=== PATIENT | male | born 1950 | race Caucasian/White ===

== ENCOUNTER 2020-01-15 15:42 | Outpatient (CLI) | payer BC, SELFPAY ==
--- NOTE | 2020-01-15 16:07 | ECG_ITS ---
Measurements Intervals [place] Rate: 63 P: 56 NV: 134 QRS: 57 QRSD: 86 T: 87 QT: 428 QTc: 440 Interpretive Statements SINUS RHYTHM INCOMPLETE RIGHT BUNDLE BRANCH BLOCK VOLTAGE CRITERIA FOR LVH BORDERLINE ST-T WAVE ABNORMALITY- INF/LAT LEADS BORDERLINE ECG Electronically Signed On 01-15-2020 17:17:08 BRIDGE TOLL COLLECTOR by Virgil Santos D.O.
== END 2020-01-15 15:43 | disposition home or self-care (01) ==
PROVIDERS: PCP Internal Medicine; Visit Provider Nurse Practitioner
DX: R94.31 Abnormal electrocardiogram [ECG] [EKG] (principal)
CPT/HCPCS: 93005

== ENCOUNTER 2020-08-09 16:46 | Outpatient (CLI) | payer BC, SELFPAY ==
[2020-08-09 17:17] LABS: Basophils Absolute Auto 0.1 K/mm3 (0.0-0.1); Eosinophils Absolute Auto 0.3 K/mm3 (0-0.3); Eosinophils Percent Auto 5.2 % (0-4.4); Hematocrit 48.1 % (42.0-52.0); Hemoglobin 15.8 g/dL (14.0-18.0); Immature Granulocyte Absolute 0.05 K/mm3 (0.00-0.031); Immature Granulocyte Percent A 0.8 % (0-0.5); Lymphocytes Absolute Auto 1.17 K/mm3 (0.9-3.2); Lymphocytes Percent Auto 19.1 % (18.3-44.2); Mean Corpuscular HGB Conc 32.8 g/dl (32-36); Mean Corpuscular Hemoglobin 29.6 pg (26-34); Mean Corpuscular Volume 90.1 fl (80-100); Mean Platelet Volume 10.3 fl (7.4-10.4); Monocytes Absolute Auto 0.5 K/mm3 (0.1-0.6); Monocytes Percent Auto 7.4 % (2.6-8.5); Neutrophils Absolute Auto 4.1 K/mm3 (1.3-6.7); Neutrophils Percent Auto 66.5 % (45.5-73.1); Platelet Count Result 158 k/mm3 (150-375); Red Blood Count 5.34 M/mm3 (4.6-6.20); Red Cell Distribution Width 13.5 % (11.5-14.5); White Blood Count 6.1 K/mm3 (4.5-10.0)
[2020-08-09 17:20] LABS: Add Urine Microscopic? YES; Appearance Urine Clear (Clear); Bilirubin Urine Negative (Negative); Blood Urine Negative (Negative); Color Urine Yellow (Yellow); Glucose Urine UA Negative (Negative); Ketones Urine Negative (Negative); Leukocyte Esterase Ur Negative LEU/UL (Negative); Mucus Urine Rare /lpf; Nitrate Urine Negative (Negative); Protein Urine 1+ mg/dL (Negative); RBC Urine 0-2 /hpf (0-2); Specific Grav Ur 1.021 (1.001-1.035); Squamous Epithelial Cell Urine Rare /hpf (Few); Urobilinogen Urine Negative mg/dL (<2.0); WBC Urine 0-3 /hpf
[2020-08-09 17:32] LABS: Hemoglobin A1C 7.1 % (<5.7)
[2020-08-09 17:36] LABS: Albumin Level 4.2 g/dL (3.5-5.1); Anion Gap 5 mmol/L (8-16); Blood Urea Nitrogen 22 mg/dL (9-20); Calcium 8.9 mg/dL (8.4-10.2); Carbon Dioxide 32 mmol/L (22-30); Chloride 103 mmol/L (98-107); Estimated Glomerular Filt Rate 60; Glucose 167 mg/dL (75-110); Phosphorus 3.6 mg/dL (2.5-4.5); Potassium 4.3 mmol/L (3.4-5.0); Sodium 140 mmol/L (137-145)
[2020-08-09 17:42] LABS: Erythrocyte Sedimentation Rate 9 mm/hr (0-20)
[2020-08-09 18:02] LABS: Vitamin D 25 Hydroxy 61.6 ng/mL
[2020-08-09 18:06] LABS: Creatinine Urine 188.7 mg/dL
[2020-08-09 18:10] LABS: MALB Creatinine Ratio 85.7 mg/g (0-30); Microalbumin Urine Random 161.8 mg/L (0-16.7)
== END 2020-08-09 16:47 | disposition home or self-care (01) ==
PROVIDERS: PCP Internal Medicine
DX: E11.22 Type 2 diabetes mellitus with diabetic chronic kidney disease (principal); N18.3 Chronic kidney disease, stage 3 (moderate); I50.9 Heart failure, unspecified; E11.65 Type 2 diabetes mellitus with hyperglycemia; R60.9 Edema, unspecified; N39.0 Urinary tract infection, site not specified; Z11.4 Encounter for screening for human immunodeficiency virus [HIV]; Z12.5 Encounter for screening for malignant neoplasm of prostate
CPT/HCPCS: 36415; 80069; 81001; 82043; 82306; 83036; 84550; 85025; 85652

== ENCOUNTER 2021-01-02 16:35 | Outpatient (CLI) | payer BC, SELFPAY ==
--- NOTE | ~2021-01-02 | XR_ITS ---
XR chest 2V 01/02/2021 16:53 Indication: History of Covid Procedure: 2 view chest Comparison: Comparison to multiple prior studies sequentially, with oldest reviewed study dated 09/01. Findings: Heart size normal. No focal air space disease, pulmonary edema, pleural effusion or suspect ed pneumothorax. The lungs are hyperinflated which is consistent with, but not diagnostic of chronic obstructive pulmonary disease. Stable calcified nodule left lower lung zone. Impression: 1: No acute cardiopulmonary disease. Reviewed, dictated and finalized at location A. E TV INSTALLER Impression: 1: No acute cardiopulmonary disease.
== END 2021-01-02 16:36 ==
PROVIDERS: Visit Provider Internal Medicine Cardiovascular Disease
DX: Z20.810 Contact with and (suspected) exposure to anthrax (principal); G47.33 Obstructive sleep apnea (adult) (pediatric); Z86.16 Personal history of COVID-19
CPT/HCPCS: 71046

== ENCOUNTER 2021-06-05 16:56 | Emergency (ER) | payer MEDICARE, BC, SELFPAY ==
[2021-06-05 17:07] VITALS: BP 109/64; PULSE 89; RESP 16; TEMP 36.4; O2SAT 99
--- NOTE | 2021-06-05 18:05 | ED.EXTPRO ---
HPI - Extremity Problem General Chief complaint: Extremity Problem,Nontraumatic Stated complaint: lt big toe pain/groin pain History of Present Illness HPI Narrative: The patient, on several meds including insulin and with several allergies, presents with toe discomfort. Patient states he has 1/2-week history of left medial toe discomfort that is pink, slightly painful and and worse with activity and better with elevation. No fever, streaking, discharge; patient also advised to follow-up with PMD and wound clinic [reference provided]. Patient reports several allergies, but can actually take Tylenol Related Data Home Medications Medication Instructions Recorded Confirmed magnesium gluconate 27 mg 27 mg PO DAILY tablet 12/25/19 04/14/21 magnesium (500 mg) tablet aspirin 325 mg tablet 325 mg PO DAILY 09/19/20 04/14/21 mqqsz-v-amrjbizqyvujg 150 unit 150 unit PO DAILY tablet 10/10/20 04/14/21 tablet sennosides 8.6 mg-docusate sodium 2 tab-cap PO BID tablet 10/10/20 04/14/21 50 mg tablet clobetasol 0.05 % scalp solution ml TOPICAL 12/26/20 04/14/21 hydroxyzine HCl 25 mg tablet 25 mg PO ONCE tablet 12/26/20 04/14/21 nifedipine 30 mg tablet,extended 30 mg PO DAILY tablet 12/26/20 04/14/21 release losartan 25 mg tablet 25 mg PO DAILY 02/16/21 04/14/21 ergocalciferol (vitamin D2) 1,250 100,000 unit PO WEEKLY cap 04/14/21 04/14/21 mcg (50,000 unit) capsule insulin regular hum U-500 conc 500 40 unit SUBCUT ONCE ml 04/14/21 04/14/21 unit/mL subcutaneous soln chlorthalidone 06/05/21 ergocalciferol (vitamin D2) 06/05/21 gabapentin 06/05/21 mirabegron [Myrbetriq] mg PO 06/05/21 oxybutynin chloride mg PO 06/05/21 Allergies Allergy/AdvReac Type Severity Reaction Status Date / Time Cephalosporins Allergy Mild SHORTNESS Verified 06/05/21 17:14 OF BREATH amoxicillin Allergy Unknown Unknown Verified 06/05/21 17:14 clavulanic acid Allergy Unknown Unknown Verified 06/05/21 17:14 hydrocodone Allergy Unknown Confusion Verified 06/05/21 17:14 oxycodone [From OxyContin] Allergy Unknown Unknown Verified 06/05/21 17:14 Sulfa (Sulfonamide Allergy Unknown Other Verified 06/05/21 17:14 Antibiotics) acetaminophen [From Vicodin] Allergy Unknown Verified 06/05/21 17:14 lisinopril Allergy Unknown Verified 06/05/21 17:14 norepinephrine Allergy Unknown Verified 06/05/21 17:14 [From Levophed (bitartrate)] morphine AdvReac Severe Jittery Verified 06/05/21 17:14 nitroglycerin AdvReac Unknown HEART RATE Verified 06/05/21 17:14 GOES DOWN FAST Cont[employer] Media Allergy Mild Rash Uncoded 06/05/21 17:14 CYCLOBENZAPRINE HCL Allergy Mild Other Uncoded 06/05/21 17:14 Review of Systems Review of Systems: Narrative: Also mentions that he has chronic right-sided abdominal discomfort after hernia repair with mesh. No fever, vomiting/diarrhea, frequency/dysuria, mass-but there is mild asymmetry. He has had CT scan, and ultrasound General/Constitutional: No weight loss,fever Eyes: N0: Redness,discharge Ears/Nose/Throat: No: Epistaxis,ear discharge Respiratory: Denies: Hemoptysis Gastrointestinal: No Vomiting, Bleeding-rectal Skin: No Lumps, REPORTS eruption Neurologic: No Focal Weakness,Sz Hematologic: Denies: Petechiae/Purpura Psychiatric: No: Suicida ideationl All Other Systems: Reviewed and Negative [facility] Past Medical History Medical History (Updated 06/07/21 @ 10:35 by Foreign Ruiz MD) Adenomatous colon polyp Anxiety Arthritis Bigeminy Bone spur of other site Removed left shoulder CAD (coronary artery disease) CKD (chronic kidney disease) Coarctation of aorta 1965 Depression Diarrhea GERD (gastroesophageal reflux disease) Heart murmur Hemorrhoids Removed Hepatitis B History of intestine removal 2014 Hypercholesterolemia Hypertension Hypokalemia Hypomagnesemia Kidney stone MRSA (methicillin resistant staph aureus) culture positive 2015 Peripheral neuropathy Rectal polyp Recurr
== END 2021-06-05 18:20 | disposition home or self-care (01) ==
PROVIDERS: Emergency Provider Emergency Medicine; PCP Internal Medicine
DX: L03.032 Cellulitis of left toe (principal); L60.0 Ingrowing nail; M19.90 Unspecified osteoarthritis, unspecified site; I25.10 Atherosclerotic heart disease of native coronary artery without angina pectoris; I12.9 Hypertensive chronic kidney disease with stage 1 through stage 4 chronic kidney disease, or unspecified chronic kidney disease; N18.9 Chronic kidney disease, unspecified; K21.9 Gastro-esophageal reflux disease without esophagitis; R01.1 Cardiac murmur, unspecified; E78.00 Pure hypercholesterolemia, unspecified; Z86.14 Personal history of Methicillin resistant Staphylococcus aureus infection; G62.9 Polyneuropathy, unspecified
CPT/HCPCS: 99213; G0463

== ENCOUNTER 2021-06-22 08:33 | Outpatient (CLI) | payer MEDICARE, BC, SELFPAY ==
--- NOTE | ~2021-06-22 | US_ITS ---
EXAMINATION: US art doppler w press LE BI DATE: 06/22/2021 09:29 INDICATION: Lower limb pain TECHNIQUE: Segmental pressures and plethysmographic and Doppler waveforms of the brachial and lower e xtremity arteries were obtained. COMPARISON: None. FINDINGS: Right and left brachial artery pressures of 107 mm Hg and 111 mm Hg, respectively, are concordant (no rmal difference <= 30 mmHg). The right and left high-thigh pressure indices are 1.59 and 1.31, respec tively (normal > 1.2). The right ankle-brachial index (PATRICK) is 1.75 (normal >= 0.9-1). The right great toe-brachial index (T BI) is 0.87 (normal >= 0.6-0.8). The right lower extremity segmental pressure gradients are increased between the right dorsalis pedis artery and the more proximal right wohwl-nkc-pggi popliteal artery, the right posterior tibial artery at the same level as well as the contralateral left dorsalis pedis artery (normal gradients <= 20-30 mmHg between adjacent levels on the same leg or the same levels on the two legs). Arterial waveforms are triphasic at the right common femoral artery and biphasic at t he right superficial femoral, popliteal, posterior tibial and dorsalis pedis arteries with brisk syst olic upstrokes throughout. The left PATRICK is 1.62. The left TBI is 0.86. The left lower extremity segmental pressure gradients are normal. Arterial waveforms are triphasic at the left common femoral artery and biphasic at the left superficial femoral, popliteal, posterior tibial and dorsalis pedis arteries with brisk systolic upst rokes throughout. IMPRESSION: 1. Normal PATRICK's and TBI's bilaterally. No significant occlusive disease. Reviewed, dictated and finalized at location A.
== END 2021-06-22 08:34 | disposition home or self-care (01) ==
PROVIDERS: PCP Internal Medicine; Visit Provider Podiatrist Foot & Ankle Surgery
DX: I73.9 Peripheral vascular disease, unspecified (principal); M79.606 Pain in leg, unspecified
CPT/HCPCS: 93923

== ENCOUNTER 2021-07-04 13:40 | Outpatient (CLI) | payer MEDICARE, BC, SELFPAY ==
--- NOTE | ~2021-07-04 | CT_ITS ---
EXAMINATION: CT abdomen pelvis w con DATE: 07/04/2021 14:24 INDICATION: Right lower quadrant abdominal pain TECHNIQUE: Computed tomography (CT) of the abdomen and pelvis was performed with 100 cc Omnipaque 350 intravenous contrast. Automated exposure control and iterative reconstruction technique were employe d. Exam dose: 1497.45 mGy-cm total exam DLP. COMPARISON: 09/25/2016 CT abdomen pelvis FINDINGS: The lung bases are clear of infiltrate or consolidation. Normal heart size. No pericardial or pleural effusion. Status post cholecystectomy. No hepatic, splenic, pancreatic, and adrenal or renal space-occupying ma ss lesion is noted, the exception of probable 7 mm upper pole left renal cyst and smaller anterior mi d right renal cyst. Bilateral renal scarring and atrophy, greater on the right. Approximately 4.6 mm nonobstructing mid right renal calculus. No other urinary tract calculus or hydr oureteronephrosis. Normal caliber of the abdominal aorta. No intraperitoneal or retroperitoneal or pelvic mass lesion or adenopathy or ascites. There is prominent prostate enlargement and calcification. There is prominent diffuse thickening of t he urinary bladder wall consistent with bladder outlet obstruction secondary to prostatomegaly. The appendix is not visualized, likely resected. There is a mid small bowel anastomosis. There is mild small bowel dilatation up to approximately 3.2 cm proximal to the anastomosis, with some fluid distention and air-fluid levels. The small bowel is n ormal caliber distal to the anastomosis. There may be mild partial obstruction at the anastomotic are a. Small bowel dilatation however is diminished compared to 09/25/2016. There is a moderately prominent amount of fecal material throughout most of the colon. No intraperitoneal free air. Approximately 1 cm sclerotic lesion of left side of L2 vertebral body is likely a bone island, less l ikely prostate metastasis. Diffuse idiopathic skeletal hyperostosis of the thoracic spine. Bilateral hip osteoarthritis. IMPRESSION: Small bowel small bowel anastomosis in the mid abdomen with mild proximal small bowel di latation and air-fluid levels, likely chronic mild partial small bowel obstruction The appendix is not visualized, presumably resected Status post cholecystectomy Bilateral pyelonephritis, worse on the right Nonobstructing 4.6 mm right renal calculus Prostatomegaly and calcification, bladder outlet obstruction Reviewed, dictated and finalized at [facility]. Reviewed, dictated and finalized at [facility]. IMPRESSION: Small bowel small bowel anastomosis in the mid abdomen with mild p roximal small bowel dilatation and air-fluid levels, likely chronic mild partia l small bowel obstruction The appendix is not visualized, presumably resected Status post cholecystectomy Bilateral pyelonephritis, worse on the right Nonobstructing 4.6 mm right renal calculus Prostatomegaly and calcification, bladder outlet obstruction
[2021-07-04 14:04] LABS: Estimated Glomerular Filt Rate 46
== END 2021-07-04 13:41 | disposition home or self-care (01) ==
LOC: ANHIMG 13:43
PROVIDERS: PCP Internal Medicine; Visit Provider Nurse Practitioner Adult Health
DX: R10.31 Right lower quadrant pain (principal); N20.0 Calculus of kidney; N40.1 Benign prostatic hyperplasia with lower urinary tract symptoms; N13.8 Other obstructive and reflux uropathy
CPT/HCPCS: 74177; Q9967

== ENCOUNTER 2021-07-05 17:05 | Emergency (ER) | payer MEDICARE, BC, SELFPAY ==
[2021-07-05 17:16] VITALS: BP 110/58; PULSE 85; RESP 16; TEMP 37.1; O2SAT 98
--- NOTE | 2021-07-05 17:37 | ED.LOWEXIN ---
HPI - Extremity Injury (Lower) General Chief Complaint: Extremity Problem,Nontraumatic Stated Complaint: Left leg and foot Pain Time Seen by Provider: 07/05/21 17:19 Source: patient and RN notes reviewed Mode of arrival: ambulatory Limitations: no limitations History of Present Illness HPI Narrative: Patient presents today complaining of pain to his left anterior lower leg x4 to 5 days. He also reports that veins are popping out of it. He became concerned and called his PCPs office this evening and was told by receptionist to go to the hospital with concerns. Denies numbness or tingling in the leg or foot. Denies any known discoloration. Currently rates pain 08/11 and has tried no medication for symptoms prior to arrival. 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 MD complaint: other (Left leg pain) Related Data Home Medications Medication Instructions Recorded Confirmed magnesium gluconate 27 mg 27 mg PO DAILY tablet 12/25/19 04/14/21 magnesium (500 mg) tablet aspirin 325 mg tablet 325 mg PO DAILY 09/19/20 04/14/21 ndgjm-y-wsemaztdzoset 150 unit 150 unit PO DAILY tablet 10/10/20 04/14/21 tablet sennosides 8.6 mg-docusate sodium 2 tab-cap PO BID tablet 10/10/20 04/14/21 50 mg tablet clobetasol 0.05 % scalp solution ml TOPICAL 12/26/20 04/14/21 hydroxyzine HCl 25 mg tablet 25 mg PO ONCE tablet 12/26/20 04/14/21 nifedipine 30 mg tablet,extended 30 mg PO DAILY tablet 12/26/20 04/14/21 release losartan 25 mg tablet 25 mg PO DAILY 02/16/21 04/14/21 ergocalciferol (vitamin D2) 1,250 100,000 unit PO WEEKLY cap 04/14/21 04/14/21 mcg (50,000 unit) capsule chlorthalidone 06/05/21 gabapentin 06/05/21 oxybutynin chloride mg PO 06/05/21 insulin regular hum U-500 conc 500 40 unit SUBCUT ONCE ml 06/27/21 unit/mL subcutaneous soln Allergies Allergy/AdvReac Type Severity Reaction Status Date / Time Cephalosporins Allergy Mild SHORTNESS Verified 06/05/21 17:14 OF BREATH amoxicillin Allergy Unknown Unknown Verified 06/05/21 17:14 clavulanic acid Allergy Unknown Unknown Verified 06/05/21 17:14 hydrocodone Allergy Unknown Confusion Verified 06/05/21 17:14 oxycodone [From OxyContin] Allergy Unknown Unknown Verified 06/05/21 17:14 Sulfa (Sulfonamide Allergy Unknown Other Verified 06/05/21 17:14 Antibiotics) acetaminophen [From Vicodin] Allergy Unknown Verified 06/05/21 17:14 lisinopril Allergy Unknown Verified 06/05/21 17:14 norepinephrine Allergy Unknown Verified 06/05/21 17:14 [From Levophed (bitartrate)] morphine AdvReac Severe Jittery Verified 06/05/21 17:14 nitroglycerin AdvReac Unknown HEART RATE Verified 06/05/21 17:14 GOES DOWN FAST Contrast Media Allergy Mild Rash Uncoded 06/05/21 17:14 CYCLOBENZAPRINE HCL Allergy Mild Other Uncoded 06/05/21 17:14 Review of Systems Review of Systems: CONSTITUTIONAL: Denies body aches, fever, chills, or sweats. EYES: Denies visual changes, redness, or discharge. ENT: Denies rhinorrhea, congestion, sore throat, or otalgia. CARDIOVASCULAR: Denies chest pain, palpitations, or edema. RESPIRATORY: Denies cough or dyspnea. GASTROINTESTINAL: Denies abdominal pain, nausea, vomiting, or diarrhea. GENITOURINARY: Denies dysuria or hematuria. SKIN: Denies rash, itching, or wounds. MUSCULOSKELETAL: Denies back pain, joint pain, or myalgia. Left leg pain and veins popping out NEUROLOGIC: Denies headache, numbness, tingling, or weakness. PSYCH: Denies depression or anxiety. [facility] Past Medical History Medical History Adenomatous colon polyp Anxiety Arthritis Bigeminy Bone spur of other site Removed left shoulder CAD (coronary artery disease) CKD (chronic kidney disease) Coarctation of aorta 1965 Depression Diarrhea GERD (gastroesophageal reflux disease) Heart murmur Hemorrhoids Removed Hepatitis B History of intes
== END 2021-07-05 17:45 | disposition home or self-care (01) ==
PROVIDERS: Emergency Provider Nurse Practitioner; PCP Internal Medicine
DX: M79.662 Pain in left lower leg (principal); I25.10 Atherosclerotic heart disease of native coronary artery without angina pectoris; I12.9 Hypertensive chronic kidney disease with stage 1 through stage 4 chronic kidney disease, or unspecified chronic kidney disease; N18.9 Chronic kidney disease, unspecified; K21.9 Gastro-esophageal reflux disease without esophagitis; R01.1 Cardiac murmur, unspecified; E78.00 Pure hypercholesterolemia, unspecified; Z86.14 Personal history of Methicillin resistant Staphylococcus aureus infection; G62.9 Polyneuropathy, unspecified
CPT/HCPCS: 99212; G0463

== ENCOUNTER 2021-08-11 09:43 | Outpatient (CLI) | payer MEDICARE, BC, SELFPAY ==
--- NOTE | 2021-08-12 23:57 | WPDPFTINT ---
PFT Procedure Performed PFT Procedure Performed Plethysmography (Lung Vol) Diffusing Cap (DLCO) Flow Vol Loop Spirometry w/o Bronchodil PFT Interpretation DOS: 08/11/2021 REQUESTING: Tyler Curtis MD REASON FOR TESTING: Dyspnea PULMONARY FUNCTION TESTS Results are reliable and reproducible. Spirometry: FEV1 is 82% predicted, 3.03 L. Forced vital capacity is 84% normal. FEV1/FVC is 74% normal. No bronchodilator was given. Lung volumes: Total lung capacity normal 83% predicted. Residual volume is 92% predicted. The RV/TLC is 37%, mildly increased consistent with air trapping. Airway resistance is normal 104% of predicted. Diffusion: DLCO 76%,and this increases to 96% when corrected for alveolar volume. Flow volume loop: Normal. IMPRESSION: Normal spirometry, mild air trapping evidenced by mild increase of RV/TLC, normal diffusion. No bronchodilator was given. Vijaya Rivera MD
== END 2021-08-11 09:44 | disposition home or self-care (01) ==
LOC: ANHPFT 09:50
PROVIDERS: PCP Internal Medicine
DX: R05 Cough (principal); D89.9 Disorder involving the immune mechanism, unspecified; T78.40XA Allergy, unspecified, initial encounter
CPT/HCPCS: 94375; 94726; 94729

== ENCOUNTER 2022-03-02 18:07 | Outpatient (CLI) | payer MEDICARE, SELFPAY ==
--- NOTE | ~2022-03-02 | XR_ITS ---
EXAMINATION: XR hip RT min 2V DATE: 03/02/2022 18:35 INDICATION: Right hip pain. TECHNIQUE: 2 views of right hip were obtained. COMPARISON: None. FINDINGS: Bone alignment is normal. No fracture. There is mild right hip osteoarthritis. IMPRESSION: 1. Mild right hip osteoarthritis. Reviewed, dictated and finalized at location [facility].
== END 2022-03-02 18:08 | disposition home or self-care (01) ==
PROVIDERS: PCP Internal Medicine; Visit Provider Nurse Practitioner
DX: M25.551 Pain in right hip (principal); M16.11 Unilateral primary osteoarthritis, right hip
CPT/HCPCS: 73502

== ENCOUNTER 2022-07-16 12:39 | Outpatient (CLI) | payer MEDICARE, SELFPAY ==
[2022-07-16 21:07] LABS: Folic Acid 11.4 ng/mL (2.76->20)
[2022-07-16 21:23] LABS: Hepatitis C Virus Antibody Negative (Negative)
[2022-07-17 09:34] LABS: Rapid Plasma Reagin Non-Reactive (NonReactive)
[2022-07-19 07:49] LABS: Herpes Simplex Type 1 DNA PCR Not Detected; Herpes Simplex Type 2 DNA PCR Not Detected
== END 2022-07-16 12:40 | disposition home or self-care (01) ==
LOC: ANHGOSHLAB 12:42
PROVIDERS: PCP Internal Medicine; Visit Provider Nurse Practitioner
DX: R41.3 Other amnesia (principal); Z72.51 High risk heterosexual behavior
CPT/HCPCS: 36415; 82607; 82746; 84443; 86592; 86803; 87491; 87529; 87591

== ENCOUNTER 2022-09-05 01:19 | Day surgery (SDC) | payer MEDICARE, SELFPAY ==
[2022-08-28 10:39] VITALS: BMI 33.4
--- NOTE | 2022-09-04 14:05 | PC.NURSE ---
PT CALLED CONCERNED ABOUT HIS INSULIN DOSING DURING HIS COLON PREP. INSTRUCTED TO PATIENT TO CALL HIS DOCTOR THAT TREATS HIS DIABETES- DR. SHEA, HE AGREES TO DO THIS AND WILL CALL HER FOR INSTRUCTIONS
--- NOTE | 2022-09-04 17:43 | PM.HPGS ---
History of Present Illness History of Present Illness Consent: Risks, benefits, and alternatives have been discussed and questions answered. Patient agrees to proceed with procedure. Chief complaint: GERD; hx of colon polyps Narrative: oGrdo Hale is a 72 year old male referred for colon cancer screening. He had a tubular adenoma removed in 2013 Review of Systems Review of Systems: All systems reviewed & are unremarkable except as noted in HPI and below PMFSH Past Medical History Medical History Adenomatous colon polyp Anxiety Arthritis Bigeminy Bone spur of other site Removed left shoulder CAD (coronary artery disease) CKD (chronic kidney disease) Coarctation of aorta 1965 Depression Diarrhea GERD (gastroesophageal reflux disease) Heart murmur Hemorrhoids Removed Hepatitis B History of intestine removal 2014 History of [place] (myocardial infarction) Hypercholesterolemia Hypertension Hypokalemia Hypomagnesemia Kidney stone MRSA (methicillin resistant staph aureus) culture positive 2014 Peripheral neuropathy Rectal polyp Recurrent UTI Surgical History Surgical History H/O hernia repair H/O knee surgery History of carpal tunnel release Left 07/2019 History of cataract surgery Status post surgical removal of nail matrix of toe Family History Family History Sibling Family history of thyroid disease Hypertension Family history of diabetes mellitus in first degree relative Family history of obesity Patient's sister is in good health Diabetes mellitus Mother Hypertension Family history of diabetes mellitus in first degree relative Family history of thyroid disease Family history of osteoporosis Patient's mother is in good health Cerebrovascular accident Family history of Alzheimer's disease Family history of hearing loss Family history of transient ischemic attacks Father Asthma Patient's father is Family history of chronic obstructive pulmonary disease Acute myocardial infarction Family history of lung disease, Onset Age: 64 Social History Social History Smoking status: Never smoker Second hand tobacco smoke exposure: No Alcohol intake: never Substance use: never Substance use type: does not use Living arrangements: alone Spiritual care concerns: No Meds Home Medications and Allergies Home Medications Medication Instructions Recorded Confirmed Type pen needle, diabetic 31 gauge x #100 ea 11/18/19 07/11/22 Rx 3/16 (BD Ultra-Fine Mini Pen Needle) insulin regular hum U-500 conc 500 80 unit subcut QACBREAK 06/27/21 08/28/22 History unit/mL subcutaneous soln (Humulin R U-500 (Concentrated) Insulin) amlodipine 10 mg tablet 10 mg PO DAILY 08/01/22 08/28/22 History atorvastatin 80 mg tablet 80 mg PO QHS #90 tabs 08/01/22 08/28/22 Rx calcitriol 0.25 mcg capsule 0.25 mcg PO DAILY 08/01/22 08/28/22 History clopidogrel 75 mg tablet (Plavix) 75 mg PO DAILY #90 tabs 08/01/22 08/28/22 Rx metoprolol tartrate 50 mg tablet 50 mg PO DAILY 08/01/22 08/28/22 History potassium chloride 20 mEq 20 meq PO DAILY 08/01/22 08/28/22 History tablet,extended release tamsulosin 0.4 mg capsule 0.4 mg PO DAILY 08/01/22 08/28/22 History aspirin 81 mg chewable tablet 81 mg PO DAILY 08/28/22 08/28/22 History Allergies Allergy/AdvReac Type Severity Reaction Status Date / Time Sulfa (Sulfonamide Allergy Severe Dyspnea / Verified 09/05/22 08:07 Antibiotics) SOB amoxicillin Allergy Intermediate Dyspnea / Verified 09/05/22 08:07 SOB Cephalosporins Allergy Intermediate SHORTNESS Verified 09/05/22 08:07 OF BREATH clavulanic acid Allergy Intermediate Dyspnea / Verified 09/05/22 08:07 SOB hydrocodone Allergy Intermediate
[2022-09-05] VITALS (9 sets, daily range): BP systolic 128–157; BP diastolic 74–86; PULSE 72–89; RESP 23–27; O2SAT 97–100
[2022-09-05] MEDS: LACTATED RINGERS 1,000 ML 150 ML IV CONT ×2 (08:24→09:22)
--- NOTE | 2022-09-05 08:32 | WPDANESEPPF ---
Anes - Initial Pre Proc Eval Procedure: Operation Date: 09/05/22 09:30 Proposed Procedures p Esophagogastroduodenoscopy & Screening Colonoscopy - Gordo Trejo MD Date/Time: 09/05/22 08:32 Surgeon: Gordo Trejo MD Pre Op Diagnosis: GERD; hx of colon polyps Patient Data Age: 72 Gender: M Height: 1.88 m Weight: 114.6 kg Allergies Allergy/AdvReac Type Severity Reaction Status Date / Time Sulfa (Sulfonamide Allergy Severe Dyspnea / Verified 09/05/22 08:07 Antibiotics) SOB amoxicillin Allergy Intermediate Dyspnea / Verified 09/05/22 08:07 SOB Cephalosporins Allergy Intermediate SHORTNESS Verified 09/05/22 08:07 OF BREATH clavulanic acid Allergy Intermediate Dyspnea / Verified 09/05/22 08:07 SOB hydrocodone Allergy Intermediate Confusion Verified 09/05/22 08:07 oxycodone [From OxyContin] Allergy Intermediate Confusion Verified 09/05/22 08:07 acetaminophen [From Vicodin] Allergy Confusion Verified 09/05/22 08:07 lisinopril Allergy Unknown Verified 09/05/22 08:07 norepinephrine Allergy Unknown Verified 09/05/22 08:07 [From Levophed (bitartrate)] morphine AdvReac Severe Jittery Verified 09/05/22 08:07 nitroglycerin AdvReac Unknown HEART RATE Verified 09/05/22 08:07 GOES DOWN FAST CYCLOBENZAPRINE HCL Allergy Intermediate Stopped Uncoded 09/05/22 08:07 Breathing Home Medications Medication Instructions Recorded Confirmed Type pen needle, diabetic 31 gauge x #100 ea 11/18/19 07/11/22 Rx 3/16 (BD Ultra-Fine Mini Pen Needle) insulin regular hum U-500 conc 500 80 unit subcut QACBREAK 06/27/21 08/28/22 History unit/mL subcutaneous soln (Humulin R U-500 (Concentrated) Insulin) amlodipine 10 mg tablet 10 mg PO DAILY 08/01/22 08/28/22 History atorvastatin 80 mg tablet 80 mg PO QHS #90 tabs 08/01/22 08/28/22 Rx calcitriol 0.25 mcg capsule 0.25 mcg PO DAILY 08/01/22 08/28/22 History clopidogrel 75 mg tablet (Plavix) 75 mg PO DAILY #90 tabs 08/01/22 08/28/22 Rx metoprolol tartrate 50 mg tablet 50 mg PO DAILY 08/01/22 08/28/22 History potassium chloride 20 mEq 20 meq PO DAILY 08/01/22 08/28/22 History tablet,extended release tamsulosin 0.4 mg capsule 0.4 mg PO DAILY 08/01/22 08/28/22 History aspirin 81 mg chewable tablet 81 mg PO DAILY 08/28/22 08/28/22 History pantoprazole 40 mg tablet,delayed 40 mg PO QAM #30 tabs 09/05/22 Rx release Patient hx anesthesia problems: none Family hx anesthesia problems: none Results Review: All pre-operative results and documents have been reviewed as part of the pre-operative evaluation. [facility] Past Medical History Medical History Adenomatous colon polyp Anxiety Arthritis Bigeminy Bone spur of other site Removed left shoulder CAD (coronary artery disease) CKD (chronic kidney disease) Coarctation of aorta 1964 Depression Diarrhea GERD (gastroesophageal reflux disease) Heart murmur Hemorrhoids Removed Hepatitis B History of intestine removal 2014 History of [place] (myocardial infarction) Hypercholesterolemia Hypertension Hypokalemia Hypomagnesemia Kidney stone MRSA (methicillin resistant staph aureus) culture positive 2014 Peripheral neuropathy Rectal polyp Recurrent UTI Surgical History Surgical History H/O hernia repair H/O knee surgery History of carpal tunnel release Left 07/2019 History of cataract surgery Status post surgical removal of nail matrix of toe Family History Family History Sibling Family history of thyroid disease Hypertension Family history of diabetes mellitus in first degree relative Family history of obesity Patient's sister is in good health Diabetes mellitus Mother Hypertension Family history of diabetes mellitus in first degree relative Family history of thyroid disease Family history of osteopor
[2022-09-05 08:38] LABS: Glucose Point of Care 216 mg/dl (65-105)
--- NOTE | 2022-09-05 09:26 | SUR.OPER ---
EGD start 925 end 936, Colonoscopy start 944 end 1001
[2022-09-05] MEDS: SIMETHICONE ORAL SUSPENSION 20 MG/0.3 ML 30 ML BOTTLE 0.6 ML IRRIGATION (09:51)
[2022-09-05 10:20] LABS: Glucose Point of Care 226 mg/dl (65-105)
--- NOTE | 2022-09-05 11:12 | SUR.PHASEII ---
Pt still very drowsy,opens his eyes then falls back asleep. Blood sugar checked. Doreen (pt's daughter updated).
== END 2022-09-05 11:38 | disposition home or self-care (01) ==
PROVIDERS: PCP Internal Medicine; Visit Provider Internal Medicine Gastroenterology
PROC: 0DJ08ZZ Inspection of Upper Intestinal Tract, Via Natural or Artificial Opening Endoscopic (ICD-10-PCS; CPT 43235; principal; 2022-09-05 09:30)
DX: Z12.11 Encounter for screening for malignant neoplasm of colon (principal); D12.8 Benign neoplasm of rectum; D12.2 Benign neoplasm of ascending colon; D12.3 Benign neoplasm of transverse colon; K21.00 Gastro-esophageal reflux disease with esophagitis, without bleeding; K22.2 Esophageal obstruction; Z79.82 Long term (current) use of aspirin; Z79.51 Long term (current) use of inhaled steroids; F41.9 Anxiety disorder, unspecified; M19.90 Unspecified osteoarthritis, unspecified site; I25.10 Atherosclerotic heart disease of native coronary artery without angina pectoris; I12.9 Hypertensive chronic kidney disease with stage 1 through stage 4 chronic kidney disease, or unspecified chronic kidney disease; N18.9 Chronic kidney disease, unspecified; F32.A Depression, unspecified; I25.2 Old myocardial infarction; R01.1 Cardiac murmur, unspecified; B19.10 Unspecified viral hepatitis B without hepatic coma; E87.6 Hypokalemia; E83.42 Hypomagnesemia; G62.9 Polyneuropathy, unspecified; E66.9 Obesity, unspecified; Z68.32 Body mass index [BMI] 32.0-32.9, adult
CPT/HCPCS: 45385; 43239; 43249; 82948; 87081; 88305; C1726; J2704; J7120

== ENCOUNTER 2022-11-23 00:27 | Day surgery (SDC) | payer MEDICARE, SELFPAY ==
[2022-11-19 11:41] VITALS: BMI 32.4
--- NOTE | 2022-11-23 08:45 | PM.HPGS ---
History of Present Illness History of Present Illness Consent: Risks, benefits, and alternatives have been discussed and questions answered. Patient agrees to proceed with procedure. Chief complaint: Reflex, Esophagitis, Esophageal Stricture Narrative: Gordo Hale is a 72 year old male who had been having dysphagia and reflux symptoms. Two months ago he was found have severe ulcerative esophagitis. He also had a stricture at the GE junction which was dilated up to 18 mm. He has not had choking spells since then. Review of Systems Review of Systems: All systems reviewed & are unremarkable except as noted in HPI and below PMFSH Past Medical History Medical History Adenomatous colon polyp Anxiety Arthritis Bigeminy Bone spur of other site Removed left shoulder CAD (coronary artery disease) CKD (chronic kidney disease) Coarctation of aorta 1964 Depression Diarrhea GERD (gastroesophageal reflux disease) Heart murmur Hemorrhoids Removed Hepatitis B History of intestine removal 2014 History of [place] (myocardial infarction) Hypercholesterolemia Hypertension Hypokalemia Hypomagnesemia Kidney stone MRSA (methicillin resistant staph aureus) culture positive 2014 Peripheral neuropathy Rectal polyp Recurrent UTI Surgical History Surgical History H/O hernia repair H/O knee surgery History of carpal tunnel release Left 07/2019 History of cataract surgery Status post surgical removal of nail matrix of toe Family History Family History Sibling Family history of thyroid disease Hypertension Family history of diabetes mellitus in first degree relative Family history of obesity Patient's sister is in good health Diabetes mellitus Mother Hypertension Family history of diabetes mellitus in first degree relative Family history of thyroid disease Family history of osteoporosis Patient's mother is in good health Cerebrovascular accident Family history of Alzheimer's disease Family history of hearing loss Family history of transient ischemic attacks Father Asthma Patient's father is Family history of chronic obstructive pulmonary disease Acute myocardial infarction Family history of lung disease, Onset Age: 64 Social History Social History Smoking status: Never smoker Second hand tobacco smoke exposure: No Alcohol intake: never Substance use: never Substance use type: does not use Lack of Transportation: No Lack of Food: Never True Current Housing: I Have Housing Concerned About Future Housing: No Difficulty Paying Gas/Electric Bills: No Difficulty Paying for Meds: YES Currently Unemployed: No Education: High School Diploma/GED Difficulty w/ Childcare or Family Care: No Living arrangements: alone Spiritual care concerns: No Meds Home Medications and Allergies Home Medications Medication Instructions Recorded Confirmed Type pen needle, diabetic 31 gauge x #100 ea 11/18/19 11/19/22 Rx 3/16 (BD Ultra-Fine Mini Pen Needle) insulin regular hum U-500 conc 500 80 unit subcut QACBREAK 06/27/21 11/19/22 History unit/mL subcutaneous soln (Humulin R U-500 (Concentrated) Insulin) amlodipine 10 mg tablet 10 mg PO HS 08/01/22 11/20/22 History atorvastatin 80 mg tablet 80 mg PO QHS #90 tabs 08/01/22 11/19/22 Rx calcitriol 0.25 mcg capsule 0.25 mcg PO HS 08/01/22 11/20/22 History metoprolol tartrate 50 mg tablet 50 mg PO HS 08/01/22 11/20/22 History potassium chloride 20 mEq 20 meq PO DAILY 08/01/22 11/19/22 History tablet,extended release aspirin 81 mg chewable tablet 81 mg PO HS 08/28/22 11/20/22 History tamsulosin 0.4 mg capsule See Rx Instructions .Route 11/07/22 11/19/22 Rx .COMPLEX #90 caps clopidogrel
[2022-11-23 08:46] VITALS: BP 139/71; PULSE 95; RESP 20; TEMP 36.4; O2SAT 97; BMI 35.1
[2022-11-23] MEDS: LACTATED RINGERS 1,000 ML 150 ML IV CONT (09:00)
--- NOTE | 2022-11-23 09:12 | WPDANESEPPF ---
Anes - Initial Pre Proc Eval Procedure: Operation Date: 11/23/22 10:00 Proposed Procedures p Esophagogastroduodenoscopy - Gordo Trejo MD Date/Time: 11/23/22 09:12 Surgeon: Gordo Trejo MD Pre Op Diagnosis: Reflex, Esophagitis, Esophageal Stricture Patient Data Age: 72 Gender: M Height: 1.88 m Weight: 124.1 kg Last Vital Signs Temp 36.4 C L 11/23/22 08:46 Pulse 95 11/23/22 08:46 Resp 20 11/23/22 08:46 BP 139/71 11/23/22 08:46 Pulse Ox 97 11/23/22 08:46 O2 Del Method Room Air 11/23/22 08:46 Allergies Allergy/AdvReac Type Severity Reaction Status Date / Time Sulfa (Sulfonamide Allergy Severe Dyspnea / Verified 11/23/22 08:43 Antibiotics) SOB acetaminophen [From Vicodin] Allergy Intermediate Confusion Verified 11/23/22 08:43 amoxicillin Allergy Intermediate Dyspnea / Verified 11/23/22 08:43 SOB Cephalosporins Allergy Intermediate SHORTNESS Verified 11/23/22 08:43 OF BREATH clavulanic acid Allergy Intermediate Dyspnea / Verified 11/23/22 08:43 SOB hydrocodone Allergy Intermediate Confusion Verified 11/23/22 08:43 oxycodone [From OxyContin] Allergy Intermediate Confusion Verified 11/23/22 08:43 lisinopril Allergy Unknown Unknown Verified 11/23/22 08:43 norepinephrine Allergy Unknown Unknown Verified 11/23/22 08:43 [From Levophed (bitartrate)] morphine AdvReac Severe Jittery Verified 11/23/22 08:43 nitroglycerin AdvReac Unknown HEART RATE Verified 11/23/22 08:43 GOES DOWN FAST CYCLOBENZAPRINE HCL Allergy Intermediate Stopped Uncoded 11/23/22 08:43 Breathing Home Medications Medication Instructions Recorded Confirmed Type pen needle, diabetic 31 gauge x #100 ea 11/18/19 11/19/22 Rx 3/16 (BD Ultra-Fine Mini Pen Needle) insulin regular hum U-500 conc 500 80 unit subcut QACBREAK 06/27/21 11/19/22 History unit/mL subcutaneous soln (Humulin R U-500 (Concentrated) Insulin) amlodipine 10 mg tablet 10 mg PO HS 08/01/22 11/20/22 History atorvastatin 80 mg tablet 80 mg PO QHS #90 tabs 08/01/22 11/19/22 Rx calcitriol 0.25 mcg capsule 0.25 mcg PO HS 08/01/22 11/20/22 History metoprolol tartrate 50 mg tablet 50 mg PO HS 08/01/22 11/20/22 History potassium chloride 20 mEq 20 meq PO DAILY 08/01/22 11/19/22 History tablet,extended release aspirin 81 mg chewable tablet 81 mg PO HS 08/28/22 11/20/22 History tamsulosin 0.4 mg capsule See Rx Instructions .Route 11/07/22 11/19/22 Rx .COMPLEX #90 caps clopidogrel 75 mg tablet (Plavix) 75 mg PO HS 11/20/22 11/20/22 History pantoprazole 40 mg tablet,delayed 40 mg PO HS 11/20/22 11/20/22 History release Patient hx anesthesia problems: none Family hx anesthesia problems: none Results Review: All pre-operative results and documents have been reviewed as part of the pre-operative evaluation. [facility] Past Medical History Medical History Adenomatous colon polyp Anxiety Arthritis Bigeminy Bone spur of other site Removed left shoulder CAD (coronary artery disease) CKD (chronic kidney disease) Coarctation of aorta 1964 Depression Diarrhea GERD (gastroesophageal reflux disease) Heart murmur Hemorrhoids Removed Hepatitis B History of intestine removal 2014 History of [place] (myocardial infarction) Hypercholesterolemia Hypertension Hypokalemia Hypomagnesemia Kidney stone MRSA (methicillin resistant staph aureus) culture positive 2014 Peripheral neuropathy Rectal polyp Recurrent UTI Surgical History Surgical History H/O hernia repair H/O knee surgery History of carpal tunnel release Left 07/2019 History of cataract surgery Status post surgical removal of nail matrix of toe Family History Family History Sibling Family history of thyroid disease Hypertension Family history of diabetes mellitus in
[2022-11-23 09:16] LABS: Glucose Point of Care 232 mg/dl (65-105)
[2022-11-23] MEDS: INSULIN HUMAN REGULAR (*BKC) 100 UNITS/ML 6 UNITS SUB-Q (09:21)
[2022-11-23 09:44] VITALS: BP 131/75; PULSE 87; RESP 25; O2SAT 95
[2022-11-23 09:54] VITALS: BP 115/71; PULSE 88; RESP 20; O2SAT 97
[2022-11-23 10:04] VITALS: BP 112/74; PULSE 84; RESP 19; O2SAT 97
== END 2022-11-23 10:32 | disposition home or self-care (01) ==
PROVIDERS: PCP Internal Medicine; Visit Provider Internal Medicine Gastroenterology
PROC: 0DJ08ZZ Inspection of Upper Intestinal Tract, Via Natural or Artificial Opening Endoscopic (ICD-10-PCS; CPT 43235; principal; 2022-11-23 10:00)
DX: K22.2 Esophageal obstruction (principal); I12.9 Hypertensive chronic kidney disease with stage 1 through stage 4 chronic kidney disease, or unspecified chronic kidney disease; N18.9 Chronic kidney disease, unspecified; I25.10 Atherosclerotic heart disease of native coronary artery without angina pectoris; K21.9 Gastro-esophageal reflux disease without esophagitis; I25.2 Old myocardial infarction; E78.00 Pure hypercholesterolemia, unspecified; Z79.02 Long term (current) use of antithrombotics/antiplatelets; E66.9 Obesity, unspecified; Z68.35 Body mass index [BMI] 35.0-35.9, adult; Z86.19 Personal history of other infectious and parasitic diseases
CPT/HCPCS: 43249; 82948; 88305; 88312; C1726; J1815; J2704; J7120

== ENCOUNTER 2022-12-10 14:18 | Outpatient (CLI) | payer MEDICARE, SELFPAY ==
--- NOTE | ~2022-12-10 | US_ITS ---
EXAMINATION: US art doppler w press LE BI DATE: 12/10/2022 15:15 INDICATION: Peripheral arterial occlusive disease. TECHNIQUE: Segmental pressures and plethysmographic and Doppler waveforms of the brachial and lower e xtremity arteries were obtained. COMPARISON: None. FINDINGS: Right and left brachial artery pressures of 146 mm Hg and 135 mm Hg, respectively, are concordant (no rmal difference <= 30 mmHg). The right and left high-thigh pressure indices were unable to be obtaine d due to patient body habitus. The right ankle-brachial index (PATRICK) is 0.99 (normal >= 0.9-1) based only upon measurement in the rig ht dorsalis pedis artery as the right posterior tibial artery was unable to be occluded. The right gr eat toe-brachial index (TBI) is 0.39 (normal >= 0.6-0.8). Arterial waveforms are biphasic with brisk systolic upstrokes throughout the arteries of the right lower limb. The left PATRICK is 0.97 also based only upon measurement in the left dorsalis pedis artery with the left posterior cerebral artery also unable to be occluded. The left TBI is 0.43. Arterial waveforms are b iphasic with brisk systolic upstrokes throughout the left lower limb. IMPRESSION: 1. Arterial occlusive disease to bilateral lower limbs with mild to moderately decreased bilateral TB Is. Normal bilateral ABIs may be artifactually elevated given the bilateral posterior tibial arteries are unable to be occluded suggesting possible vessel wall calcifications. Reviewed, dictated and finalized at location A. USEL OPERATOR IMPRESSION: 1. 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 Normal bilateral ABIs may be artifactually elevated g iven the bilateral posterior tibial arteries are unable to be occluded suggesti ng possible vessel wall calcifications.
== END 2022-12-10 14:19 | disposition home or self-care (01) ==
PROVIDERS: PCP Internal Medicine; Visit Provider Podiatrist Foot & Ankle Surgery
DX: I73.9 Peripheral vascular disease, unspecified (principal)
CPT/HCPCS: 93923

== ENCOUNTER 2023-02-25 07:55 | Inpatient (IN) | payer MEDICARE, SELFPAY ==
[2023-02-25] VITALS (21 sets, daily range): BP systolic 74–121; BP diastolic 45–68; PULSE 53–69; RESP 12–22; TEMP 36.1–36.6; O2SAT 96–100; BMI 31.1
--- NOTE | ~2023-02-25 | XR_ITS ---
XR chest 2V DATE: 02/25/2023 08:34 INDICATION: Weakness TECHNIQUE: AP and lateral views COMPARISON: January 02, 2021 2 view chest FINDINGS: Comminuted left fourth rib deformity. Scoliosis and degenerative spurring of the thoracic s pine. Normal heart size. No hilar or mediastinal enlargement. No pulmonary infiltrate or consolidation, pleural effusion or pulmonary vascular congestion or pneumo thorax. IMPRESSION: No active cardiopulmonary disease or significant change since January 02, 2021 Reviewed, dictated and finalized at location B. IMPRESSION: No active cardiopulmonary disease or significant change since 2020
--- NOTE | ~2023-02-25 | XR_ITS ---
EXAMINATION: XR chest 1V portable DATE: 02/25/2023 13:38 INDICATION: Hypotension. TECHNIQUE: A single frontal view of the chest was obtained on 2 radiographs. COMPARISON: Chest 2 views at 8:26 AM, CT abdomen and pelvis 07/04/2021 FINDINGS: The chest demonstrates clear lungs without pneumonia, pleural effusion, or pneumothorax. Th e heart size is normal. IMPRESSION: 1. No acute cardiopulmonary disease. Reviewed, dictated and finalized at location A.
--- NOTE | 2023-02-25 08:03 | ECG_ITS ---
Measurements Intervals Fraser Rate: 53 P: 99 FL: 115 QRS: 58 QRSD: 104 T: 134 QT: 506 QTc: 477 Interpretive Statements SINUS BRADYCARDIA WITH SHORT FL INTERVAL INCOMPLETE RIGHT BUNDLE BRANCH BLOCK T WAVE ABNORMALITY IN ANT/HIGH LAT LEADS- CONSIDER ISCHEMIA BASELINE ARTIFACT- I, AVR, V4 ABNORMAL ECG COMPARED TO ECG 01/15/2020 16:17:37 SINUS BRADYCARDIA NOW PRESENT T WAVE ABNORMALITY NOW PRESENT Electronically Signed On 02-25-2023 13:57:24 CDT by Virgil Santos D.O.
[2023-02-25 08:28] LABS: Basophils Percent Auto 0.7 % (0.2-1.2); Eosinophils Absolute Auto 0.2 K/mm3 (0-0.3); Eosinophils Percent Auto 2.6 % (0-4.4); Hematocrit 41.4 % (42.0-52.0); Hemoglobin 14.3 g/dL (14.0-18.0); Immature Granulocyte Absolute 0.03 K/mm3 (0.00-0.031); Immature Granulocyte Percent A 0.5 % (0-0.5); Lymphocytes Absolute Auto 0.77 K/mm3 (0.9-3.2); Lymphocytes Percent Auto 13.1 % (18.3-44.2); Mean Corpuscular HGB Conc 34.5 g/dl (32-36); Mean Corpuscular Hemoglobin 30.2 pg (26-34); Mean Corpuscular Volume 87.3 fl (80-100); Mean Platelet Volume 10.8 fl (7.4-10.4); Monocytes Absolute Auto 0.4 K/mm3 (0.1-0.6); Monocytes Percent Auto 7.5 % (2.6-8.5); Neutrophils Absolute Auto 4.4 K/mm3 (1.3-6.7); Neutrophils Percent Auto 75.6 % (45.5-73.1); Platelet Count Result 175 k/mm3 (150-375); Red Blood Count 4.74 M/mm3 (4.6-6.20); Red Cell Distribution Width 13.3 % (11.5-14.5); White Blood Count 5.9 K/mm3 (4.5-10.0)
[2023-02-25 08:31] LABS: Alanine Aminotransferase 41 U/L (6-50); Albumin Level 4.1 g/dL (3.5-5.1); Alkaline Phosphatase 86 U/L (38-126); Anion Gap 12 mmol/L (8-16); Aspartate Amino Transferase 32 U/L (17-59); Bilirubin,Total 1.1 mg/dL (0.2-1.3); Blood Urea Nitrogen 25 mg/dL (9-20); Calcium 8.8 mg/dL (8.4-10.2); Carbon Dioxide 24 mmol/L (22-30); Chloride 103 mmol/L (98-107); Estimated CRCL calculation 37 ml/min; Estimated Glomerular Filt Rate 30; Glucose 181 mg/dL (65-110); Potassium 4.2 mmol/L (3.4-5.0); Sodium 139 mmol/L (137-145)
--- NOTE | 2023-02-25 10:25 | ED.GENADULT ---
HPI - General Adult General Chief complaint: Weakness Stated complaint: weakness, N/V Time Seen by Provider: 02/25/23 08:36 Source: patient and EMS Mode of arrival: EMS Limitations: no limitations History of Present Illness HPI narrative: 72 years old white male came to the emergency room from home by ambulance because of low blood pressure. Patient is a status post coronary stents 3 to 4 weeks ago at [facility], patient still me that he been vomiting and having diarrhea intermittently since. On average twice a day of each. Patient reports when he stand up get dizzy and feel like he is going down, for the last 4 weeks. Patient was seen by many physician for the low blood pressure without treatment or specific diagnosis. Currently patient laying down in bed, denying any symptoms. He is concerned about his low blood pressure. He denies any fever, chills, nausea, chest pain, shortness of breath, back pain or abdominal pain or urinary symptoms. Related Data Home Medications Medication Instructions Recorded Confirmed insulin regular hum U-500 conc 500 80 unit subcut QACBREAK 06/27/21 01/29/23 unit/mL subcutaneous soln (Humulin R U-500 (Concentrated) Insulin) calcitriol 0.25 mcg capsule 0.25 mcg PO HS 08/01/22 01/29/23 potassium chloride 20 mEq 20 meq PO DAILY 08/01/22 01/29/23 tablet,extended release aspirin 81 mg chewable tablet 81 mg PO HS 08/28/22 01/29/23 pantoprazole 40 mg tablet,delayed 40 mg PO HS 11/20/22 01/29/23 release losartan 50 mg tablet 50 mg PO DAILY 12/07/22 01/29/23 isosorbide mononitrate 30 mg 30 mg PO DAILY 12/21/22 01/29/23 tablet,extended release 24 hr cholecalciferol (vitamin D3) 50 50 mcg PO 2XW 01/29/23 01/29/23 mcg (2,000 unit) capsule gabapentin 100 mg capsule 100 mg PO TID 01/29/23 01/29/23 hydroxyzine HCl 25 mg tablet 25 mg PO QHS PRN 01/29/23 01/29/23 metoprolol tartrate 50 mg tablet 50 mg PO BID 01/29/23 01/29/23 sertraline 100 mg tablet 150 mg PO DAILY 01/29/23 01/29/23 ticagrelor 90 mg tablet (Brilinta) 90 mg PO BID 01/29/23 01/29/23 Allergies Allergy/AdvReac Type Severity Reaction Status Date / Time cyclobenzaprine Allergy Severe Stopped Verified 02/25/23 10:30 Breathing Sulfa (Sulfonamide Allergy Severe Dyspnea / Verified 02/25/23 08:27 Antibiotics) SOB amoxicillin Allergy Intermediate Dyspnea / Verified 02/25/23 08:27 SOB clavulanic acid Allergy Intermediate Dyspnea / Verified 02/25/23 08:27 SOB lisinopril Allergy Unknown Unknown Verified 02/25/23 08:27 norepinephrine Allergy Unknown Unknown Verified 02/25/23 08:27 [From Levophed (bitartrate)] morphine AdvReac Severe Jittery Verified 02/25/23 08:27 acetaminophen [From Vicodin] AdvReac Intermediate Confusion Verified 02/25/23 10:30 Cephalosporins AdvReac Intermediate SHORTNESS Verified 02/25/23 10:30 OF BREATH hydrocodone AdvReac Intermediate Confusion Verified 02/25/23 10:30 oxycodone [From OxyContin] AdvReac Intermediate Confusion Verified 02/25/23 10:30 nitroglycerin AdvReac Unknown HEART RATE Verified 01/29/23 14:23 GOES DOWN FAST Review of Systems Review of Systems: All systems reviewed & are unremarkable except as noted in HPI and below PMFSH Past Medical History Medical History Adenomatous colon polyp Anxiety Arthritis Bigeminy Bone spur of other site Removed left shoulder CAD (coronary artery disease) CKD (chronic kidney disease) Coarctation of aorta 1964 Depression Diarrhea GERD (gastroesophageal reflux disease) Heart murmur Hemorrhoids Removed Hepatitis B History of intestine removal 2014 History of CA (myocardial infarction) Hypercholesterolemia Hypertension Hypokalemia Hypomagnesemia Kidney stone MRSA (methicillin resistant staph aureus) culture positive 2014 Peripheral neuropathy Rectal polyp Recurrent UTI Surgical History Surgical History
--- NOTE | 2023-02-25 10:26 | PC.NURSE ---
MARISEL Alfonso made aware of pt's bp of 74/49. VORB to give bolus 1L of NS.
[2023-02-25] MEDS: SODIUM CHLORIDE 0.9% IV 1,000 ML 999 ML IV CONT ×3 (10:33→13:13)
[2023-02-25] MEDS: SODIUM CHLORIDE 0.9% IV 1,000 ML 150 ML IV CONT (14:25)
[2023-02-25 14:49] LABS: Appearance Urine Cloudy (Clear); Bacteria Urine None Seen /hpf; Bilirubin Urine 1+ (Negative); Blood Urine Negative (Negative); Budding Yeast Urine Present /hpf; Color Urine Dark Yellow (Yellow); Glucose Urine UA Trace mg/dL (Negative); Ketones Urine Trace mg/dL (Negative); Leukocyte Esterase Ur Trace LEU/UL (Negative); Mucus Urine Present /lpf; Need Manual Microscopic Reviewed; Nitrate Urine Negative (Negative); Non Pathogenic Casts >20; Protein Urine 1+ mg/dL (Negative); RBC Urine 0-2 /hpf (0-2); Squamous Epithelial Cell Urine Few /hpf (Few); WBC Urine 0-5 /hpf
[2023-02-25 14:50] LABS: Add Urine Microscopic? YES
--- NOTE | 2023-02-25 17:15 | PM.IMHP ---
H&P: HPI History of Present Illness Date/Time: 02/25/23 17:15 Chief Complaint: Weakness. Narrative: This is a pleasant 72-year-old male with coronary artery disease, hypertension, dyslipidemia, insulin-dependent diabetes, and other comorbidities who presented to the emergency department via EMS from home for evaluation of weakness. He was admitted to [facility] on January 08 after presenting with chest pain. He had a cardiac catheterization done the following day by Dr. Pitt of [facility] which showed multivessel coronary artery disease and ejection fraction of 45%. Three stents were placed at that time and he was transferred to [facility] for high risk PCI of another artery unknown to the patient. That was reportedly successful and he was discharged home within a couple of days. He was rehospitalized for a couple of days the following week with nausea and vomiting and he tells me that he had an esophageal stent placed at that time though cannot provide further details. I wonder if he had his esophagus dilated. In any event he has gotten progressively weak and he endorses frequent nausea and occasional vomiting on a nearly daily basis. He feels lightheaded and dizzy with position changes and bending over. In fact he has fallen 7 to 8 in the past 1 week which he attributes to the weakness and lightheadedness. Luckily he has not injured himself and he denies head trauma and loss of consciousness. This morning he once again symptoms and called EMS. On their arrival his blood pressure was 60/40 and he was given 600 mL of normal saline in route to the hospital. On arrival he was still 79/51 although his blood pressures have responded nicely to fluids since that time. He has evidence of an acute kidney injury and labs today with a BUN and creatinine of 25 in 2.20 respectively (creatinine was 1.36 in January 2022). He is being admitted in this setting for further hydration and evaluation. At the time my evaluation he is sitting up eating dinner reports feeling better. Review of Systems Review of Systems: Twelve systems were reviewed. No fever, chills, or sweats. No recent cold or flu symptoms. He denies chest pain shortness a breath. He has noticed a decrease in urine output. Denies feelings of urinary retention. Glucose has been stable. Except as documented, all other systems were reviewed and are negative. [facility] Past Medical History Medical History (Updated 02/27/23 @ 13:45 by Nereyda Mai PA-C) Adenomatous colon polyp Anxiety Arthritis Chronic kidney disease, stage 3 Coarctation of aorta Coronary artery disease Depression Gastroesophageal reflux disease Heart failure with reduced ejection fraction Hepatitis B Hypercholesterolemia Hypertension Insulin dependent diabetes mellitus Kidney stone Methicillin resistant Staphylococcus aureus infection (2015) Myocardial infarction Obstructive sleep apnea Does not use a CPAP. Peripheral neuropathy Psoriasis Rectal polyp Recurrent UTI Surgical History Surgical History (Updated 02/27/23 @ 13:45 by Nereyda Mai PA-C) History of aortic coarctation repair (1964) History of appendectomy History of arthroscopy of both knees History of arthroscopy of left shoulder With removal of bone spur. History of bilateral carpal tunnel release History of bilateral knee replacement History of cardiac catheterization History of cataract surgery History of cholecystectomy History of colonoscopy with polypectomy History of coronary artery stent placement History of hemorrhoidectomy History of hernia repair History of partial colectomy (2014) Secondary to bowel obstruction. History of tonsillectomy Family History Family History Sibling Family history of thyroid disease Hypertension Family history of diabetes mellitus in first degree relative Family history of obesity Patient'
--- NOTE | 2023-02-25 17:58 | ADMGEN ---
This patient, Gordo Hale, was admitted to Medical Room 241-. Patient/family oriented to hospital policies and general routines including ID bracelet, bed and alarms, visiting hours, pain management, procedures, bathroom and other care routines, personal items, smoking policy, room service/diet, and visiting hours. Information on how to activate the Rapid Response Team has been discussed. Patient/Family are encouraged to report perceived risks to care and to ask questions if they do not understand what they are told or what they should do.
[2023-02-26] VITALS (16 sets, daily range): BP systolic 111–151; BP diastolic 58–83; PULSE 53–87; RESP 20; TEMP 36.1–36.4; O2SAT 92–100
[2023-02-26] MEDS: SODIUM CHLORIDE 0.9% IV 1,000 ML 150 ML IV CONT ×2 (01:31→10:42)
[2023-02-26] MEDS: ASPIRIN 81 MG CHEWABLE TABLET PO ×2 (01:36→21:33)
[2023-02-26] MEDS: ATORVASTATIN 40 MG TABLET 80 MG PO ×2 (01:36→21:34)
[2023-02-26] MEDS: PANTOPRAZOLE 40 MG TABLET PO ×2 (01:36→21:33)
[2023-02-26] MEDS: METOPROLOL TARTRATE 25 MG TABLET PO ×3 (01:36→16:39)
[2023-02-26] MEDS: TAMSULOSIN HCL 0.4 MG CAPSULE PO ×2 (01:36→21:33)
[2023-02-26 06:05] LABS: Hematocrit 37.1 % (42.0-52.0); Hemoglobin 12.4 g/dL (14.0-18.0); Mean Corpuscular HGB Conc 33.4 g/dl (32-36); Mean Corpuscular Volume 89.6 fl (80-100); Mean Platelet Volume 10.9 fl (7.4-10.4); Platelet Count Result 144 k/mm3 (150-375); Red Blood Count 4.14 M/mm3 (4.6-6.20); Red Cell Distribution Width 13.5 % (11.5-14.5)
[2023-02-26 06:19] LABS: Alanine Aminotransferase 35 U/L (6-50); Albumin Level 3.5 g/dL (3.5-5.1); Alkaline Phosphatase 83 U/L (38-126); Anion Gap 9 mmol/L (8-16); Aspartate Amino Transferase 28 U/L (17-59); Bilirubin,Total 0.6 mg/dL (0.2-1.3); Blood Urea Nitrogen 21 mg/dL (9-20); Calcium 7.9 mg/dL (8.4-10.2); Carbon Dioxide 24 mmol/L (22-30); Chloride 108 mmol/L (98-107); Estimated CRCL calculation 49 ml/min; Estimated Glomerular Filt Rate 40; Glucose 150 mg/dL (65-110); Magnesium 1.1 mg/dL (1.6-2.3); Potassium 4.2 mmol/L (3.4-5.0); Sodium 141 mmol/L (137-145)
[2023-02-26] MEDS: GABAPENTIN 300 MG CAPSULE PO (08:44)
[2023-02-26] MEDS: calcitrioL 0.25 MCG CAPSULE PO ×2 (08:45→16:39)
[2023-02-26] MEDS: POTASSIUM CHLORIDE 20 MEQ TABLET.ER PO (08:45)
[2023-02-26] MEDS: CLOPIDOGREL BISULFATE 75 MG TABLET PO (08:45)
[2023-02-26 08:52] LABS: Glucose Point of Care 132 mg/dl (65-105)
--- NOTE | 2023-02-26 09:46 | PM.IMPN ---
Progress Note: A&P Assessment and Plan (1) Acute kidney injury superimposed on chronic kidney disease: Code(s): N17.9 - Acute kidney failure, unspecified; N18.9 - Chronic kidney disease, unspecified Status: Acute Assessment and Plan: Likely due to a combination of factors including hypovolemia from dehydration due to poor oral intake the last several weeks and hypoperfusion from hypotension. He is on several blood pressure medications as well including losartan, metoprolol, and isosorbide mononitrate. No urinary retention. Avoid nephrotoxic agents for now. Continue IV hydrated with close monitoring of volume status and renal function. Renal function is responding to hydration, but not at baseline yet. Will continue as patient is still orthostatic. Holding losartan (2) Hypotension: Code(s): I95.9 - Hypotension, unspecified Status: Acute Assessment and Plan: As above. +orthostatic hypotension. He has not been eating and drinking well the last several weeks and he may be a bit overmedicated. Hold antihypertensives except continue metoprolol with parameters due to recent multiple cardiac stents and [place]. Continue fall precautions. Monitor orthostatic vital signs. (3) Insulin dependent diabetes mellitus: Status: Chronic Assessment and Plan: Continue basal insulin. Continue sliding scale insulin, Accu-Cheks, and hypoglycemic protocol. (4) Coronary artery disease: Code(s): I25.10 - Atherosclerotic heart disease of [place] coronary artery without angina pectoris Status: Acute Assessment and Plan: He had 4 stents placed within the last month as per HPI. Continue dual anti-platelet therapy. He is not having any chest pain whatsoever. EKG was reviewed and does show T-wave inversion which may very well be due to recent PCI. Continued on metoprolol. (5) Heart failure with reduced ejection fraction: Code(s): I50.20 - Unspecified systolic (congestive) heart failure Status: Acute Assessment and Plan: EF at time of cardiac catheterization in January 2023 was reportedly 45%. Continue cautious IV fluid rehydration with close monitoring of I/O volume status, and renal function. (6) Hypomagnesemia: Code(s): E83.42 - Hypomagnesemia Status: Acute Assessment and Plan: Magnesium level 1.1. Give magnesium sulfate 3 grams IV x1. Repeat Magnesium level tomorrow. (7) Frequent falls: Code(s): R29.6 - Repeated falls Status: Acute Assessment and Plan: Secondary to orthostatic hypotension and dehydration. PT/OT evaluation Plan CODE STATUS: DNR Disposition: from home and lives alone. Time Spent With Patient Time with patient: 15 - 25 minutes Subjective Date/time seen: 02/26/23 09:46 Interval history: Patient found sitting up in the bed. He reports dizziness with standing. Prior to admission, he was weak for 2 weeks and barely able to eat or drink. He was also having loose stool and reported episodes of his blood pressure being 75/40s. He denies chest pain, SOB, palpitations, abdominal pain, N/V, melena, hematechezia or dysuria. Review of Systems Review of Systems: All systems reviewed & are unremarkable except as noted in HPI and below Exam Narrative: General: Nontoxic-appearing male sitting in bed in no distress. HEENT: Normocephalic, atraumatic. PERRL, EOMI without nystagmus. Sclera anicteric. mucous membranes pink and moist Neck: Supple. No JVD. Respiratory: Lungs are clear to auscultation bilaterally. RR regular and unlabored. Cardiovascular: Regular rate and rhythm with S1-S2. No murmurs. Gastrointestinal: Abdomen is soft, obese, nontender, and nondistended with positive bowel sounds. Skin: Warm and dry. No rash or lesions on limited exam. Extremities: No cyanosis, clubbing, or edema. Radial and pedal palpable but diminished. Grossly normal ROM. Neurological: Alert
[2023-02-26] MEDS: ACETAMINOPHEN 500 MG TABLET 1000 MG PO (10:16)
[2023-02-26] MEDS: BENZOCAINE/MENTHOL (*BKC) 18 EA LOZENGE 1 LOZENGE PO (10:42)
[2023-02-26 12:14] LABS: Glucose Point of Care 237 mg/dl (65-105)
[2023-02-26] MEDS: INSULIN ASPART (*BKC) 100 UNITS/ML SUB-Q (12:19)
[2023-02-26] MEDS: MAGNESIUM SULFATE 3GM/D5W100ML 3 GM/100 ML BAG IVPB (16:38)
[2023-02-26 17:25] LABS: Glucose Point of Care 181 mg/dl (65-105)
[2023-02-26 21:44] LABS: Glucose Point of Care 154 mg/dl (65-105)
[2023-02-27] VITALS (16 sets, daily range): BP systolic 129–177; BP diastolic 52–85; PULSE 49–77; RESP 16–18; TEMP 36.1–36.8; O2SAT 97–100
[2023-02-27 05:10] LABS: Hematocrit 38.7 % (42.0-52.0); Immature Platelet Fraction Pct 5.3 % (0.9-11.2); Mean Corpuscular HGB Conc 33.6 g/dl (32-36); Mean Corpuscular Hemoglobin 29.7 pg (26-34); Mean Corpuscular Volume 88.6 fl (80-100); Mean Platelet Volume 10.5 fl (7.4-10.4); Platelet Count Result 133 k/mm3 (150-375); Red Blood Count 4.37 M/mm3 (4.6-6.20); Red Cell Distribution Width 13.4 % (11.5-14.5); White Blood Count 4.6 K/mm3 (4.5-10.0)
[2023-02-27 05:27] LABS: Albumin Level 3.8 g/dL (3.5-5.1); Anion Gap 7 mmol/L (8-16); Blood Urea Nitrogen 14 mg/dL (9-20); Calcium 8.4 mg/dL (8.4-10.2); Carbon Dioxide 27 mmol/L (22-30); Chloride 105 mmol/L (98-107); Estimated CRCL calculation 55 ml/min; Estimated Glomerular Filt Rate 46; Glucose 134 mg/dL (65-110); Magnesium 1.3 mg/dL (1.6-2.3); Phosphorus 3.5 mg/dL (2.5-4.5); Potassium 4.5 mmol/L (3.4-5.0); Sodium 139 mmol/L (137-145)
[2023-02-27 08:48] LABS: Glucose Point of Care 143 mg/dl (65-105)
[2023-02-27] MEDS: METOPROLOL TARTRATE 25 MG TABLET PO (09:08)
[2023-02-27] MEDS: GABAPENTIN 300 MG CAPSULE PO (09:09)
[2023-02-27] MEDS: calcitrioL 0.25 MCG CAPSULE PO ×2 (09:09→17:15)
[2023-02-27] MEDS: CLOPIDOGREL BISULFATE 75 MG TABLET PO (09:09)
[2023-02-27] MEDS: POTASSIUM CHLORIDE 20 MEQ TABLET.ER PO (11:10)
[2023-02-27] MEDS: MAGNESIUM SULFATE 3GM/D5W100ML 3 GM/100 ML BAG IVPB (11:10)
[2023-02-27 12:10] LABS: Glucose Point of Care 247 mg/dl (65-105)
--- NOTE | 2023-02-27 12:25 | PM.IMPN ---
Progress Note: A&P Assessment and Plan (1) Acute kidney injury superimposed on chronic kidney disease: Code(s): N17.9 - Acute kidney failure, unspecified; N18.9 - Chronic kidney disease, unspecified Status: Acute Assessment and Plan: Likely due to a combination of factors including hypovolemia from dehydration due to poor oral intake the last several weeks and hypoperfusion from hypotension. He is on several blood pressure medications as well including losartan, metoprolol, and isosorbide mononitrate. No urinary retention. Avoid nephrotoxic agents for now. Continue IV hydrated with close monitoring of volume status and renal function. Renal function is responding to hydration, but not at baseline yet. Will continue as patient is still orthostatic. Holding losartan (2) Hypotension: Code(s): I95.9 - Hypotension, unspecified Status: Acute Assessment and Plan: As above. +orthostatic hypotension. He has not been eating and drinking well the last several weeks and he may be a bit overmedicated. Hold antihypertensives except continue metoprolol with parameters due to recent multiple cardiac stents and [place]. Continue fall precautions. Monitor orthostatic vital signs. 02/27/23 Patient feeling weak when he ambulates and still has positive orthostatics. (3) Insulin dependent diabetes mellitus: Status: Chronic Assessment and Plan: Continue basal insulin. Continue sliding scale insulin, Accu-Cheks, and hypoglycemic protocol. (4) Coronary artery disease: Code(s): I25.10 - Atherosclerotic heart disease of [place] coronary artery without angina pectoris Status: Acute Assessment and Plan: He had 4 stents placed within the last month as per HPI. Continue dual anti-platelet therapy. He is not having any chest pain whatsoever. EKG was reviewed and does show T-wave inversion which may very well be due to recent PCI. Continued on metoprolol. (5) Heart failure with reduced ejection fraction: Code(s): I50.20 - Unspecified systolic (congestive) heart failure Status: Acute Assessment and Plan: EF at time of cardiac catheterization in January 2023 was reportedly 45%. Continue cautious IV fluid rehydration with close monitoring of I/O volume status, and renal function. (6) Hypomagnesemia: Code(s): E83.42 - Hypomagnesemia Status: Acute Assessment and Plan: Magnesium level 1.1. Give magnesium sulfate 3 grams IV x1. Repeat Magnesium level tomorrow. 02/27/2023 Mag level 1.3 - patient given another 3 g of IV Mag sulfate. Will repeat labs tomorrow. (7) Frequent falls: Code(s): R29.6 - Repeated falls Status: Acute Assessment and Plan: Secondary to orthostatic hypotension and dehydration. PT/OT evaluation And recommend home health as an outpatient. Plan CODE STATUS: DNR Disposition: from home and lives alone. Time Spent With Patient Time with patient: 15 - 25 minutes Subjective Date/time seen: 02/27/23 12:25 Interval history: Patient lying in bed resting when I entered the room. Patient states that he is still feeling weak and lightheaded when he ambulates and is worried about going home. Patient's electrolytes are still being managed and he is still orthostatic. Review of Systems Review of Systems: All systems reviewed & are unremarkable except as noted in HPI and below Exam Narrative: GENERAL: Comfortable, no acute distress HENMT: moist mucous membranes EYES: EOM intact b/l NECK: no lymphadenopathy RESPIRATORY: clear to auscultation CARDIO: RRR GI: soft, nontender, bowel sounds present SKIN: no rashes EXTREMITIES: no edema, redness or tenderness Objective Data Vital Signs Vital Signs: Vital Signs - 24 hr 02/26/23 13:48 02/26/23 14:42 02/26/23 16:00 Temperature 97.6 F Pulse Rate 64 53
[2023-02-27] MEDS: INSULIN ASPART (*BKC) 100 UNITS/ML SUB-Q (12:35)
[2023-02-27 17:05] LABS: Glucose Point of Care 166 mg/dl (65-105)
[2023-02-27 20:05] LABS: Glucose Point of Care 219 mg/dl (65-105)
[2023-02-27] MEDS: ATORVASTATIN 40 MG TABLET 80 MG PO (20:13)
[2023-02-27] MEDS: ASPIRIN 81 MG CHEWABLE TABLET PO (20:14)
[2023-02-27] MEDS: PANTOPRAZOLE 40 MG TABLET PO (20:14)
[2023-02-27] MEDS: TAMSULOSIN HCL 0.4 MG CAPSULE PO (20:14)
[2023-02-28] VITALS (16 sets, daily range): BP systolic 82–171; BP diastolic 53–80; PULSE 49–75; RESP 16–18; TEMP 36.3–37.1; O2SAT 96–100; BMI 36.3
[2023-02-28 05:07] LABS: Basophils Percent Auto 0.8 % (0.2-1.2); Eosinophils Absolute Auto 0.3 K/mm3 (0-0.3); Eosinophils Percent Auto 6.3 % (0-4.4); Hematocrit 41.5 % (42.0-52.0); Immature Granulocyte Absolute 0.04 K/mm3 (0.00-0.031); Immature Granulocyte Percent A 0.8 % (0-0.5); Lymphocytes Percent Auto 14.2 % (18.3-44.2); Mean Corpuscular HGB Conc 33.7 g/dl (32-36); Mean Corpuscular Hemoglobin 29.7 pg (26-34); Mean Corpuscular Volume 88.1 fl (80-100); Monocytes Absolute Auto 0.3 K/mm3 (0.1-0.6); Monocytes Percent Auto 6.5 % (2.6-8.5); Neutrophils Absolute Auto 3.5 K/mm3 (1.3-6.7); Neutrophils Percent Auto 71.4 % (45.5-73.1); Platelet Count Result 150 k/mm3 (150-375); Red Blood Count 4.71 M/mm3 (4.6-6.20); Red Cell Distribution Width 13.3 % (11.5-14.5); White Blood Count 4.9 K/mm3 (4.5-10.0)
[2023-02-28 05:21] LABS: Alanine Aminotransferase 31 U/L (6-50); Albumin Level 3.9 g/dL (3.5-5.1); Alkaline Phosphatase 104 U/L (38-126); Anion Gap 7 mmol/L (8-16); Aspartate Amino Transferase 22 U/L (17-59); Bilirubin,Total 0.8 mg/dL (0.2-1.3); Blood Urea Nitrogen 12 mg/dL (9-20); Calcium 8.9 mg/dL (8.4-10.2); Carbon Dioxide 30 mmol/L (22-30); Chloride 101 mmol/L (98-107); Estimated CRCL calculation 68 ml/min; Estimated Glomerular Filt Rate 60; Glucose 133 mg/dL (65-110); Magnesium 1.4 mg/dL (1.6-2.3); Phosphorus 3.2 mg/dL (2.5-4.5); Potassium 3.8 mmol/L (3.4-5.0); Sodium 138 mmol/L (137-145)
[2023-02-28] MEDS: ACETAMINOPHEN 500 MG TABLET 1000 MG PO (07:33)
[2023-02-28] MEDS: MAGNESIUM SULFATE 3GM/D5W100ML 3 GM/100 ML BAG IVPB (07:34)
[2023-02-28] MEDS: METOPROLOL TARTRATE 25 MG TABLET PO (08:39)
[2023-02-28] MEDS: CLOPIDOGREL BISULFATE 75 MG TABLET PO (08:39)
[2023-02-28] MEDS: GABAPENTIN 300 MG CAPSULE PO (08:39)
[2023-02-28] MEDS: POTASSIUM CHLORIDE 20 MEQ TABLET.ER PO (08:39)
[2023-02-28] MEDS: calcitrioL 0.25 MCG CAPSULE PO ×2 (08:39→17:27)
[2023-02-28 08:48] LABS: Glucose Point of Care 138 mg/dl (65-105)
--- NOTE | 2023-02-28 11:25 | PC.NURSE ---
On 02/28/23, the student, [Vin Smith], provided care and completed [facility] documentation on this patient. I have reviewed the student's documentation and agree with the findings.
[2023-02-28 12:00] LABS: Glucose Point of Care 287 mg/dl (65-105)
[2023-02-28] MEDS: INSULIN ASPART (*BKC) 100 UNITS/ML SUB-Q (12:08)
--- NOTE | 2023-02-28 12:33 | PM.IMPN ---
Progress Note: A&P Assessment and Plan (1) Acute kidney injury superimposed on chronic kidney disease: Code(s): N17.9 - Acute kidney failure, unspecified; N18.9 - Chronic kidney disease, unspecified Status: Acute Assessment and Plan: Likely due to a combination of factors including hypovolemia from dehydration due to poor oral intake the last several weeks and hypoperfusion from hypotension. He is on several blood pressure medications as well including losartan, metoprolol, and isosorbide mononitrate. No urinary retention. Avoid nephrotoxic agents for now. Continue IV hydrated with close monitoring of volume status and renal function. Renal function is responding to hydration, but not at baseline yet. Will continue as patient is still orthostatic. Holding losartan (2) Hypotension: Code(s): I95.9 - Hypotension, unspecified Status: Acute Assessment and Plan: As above. +orthostatic hypotension. He has not been eating and drinking well the last several weeks and he may be a bit overmedicated. Hold antihypertensives except continue metoprolol with parameters due to recent multiple cardiac stents and [place]. Continue fall precautions. Monitor orthostatic vital signs. 02/27/23 Patient feeling weak when he ambulates and still has positive orthostatics. 02/28/23Start midodrine 2.5 mg t.i.d. (3) Insulin dependent diabetes mellitus: Status: Chronic Assessment and Plan: Continue basal insulin. Continue sliding scale insulin, Accu-Cheks, and hypoglycemic protocol. (4) Coronary artery disease: Code(s): I25.10 - Atherosclerotic heart disease of [place] coronary artery without angina pectoris Status: Acute Assessment and Plan: He had 4 stents placed within the last month as per HPI. Continue dual anti-platelet therapy. He is not having any chest pain whatsoever. EKG was reviewed and does show T-wave inversion which may very well be due to recent PCI. Continued on metoprolol. (5) Heart failure with reduced ejection fraction: Code(s): I50.20 - Unspecified systolic (congestive) heart failure Status: Acute Assessment and Plan: EF at time of cardiac catheterization in January 2023 was reportedly 45%. Continue cautious IV fluid rehydration with close monitoring of I/O volume status, and renal function. (6) Hypomagnesemia: Code(s): E83.42 - Hypomagnesemia Status: Acute Assessment and Plan: Magnesium level 1.1. Give magnesium sulfate 3 grams IV x1. Repeat Magnesium level tomorrow. 02/27/2023 Mag level 1.3 - patient given another 3 g of IV Mag sulfate. Will repeat labs tomorrow. 02/28/2023 Mag level 1.4 - patient given another 3 g of IV Mag sulfate. Will repeat labs tomorrow. (7) Frequent falls: Code(s): R29.6 - Repeated falls Status: Acute Assessment and Plan: Secondary to orthostatic hypotension and dehydration. PT/OT evaluation and recommend home health as an outpatient. Plan CODE STATUS: DNR Disposition: from home and lives alone. Subjective Date/time seen: 02/28/23 12:33 Interval history: Patient doing well today although he is still orthostatic. today orthostasis resulted in hypotension of 82/53 while standing. Side to start midodrine and see how patient responds. Continue to replace electrolytes. Patient has no new complaints today. Review of Systems Review of Systems: All systems reviewed & are unremarkable except as noted in HPI and below Exam Narrative: GENERAL: Comfortable, no acute distress HENMT: moist mucous membranes EYES: EOM intact b/l NECK: no lymphadenopathy RESPIRATORY: clear to auscultation CARDIO: RRR GI: soft, nontender, bowel sounds present SKIN: no rashes EXTREMITIES: no edema, redness or tenderness Objective Data Vital Signs Vital Signs: Vital Signs - 24 hr
[2023-02-28] MEDS: FINASTERIDE 5 MG TABLET PO (14:41)
[2023-02-28] MEDS: MIDODRINE HCL 2.5 MG TABLET PO ×2 (14:41→17:27)
--- NOTE | 2023-02-28 14:59 | PC.NURSE ---
On 02/28/23, the student, [Dasha Vital], provided care and completed [facility]. I have reviewed the student's documentation and agree with the findings.
[2023-02-28 17:40] LABS: Glucose Point of Care 142 mg/dl (65-105)
[2023-02-28] MEDS: ATORVASTATIN 40 MG TABLET 80 MG PO (20:08)
[2023-02-28] MEDS: PANTOPRAZOLE 40 MG TABLET PO (20:08)
[2023-02-28] MEDS: ASPIRIN 81 MG CHEWABLE TABLET PO (20:08)
[2023-02-28 21:00] LABS: Glucose Point of Care 209 mg/dl (65-105)
[2023-03-01] VITALS (10 sets, daily range): BP systolic 101–166; BP diastolic 61–92; PULSE 49–105; RESP 16–17; TEMP 34.4–36.8; O2SAT 98–100
[2023-03-01 05:38] LABS: Hemoglobin 14.7 g/dL (14.0-18.0); Mean Corpuscular HGB Conc 34.2 g/dl (32-36); Mean Corpuscular Hemoglobin 30.3 pg (26-34); Mean Corpuscular Volume 88.7 fl (80-100); Mean Platelet Volume 10.9 fl (7.4-10.4); Platelet Count Result 153 k/mm3 (150-375); Red Blood Count 4.85 M/mm3 (4.6-6.20); Red Cell Distribution Width 13.8 % (11.5-14.5); White Blood Count 4.9 K/mm3 (4.5-10.0)
[2023-03-01 05:50] LABS: Albumin Level 3.9 g/dL (3.5-5.1); Anion Gap 5 mmol/L (8-16); Blood Urea Nitrogen 13 mg/dL (9-20); Carbon Dioxide 33 mmol/L (22-30); Chloride 100 mmol/L (98-107); Estimated CRCL calculation 77 ml/min; Estimated Glomerular Filt Rate > 60; Glucose 137 mg/dL (65-110); Magnesium 1.5 mg/dL (1.6-2.3); Phosphorus 3.6 mg/dL (2.5-4.5); Sodium 138 mmol/L (137-145)
[2023-03-01 08:00] LABS: Glucose Point of Care 144 mg/dl (65-105)
[2023-03-01] MEDS: MAGNESIUM SULFATE 3GM/D5W100ML 3 GM/100 ML BAG IVPB (08:22)
[2023-03-01] MEDS: POTASSIUM CHLORIDE 20 MEQ TABLET.ER PO (08:23)
[2023-03-01] MEDS: GABAPENTIN 300 MG CAPSULE PO (08:23)
[2023-03-01] MEDS: CLOPIDOGREL BISULFATE 75 MG TABLET PO (08:23)
[2023-03-01] MEDS: METOPROLOL TARTRATE 25 MG TABLET PO ×2 (08:23→17:06)
[2023-03-01] MEDS: FINASTERIDE 5 MG TABLET PO (08:23)
[2023-03-01] MEDS: MIDODRINE HCL 2.5 MG TABLET PO ×3 (08:24→17:06)
[2023-03-01] MEDS: calcitrioL 0.25 MCG CAPSULE PO ×2 (08:24→17:06)
--- NOTE | 2023-03-01 11:26 | PC.NURSE ---
On 03/01/23, the student, [Vin Smith], provided care and completed [facility] documentation on this patient. I have reviewed the student's documentation and agree with the findings.
[2023-03-01 11:50] LABS: Glucose Point of Care 235 mg/dl (65-105)
[2023-03-01] MEDS: INSULIN ASPART (*BKC) 100 UNITS/ML SUB-Q (12:41)
--- NOTE | 2023-03-01 13:43 | PC.NURSE ---
On 03/01/23, the student, [Severiano Espinal], provided care and completed [facility] documentation on this patient. I have reviewed the student's documentation and agree with the findings.
--- NOTE | 2023-03-01 15:58 | PM.DS ---
DS: Admitting Diagnosis Discharge Date 03/01/23 Admitting Diagnosis Weakness, fall DS: Discharge Diagnosis Discharge Diagnosis (1) Acute kidney injury superimposed on chronic kidney disease: Code(s): N17.9 - Acute kidney failure, unspecified; N18.9 - Chronic kidney disease, unspecified Status: Acute Assessment and Plan: Likely due to a combination of factors including hypovolemia from dehydration due to poor oral intake the last several weeks and hypoperfusion from hypotension. He is on several blood pressure medications as well including losartan, metoprolol, and isosorbide mononitrate. No urinary retention. Avoid nephrotoxic agents for now. Continue IV hydrated with close monitoring of volume status and renal function. Renal function is responding to hydration, but not at baseline yet. Will continue as patient is still orthostatic. Holding losartan (2) Hypotension: Code(s): I95.9 - Hypotension, unspecified Status: Acute Assessment and Plan: As above. +orthostatic hypotension. He has not been eating and drinking well the last several weeks and he may be a bit overmedicated. Hold antihypertensives except continue metoprolol with parameters due to recent multiple cardiac stents and GA. Continue fall precautions. Monitor orthostatic vital signs. 02/27/23 Patient feeling weak when he ambulates and still has positive orthostatics. 02/28/23Start midodrine 2.5 mg t.i.d. (3) Insulin dependent diabetes mellitus: Status: Chronic Assessment and Plan: Continue basal insulin. Continue sliding scale insulin, Accu-Cheks, and hypoglycemic protocol. (4) Coronary artery disease: Code(s): I25.10 - Atherosclerotic heart disease of [place] coronary artery without angina pectoris Status: Acute Assessment and Plan: He had 4 stents placed within the last month as per HPI. Continue dual anti-platelet therapy. He is not having any chest pain whatsoever. EKG was reviewed and does show T-wave inversion which may very well be due to recent PCI. Continued on metoprolol. (5) Heart failure with reduced ejection fraction: Code(s): I50.20 - Unspecified systolic (congestive) heart failure Status: Acute Assessment and Plan: EF at time of cardiac catheterization in January 2023 was reportedly 45%. Continue cautious IV fluid rehydration with close monitoring of I/O volume status, and renal function. (6) Hypomagnesemia: Code(s): E83.42 - Hypomagnesemia Status: Acute Assessment and Plan: Magnesium level 1.1. Give magnesium sulfate 3 grams IV x1. Repeat Magnesium level tomorrow. 02/27/2023 Mag level 1.3 - patient given another 3 g of IV Mag sulfate. Will repeat labs tomorrow. 02/28/2023 Mag level 1.4 - patient given another 3 g of IV Mag sulfate. Will repeat labs tomorrow. 03/01/2023 Mag level 2. Stable (7) Frequent falls: Code(s): R29.6 - Repeated falls Status: Acute Assessment and Plan: Secondary to orthostatic hypotension and dehydration. PT/OT evaluation and recommend home health as an outpatient. Plan CODE STATUS: DNR Disposition: from home and lives alone. DS: Summary Hospital Course Reason for hospitalization: fall, weakness Hospital Course: This is a 72-year-old male who presented to the ED due to increased falls and weakness. Patient was found to have a low blood pressure at the time of his presentation. Patient is status post coronary stents 3-4 weeks ago. Past medical history includes CAD, hypertension, hyperlipidemia, insulin-dependent diabetes and other comorbidities. Patient stated that he has been dizzy and that is what has been the cause of his falls. Patient has increased dizziness with changes of positions. His blood pressure was 60/40 when EMS found him and by the time he arrived to the ED it was 79/50. Cruz
[2023-03-01 17:09] LABS: Glucose Point of Care 139 mg/dl (65-105)
== END 2023-03-01 18:16 | disposition home health service (06) | DRG 312 ==
LOC: ANHED 12:48 → ANH3MEDSUR 15:37 → ANH2MED 16:52
PROVIDERS: Nurse Practitioner Family; Physician Assistant; Admitting Provider Student in an Organized Health Care Education/Training Program; Emergency Provider Emergency Medicine; PCP Internal Medicine; Visit Provider Internal Medicine Critical Care Medicine
DX: I95.1 Orthostatic hypotension (principal); N17.9 Acute kidney failure, unspecified; I13.0 Hypertensive heart and chronic kidney disease with heart failure and stage 1 through stage 4 chronic kidney disease, or unspecified chronic kidney disease; I50.22 Chronic systolic (congestive) heart failure; E78.00 Pure hypercholesterolemia, unspecified; E87.6 Hypokalemia; E83.42 Hypomagnesemia; E11.42 Type 2 diabetes mellitus with diabetic polyneuropathy; E11.22 Type 2 diabetes mellitus with diabetic chronic kidney disease; F32.A Depression, unspecified; F41.9 Anxiety disorder, unspecified; G47.33 Obstructive sleep apnea (adult) (pediatric); I25.2 Old myocardial infarction; I25.10 Atherosclerotic heart disease of native coronary artery without angina pectoris; K21.9 Gastro-esophageal reflux disease without esophagitis; M19.90 Unspecified osteoarthritis, unspecified site; N18.30 Chronic kidney disease, stage 3 unspecified; R29.6 Repeated falls; Z66 Do not resuscitate; Z90.49 Acquired absence of other specified parts of digestive tract; Z79.4 Long term (current) use of insulin; Z86.14 Personal history of Methicillin resistant Staphylococcus aureus infection; Z95.5 Presence of coronary angioplasty implant and graft; Z96.653 Presence of artificial knee joint, bilateral; Z79.02 Long term (current) use of antithrombotics/antiplatelets
CPT/HCPCS: 36415; 71045; 71046; 80048; 80053; 80069; 80076; 81001; 82948; 83735; 84100; 85025; 85027; 85055; 93005; 96360; 96361; 96374; 96376; 97110; 97161; 97165; 97530; 97535; 99285; A9270; G0378; J1815; J3475; J7030

== ENCOUNTER 2023-03-05 18:19 | Emergency (ER) | payer MEDICARE, SELFPAY ==
[2023-03-05 18:48] VITALS: BP 96/82; PULSE 76; RESP 18; TEMP 36.3; O2SAT 98
--- NOTE | 2023-03-05 19:31 | PC.NURSE ---
Pt came up to intake desk and stated his ride was here and that he would be leaving and come back at later time. Pt A&Ox4, reps even non-labored. Skin pink, warm, and dry. Pt ambulatory with cane out of ED at this time.
== END 2023-03-05 21:43 | disposition left against medical advice (07) ==
PROVIDERS: PCP Internal Medicine
DX: R30.0 Dysuria (principal)
CPT/HCPCS: 99199

== ENCOUNTER 2023-03-06 14:08 | Outpatient (CLI) | payer MEDICARE, SELFPAY ==
[2023-03-06 19:15] LABS: Appearance Urine Turbid (Clear); Bacteria Urine None Seen /hpf; Bilirubin Urine 1+ (Negative); Color Urine Dark Yellow (Yellow); Glucose Urine UA 3+ mg/dL (Negative); Hyaline Casts Urine Present /lpf; Ketones Urine Trace mg/dL (Negative); Leukocyte Esterase Ur 2+ LEU/UL (Negative); Nitrate Urine Positive (Negative); Non Pathogenic Casts 0-2; Protein Urine 2+ mg/dL (Negative); RBC Urine 0-2 /hpf (0-2); Specific Grav Ur 1.028 (1.001-1.035); Squamous Epithelial Cell Urine None seen /hpf (Few); WBC Urine 21-50 /hpf
[2023-03-06 19:16] LABS: Add Urine Microscopic? YES
== END 2023-03-06 14:09 | disposition home or self-care (01) ==
LOC: ANHGOSHLAB 14:10
PROVIDERS: PCP Internal Medicine; Visit Provider Nurse Practitioner
DX: R30.0 Dysuria (principal)
CPT/HCPCS: 81001; 87086; 87147; 87181; 87186

== ENCOUNTER 2023-03-13 14:50 | Outpatient (CLI) | payer MEDICARE, SELFPAY ==
[2023-03-13 19:22] LABS: Alanine Aminotransferase 38 U/L (6-50); Albumin Level 4.4 g/dL (3.5-5.1); Alkaline Phosphatase 87 U/L (38-126); Anion Gap 9 mmol/L (8-16); Aspartate Amino Transferase 47 U/L (17-59); Bilirubin,Total 0.9 mg/dL (0.2-1.3); Blood Urea Nitrogen 26 mg/dL (9-20); Calcium 9.5 mg/dL (8.4-10.2); Carbon Dioxide 31 mmol/L (22-30); Chloride 101 mmol/L (98-107); Estimated Glomerular Filt Rate 60; Glucose 149 mg/dL (65-110); Magnesium 1.4 mg/dL (1.6-2.3); Sodium 141 mmol/L (137-145)
[2023-03-13 19:39] LABS: Appearance Urine Turbid (Clear); Bacteria Urine None Seen /hpf; Bilirubin Urine 1+ (Negative); Blood Urine Negative (Negative); Color Urine Dark Yellow (Yellow); Glucose Urine UA Trace mg/dL (Negative); Ketones Urine Negative (Negative); Leukocyte Esterase Ur Trace LEU/UL (Negative); Nitrate Urine Negative (Negative); Non Pathogenic Casts 0-2; Protein Urine 1+ mg/dL (Negative); RBC Urine 0-2 /hpf (0-2); Specific Grav Ur 1.033 (1.001-1.035); Squamous Epithelial Cell Urine Occasional /hpf (Few)
[2023-03-13 19:45] LABS: Add Urine Microscopic? YES
== END 2023-03-13 14:51 | disposition home or self-care (01) ==
LOC: ANHGOSHLAB 14:52
PROVIDERS: PCP Internal Medicine; Visit Provider Nurse Practitioner
DX: R30.0 Dysuria (principal); N17.9 Acute kidney failure, unspecified; E83.42 Hypomagnesemia
CPT/HCPCS: 36415; 80053; 81001; 83735; 87086

== ENCOUNTER 2023-04-05 10:42 | Inpatient (IN) | payer MEDICARE, SELFPAY ==
[2023-04-05] VITALS (32 sets, daily range): BP systolic 94–180; BP diastolic 56–102; PULSE 65–103; RESP 9–25; TEMP 36.1–36.2; O2SAT 98–100; BMI 28.0
--- NOTE | ~2023-04-05 | XR_ITS ---
EXAMINATION: XR ribs LT 2V DATE: 04/05/2023 23:04 INDICATION: Left chest pain. TECHNIQUE: 2 views of the left ribs on 3 radiographs were obtained. COMPARISON: Chest 2 views 04/05/2023, CT abdomen and pelvis 07/04/2021 FINDINGS: A calcified left lung nodule is consistent with old granulomatous disease. There is no left -sided pneumonia, pleural effusion, or pneumothorax. There is old healed fracture of left fourth rib. IMPRESSION: 1. No acute rib fracture. Reviewed, dictated and finalized at location A. IMPRESSION: 1. No acute rib fracture.
--- NOTE | ~2023-04-05 | XR_ITS ---
Clinical Indication: Chest pain AP and lateral views of the chest: Comparison: 02/25/2023 Findings: Stable large calcified left basilar granuloma. The lungs are otherwise clear, without evide nce of focal consolidation or pleural effusion. Cardiomediastinal silhouette is within normal limits . DISH of the thoracic spine noted. Impression: No acute abnormality. Reviewed, dictated and finalized at location . Impression: No acute abnormality.
--- NOTE | ~2023-04-05 | US_ITS ---
EXAMINATION: US venous doppler LE RT DATE: 04/06/2023 09:12 INDICATION: Right lower limb pain. TECHNIQUE: Grayscale ultrasound images without and with compression and Doppler ultrasound images of the right lower extremity veins were obtained. COMPARISON: None. FINDINGS: The visualized portions of right common femoral vein, profunda (deep) femoral vein, femoral vein, pop liteal vein, peroneal veins, posterior tibial veins, and greater saphenous vein outflow are patent. IMPRESSION: 1. No deep venous thrombosis. Reviewed, dictated and finalized at location A.
--- NOTE | 2023-04-05 10:43 | ECG_ITS ---
Measurements Intervals [place] Rate: 98 P: 107 IA: 104 QRS: 38 QRSD: 85 T: 111 QT: 357 QTc: 457 Interpretive Statements SINUS RHYTHM WITH SHORT IA INTERVAL ANTEROSEPTAL INFARCT, AGE INDETERMINATE T WAVE ABNORMALITY IN HIGH LATERAL LEADS- CONSIDER ISCHEMIA ABNORMAL ECG COMPARED TO ECG 02/25/2023 08:06:28 SINUS RHYTHM NOW PRESENT Electronically Signed On 04-05-2023 11:12:48 CDT by Virgil Santos D.O.
[2023-04-05 10:58] LABS: Basophils Absolute Auto 0.1 K/mm3 (0.0-0.1); Basophils Percent Auto 0.8 % (0.2-1.2); Eosinophils Absolute Auto 0.3 K/mm3 (0-0.3); Eosinophils Percent Auto 5.2 % (0-4.4); Hematocrit 46.8 % (42.0-52.0); Hemoglobin 15.9 g/dL (14.0-18.0); Immature Granulocyte Absolute 0.02 K/mm3 (0.00-0.031); Immature Granulocyte Percent A 0.3 % (0-0.5); Immature Platelet Fraction Pct 3.9 % (0.9-11.2); Lymphocytes Absolute Auto 1.25 K/mm3 (0.9-3.2); Lymphocytes Percent Auto 19.7 % (18.3-44.2); Mean Corpuscular Hemoglobin 30.5 pg (26-34); Mean Corpuscular Volume 89.7 fl (80-100); Mean Platelet Volume 9.7 fl (7.4-10.4); Monocytes Absolute Auto 0.4 K/mm3 (0.1-0.6); Monocytes Percent Auto 6.6 % (2.6-8.5); Neutrophils Absolute Auto 4.3 K/mm3 (1.3-6.7); Neutrophils Percent Auto 67.4 % (45.5-73.1); Platelet Count Result 152 k/mm3 (150-375); Red Blood Count 5.22 M/mm3 (4.6-6.20); Red Cell Distribution Width 13.6 % (11.5-14.5); White Blood Count 6.3 K/mm3 (4.5-10.0)
[2023-04-05 11:12] LABS: Prothrombin Time 14.2 Seconds (11.1-14.7)
[2023-04-05 11:13] LABS: Partial Thromboplastin Time 24.5 SECONDS (22.3-36.8)
[2023-04-05 11:18] LABS: Alanine Aminotransferase 49 U/L (6-50); Albumin Level 4.6 g/dL (3.5-5.1); Alkaline Phosphatase 80 U/L (38-126); Anion Gap 11 mmol/L (8-16); Aspartate Amino Transferase 50 U/L (17-59); Bilirubin,Total 1.1 mg/dL (0.2-1.3); Blood Urea Nitrogen 27 mg/dL (9-20); Calcium 9.5 mg/dL (8.4-10.2); Carbon Dioxide 26 mmol/L (22-30); Chloride 101 mmol/L (98-107); Estimated CRCL calculation 47 ml/min; Estimated Glomerular Filt Rate 46; Glucose 131 mg/dL (65-110); Lipase 57 U/L (23-300); Sodium 138 mmol/L (137-145)
[2023-04-05] MEDS: fentaNYL CITRATE INJ (*CRX) 100 MCG/2 ML VIAL 50 MCG IV PUSH ×2 (12:50→21:13)
--- NOTE | 2023-04-05 13:09 | ED.CHESTPAIN ---
HPI - Chest Pain General Chief Complaint: Chest Pain Stated Complaint: chest pain Time Seen by Provider: 04/05/23 11:16 History of Present Illness HPI narrative: Patient is a 73-year-old male with history of coronary disease who presents ER with chest pain. Began last night. Intermittent and left-sided. No radiation. Cannot describe any alleviating factors. 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 Denies fevers or chills or sweats. No abdominal pain or discomfort that he can no though the chest pain is in the lower aspect of the left chest near the abdomen. No diarrhea. Related Data Home Medications Medication Instructions Recorded Confirmed calcitriol 0.25 mcg capsule 0.25 mcg PO BID 08/01/22 03/13/23 potassium chloride 20 mEq 20 meq PO DAILY 08/01/22 03/13/23 tablet,extended release aspirin 81 mg chewable tablet 81 mg PO HS 08/28/22 03/13/23 pantoprazole 40 mg tablet,delayed 40 mg PO HS 11/20/22 03/13/23 release clopidogrel 75 mg tablet 75 mg PO DAILY 02/25/23 03/13/23 insulin lispro 100 unit/mL See Rx Instructions .Route .COMPLEX 02/25/23 03/13/23 subcutaneous solution (Humalog U-100 Insulin) Allergies Allergy/AdvReac Type Severity Reaction Status Date / Time cyclobenzaprine Allergy Severe Stopped Verified 04/05/23 10:43 Breathing Sulfa (Sulfonamide Allergy Severe Dyspnea / Verified 04/05/23 10:43 Antibiotics) SOB amoxicillin Allergy Intermediate Dyspnea / Verified 04/05/23 10:43 SOB clavulanic acid Allergy Intermediate Dyspnea / Verified 04/05/23 10:43 SOB lisinopril Allergy Unknown Unknown Verified 04/05/23 10:43 norepinephrine Allergy Unknown Unknown Verified 04/05/23 10:43 [From Levophed (bitartrate)] morphine AdvReac Severe Jittery Verified 04/05/23 10:43 Cephalosporins AdvReac Intermediate SHORTNESS Verified 04/05/23 10:43 OF BREATH hydrocodone AdvReac Intermediate Confusion Verified 04/05/23 10:43 oxycodone [From OxyContin] AdvReac Intermediate Confusion Verified 04/05/23 10:43 nitroglycerin AdvReac Unknown HEART RATE Verified 03/13/23 14:09 GOES DOWN FAST Review of Systems Review of Systems: All systems reviewed & are unremarkable except as noted in HPI and below Constitutional: Constitutional: Denies chills, Denies fatigue and Denies fever(s) ENT: Denies nasal congestion and Denies sore throat Cardiovascular: Cardiovascular: Reports chest pain, Denies rapid heart rate and Denies radiating jaw, neck or arm pain Respiratory: Respiratory: Denies cough and Denies dyspnea Gastrointestinal: Gastrointestinal: Denies abdominal pain, Denies diarrhea, Denies nausea and Denies vomiting Genitourinary: Genitourinary: Denies dysuria and Denies urinary frequency [facility] Past Medical History Medical History (Updated 04/05/23 @ 19:08 by Surya Sawyer MD) Adenomatous colon polyp Anxiety Arthritis Chronic kidney disease, stage 3 Coarctation of aorta Coronary artery disease Depression Gastroesophageal reflux disease Heart failure with reduced ejection fraction Hepatitis B Hypercholesterolemia Hypertension Insulin dependent diabetes mellitus Kidney stone Methicillin resistant Staphylococcus aureus infection (2014) Myocardial infarction Obstructive sleep apnea Does not use a CPAP. Peripheral neuropathy Psoriasis Rectal polyp Surgical History Surgical History History of aortic coarctation repair (1965) History of appendectomy History of arthroscopy of both knees History of arthroscopy of left shoulder With removal of bone spur. History of bilateral carpal tunnel release History of bilateral knee replacement History of cardiac catheterization History of cataract surgery History of cholecystectomy History of colonoscopy with polypectomy History of coronary artery stent placement History of hemorrhoidectomy History of hernia repair History of partial colectomy (2014) Se
[2023-04-05 14:49] LABS: Troponin I 0.045 ng/mL (0.000-0.034)
--- NOTE | 2023-04-05 15:20 | PM.IMHP ---
H&P: HPI History of Present Illness Date/Time: 04/05/23 16:15 Chief Complaint: Chest pain. Narrative: This is a pleasant 73-year-old male with coronary artery disease, hypertension, dyslipidemia, insulin-dependent diabetes, and other comorbidities who presented to the emergency department via private vehicle from home for evaluation of chest pain. The patient provides the following history. He is known to the hospitalist service from an admission at the end of January 2023 at which time he was admitted with acute kidney injury related to dehydration and soft blood pressures. His losartan and isosorbide were held at time of discharge and he was started on midodrine due to persistent orthostatic hypotension. He saw his intermodal owner operator truck driver, Dr. Margaret Nunez, within a week of discharge and she agreed with discontinuing the losartan and recommended discontinuing metoprolol as well but the patient was kept on isosorbide mononitrate 30 mg ER in addition to midodrine. About 1 month prior to that admission he was admitted to [facility] after presenting with chest pain. Cardiac catheterization done the next day per Dr. Pitt which showed multivessel coronary artery disease and an EF of 45%. Three stents were placed at that time and he was transferred to [facility] for high-risk PCI to another artery unknown to the patient which was reportedly successful. He has been doing well since that time however last evening he developed chest pain simply while sitting. It seems to be situated in the left lower chest and it has been intermittent since the outset. He has difficulties describing the pain but at times it is sharp and shooting though fleeting. He has not noticed any pattern as to when it occurs and he denies obvious aggravating or alleviating factors. Associated symptoms include nausea and occasional sweats. He denies overt pleuritic pain, palpitations, sensations of racing heart, shortness of breath, vomiting, bloating, belching, and abdominal distension. In the ED: Blood pressure on arrival was 94/58 and he continues to have positive orthostatic vital signs. While in triage he was pale, diaphoretic, and quite weak. He has been afebrile with a stable heart rate. His labs were significant for a BUN of 27, creatinine 1.50, and a troponin of 0.050. CBC, electrolytes, LFTs, and lipase were all within normal limits. EKG showed a sinus rhythm with no acute ST segment changes or significant changes from prior tracings. Chest x-ray showed no acute abnormalities. Given his cardiac history and elevated troponins, I was asked to admit the patient in this setting for close monitoring and Cardiology consultation. Review of Systems Review of Systems: Twelve systems were reviewed. No fever, chills, or sweats. He continues to have issues with orthostatic vital signs. He has been ambulating with a walker at home. No recent falls or syncopal episodes. Appetite has been okay. He has occasional nausea, more so when his blood pressures drop. No orthopnea or paroxysmal nocturnal dyspnea. He has been seeing Dr. Gilmore for ongoing pain in his right foot. He states that is different from his usual neuropathy. He has had steroid injections without much benefit. He does report mild occlusive disease on ABIs done couple of months ago. It sounds like he may have some mild claudication on the right but nothing significant. Except as documented, all other systems were reviewed and are negative. [facility] Past Medical History Medical History Adenomatous colon polyp Anxiety Arthritis Chronic kidney disease, stage 3 Coarctation of aorta Coronary artery disease Depression Gastroesophageal reflux disease Heart failure with reduced ejection fraction Hepatitis B Hypercholesterolemia Hypertension Insulin dependent diabetes mellitus Kidney stone Methicillin resistant Staphylococcus aureus infection (2014) Myocardial inf
[2023-04-05 17:41] LABS: Troponin I 0.046 ng/mL (0.000-0.034)
--- NOTE | 2023-04-05 19:29 | ADMIMU ---
This patient, Gordo Hale, was admitted to IMU status, and placed in IMU Room 210-01. Patient/family oriented to hospital policies and general routines including ID bracelet, bed and alarms, visiting hours, pain management, procedures, bathroom and other care routines, personal items, smoking policy, room service/diet, and visiting hours. Valuables list has been completed. Information on how to activate the Rapid Response Team has been discussed. Patient/Family are encouraged to report perceived risks to care and to ask questions if they do not understand what they are told or what they should do.
[2023-04-05 19:46] LABS: Glucose Point of Care 199 mg/dl (65-105)
[2023-04-06] VITALS (19 sets, daily range): BP systolic 87–127; BP diastolic 54–79; PULSE 71–115; RESP 17–20; TEMP 36.2–36.8; O2SAT 96–100
[2023-04-06 03:28] LABS: Hemoglobin 14.5 g/dL (14.0-18.0); Mean Corpuscular HGB Conc 34.5 g/dl (32-36); Mean Corpuscular Hemoglobin 30.4 pg (26-34); Mean Corpuscular Volume 88.1 fl (80-100); Mean Platelet Volume 10.2 fl (7.4-10.4); Platelet Count Result 120 k/mm3 (150-375); Red Blood Count 4.77 M/mm3 (4.6-6.20); Red Cell Distribution Width 13.5 % (11.5-14.5); White Blood Count 5.3 K/mm3 (4.5-10.0)
[2023-04-06 03:47] LABS: Anion Gap 8 mmol/L (8-16); Blood Urea Nitrogen 26 mg/dL (9-20); Calcium 8.7 mg/dL (8.4-10.2); Carbon Dioxide 28 mmol/L (22-30); Chloride 99 mmol/L (98-107); Estimated CRCL calculation 47 ml/min; Estimated Glomerular Filt Rate 46; Glucose 154 mg/dL (65-110); Magnesium 1.6 mg/dL (1.6-2.3); Potassium 4.1 mmol/L (3.4-5.0); Sodium 135 mmol/L (137-145)
[2023-04-06] MEDS: PANTOPRAZOLE 40 MG TABLET PO ×2 (05:44→22:09)
[2023-04-06] MEDS: ATORVASTATIN 40 MG TABLET 80 MG PO ×2 (05:44→22:09)
[2023-04-06] MEDS: ASPIRIN 81 MG CHEWABLE TABLET PO ×2 (05:44→22:09)
[2023-04-06 07:47] LABS: Glucose Point of Care 134 mg/dl (65-105)
[2023-04-06 08:07] LABS: Glucose Point of Care 150 mg/dl (65-105)
[2023-04-06] MEDS: GABAPENTIN 300 MG CAPSULE PO (08:54)
[2023-04-06] MEDS: POTASSIUM CHLORIDE 20 MEQ TABLET.ER PO (08:54)
[2023-04-06] MEDS: MAGNESIUM OXIDE 400 MG TABLET PO (08:54)
[2023-04-06] MEDS: MIDODRINE HCL 2.5 MG TABLET PO ×2 (08:54→16:53)
[2023-04-06] MEDS: TAMSULOSIN HCL 0.4 MG CAPSULE PO (08:54)
[2023-04-06] MEDS: SERTRALINE HCL 50 MG TABLET 100 MG PO (08:55)
[2023-04-06] MEDS: calcitrioL 0.25 MCG CAPSULE PO ×2 (08:55→16:53)
[2023-04-06] MEDS: CLOPIDOGREL BISULFATE 75 MG TABLET PO (08:55)
[2023-04-06] MEDS: FINASTERIDE 5 MG TABLET PO (08:55)
--- NOTE | 2023-04-06 12:16 | PM.IMPN ---
Progress Note: A&P Assessment and Plan (1) Chest pain: Qualifiers: Chest pain type: unspecified Qualified Code(s): R07.9 - Chest pain, unspecified Code(s): R07.9 - Chest pain, unspecified Status: Acute Assessment and Plan: Denies chest pain today. (2) Elevated troponin: Code(s): R77.8 - Other specified abnormalities of plasma proteins Status: Acute Assessment and Plan: Troponin is mildly elevated given his cardiac history and recent stents as per [facility], he is being admitted overnight for close monitoring and Cardiology consultation. (3) Orthostatic hypotension: Code(s): I95.1 - Orthostatic hypotension Status: Acute Assessment and Plan: On midodrine. Blood pressure still up and down. Monitor today may consider increasing dose. (4) Coronary artery disease: Code(s): I25.10 - Atherosclerotic heart disease of [place] coronary artery without angina pectoris Status: Acute Assessment and Plan: He had stents placed in January 2023 at [place] and at [facility] as per [facility]. Continue dual anti-platelet and statin therapy. Metoprolol was discontinued by his figurine maker recently due to ongoing issues with orthostatic hypotension. (5) Heart failure with reduced ejection fraction: Code(s): I50.20 - Unspecified systolic (congestive) heart failure Status: Acute Assessment and Plan: Clinically compensated. Monitor strict I/O and daily weights. (6) Insulin dependent diabetes mellitus: Status: Chronic Assessment and Plan: Continue basal insulin. Initiate sliding scale insulin, Accu-Cheks, and hypoglycemic protocol. (7) Chronic kidney disease, stage 3: Code(s): N18.30 - Chronic kidney disease, stage 3 unspecified Status: Chronic Assessment and Plan: Stable. Baseline creatinine appears to range between 1.2 and 1.50. Subjective Date/time seen: 04/06/23 12:16 Interval history: Still having some orthostasis. Denies chest pain Exam Narrative: General:?Nontoxic-appearing male sitting at side of bed in no distress. Weight: 98.9 kg. BMI: 28.0. HEENT:??Normocephalic, atraumatic.? PERRL, EOMI. Sclera anicteric. Moist mucous membranes. Neck:??Supple. Trachea midline. No JVD. Respiratory:?Lungs are clear to auscultation bilaterally. Cardiovascular:??Regular rate and rhythm with S1-S2. Chest: He does have some tenderness to palpation over the lower ribs on the left. No significant bruising noted. Gastrointestinal:??Abdomen is soft, nontender, and nondistended with positive bowel sounds. No guarding or rebound tenderness. Skin:??Warm and dry.? No rash or lesions on limited exam. Extremities:??No cyanosis, clubbing, or edema. Radial and pedal (diminished bilaterally) pulses intact. No palpable knots or cords. Neurological:??Alert.? Cranial nerves 2-12 are grossly intact. No gross focal deficits to casual conversation. Psychiatric:??Pleasant and cooperative with normal mood and affect.? Judgment and insight intact. Objective Data Vital Signs Vital Signs: Vital Signs - 24 hr 04/05/23 12:17 04/05/23 12:32 04/05/23 12:51 Temperature Pulse Rate 77 75 76 Respiratory Rate 18 14 20 Blood Pressure 140/81 Pulse Oximetry 98 Oxygen Delivery 04/05/23 13:06 04/05/23 13:15 04/05/23 13:16 Temperature Pulse Rate 69 72 73 Respiratory Rate 11 L 9 L 14 Blood Pressure 132/84 Pulse Oximetry Oxygen Delivery 04/05/23 13:30 04/05/23 13:31 04/05/23 13:46 Temperature Pulse Rate 72 78 Respiratory Rate 21 H 20 Blood Pressure 131/81 134/91 H Pulse Oximetry Oxygen Delivery 04/05/23 14:16 04/05/23 14:31 04/05/23 15:01 Temperature Pulse Rate Respiratory Rate Blood Pressure 144/84 H 180/84 H 153/84 H Pulse Oximetry Oxygen Delivery 04/05/23 15:35 04/05/23 15:45 04/05/23 16:30 Temperature Pulse Rate 72 72 73 Respiratory Ra
[2023-04-06 12:25] LABS: Glucose Point of Care 209 mg/dl (65-105)
--- NOTE | 2023-04-06 15:09 | PM.CNCAR ---
Assessment and Plan Assessment and plan (1) Chest pain: Code(s): R07.9 - Chest pain, unspecified Status: Acute Plan Acute chest pain in patient with known Hx of CAD and recent complex PCI Mildly elevated trop which could be related to MARCIE vs underlying ACS HTN and dyslipidemia Leg pain likely musculoskeletal Plan Serial enzymes and TTE ASA, Plavix, statin PATRICK Need to review cath kyle from OSH History of Present Illness History of Present Illness Consult date/time: 04/06/23 15:09 Reason For Visit: Chest Pain Narrative: Patient presented with chest discomfort that is left sided non radiating stabbing moderate in severity, non radiating started yesterday and lasted or hours. currently he is chest pain free. He has Hx of CAD and recent PCi to LAD in [facility]. He also complains of rt leg pain mainly at knee and received steroid injection in past for similar pain. Review of Systems Review of Systems: 12 points review of system is negative except for stated above [facility] Past Medical History Medical History Adenomatous colon polyp Anxiety Arthritis Chronic kidney disease, stage 3 Coarctation of aorta Coronary artery disease Depression Gastroesophageal reflux disease Heart failure with reduced ejection fraction Hepatitis B Hypercholesterolemia Hypertension Insulin dependent diabetes mellitus Kidney stone Methicillin resistant Staphylococcus aureus infection (2015) Myocardial infarction Obstructive sleep apnea Does not use a CPAP. Peripheral neuropathy Psoriasis Rectal polyp Surgical History Surgical History History of aortic coarctation repair (1964) History of appendectomy History of arthroscopy of both knees History of arthroscopy of left shoulder With removal of bone spur. History of bilateral carpal tunnel release History of bilateral knee replacement History of cardiac catheterization History of cataract surgery History of cholecystectomy History of colonoscopy with polypectomy History of coronary artery stent placement History of hemorrhoidectomy History of hernia repair History of partial colectomy (2014) Secondary to bowel obstruction. History of tonsillectomy Family History Family History Sibling Family history of thyroid disease Hypertension Family history of diabetes mellitus in first degree relative Family history of obesity Patient's sister is in good health Diabetes mellitus Mother Hypertension Family history of diabetes mellitus in first degree relative Family history of thyroid disease Family history of osteoporosis Patient's mother is in good health Cerebrovascular accident Family history of Alzheimer's disease Family history of hearing loss Family history of transient ischemic attacks Father Asthma Patient's father is Family history of chronic obstructive pulmonary disease Acute myocardial infarction Family history of lung disease, Onset Age: 64 Social History Social History Social History: Surrogate medical decision maker: Doreen Yepez, daughter. Code status: Full code. Smoking status: Never smoker Second hand tobacco smoke exposure: No Alcohol intake: never Substance use: never Substance use type: does not use Lack of Transportation: No Lack of Food: Never True Current Housing: I Have Housing Concerned About Future Housing: No Difficulty Paying Gas/Electric Bills: No Difficulty Paying for Meds: No Currently Unemployed: No Education: Trade/Vocational Certificate Difficulty w/ Childcare or Family Care: No Living arrangements: alone Spiritual care concerns: No Meds Home Medications and Allergies Home Medications Medication Instructio
[2023-04-06 17:20] LABS: Glucose Point of Care 179 mg/dl (65-105)
--- NOTE | 2023-04-06 18:50 | PC.NURSE ---
Received from [facility]/ via wheelchair.
[2023-04-06 22:26] LABS: Glucose Point of Care 176 mg/dl (65-105)
[2023-04-07] VITALS (16 sets, daily range): BP systolic 91–139; BP diastolic 55–95; PULSE 65–105; RESP 17–20; TEMP 36.1–36.6; O2SAT 99–100
[2023-04-07 08:06] LABS: Glucose Point of Care 147 mg/dl (65-105)
[2023-04-07] MEDS: TAMSULOSIN HCL 0.4 MG CAPSULE PO (08:28)
[2023-04-07] MEDS: MIDODRINE HCL 2.5 MG TABLET 5 MG PO ×3 (08:28→16:58)
[2023-04-07] MEDS: POTASSIUM CHLORIDE 20 MEQ TABLET.ER PO (08:29)
[2023-04-07] MEDS: FINASTERIDE 5 MG TABLET PO (08:29)
[2023-04-07] MEDS: calcitrioL 0.25 MCG CAPSULE PO ×2 (08:29→16:57)
[2023-04-07] MEDS: GABAPENTIN 300 MG CAPSULE PO (08:29)
[2023-04-07] MEDS: SERTRALINE HCL 50 MG TABLET 100 MG PO (08:29)
[2023-04-07] MEDS: MAGNESIUM OXIDE 400 MG TABLET PO (08:30)
[2023-04-07] MEDS: CLOPIDOGREL BISULFATE 75 MG TABLET PO (08:30)
[2023-04-07 11:32] LABS: Glucose Point of Care 309 mg/dl (65-105)
--- NOTE | 2023-04-07 11:43 | PM.IMPN ---
Progress Note: A&P Assessment and Plan (1) Chest pain: Qualifiers: Chest pain type: unspecified Qualified Code(s): R07.9 - Chest pain, unspecified Code(s): R07.9 - Chest pain, unspecified Status: Acute Assessment and Plan: Noncardiac (2) Elevated troponin: Code(s): R77.8 - Other specified abnormalities of plasma proteins Status: Acute Assessment and Plan: No further cardiac workup needed (3) Orthostatic hypotension: Code(s): I95.1 - Orthostatic hypotension Status: Acute Assessment and Plan: Increase midodrine (4) Coronary artery disease: Code(s): I25.10 - Atherosclerotic heart disease of [place] coronary artery without angina pectoris Status: Acute Assessment and Plan: He had stents placed in January 2023 at [place] and at [facility] as per [facility]. Continue dual anti-platelet and statin therapy. 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 (5) Heart failure with reduced ejection fraction: Code(s): I50.20 - Unspecified systolic (congestive) heart failure Status: Acute Assessment and Plan: Clinically compensated. Monitor strict I/O and daily weights. (6) Insulin dependent diabetes mellitus: Status: Chronic Assessment and Plan: Continue basal insulin. Initiate sliding scale insulin, Accu-Cheks, and hypoglycemic protocol. (7) Chronic kidney disease, stage 3: Code(s): N18.30 - Chronic kidney disease, stage 3 unspecified Status: Chronic Assessment and Plan: Stable. Baseline creatinine appears to range between 1.2 and 1.50. Plan Medical decision making narrative ? History obtained from: Patient. ? History from independent sources: None. ? External chart review: Recent visit reviewed. ? New problems addressed: Chest pain, elevated troponin. ? Chronic illnesses addressed: Heart failure, diabetes, orthostatic hypotension. ? Independent interpretation of studies: Labs, imaging, EKG, and all reports were personally reviewed. ? Comorbidities complicating care: Ongoing issues with orthostatic hypotension. ? Diagnostic tests considered but not ordered: None. ? Shared decision making: Findings were reviewed and discussed with the patient, including plans for further workup and treatment options. Questions solicited and answered to satisfaction. Patient agrees with current plan of care. ? Risk of complication: Ongoing issues with orthostatic hypotension. Subjective Date/time seen: 04/07/23 11:43 Interval history: No new complaints Exam Narrative: General:?Nontoxic-appearing male sitting at side of bed in no distress. Weight: 98.9 kg. BMI: 28.0. HEENT:??Normocephalic, atraumatic.? PERRL, EOMI. Sclera anicteric. Moist mucous membranes. Neck:??Supple. Trachea midline. No JVD. Respiratory:?Lungs are clear to auscultation bilaterally. Cardiovascular:??Regular rate and rhythm with S1-S2. Chest: He does have some tenderness to palpation over the lower ribs on the left. No significant bruising noted. Gastrointestinal:??Abdomen is soft, nontender, and nondistended with positive bowel sounds. No guarding or rebound tenderness. Skin:??Warm and dry.? No rash or lesions on limited exam. Extremities:??No cyanosis, clubbing, or edema. Radial and pedal (diminished bilaterally) pulses intact. No palpable knots or cords. Neurological:??Alert.? Cranial nerves 2-12 are grossly intact. No gross focal deficits to casual conversation. Psychiatric:??Pleasant and cooperative with normal mood and affect.? Judgment and insight intact. Objective Data Vital Signs Vital Signs: Vital Signs - 24 hr 04/06/23 13:22 04/06/23 12:00 04/06/23 16:00 Temperature 97.8 F Pulse Rate 92 Respiratory Rate 20 Blood Pressure 104/69 Pulse Oximetry 96 Oxygen Delivery Room Air Room Air 04/06/23 16:36 04/06/23 12:00 04/06/23
[2023-04-07] MEDS: INSULIN ASPART (*BKC) 100 UNITS/ML SUB-Q (11:45)
--- NOTE | 2023-04-07 12:20 | PM.PNCARD ---
Progress Note: A&P Assessment and Plan (1) Chest pain: Code(s): R07.9 - Chest pain, unspecified Status: Acute Plan Acute chest pain in patient with known Hx of CAD and recent complex PCI Mildly elevated trop which could be related to MARCIE vs underlying ACS HTN and dyslipidemia Leg pain likely musculoskeletal Plan TTE ASA, Plavix, statin PATRICK Need to review cath kyle from OSH and NPO for possible LHC in AM Subjective Date/time seen: 04/07/23 12:20 Interval history: no acute events Review of Systems Review of Systems: recurrent chest pain yesterday Exam Const: General: comfortable and no acute distress Other: Able to lie flat HENMT: Face/Nose/Sinus: Normal nares present and no epistaxis Mouth: Yes moist mucous membranes Eyes: Sclera: sclerae normal Pupils: Equal, round and reactive pupils present Neck: Neck: supple and no JVD Carotids: no bruits Resp: Auscultation: clear to auscultation bilaterally and lung sounds not diminished Other: No chest wall tenderness Cardio: Rate: regular rate Rhythm: regular rhythm Heart sounds: no gallops, no murmurs and no rubs GI: GI Palp: Yes Soft to palpation and No Tenderness to palpation present (GI) Auscultation: normal bowel sounds Skin: General skin exam: normal color, rashes and/or lesions noted and no erythema Other: Warm Neuro: Cranial nerves: Yes Equal, round and reactive pupils present Speech: normal speech Other: No obvious focal deficit or facial asymmetry Extrem: General: no edema Other: Normal capillary refills Intact distal pulses. Objective Data Vital Signs Vital Signs: Vital Signs - 24 hr 04/06/23 13:22 04/06/23 16:00 04/06/23 16:36 Temperature 36.6 C 36.6 C Pulse Rate 92 85 Respiratory Rate 20 20 Blood Pressure 104/69 109/70 Pulse Oximetry 96 99 Oxygen Delivery Room Air 04/06/23 14:00 04/06/23 16:00 04/06/23 18:00 Temperature Pulse Rate 81 81 81 Respiratory Rate Blood Pressure Pulse Oximetry Oxygen Delivery 04/06/23 21:18 04/06/23 21:20 04/06/23 20:00 Temperature 36.3 C L 36.3 C L Pulse Rate 93 98 80 Respiratory Rate 19 17 Blood Pressure 89/60 L 75/43 L Pulse Oximetry 100 97 Oxygen Delivery 04/06/23 20:00 04/06/23 23:55 04/07/23 03:55 Temperature Pulse Rate 86 91 Respiratory Rate Blood Pressure Pulse Oximetry Oxygen Delivery Room Air 04/07/23 06:00 04/07/23 07:49 04/07/23 07:54 Temperature 36.1 C L Pulse Rate 84 84 Respiratory Rate 17 18 Blood Pressure 125/76 Pulse Oximetry 99 99 Oxygen Delivery Room Air 04/07/23 08:00 04/07/23 07:59 04/07/23 08:01 Temperature 36.2 C L 36.2 C L Pulse Rate 75 67 81 Respiratory Rate 18 18 Blood Pressure 139/95 H 103/64 Pulse Oximetry 100 100 Oxygen Delivery 04/07/23 08:03 Temperature 36.2 C L Pulse Rate 105 H Respiratory Rate 20 Blood Pressure 91/55 L Pulse Oximetry 100 Oxygen Delivery Intake/Output Intake/Output: Intake & Output 04/04/23 04/05/23 04/06/23 04/07/23 23:59 23:59 23:59 23:59 Intake Total 620 1720 920 Output Total 950 300 Balance 620 770 620 Meds/Results Medications: Active Medications Generic Name Dose Route Start Last Admin Trade Name Freq PRN Reason Stop Dose Admin Acetaminophen 650 mg 04/05/23 13:09 Acetaminophen 325 Mg Tablet PO Q4H PRN Mild Pain (1-3) or Fever Aspirin 81 mg 04/06/23 00:25 04/06/23 22:09 Aspirin 81 Mg Chewable Tablet PO 81 mg HS MAYTE Administration Atorvastatin Calcium 80 mg 04/06/23 00:25 04/06/23 22:09 Atorvastatin 40 Mg Tablet PO 80 mg QHS MAYTE Administration Calcitriol 0.25 mcg 04/06/23 09:00 04/07/23 08:29 Calcitriol 0.25 Mcg Capsule PO 0.25 mcg BID MAYTE Administration Clopidogrel Bisulfate 75 mg 04/06/23 09:00 04/07/23 08:30 Clopidogrel Bisulfate 75 Mg Tablet PO 75 mg DAILY MAYTE Administration Dextrose
[2023-04-07 17:04] LABS: Glucose Point of Care 175 mg/dl (65-105)
[2023-04-07 20:32] LABS: Glucose Point of Care 167 mg/dl (65-105)
[2023-04-07] MEDS: PANTOPRAZOLE 40 MG TABLET PO (20:47)
[2023-04-07] MEDS: ASPIRIN 81 MG CHEWABLE TABLET PO (20:47)
[2023-04-07] MEDS: ATORVASTATIN 40 MG TABLET 80 MG PO (20:47)
[2023-04-08] VITALS: PULSE 72
[2023-04-08 04:00] VITALS: PULSE 78
[2023-04-08 05:19] VITALS: BP 120/80; PULSE 76; RESP 20; TEMP 36.7; O2SAT 98
[2023-04-08 08:00] VITALS: PULSE 75
[2023-04-08] MEDS: SERTRALINE HCL 50 MG TABLET 100 MG PO (08:25)
[2023-04-08] MEDS: GABAPENTIN 300 MG CAPSULE PO (08:25)
[2023-04-08] MEDS: MIDODRINE HCL 2.5 MG TABLET 5 MG PO (08:25)
[2023-04-08] MEDS: FINASTERIDE 5 MG TABLET PO (08:25)
[2023-04-08] MEDS: TAMSULOSIN HCL 0.4 MG CAPSULE PO (08:25)
[2023-04-08] MEDS: CLOPIDOGREL BISULFATE 75 MG TABLET PO (08:25)
[2023-04-08] MEDS: POTASSIUM CHLORIDE 20 MEQ TABLET.ER PO (08:25)
[2023-04-08] MEDS: calcitrioL 0.25 MCG CAPSULE PO (08:25)
[2023-04-08] MEDS: MAGNESIUM OXIDE 400 MG TABLET PO (08:25)
[2023-04-08 08:36] LABS: Glucose Point of Care 154 mg/dl (65-105)
--- NOTE | 2023-04-08 10:14 | PM.DS ---
DS: Admitting Diagnosis Discharge Date April 08, 2023 Admitting Diagnosis Chest pain and orthostatic hypotension DS: Discharge Diagnosis Discharge Diagnosis (1) Chest pain: Qualifiers: Chest pain type: unspecified Qualified Code(s): R07.9 - Chest pain, unspecified Code(s): R07.9 - Chest pain, unspecified Status: Acute Assessment and Plan: Noncardiac (2) Elevated troponin: Code(s): R77.8 - Other specified abnormalities of plasma proteins Status: Acute Assessment and Plan: No further cardiac workup needed (3) Orthostatic hypotension: Code(s): I95.1 - Orthostatic hypotension Status: Acute Assessment and Plan: Increase midodrine (4) Coronary artery disease: Code(s): I25.10 - Atherosclerotic heart disease of [place] coronary artery without angina pectoris Status: Acute Assessment and Plan: He had stents placed in January 2023 at [place] and at [facility] as per HPI. Continue dual anti-platelet and statin therapy. 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 (5) Heart failure with reduced ejection fraction: Code(s): I50.20 - Unspecified systolic (congestive) heart failure Status: Acute Assessment and Plan: Clinically compensated. Monitor strict I/O and daily weights. (6) Insulin dependent diabetes mellitus: Status: Chronic Assessment and Plan: Continue basal insulin. Initiate sliding scale insulin, Accu-Cheks, and hypoglycemic protocol. (7) Chronic kidney disease, stage 3: Code(s): N18.30 - Chronic kidney disease, stage 3 unspecified Status: Chronic Assessment and Plan: Stable. Baseline creatinine appears to range between 1.2 and 1.50. Plan Medical decision making narrative ? History obtained from: Patient. ? History from independent sources: None. ? External chart review: Recent visit reviewed. ? New problems addressed: Chest pain, elevated troponin. ? Chronic illnesses addressed: Heart failure, diabetes, orthostatic hypotension. ? Independent interpretation of studies: Labs, imaging, EKG, and all reports were personally reviewed. ? Comorbidities complicating care: Ongoing issues with orthostatic hypotension. ? Diagnostic tests considered but not ordered: None. ? Shared decision making: Findings were reviewed and discussed with the patient, including plans for further workup and treatment options. Questions solicited and answered to satisfaction. Patient agrees with current plan of care. ? Risk of complication: Ongoing issues with orthostatic hypotension. DS: Summary Hospital Course Hospital Course: Patient is a 73-year-old gentleman history of orthostatic hypotension came in with chest pain. He was also noted to have positive orthostatic blood pressure. We adjusted his midodrine and Cardiology was consulted no further cardiac workup was indicated. He does not have any chest pain for last 2 days. He can be discharged follow-up primary care physician Time Spent with Patient Time attestation: Total time spent providing and/or coordinating discharge services: Exam Narrative: General:?Nontoxic-appearing male sitting at side of bed in no distress. Weight: 98.9 kg. BMI: 28.0. HEENT:??Normocephalic, atraumatic.? PERRL, EOMI. Sclera anicteric. Moist mucous membranes. Neck:??Supple. Trachea midline. No JVD. Respiratory:?Lungs are clear to auscultation bilaterally. Cardiovascular:??Regular rate and rhythm with S1-S2. Chest: He does have some tenderness to palpation over the lower ribs on the left. No significant bruising noted. Gastrointestinal:??Abdomen is soft, nontender, and nondistended with positive bowel sounds. No guarding or rebound tenderness. Skin:??Warm and dry.? No rash or lesions on limited exam. Extremities:??No cyanosis, clubbing, or edema. Radial and pedal (diminished bilaterally) pul
--- NOTE | 2023-04-08 10:35 | PM.PNCARD ---
Progress Note: A&P Assessment and Plan (1) Chest pain: Code(s): R07.9 - Chest pain, unspecified Status: Acute Assessment and Plan: Acute chest pain in patient with known Hx of CAD and recent complex PCI. Chest pain atypical and he is chest pain free this morning. Due to complex intervention, he is not a good candidate for coronary angiogram at this facility. No plans for LHC here. He understands this and is in agreement with the plan. Continue ASA, plavix, and statin. Plan Subjective Date/time seen: 04/08/23 10:35 Cardiology follow up for chest pain Interval history: No acute events overnight. Feels well this morning and does not have any complaints of chest pain, shortness of breath, or palpitations. Review of Systems Review of Systems: All systems reviewed & are unremarkable except as noted in HPI and below Exam Const: General: comfortable and no acute distress Other: Able to lie flat HENMT: Face/Nose/Sinus: Normal nares present and no epistaxis Mouth: Yes moist mucous membranes Eyes: Sclera: sclerae normal Pupils: Equal, round and reactive pupils present Neck: Neck: supple and no JVD Carotids: no bruits Resp: Auscultation: clear to auscultation bilaterally and lung sounds not diminished Other: No chest wall tenderness Cardio: Rate: regular rate Rhythm: regular rhythm Heart sounds: no gallops, no murmurs and no rubs GI: Auscultation: normal bowel sounds Skin: General skin exam: normal color, rashes and/or lesions noted and no erythema Other: Warm Neuro: Cranial nerves: Yes Equal, round and reactive pupils present Speech: normal speech Other: No obvious focal deficit or facial asymmetry Extrem: General: no edema Objective Data Vital Signs Vital Signs: Vital Signs - 24 hr 04/07/23 12:00 04/07/23 13:58 04/07/23 14:30 Temperature 36.6 C Pulse Rate 83 86 Respiratory Rate 18 Blood Pressure 103/62 Pulse Oximetry 99 Oxygen Delivery Room Air 04/07/23 16:00 04/07/23 19:49 04/07/23 20:39 Temperature 36.6 C Pulse Rate 82 65 Respiratory Rate 20 Blood Pressure 137/80 137/80 Pulse Oximetry 100 Oxygen Delivery 04/07/23 19:51 04/07/23 19:54 05/07/23 20:00 Temperature Pulse Rate 66 Respiratory Rate Blood Pressure 119/66 102/62 Pulse Oximetry Oxygen Delivery 04/07/23 20:00 04/08/23 00:00 04/08/23 04:00 Temperature Pulse Rate 65 72 78 Respiratory Rate 20 Blood Pressure Pulse Oximetry 100 Oxygen Delivery Room Air 04/08/23 05:19 Temperature 36.7 C Pulse Rate 76 Respiratory Rate 20 Blood Pressure 120/80 Pulse Oximetry 98 Oxygen Delivery Intake/Output Intake/Output: Intake & Output 04/05/23 04/06/23 04/07/23 04/08/23 23:59 23:59 23:59 23:59 Intake Total 620 1720 2180 50 Output Total 950 300 Balance 309 083 0893 50 Meds/Results Medications: Active Medications Generic Name Dose Route Start Last Admin Trade Name Freq PRN Reason Stop Dose Admin Acetaminophen 650 mg 04/05/23 13:09 Acetaminophen 325 Mg Tablet PO Q4H PRN Mild Pain (1-3) or Fever Aspirin 81 mg 04/06/23 00:25 04/07/23 20:47 Aspirin 81 Mg Chewable Tablet PO 81 mg HS MAYTE Administration Atorvastatin Calcium 80 mg 04/06/23 00:25 04/07/23 20:47 Atorvastatin 40 Mg Tablet PO 80 mg QHS MAYTE Administration Calcitriol 0.25 mcg 04/06/23 09:00 04/08/23 08:25 Calcitriol 0.25 Mcg Capsule PO 0.25 mcg BID MAYTE Administration Clopidogrel Bisulfate 75 mg 04/06/23 09:00 04/08/23 08:25 Clopidogrel Bisulfate 75 Mg Tablet PO 75 mg DAILY MAYTE Administration Dextrose 12.5 gm 04/05/23 15:27 Dextrose 50% 25 Gm/50 Ml Syringe IV PUSH PRN PRN Hypoglycemia Protocol Finasteride 5 mg 04/06/23 09:00 04/08/23 08:25 Finasteride 5 Mg Tablet PO 5 mg DAILY MAYTE Administration Gabapentin 300 mg 04/06/23 09:00 04/08/23 08:25
[2023-04-08 12:17] LABS: Glucose Point of Care 192 mg/dl (65-105)
== END 2023-04-08 12:30 | disposition home health service (06) | DRG 313 ==
LOC: ANHED 11:32 → ANHIMU 14:44 → ANH2MED 04-06 19:05
PROVIDERS: Physician Assistant; Admitting Provider Internal Medicine; Emergency Provider Emergency Medicine; PCP Internal Medicine; Visit Provider Chiropractor
DX: R07.89 Other chest pain (principal); I13.0 Hypertensive heart and chronic kidney disease with heart failure and stage 1 through stage 4 chronic kidney disease, or unspecified chronic kidney disease; I50.22 Chronic systolic (congestive) heart failure; I95.1 Orthostatic hypotension; N18.30 Chronic kidney disease, stage 3 unspecified; I25.10 Atherosclerotic heart disease of native coronary artery without angina pectoris; E78.5 Hyperlipidemia, unspecified; F41.9 Anxiety disorder, unspecified; M19.90 Unspecified osteoarthritis, unspecified site; K21.9 Gastro-esophageal reflux disease without esophagitis; E11.22 Type 2 diabetes mellitus with diabetic chronic kidney disease; G47.33 Obstructive sleep apnea (adult) (pediatric); E11.42 Type 2 diabetes mellitus with diabetic polyneuropathy; L40.9 Psoriasis, unspecified; Z96.653 Presence of artificial knee joint, bilateral; I25.2 Old myocardial infarction; Z87.442 Personal history of urinary calculi; Z90.49 Acquired absence of other specified parts of digestive tract; Z95.5 Presence of coronary angioplasty implant and graft
CPT/HCPCS: 36415; 71046; 71100; 80048; 80053; 82948; 83690; 83735; 84484; 85025; 85027; 85055; 85610; 85730; 93005; 93971; 96374; 96376; 97161; 97165; 99285; A9270; G0378; G0379; J1815; J3010

== ENCOUNTER 2023-04-16 14:11 | Emergency (ER) | payer MEDICARE, SELFPAY ==
[2023-04-16] VITALS (13 sets, daily range): BP systolic 105–172; BP diastolic 60–102; PULSE 58–76; RESP 16–20; TEMP 36.3–36.6; O2SAT 97–100
--- NOTE | ~2023-04-16 | XR_ITS ---
EXAMINATION: XR chest 2V DATE: 04/16/2023 15:04 INDICATION: Left chest pressure. TECHNIQUE: Frontal and lateral views of the chest were obtained on 4 radiographs. COMPARISON: Chest 2 views 04/05/2023 FINDINGS: A calcified left lung nodule is consistent with old granulomatous disease. No pleural effus ion or pneumothorax. The heart size is normal. Surgical clips in the right upper quadrant are likely from cholecystectomy. There are old healed left rib fractures. IMPRESSION: 1. No acute cardiopulmonary disease. Reviewed, dictated and finalized at location A.
--- NOTE | 2023-04-16 14:13 | ECG_ITS ---
Measurements Intervals [place] Rate: 74 P: 109 [place]: 129 QRS: 34 QRSD: 84 T: 114 QT: 393 QTc: 438 Interpretive Statements SINUS RHYTHM ATRIAL PREMATURE COMPLEXES INCOMPLETE RIGHT BUNDLE BRANCH BLOCK ST-T WAVE ABNORMALITY IN ANT/HIGH LAT LEADS- CONSIDER ISCHEMIA BASELINE ARTIFACT- I, II, AVR ABNORMAL ECG COMPARED TO ECG 04/05/2023 10:49:20 NO SIGNIFICANT CHANGES Electronically Signed On 04-16-2023 18:28:29 CDT by Virgil Santos D.O.
[2023-04-16 14:35] LABS: Basophils Percent Auto 0.7 % (0.2-1.2); Eosinophils Absolute Auto 0.3 K/mm3 (0-0.3); Eosinophils Percent Auto 5.2 % (0-4.4); Hematocrit 42.3 % (42.0-52.0); Hemoglobin 14.8 g/dL (14.0-18.0); Immature Granulocyte Absolute 0.02 K/mm3 (0.00-0.031); Immature Granulocyte Percent A 0.4 % (0-0.5); Immature Platelet Fraction Pct 3.5 % (0.9-11.2); Lymphocytes Absolute Auto 0.68 K/mm3 (0.9-3.2); Lymphocytes Percent Auto 12.5 % (18.3-44.2); Mean Corpuscular Hemoglobin 30.9 pg (26-34); Mean Corpuscular Volume 88.3 fl (80-100); Mean Platelet Volume 9.6 fl (7.4-10.4); Monocytes Absolute Auto 0.3 K/mm3 (0.1-0.6); Monocytes Percent Auto 6.1 % (2.6-8.5); Neutrophils Absolute Auto 4.1 K/mm3 (1.3-6.7); Neutrophils Percent Auto 75.1 % (45.5-73.1); Platelet Count Result 142 k/mm3 (150-375); Red Blood Count 4.79 M/mm3 (4.6-6.20); Red Cell Distribution Width 13.3 % (11.5-14.5); White Blood Count 5.4 K/mm3 (4.5-10.0)
[2023-04-16 14:43] LABS: Prothrombin Time 13.6 Seconds (11.1-14.7)
[2023-04-16 14:44] LABS: Alanine Aminotransferase 64 U/L (6-50); Albumin Level 4.2 g/dL (3.5-5.1); Alkaline Phosphatase 89 U/L (38-126); Anion Gap 6 mmol/L (8-16); Aspartate Amino Transferase 54 U/L (17-59); Bilirubin,Total 0.8 mg/dL (0.2-1.3); Blood Urea Nitrogen 15 mg/dL (9-20); Calcium 9.7 mg/dL (8.4-10.2); Carbon Dioxide 30 mmol/L (22-30); Chloride 101 mmol/L (98-107); Estimated CRCL calculation 54 ml/min; Estimated Glomerular Filt Rate 54; Glucose 160 mg/dL (65-110); Lipase 44 U/L (23-300); Partial Thromboplastin Time 27.2 SECONDS (22.3-36.8); Potassium 4.1 mmol/L (3.4-5.0); Sodium 137 mmol/L (137-145)
[2023-04-16 14:56] LABS: Troponin I 0.027 ng/mL (0.000-0.034)
--- NOTE | 2023-04-16 15:49 | ED.CHESTPAIN ---
HPI - Chest Pain General Chief Complaint: Chest Pain Stated Complaint: chest discomfort Time Seen by Provider: 04/16/23 15:42 History of Present Illness HPI narrative: Patient is a 73-year-old male with a history of CAD, hyperlipidemia, diabetes, orthostatic hypotension presenting with near syncope. Patient states that he has been in and out of the hospital over the last couple of months due to heart problems. States that he has been struggling with orthostatic hypotension. States that he has been on midodrine to help with this. States that he has been doing pretty well until today when he went to his PCP for his follow-up exam. States that as he was getting out of his car he felt very lightheaded. They advised him to come to the ER for further evaluation. He told his PCP that he was having chest pain but he denies this to me. States that he has not had any pain at all, he had a little bit of discomfort. Reports mild associated shortness of breath. Denies vertigo, numbness, weakness, speech changes, vision changes. Denies palpitations, abdominal pain, nausea or vomiting, diarrhea, leg swelling lately. Related Data Home Medications Medication Instructions Recorded Confirmed calcitriol 0.25 mcg capsule 0.25 mcg PO BID 08/01/22 04/05/23 potassium chloride 20 mEq 20 meq PO DAILY 08/01/22 04/05/23 tablet,extended release aspirin 81 mg chewable tablet 81 mg PO HS 08/28/22 04/05/23 pantoprazole 40 mg tablet,delayed 40 mg PO HS 11/20/22 04/05/23 release clopidogrel 75 mg tablet 75 mg PO DAILY 02/25/23 04/05/23 insulin lispro 100 unit/mL See Rx Instructions .Route .COMPLEX 02/25/23 04/05/23 subcutaneous solution (Humalog U-100 Insulin) finasteride 5 mg tablet 5 mg PO DAILY 04/05/23 04/05/23 isosorbide mononitrate 30 mg 30 mg PO DAILY 04/05/23 04/05/23 tablet,extended release 24 hr sertraline 100 mg tablet 100 mg PO DAILY 04/05/23 04/05/23 tamsulosin 0.4 mg capsule 0.4 mg PO DAILY 04/05/23 04/05/23 Allergies Allergy/AdvReac Type Severity Reaction Status Date / Time cyclobenzaprine Allergy Severe Stopped Verified 04/16/23 13:16 Breathing Sulfa (Sulfonamide Allergy Severe Dyspnea / Verified 04/16/23 13:16 Antibiotics) SOB amoxicillin Allergy Intermediate Dyspnea / Verified 04/16/23 13:16 SOB clavulanic acid Allergy Intermediate Dyspnea / Verified 04/16/23 13:16 SOB lisinopril Allergy Unknown Unknown Verified 04/16/23 13:16 norepinephrine Allergy Unknown Unknown Verified 04/16/23 13:16 [From Levophed (bitartrate)] morphine AdvReac Severe Jittery Verified 04/16/23 13:16 Cephalosporins AdvReac Intermediate SHORTNESS Verified 04/16/23 13:16 OF BREATH hydrocodone AdvReac Intermediate Confusion Verified 04/16/23 13:16 oxycodone [From OxyContin] AdvReac Intermediate Confusion Verified 04/16/23 13:16 nitroglycerin AdvReac Unknown HEART RATE Verified 04/16/23 13:16 GOES DOWN FAST Review of Systems Review of Systems: All systems reviewed & are unremarkable except as noted in HPI and below PMFSH Past Medical History Medical History Adenomatous colon polyp Anxiety Arthritis Chronic kidney disease, stage 3 Coarctation of aorta Coronary artery disease Depression Gastroesophageal reflux disease Heart failure with reduced ejection fraction Hepatitis B Hypercholesterolemia Hypertension Insulin dependent diabetes mellitus Kidney stone Methicillin resistant Staphylococcus aureus infection (2014) Myocardial infarction Obstructive sleep apnea Does not use a CPAP. Peripheral neuropathy Psoriasis Rectal polyp Surgical History Surgical History History of aortic coarctation repair (1964) History of appendectomy History of arthroscopy of both knees History of arthroscopy of left shoulder With removal of bone spur. History of bilateral carpal tunnel release History of bilatera
[2023-04-16] MEDS: SODIUM CHLORIDE 0.9% IV 1,000 ML 999 ML IV CONT ×2 (16:11→17:16)
[2023-04-16 16:27] LABS: NT Pro B Type Natriuretic Pept 2370 pg/mL (19.9-100)
[2023-04-16 18:01] LABS: Troponin I 0.025 ng/mL (0.000-0.034)
[2023-04-16] MEDS: ACETAMINOPHEN 500 MG TABLET 1000 MG PO (19:40)
[2023-04-16] MEDS: SODIUM CHLORIDE 0.9% IV 500 ML 999 ML IV CONT (19:41)
[2023-04-16 21:06] LABS: Troponin I 0.023 ng/mL (0.000-0.034)
== END 2023-04-16 21:38 | disposition home or self-care (01) ==
PROVIDERS: Emergency Provider Emergency Medicine; PCP Internal Medicine
DX: I95.1 Orthostatic hypotension (principal); F41.9 Anxiety disorder, unspecified; M19.90 Unspecified osteoarthritis, unspecified site; I13.0 Hypertensive heart and chronic kidney disease with heart failure and stage 1 through stage 4 chronic kidney disease, or unspecified chronic kidney disease; N18.30 Chronic kidney disease, stage 3 unspecified; I50.9 Heart failure, unspecified; K21.9 Gastro-esophageal reflux disease without esophagitis; E11.9 Type 2 diabetes mellitus without complications; Z79.4 Long term (current) use of insulin; Z87.442 Personal history of urinary calculi; I25.2 Old myocardial infarction; G47.30 Sleep apnea, unspecified; F32.A Depression, unspecified
CPT/HCPCS: 36415; 71046; 80053; 83690; 83880; 84484; 85025; 85055; 85610; 85730; 93005; 96360; 96361; 99284; A9270; J7030; J7040

== ENCOUNTER 2023-04-25 16:57 | Observation (INO) | payer MEDICARE, SELFPAY ==
[2023-04-25] VITALS (14 sets, daily range): BP systolic 137–166; BP diastolic 89–107; PULSE 78–102; RESP 14–20; TEMP 36.5–36.7; O2SAT 98–100; BMI 29.6
--- NOTE | ~2023-04-25 | XR_ITS ---
EXAMINATION: XR chest 1V portable DATE: 04/25/2023 17:26 INDICATION: Chest pain. TECHNIQUE: A single frontal view of the chest was obtained on 2 radiographs. COMPARISON: Chest 2 views 04/16/2023, CT abdomen and pelvis 07/04/2021, thoracic spine CT 07/28/2012 FINDINGS: The chest demonstrates clear lungs without pneumonia, pleural effusion, or pneumothorax. Th e heart size is normal. The brachiocephalic vessels are tortuous. A surgical clip overlies left neck. IMPRESSION: 1. No acute cardiopulmonary disease. Reviewed, dictated and finalized at location E.
--- NOTE | 2023-04-25 17:02 | ECG_ITS ---
Measurements Intervals [place] Rate: 84 P: 101 [place]: 129 QRS: -12 QRSD: 90 T: 111 QT: 371 QTc: 441 Interpretive Statements SINUS RHYTHM INCOMPLETE RIGHT BUNDLE BRANCH BLOCK ST-T WAVE ABNORMALITY IN HIGH LATERAL LEADS- CONSIDER ISCHEMIA ABNORMAL ECG COMPARED TO ECG 04/16/2023 14:20:53 NO SIGNIFICANT CHANGES Electronically Signed On 04-26-2023 8:02:09 CDT by Virgil Santos D.O.
[2023-04-25 17:23] LABS: Alanine Aminotransferase 43 U/L (6-50); Albumin Level 4.2 g/dL (3.5-5.1); Alkaline Phosphatase 108 U/L (38-126); Anion Gap 8 mmol/L (8-16); Aspartate Amino Transferase 30 U/L (17-59); Bilirubin,Total 0.5 mg/dL (0.2-1.3); Blood Urea Nitrogen 23 mg/dL (9-20); Calcium 9.8 mg/dL (8.4-10.2); Carbon Dioxide 27 mmol/L (22-30); Chloride 99 mmol/L (98-107); Estimated CRCL calculation 64 ml/min; Estimated Glomerular Filt Rate > 60; Glucose 170 mg/dL (65-110); Lipase 66 U/L (23-300); Potassium 4.1 mmol/L (3.4-5.0); Sodium 134 mmol/L (137-145)
[2023-04-25 17:24] LABS: Basophils Absolute Auto 0.1 K/mm3 (0.0-0.1); Eosinophils Absolute Auto 0.3 K/mm3 (0-0.3); Eosinophils Percent Auto 5.6 % (0-4.4); Hematocrit 39.6 % (42.0-52.0); Hemoglobin 13.7 g/dL (14.0-18.0); Immature Granulocyte Absolute 0.03 K/mm3 (0.00-0.031); Immature Granulocyte Percent A 0.6 % (0-0.5); Immature Platelet Fraction Pct 3.3 % (0.9-11.2); Lymphocytes Absolute Auto 0.83 K/mm3 (0.9-3.2); Lymphocytes Percent Auto 17.3 % (18.3-44.2); Mean Corpuscular HGB Conc 34.6 g/dl (32-36); Mean Corpuscular Hemoglobin 30.9 pg (26-34); Mean Corpuscular Volume 89.4 fl (80-100); Monocytes Absolute Auto 0.4 K/mm3 (0.1-0.6); Monocytes Percent Auto 9.2 % (2.6-8.5); Neutrophils Absolute Auto 3.2 K/mm3 (1.3-6.7); Neutrophils Percent Auto 66.3 % (45.5-73.1); Platelet Count Result 155 k/mm3 (150-375); Red Blood Count 4.43 M/mm3 (4.6-6.20); Red Cell Distribution Width 13.4 % (11.5-14.5); White Blood Count 4.8 K/mm3 (4.5-10.0)
[2023-04-25 17:29] LABS: Prothrombin Time 13.9 Seconds (11.1-14.7)
[2023-04-25 17:30] LABS: Partial Thromboplastin Time 27.1 SECONDS (22.3-36.8)
[2023-04-25 17:34] LABS: Troponin I 0.022 ng/mL (0.000-0.034)
[2023-04-25] MEDS: fentaNYL CITRATE INJ (*CRX) 100 MCG/2 ML VIAL 50 MCG IV PUSH ×2 (20:00→23:07)
[2023-04-25 20:12] LABS: Troponin I 0.023 ng/mL (0.000-0.034)
--- NOTE | 2023-04-25 20:26 | ED.CHESTPAIN ---
HPI - Chest Pain General Chief Complaint: Chest Pain Stated Complaint: chest pain Time Seen by Provider: 04/25/23 17:07 Source: patient Mode of arrival: EMS Limitations: no limitations History of Present Illness HPI narrative: 73-year-old with a history of diabetes, CAD here with complaints of sudden onset of left upper quadrant pain associated with nausea, vomiting. Patient states that he is worried that he could have another heart attack. Patient states that he was trying to get out of the couch and started having this pain. He denies any shortness of breath. He endorses Dr. Cecilia Nunez as his night baker at [facility] . Patient states that he had a AR in January 2023. MD complaint: chest pain Pertinent past history: coronary artery disease Onset (ago): hour(s) (1) Timing of current episode: constant Onset: during rest Pain location: left chest Severity: moderate Quality: aching Relieving factors: nothing Exacerbating factors: nothing Associated symptoms: nausea and vomiting Treatment prior to arrival: aspirin and nitroglycerin Risk Factors Coronary artery disease risk factors: diabetes Related Data Home Medications Medication Instructions Recorded Confirmed calcitriol 0.25 mcg capsule 0.25 mcg PO BID 08/01/22 04/22/23 potassium chloride 20 mEq 20 meq PO DAILY 08/01/22 04/22/23 tablet,extended release aspirin 81 mg chewable tablet 81 mg PO HS 08/28/22 04/22/23 pantoprazole 40 mg tablet,delayed 40 mg PO HS 11/20/22 04/22/23 release clopidogrel 75 mg tablet 75 mg PO DAILY 02/25/23 04/22/23 insulin lispro 100 unit/mL See Rx Instructions .Route .COMPLEX 02/25/23 04/22/23 subcutaneous solution (Humalog U-100 Insulin) finasteride 5 mg tablet 5 mg PO DAILY 04/05/23 04/22/23 isosorbide mononitrate 30 mg 30 mg PO DAILY 04/05/23 04/22/23 tablet,extended release 24 hr sertraline 100 mg tablet 100 mg PO DAILY 04/05/23 04/22/23 tamsulosin 0.4 mg capsule 0.4 mg PO DAILY 04/05/23 04/22/23 Allergies Allergy/AdvReac Type Severity Reaction Status Date / Time cyclobenzaprine Allergy Severe Stopped Verified 04/22/23 13:54 Breathing Sulfa (Sulfonamide Allergy Severe Dyspnea / Verified 04/22/23 13:54 Antibiotics) SOB amoxicillin Allergy Intermediate Dyspnea / Verified 04/22/23 13:54 SOB clavulanic acid Allergy Intermediate Dyspnea / Verified 04/22/23 13:54 SOB lisinopril Allergy Unknown Unknown Verified 04/22/23 13:54 norepinephrine Allergy Unknown Unknown Verified 04/22/23 13:54 [From Levophed (bitartrate)] morphine AdvReac Severe Jittery Verified 04/22/23 13:54 Cephalosporins AdvReac Intermediate SHORTNESS Verified 04/22/23 13:54 OF BREATH hydrocodone AdvReac Intermediate Confusion Verified 04/22/23 13:54 oxycodone [From OxyContin] AdvReac Intermediate Confusion Verified 04/22/23 13:54 nitroglycerin AdvReac Unknown HEART RATE Verified 04/22/23 13:54 GOES DOWN FAST Review of Systems Review of Systems: All systems reviewed & are unremarkable except as noted in HPI and below Constitutional: Constitutional: Reports no additional constitutional complaints Eyes: Eyes: Reports no additional eye complaints ENT: Reports system reviewed and no additional complaints, except as documented Cardiovascular: Cardiovascular: Reports as per HPI Respiratory: Respiratory: Reports no additional respiratory complaints Gastrointestinal: Gastrointestinal: Reports as per HPI Musculoskeletal: Musculoskeletal: Reports no additional musculoskeletal complaints Integumentary/Breasts: Skin/Breast: Reports system reviewed and no additional complaints, except as docu PMFSH Past Medical History Medical History (Updated 04/25/23 @ 21:[address] MD) Adenomatous colon polyp Anxiety Arthritis Chronic kidney disease, stage 3 Coarctation of aorta Coronary artery disease Depression Gastroesophageal reflux disease Heart failure with reduced ejection fraction Hepatitis B Hyperchol
--- NOTE | 2023-04-25 21:12 | PM.IMHP ---
H&P: HPI History of Present Illness Date/Time: 04/25/23 21:12 Chief Complaint: Chest pain Narrative: 72-year-old male with a past medical history of coronary artery disease status post multiple coronary stents, hypertension, dyslipidemia, insulin-dependent diabetes mellitus, orthostatic hypotension, esophageal stricture and GERD with recent esophageal intervention January 2023 who presented to the ER with left-sided chest pain. Patient was admitted January 08, 2023 for heart catheterization and 3 stents placed was transferred to [facility] for high risk PCI of yet another vessel. His EF at that time was 45%. He returned to the hospital few days later due to nausea vomiting and had an esophageal procedure sounds like he likely had a esophageal dilatation. He insists that he had an esophageal stent placed. He has not had follow-up regarding his GI symptoms. He was then readmitted to the hospital here in January due to hypotension and dehydration with acute kidney injury with normalization of his creatinine prior to discharge. His acute kidney injury at that time was due to recurrent in almost daily nausea vomiting. He was readmitted to the hospital here on April 05 for chest pain with minimally elevated troponins that normalized prior to discharge. Cardiology was consulted at that time and felt the patient's pain was noncardiac. The patient tells me that today he had just eaten some IV 0 Brina and some vegetables from a meal delivery service. He had also been drinking some soda. He stood up to go into the other room and had severe left lower chest pain that radiated towards the epigastrium. The pain was accompanied by frequent belching, nausea and a small amount of emesis of frothy material and fits of vegetables. The pain persisted for about 30 minutes before resolving. He was still having some discomfort when he arrived to the ER and received some nitro. His pain was not relieved with nitro. Subsequently he received 1 dose of fentanyl in the ER. At the time of my evaluation the patient was actively the drinking some clear soda. He had also eaten a couple of baked potato chips. Just prior to me leaving the room the patient had sudden onset of distress and started having the same kind of pain as prior. Reported the pain was severe in nature. It was accompanied by belching. The patient did spit up a small amount of clear fluid. I suspect this was the clear soda that the patient had been drinking when I came to the room. He denies any cough, congestion or dyspnea on exertion from baseline. He reports that he has had a 60 lb weight loss since January when he had his heart attack. It sounds as if he has been having some intermittent GI symptoms ever since his prior procedure. He has also been having some intermittent loose stools with an average of 1-2 loose stools a day but will have several days of formed stools in between. He denies any hematochezia or melena. He denies any hematemesis. He does have chronic urinary frequency but denies any dysuria or hematuria. Source of information is patient report, extensive review of past medical records and outside records as well as ER provider report. Patient is a good historian. Review of Systems Review of Systems: 12 systems were reviewed with pertinent positives and negatives per HPI. Except as documented in the HPI, all other systems were reviewed and are negative. He does have frequent episodes of orthostatic hypotension with associated lightheadedness. He reports that his blood pressures can drop on average of 60 points when going from supine to sitting. He denies any syncope within the last couple of weeks. He has been ambulating with a walker for the last couple of weeks due to his frequent history of falls. He does have peripheral neuropathy but does not have any foot wounds. [facility] Past Medical History Medical History (Updated 04/25/23 @ 22:56 by Mami Dugan DO) [place]
[2023-04-25] MEDS: ENOXAPARIN 120 MG/0.8 ML SYRINGE 105 MG SUB-Q (21:20)
--- NOTE | 2023-04-25 22:12 | ADMGEN ---
This patient, Gordo Hale, was admitted to IMU Room 213-01. Patient/family oriented to hospital policies and general routines including ID bracelet, bed and alarms, visiting hours, pain management, procedures, bathroom and other care routines, personal items, smoking policy, room service/diet, and visiting hours. Information on how to activate the Rapid Response Team has been discussed. Patient/Family are encouraged to report perceived risks to care and to ask questions if they do not understand what they are told or what they should do.
[2023-04-25] MEDS: PANTOPRAZOLE SODIUM IV 40 MG VIAL IV PUSH (23:07)
[2023-04-25 23:52] LABS: Troponin I 0.025 ng/mL (0.000-0.034)
[2023-04-26] VITALS (17 sets, daily range): BP systolic 115–141; BP diastolic 63–84; PULSE 66–96; RESP 15–22; TEMP 35.5–36.7; O2SAT 95–100
[2023-04-26 08:36] LABS: Glucose Point of Care 128 mg/dl (65-105)
[2023-04-26] MEDS: PANTOPRAZOLE SODIUM IV 40 MG VIAL IV PUSH (08:56)
[2023-04-26] MEDS: ENOXAPARIN 40 MG/0.4 ML SYRINGE SUB-Q (08:56)
[2023-04-26] MEDS: ONDANSETRON INJ 4 MG/2 ML VIAL IV PUSH (08:58)
[2023-04-26] MEDS: SODIUM CHLORIDE 0.9% IV 1,000 ML 75 ML IV CONT (10:01)
[2023-04-26] MEDS: fentaNYL CITRATE INJ (*CRX) 100 MCG/2 ML VIAL 50 MCG IV PUSH (10:14)
--- NOTE | 2023-04-26 12:05 | WPDPN ---
Progress Note: A&P Assessment and Plan (1) Chest pain: Qualifiers: Chest pain type: unspecified Qualified Code(s): R07.9 - Chest pain, unspecified Code(s): R07.9 - Chest pain, unspecified Status: Acute Assessment and Plan: Patient has had 2 stable cardiac enzymes. Patient does have significant cardiac history. Will continue home statin therapy. Will continue home Imdur, Plavix and baby aspirin. The patient received 1 dose of therapeutic Lovenox in the ER. Cardiology has been consulted. The ER had told me that the patient's pain was similar to when he had his prior heart attack. As a result of this side initially asked for Cardiology consult. However, given that the patient had acute recurrence of his pain shortly after eating with his other associated symptoms of dysphagia and belching GI is the most likely cause. Subsequently cardiology consult has been canceled and will place GI consult. 04/26/2023 interval history: 73-year-old male presented with complaint of chest pain concerning for cardiac however patient for sets of cardiac enzymes are negative and there are no acute changes on EKG suspect patient may have esophageal stricture will consult GI for further recommendation, currently patient is somnolent states and sleepy, will continue to monitor and further recommendation to follow. (2) Gastroesophageal reflux disease: Qualifiers: Esophagitis presence: esophagitis presence not specified Qualified Code(s): K21.9 - Gastro-esophageal reflux disease without esophagitis Code(s): K21.9 - Gastro-esophageal reflux disease without esophagitis Status: Acute Assessment and Plan: I suspect the patient may have recurrence of esophageal stricture. Will place patient on a Protonix 40 mg IV b.i.d.. Will make patient NPO given his level of distress with eating and drinking currently. Will consult Gastroenterology. (3) Insulin dependent diabetes mellitus: Status: Chronic Assessment and Plan: Current glucoses within target range for hospitalized patient. Will place patient on moderate dose sliding scale insulin. Hypoglycemia protocol has been ordered. (4) Orthostatic hypotension: Code(s): I95.1 - Orthostatic hypotension Status: Acute Assessment and Plan: Likely due to the patient's underlying diabetic autonomic peripheral neuropathy. Will continue home midodrine and encourage slow position changes. Patient been placed on fall precaution. (5) Chronic kidney disease, stage 3: Qualifiers: Chronic kidney disease stage 3 subtype: unspecified whether 3a or 3b Qualified Code(s): N18.30 - Chronic kidney disease, stage 3 unspecified Code(s): N18.30 - Chronic kidney disease, stage 3 unspecified Status: Chronic Assessment and Plan: Creatinine is stable and GFR is currently normal. (6) Frequent falls: Code(s): R29.6 - Repeated falls Status: Acute Assessment and Plan: Will place on fall precautions. Plan Patient has been admitted as observation status. Subjective Date/time seen: 04/26/23 12:05 Interval history: Chest pain Narrative: 72-year-old male with a past medical history of coronary artery disease status post multiple coronary stents, hypertension, dyslipidemia, insulin-dependent diabetes mellitus, orthostatic hypotension, esophageal stricture and GERD with recent esophageal intervention January 2023 who presented to the ER with left-sided chest pain.? Patient was admitted January 08, 2023 for heart catheterization and 3 stents placed was transferred to [facility] for high risk PCI of yet another vessel.? His EF at that time was 45%.? He returned to the hospital few days later due to nausea vomiting and had an esophageal procedure sounds like he likely had a esophageal dilatation.? He insists that he had an esophageal stent placed.? He has not had follow-up regarding his GI s
[2023-04-26 12:19] LABS: Glucose Point of Care 166 mg/dl (65-105)
--- NOTE | 2023-04-26 13:18 | WPDGICN ---
Assessment and Plan Assessment and plan (1) Atypical chest pain: Code(s): R07.89 - Other chest pain Status: Acute Assessment and Plan: Patient admitted with atypical chest pain. Plan for EGD to assess more thoroughly. He does have a history of acid reflux and distal esophageal web. This pain appears somewhat different sting from that will be evaluated with endoscopy. Cardiology should also be seen the patient. (2) Gastroesophageal reflux disease: Qualifiers: Esophagitis presence: esophagitis presence not specified Qualified Code(s): K21.9 - Gastro-esophageal reflux disease without esophagitis Code(s): K21.9 - Gastro-esophageal reflux disease without esophagitis Status: Acute Assessment and Plan: Patient with a history of acid reflux and distal esophageal web. Currently appears adequately treated with PPI acid suppression. Patient has no complaints of dysphagia present. EGD will be planned to exclude any ongoing esophagitis. (3) Coronary artery disease: Code(s): I25.10 - Atherosclerotic heart disease of [place] coronary artery without angina pectoris Status: Acute Assessment and Plan: patient has significant atherosclerotic heart disease. He had a recent heart attack. Plan for continued cardiology follow-up. Especially given his ongoing chest pains. GI Consult Note Consult date/time: 04/26/23 13:18 Reason for consult: Atypical chest pain. HPI: Gordo Hale is a 73 year old male I am asked see because of atypical chest pain. Patient known to have else as sclerotic heart disease. Patient had a heart attack earlier this year. Patient presented to the emergency room because of left rib pain in the left chest that began last evening while watching TV. He reports a felt like a knife stabbing in. Very sharp in nature. Occurred intermittently. For this reason he went to the emergency room. He states shortly after being began he regurgitated some frothy material incidentally from his stomach. Patient has a past miss call history of acid reflux. In November of this year an EGD was performed distal esophageal web was dilated follow-up EGD shortly after that documented healing of this. Patient has been maintained on proton pump inhibitor therapy since that time. Currently he denies any dysphagia. He denies any overt heartburn. States in the past he has had heartburn. As stated in January of this year he had a heart attack. He states this pain is somewhat distinct and different than that as well. This morning he no longer feels this pain. Review of Systems Review of Systems: Review of systems noncontributory. [facility] Past Medical History Medical History (Updated 04/26/23 @ 13:21 by Sampson Baron MD) Adenomatous colon polyp Anxiety Arthritis BPH (benign prostatic hyperplasia) Chronic kidney disease, stage 3 Coarctation of aorta Coronary artery disease Depression Diabetic autonomic neuropathy Diabetic peripheral neuropathy Gastroesophageal reflux disease Gout Heart failure with reduced ejection fraction With EF of 45% on cardiac catheterization January 2023, history of diastolic dysfunction Hepatitis B History of esophageal stricture Hypercholesterolemia Hyperlipidemia Hypertension Hypertriglyceridemia Insulin dependent diabetes mellitus Kidney stone Methicillin resistant Staphylococcus aureus infection (2014) Myocardial infarction Obstructive sleep apnea Intolerant to CPAP Overactive bladder Peripheral neuropathy Psoriasis Rectal polyp SBO (small bowel obstruction) Multiple bowel obstructions as far back as 2012 in the records Surgical History Surgical History (Updated 04/25/23 @ 21:55 by Mami Dugan DO) History of aortic coarctation repair (1964) History of appendectomy History of arthroscopy of both knees History of arthroscopy of left shoulder With removal of bone spur. History of bilateral carpal tunnel
[2023-04-26] MEDS: LACTATED RINGERS 1,000 ML 150 ML IV CONT (13:37)
--- NOTE | 2023-04-26 14:55 | WPDANESEPPF ---
Anes - Initial Pre Proc Eval Procedure: Operation Date: 04/26/23 15:15 Proposed Procedures p Esophagogastroduodenoscopy EGD - Sampson Baron MD Date/Time: 04/26/23 14:55 Surgeon: Mami Dugan DO Pre Op Diagnosis: Chest Pain Patient Data Age: 73 Gender: M Height: 1.88 m Weight: 105.2 kg Last Vital Signs Temp 96.9 F L 04/26/23 13:32 Pulse 70 04/26/23 13:32 Resp 20 04/26/23 13:32 BP 141/84 H 04/26/23 13:32 Pulse Ox 99 04/26/23 13:32 O2 Del Method Room Air 04/26/23 13:32 Allergies Allergy/AdvReac Type Severity Reaction Status Date / Time cyclobenzaprine Allergy Severe Stopped Verified 04/26/23 13:31 Breathing Sulfa (Sulfonamide Allergy Severe Dyspnea / Verified 04/26/23 13:31 Antibiotics) SOB amoxicillin Allergy Intermediate Dyspnea / Verified 04/26/23 13:31 SOB clavulanic acid Allergy Intermediate Dyspnea / Verified 04/26/23 13:31 SOB lisinopril Allergy Unknown Unknown Verified 04/26/23 13:31 norepinephrine Allergy Unknown Unknown Verified 04/26/23 13:31 [From Levophed (bitartrate)] morphine AdvReac Severe Jittery Verified 04/26/23 13:31 Cephalosporins AdvReac Intermediate SHORTNESS Verified 04/26/23 13:31 OF BREATH hydrocodone AdvReac Intermediate Confusion Verified 04/26/23 13:31 oxycodone [From OxyContin] AdvReac Intermediate Confusion Verified 04/26/23 13:31 nitroglycerin AdvReac Unknown HEART RATE Verified 04/26/23 13:31 GOES DOWN FAST Home Medications Medication Instructions Recorded Confirmed Type atorvastatin 80 mg tablet 80 mg PO QHS #90 tabs 08/01/22 04/25/23 Rx calcitriol 0.25 mcg capsule 0.25 mcg PO BID 08/01/22 04/25/23 History potassium chloride 20 mEq 20 meq PO DAILY 08/01/22 04/25/23 History tablet,extended release aspirin 81 mg chewable tablet 81 mg PO HS 08/28/22 04/25/23 History pantoprazole 40 mg tablet,delayed 40 mg PO HS 11/20/22 04/25/23 History release clopidogrel 75 mg tablet 75 mg PO DAILY 02/25/23 04/25/23 History insulin lispro 100 unit/mL See Rx Instructions .Route .COMPLEX 02/25/23 04/25/23 History subcutaneous solution (Humalog U-100 Insulin) gabapentin 100 mg capsule 300 mg PO DAILY #90 caps 03/11/23 04/25/23 Rx ondansetron 4 mg disintegrating 4 mg PO Q6H PRN nausea and 03/14/23 04/25/23 Rx tablet vomiting #20 tabs magnesium oxide 400 mg (241.3 mg 400 mg PO DAILY #90 tabs 03/15/23 04/25/23 Rx magnesium) tablet finasteride 5 mg tablet 5 mg PO DAILY 04/05/23 04/25/23 History isosorbide mononitrate 30 mg 30 mg PO DAILY 04/05/23 04/25/23 History tablet,extended release 24 hr sertraline 100 mg tablet 150 mg PO DAILY 04/05/23 04/25/23 History tamsulosin 0.4 mg capsule 0.4 mg PO DAILY 04/05/23 04/25/23 History midodrine 2.5 mg tablet 5 mg PO TID 90 days #540 tabs 04/08/23 04/25/23 Rx icosapent ethyl 1 gram capsule 2 g PO BID #120 caps 04/22/23 04/25/23 Rx (Vascepa) losartan 50 mg tablet 50 mg PO DAILY 04/25/23 04/25/23 History metoprolol tartrate 25 mg tablet 25 mg PO BID 04/25/23 04/25/23 History Laboratory Tests 04/25/23 04/25/23 04/25/23 17:04 19:45 23:25 WBC 4.8 K/mm3 (4.5-10.0) RBC 4.43 L M/mm3 (4.6-6.20) Hgb 13.7 L g/dL (14.0-18.0) Hct 39.6 L % (42.0-52.0) MCV 89.4 fl (80-100) MCH 30.9 pg (26-34) MCHC 34.6 g/dl (32-36) RDW 13.4 % (11.5-14.5) Plt Count 155 k/mm3 (150-375) MPV 10.0 fl (7.4-10.4) Immature Gran % (Auto) 0.6 H % (0-0.5) Neut % (Auto) 66.3 % (45.5-73.1) Lymph % (Auto) 17.3 L % (18.3-44.2) [place] % (Auto) 9.2 H % (2.6-8.5) Eos % (Auto) 5.6 H % (0-4.4) Baso % (Auto) 1.0 % (0.2-1.2) Lymph # (Auto) 0.83 L K/mm3 (0.9-3.2) [place] # (Auto) 0.4 K/mm3 (0.1-0.6) Eos # (Auto) 0.3 K/mm3 (0-0.3) Baso # (Auto) 0.1 K/mm3 (0.0-0.1) Abs Immat G
[2023-04-26 15:31] LABS: Glucose Point of Care 141 mg/dl (65-105)
[2023-04-26 16:51] LABS: Glucose Point of Care 181 mg/dl (65-105)
[2023-04-26] MEDS: METOCLOPRAMIDE HCL INJ 10 MG/2 ML VIAL 5 MG IV PUSH ×2 (17:22→23:14)
[2023-04-26 19:53] LABS: Glucose Point of Care 290 mg/dl (65-105)
[2023-04-27] VITALS (21 sets, daily range): BP systolic 100–135; BP diastolic 65–80; PULSE 60–81; RESP 16–22; TEMP 36.2–36.8; O2SAT 98–100
--- NOTE | 2023-04-27 | ECHO_ITS ---
Patient Info Name: Gordo Hale Age: 73 years : 1950 Gender: Male Ht: 74 in Wt: 231 lbs BSA: 2.36 m2 HR: 70 bpm BP: 102 / 65 mmHg Technical Quality: Fair Exam Date: 04/27/2023 10:34 AM Exam Location: [facility] Patient Status: Inpatient Admit Date: 04/25/2023 Staff Ordering Physician: Mena Levi MD Commercial Accountant: Annmarie Bryan RDCS Attending Provider: Mami Dugan DO Referring Physician: Amita CHEEK; Exam Type: CA echo dop color flow w con Study Info Indications R07.9 - Chest pain, unspecified Complete two-dimensional, color flow and Doppler transthoracic echocardiogram is performed with contrast to opacify the left ventricle and to improve the deliniation of the left ventricle endocardial borders. Contrast/Agitated Saline Contrast/Ag. Saline: Definity Amount: --- ml Administered By: Annmarie Bryan [facility] Summary 1. Left ventricular chamber dimension is normal. 2. Left ventricular systolic function is normal, estimated at 55-60%. 3. There is mildly increased left ventricular wall thickness. 4. Left ventricular septal wall motion is normal. 5. The left ventricular diastolic function is grade I diastolic dysfunction. 6. There is mild tricuspid valve regurgitation. 7. No pulmonary hypertension, estimated pulmonary arterial systolic pressure is 26 mmHg. 8. The aortic root size at the sinus of Valsalva is mildly dilated.Measures 4.3cm. Left Ventricle Left ventricular chamber dimension is normal. Left ventricular systolic function is normal, estimated at 55-60%. There is mildly increased left ventricular wall thickness. Left ventricular septal wall motion is normal. The left ventricular diastolic function is grade I diastolic dysfunction. Right Ventricle Right ventricular chamber dimension is normal. Right ventricular systolic function is normal. Left Atria Left atrial chamber dimension is normal. Right Atria Right atrial chamber dimension is normal. Aortic Valve The aortic valve is trileaflet. There is no aortic valve sclerosis. There is no aortic valve stenosis. There is no aortic valve regurgitation. Pulmonic Valve The pulmonic valve is normal. There is no pulmonic valve stenosis. There is no pulmonic regurgitation. Mitral Valve The mitral valve has normal leaflets. There is no mitral valve stenosis. There is no mitral valve regurgitation. The mitral valve annulus is mildly calcified. Tricuspid Valve The tricuspid valve leaflets are normal. There is no significant tricuspid valve stenosis. There is mild tricuspid valve regurgitation. No pulmonary hypertension, estimated pulmonary arterial systolic pressure is 26 mmHg. Pericardium/Pleural The pericardium appears normal. There is no pericardial effusion. Inferior Vena Cava Normal inferior vena cava with >50% collapse upon inspiration consistent with Empty right atrial pressure, 5 mmHg. Aorta The aortic root size at the sinus of Valsalva is mildly dilated.Measures 4.3cm. The prox ascending aorta size is normal. Left Ventricular Outflow Tract Name Value Normal LVOT 2D LVOT Diameter 2.25 cm LVOT Doppler LVOT Peak Gradient 5 mmHg
[2023-04-27] MEDS: METOCLOPRAMIDE HCL INJ 10 MG/2 ML VIAL 5 MG IV PUSH ×4 (05:37→23:54)
[2023-04-27 07:50] LABS: Glucose Point of Care 137 mg/dl (65-105)
--- NOTE | 2023-04-27 09:12 | PM.CNCAR ---
Assessment and Plan Assessment and plan (1) Chest pain: Qualifiers: Chest pain type: unspecified Qualified Code(s): R07.9 - Chest pain, unspecified Code(s): R07.9 - Chest pain, unspecified Status: Acute Assessment and Plan: In regards to chest pain, happened immediately after eating and lasts for about 4 hours. EKG does not show any new T, ST segment changes. The changes on the current EKG are unchanged from before. Troponins x3 negative. Patient underwent EGD that shows food retention and mid esophagus and stomach. He is diabetic and at risk for gastroparesis. Recommend checking echocardiogram at this time. Seems to be noncardiac chest pain. Total time spent on this consultation reviewing outside medical records, interviewing the patient and managing the patient was 82 minutes (2) Gastroparesis: Code(s): K31.84 - Gastroparesis Status: Acute Assessment and Plan: Started on reglan an by GI (3) Coronary artery disease: Code(s): I25.10 - Atherosclerotic heart disease of [place] coronary artery without angina pectoris Status: Acute Assessment and Plan: He did have a history of myocardial infarction involving diagonal branch [place] and then complex intervention proximal LAD at [facility] January 2023. Continue aspirin. Start Plavix. (4) Insulin dependent diabetes mellitus: Status: Chronic (5) Orthostatic hypotension: Code(s): I95.1 - Orthostatic hypotension Status: Acute Assessment and Plan: Interestingly his home medication list includes midodrine and at the same time losartan. I would recommend to hold both midodrine and losartan. Will start beta-miguelina given history of CAD and PVCs on telemetry. Check echocardiogram. Check orthostatics. History of Present Illness History of Present Illness Consult date/time: Date of service 04/27/23 09:12 Requesting physician: Kim Noel MD Reason For Visit: Chest Pain Narrative: This 73-year-old patient who follows up with [facility]. Recent history of drug-eluting stent to proximal LAD 4.5 x 24 synergy. Prior to that he had an MD involving large 2nd diagonal branch which was stented. During most recent cardiac catheterization there was 30-40% at the distal LAD. After the most recent hospitalization and stenting discharged home on aspirin 81 mg daily, Brilinta 90 mg b.i.d., atorvastatin 80 mg daily, losartan 25 mg daily, Toprol-XL 25 mg b.i.d. other past history includes hypertension, hyperlipidemia, diabetes, obstructive sleep apnea, COPD, coarctation of the aorta status post repair in 1964. Apparently after the most recent stenting he was admitted with GI symptoms and underwent some kind of GI procedure. Patient recently presented to [facility] on April 05, 2023 with chest pain and at that time patient informed that it is better to have the angiogram at [facility] due to complexity of his coronary artery disease. He comes to the hospital because he just finished eating and then sudden sharp pain hit him on the left chest, he just stood up after the that and from the severity of the pain he fell backwards. Pain then started to radiate to the right side and became dull and lasted for 3-4 hours before he called EMS. Also he states that he was getting frothy material. Denied shortness of breath. He reports that 3 weeks ago underwent upper GI endoscopy with stretching of the esophagus at [facility]. Yesterday EGD was done that shows moderate food retention and mid esophagus and stomach and patient was started on trial of reglan. Telemetry shows PVCs. He reports that he has been unsteady since the myocardial infarction. He was switched from Brilinta to Plavix previously due to diarrhea. Review of labs show BUN 22, creatinine 1.1, troponins x3 negative, EKG reviewed and was myself shows sinus rhythm, T inversion leads 1 and aVL, V4, V5, Q-wav
[2023-04-27] MEDS: ENOXAPARIN 40 MG/0.4 ML SYRINGE SUB-Q (09:49)
[2023-04-27] MEDS: PANTOPRAZOLE 40 MG TABLET PO (09:49)
[2023-04-27] MEDS: ASPIRIN 81 MG CHEWABLE TABLET PO (09:49)
[2023-04-27] MEDS: ACETAMINOPHEN 325 MG TABLET 650 MG PO ×3 (09:50→21:26)
[2023-04-27] MEDS: PERFLUTREN LIPID MICROSPHERES 1.5 ML VIAL DILUTED TO 10 ML TOTAL VOLUME IV PUSH (10:45)
[2023-04-27 12:02] LABS: Glucose Point of Care 213 mg/dl (65-105)
[2023-04-27] MEDS: METOPROLOL TARTRATE 25 MG TABLET PO ×2 (12:35→21:27)
[2023-04-27] MEDS: CLOPIDOGREL BISULFATE 75 MG TABLET PO (12:35)
[2023-04-27] MEDS: INSULIN ASPART (*BKC) 100 UNITS/ML SUB-Q ×2 (12:35→17:29)
--- NOTE | 2023-04-27 14:23 | WPDPN ---
Progress Note: A&P Assessment and Plan (1) Chest pain: Qualifiers: Chest pain type: unspecified Qualified Code(s): R07.9 - Chest pain, unspecified Code(s): R07.9 - Chest pain, unspecified Status: Acute Assessment and Plan: Patient has had 2 stable cardiac enzymes. Patient does have significant cardiac history. Will continue home statin therapy. Will continue home Imdur, Plavix and baby aspirin. The patient received 1 dose of therapeutic Lovenox in the ER. Cardiology has been consulted. The ER had told me that the patient's pain was similar to when he had his prior heart attack. As a result of this side initially asked for Cardiology consult. However, given that the patient had acute recurrence of his pain shortly after eating with his other associated symptoms of dysphagia and belching GI is the most likely cause. Subsequently cardiology consult has been canceled and will place GI consult. 04/27/2023 interval history: 73-year-old male presented with complaint of chest pain concerning for cardiac however patient 3 sets of cardiac enzymes are negative and there are no acute changes on EKG suspect patient may have esophageal stricture seen GI had EGD which is normal, to farther evaluate patient was seen by wall cleaner and does not suspect any cardiac issues, ordered ECHO to futher evaluate, patient's symptoms have resolved is able to tolerate his diet, will continue to monitor and further recommendation to follow (2) Gastroesophageal reflux disease: Qualifiers: Esophagitis presence: esophagitis presence not specified Qualified Code(s): K21.9 - Gastro-esophageal reflux disease without esophagitis Code(s): K21.9 - Gastro-esophageal reflux disease without esophagitis Status: Acute Assessment and Plan: I suspect the patient may have recurrence of esophageal stricture. Will place patient on a Protonix 40 mg IV b.i.d.. Will make patient NPO given his level of distress with eating and drinking currently. Will consult Gastroenterology. (3) Insulin dependent diabetes mellitus: Status: Chronic Assessment and Plan: Current glucoses within target range for hospitalized patient. Will place patient on moderate dose sliding scale insulin. Hypoglycemia protocol has been ordered. (4) Orthostatic hypotension: Code(s): I95.1 - Orthostatic hypotension Status: Acute Assessment and Plan: Likely due to the patient's underlying diabetic autonomic peripheral neuropathy. Will continue home midodrine and encourage slow position changes. Patient been placed on fall precaution. (5) Chronic kidney disease, stage 3: Qualifiers: Chronic kidney disease stage 3 subtype: unspecified whether 3a or 3b Qualified Code(s): N18.30 - Chronic kidney disease, stage 3 unspecified Code(s): N18.30 - Chronic kidney disease, stage 3 unspecified Status: Chronic Assessment and Plan: Creatinine is stable and GFR is currently normal. (6) Frequent falls: Code(s): R29.6 - Repeated falls Status: Acute Assessment and Plan: Will place on fall precautions. Plan Patient has been admitted as observation status. Subjective Date/time seen: 04/27/23 14:23 Interval history: Chest pain Narrative: 72-year-old male with a past medical history of coronary artery disease status post multiple coronary stents, hypertension, dyslipidemia, insulin-dependent diabetes mellitus, orthostatic hypotension, esophageal stricture and GERD with recent esophageal intervention January 2023 who presented to the ER with left-sided chest pain.? Patient was admitted January 08, 2023 for heart catheterization and 3 stents placed was transferred to [facility] for high risk PCI of yet another vessel.? His EF at that time was 45%.? He returned to the hospital few days later due to nausea vomiting and had an esophageal procedure sounds like he likely h
[2023-04-27 16:39] LABS: Glucose Point of Care 217 mg/dl (65-105)
--- NOTE | 2023-04-27 17:51 | PC.NURSE ---
This patient, Gordo Hale, was transferred to [facility] on 04/27/23 at 1751. Personal belongings sent with patient. Report given to PABLO Buckner. Appropriate documentation sent with patient.
--- NOTE | 2023-04-27 18:14 | PC.NURSE ---
This patient, Gordo Hale, was received from [facility] on 04/27/23 at 1745. Patient/family oriented to unit policies and routines
[2023-04-27 20:05] LABS: Glucose Point of Care 174 mg/dl (65-105)
[2023-04-28] VITALS: PULSE 63
[2023-04-28 04:00] VITALS: BP 112/62; PULSE 63; PULSE 66; RESP 18; TEMP 36.3; O2SAT 98
[2023-04-28] MEDS: METOCLOPRAMIDE HCL INJ 10 MG/2 ML VIAL 5 MG IV PUSH (05:50)
[2023-04-28 08:00] VITALS: PULSE 63
[2023-04-28 08:02] LABS: Glucose Point of Care 133 mg/dl (65-105)
[2023-04-28 09:02] VITALS: BP 113/66; PULSE 68; O2SAT 99
[2023-04-28 09:10] VITALS: PULSE 68
[2023-04-28] MEDS: GABAPENTIN 100 MG CAPSULE PO (09:10)
[2023-04-28] MEDS: METOPROLOL TARTRATE 25 MG TABLET PO (09:10)
[2023-04-28] MEDS: PANTOPRAZOLE 40 MG TABLET PO (09:11)
[2023-04-28] MEDS: CLOPIDOGREL BISULFATE 75 MG TABLET PO (09:11)
[2023-04-28] MEDS: ENOXAPARIN 40 MG/0.4 ML SYRINGE SUB-Q (09:12)
--- NOTE | 2023-04-28 09:39 | PM.DS ---
DS: Admitting Diagnosis Discharge Date 04/28/2023 Admitting Diagnosis Chest pain Gastroparesis Diabetes mellitus DS: Discharge Diagnosis Discharge Diagnosis (1) Gastroparesis: Code(s): K31.84 - Gastroparesis Status: Acute (2) Atypical chest pain: Code(s): R07.89 - Other chest pain Status: Acute (3) Diabetic peripheral neuropathy: Code(s): E11.42 - Type 2 diabetes mellitus with diabetic polyneuropathy Status: Acute (4) Chronic kidney disease, stage 3: Qualifiers: Chronic kidney disease stage 3 subtype: unspecified whether 3a or 3b Qualified Code(s): N18.30 - Chronic kidney disease, stage 3 unspecified Code(s): N18.30 - Chronic kidney disease, stage 3 unspecified Status: Chronic DS: Summary Hospital Course Hospital Course: (1) Chest pain: Patient has had 2 stable cardiac enzymes.? Patient does have significant cardiac history.? Will continue home statin therapy.? Will continue home Imdur, Plavix and baby aspirin.? The patient received 1 dose of therapeutic Lovenox in the ER.? Cardiology has been consulted.? The ER had told me that the patient's pain was similar to when he had his prior heart attack.? As a result of this side initially asked for Cardiology consult.? However, given that the patient had acute recurrence of his pain shortly after eating with his other associated symptoms of dysphagia and belching GI is the most likely cause.? Subsequently cardiology consult has been canceled and will place GI consult. (2) Gastroesophageal reflux disease: 3 sets of cardiac enzymes are negative and there are no acute changes on EKG suspect patient may have esophageal stricture seen GI had EGD which is normal, to farther evaluate patient was seen by massage coordinator and does not suspect any cardiac issues, ordered ECHO to futher evaluate, patient's symptoms have resolved is able to tolerate his diet, will continue to monitor and further recommendation to follow (3) Insulin dependent diabetes mellitus: Current glucoses within target range for hospitalized patient.? Will place patient on moderate dose sliding scale insulin.? (4) Orthostatic hypotension: Likely due to the patient's underlying diabetic autonomic peripheral neuropathy.? Will continue home midodrine and encourage slow position changes.? Patient been placed on fall precaution. (5) Chronic kidney disease, stage 3: Creatinine is stable and GFR is currently normal. Patient is clinically stable, he is tolerating diet and is being discharged home with home health Time Spent with Patient Time attestation: Total time spent providing and/or coordinating discharge services: Exam Narrative: Patient is comfortable, NAD HEENT: eyes are clear and none icteric LUNGS: Normal respiratory effort ABD: Distended Lower extremities: no edema SKIN: nonjaundiced Neuro: grossly intact. DS: Data Data Completed and Pending Labs on day of discharge: Labs from last 24 hours 04/28/23 04/27/23 04/27/23 07:36 19:24 16:01 POC Capillary Glucose 133 H 174 H 217 H 04/27/23 11:40 POC Capillary Glucose 213 H Discharge Plan Discharge Consulting providers: Dk Wilson; Sampson Baron Discharging Clinician: Gal Moise Anticipated Discharge Date/Time: 04/28/23 09:37 Patient Disposition: Home, Self-Care Activity: no preference Diet: heart healthy and high fiber Patient Instructions: Antibiotic Form, Pain Management (DC) Stand Alone Forms: General Discharge Information Follow-up/Referrals: Fercho Santos DO [Primary Care Provider] - Discharge Medications: Continued potassium chloride 20 mEq tablet extended release 20 meq PO DAILY calcitriol 0.25 mcg capsule 0.25 mcg PO BID atorvastatin 80 mg tablet 80 mg PO QHS Qty: 90 3RF icosapent ethyl [Vascepa] 1 gram capsule 2 g PO BID Qty: 120 3RF aspirin 81 mg tablet,chewable 81 mg PO HS
[2023-04-28 09:50] VITALS: BP 111/72; PULSE 66; RESP 12; TEMP 36.7; O2SAT 98
[2023-04-28] MEDS: ASPIRIN 81 MG CHEWABLE TABLET PO (10:11)
[2023-04-28] MEDS: polyethylene glycoL 3350 17 GM POWD.PACK PO (11:34)
[2023-04-28 12:11] LABS: Glucose Point of Care 200 mg/dl (65-105)
--- NOTE | 2023-04-28 12:52 | PM.PNCARD ---
Progress Note: A&P Assessment and Plan (1) Chest pain: Qualifiers: Chest pain type: unspecified Qualified Code(s): R07.9 - Chest pain, unspecified Code(s): R07.9 - Chest pain, unspecified Status: Acute Assessment and Plan: In regards to chest pain, happened immediately after eating and lasts for about 4 hours. EKG does not show any new T, ST segment changes. The changes on the current EKG are unchanged from before. Troponins x3 negative. Patient underwent EGD that shows food retention and mid esophagus and stomach. He is diabetic and at risk for gastroparesis. Recommend checking echocardiogram at this time. Seems to be noncardiac chest pain. Recommend the patient follows up with his sumac tanner. Follow-up with GI as well. No recurrence of chest pain Will sign of. (2) Gastroparesis: Code(s): K31.84 - Gastroparesis Status: Acute Assessment and Plan: Started on reglan an by GI (3) Coronary artery disease: Code(s): I25.10 - Atherosclerotic heart disease of [place] coronary artery without angina pectoris Status: Acute Assessment and Plan: He did have a history of myocardial infarction involving diagonal branch [place] and then complex intervention proximal LAD at [facility] January 2023. Continue aspirin. Continue Plavix. (4) Insulin dependent diabetes mellitus: Status: Chronic (5) Orthostatic hypotension: Code(s): I95.1 - Orthostatic hypotension Status: Acute Assessment and Plan: Interestingly his home medication list includes midodrine and at the same time losartan. I would recommend to hold both midodrine and losartan. Will start beta-miguelina given history of CAD and PVCs on telemetry. Echocardiogram done yesterday looked unremarkable. Ejection fraction 55%, aortic root was mildly dilated at 4.3 cm Subjective Date/time seen: Date of service 04/28/23 12:52 Interval history: Date of service 04/28/2023-denies chest pain. Getting ready to go home today. He denies nausea vomiting. Denies shortness of breath Review of Systems Constitutional: Constitutional: Denies chills, Denies fever(s) and Denies poor appetite Eyes: Eyes: Denies eye discharge, Denies loss of vision, Denies eye pain and Denies photophobia ENT: Denies dizziness, Denies epistaxis, Denies nasal congestion and Denies sore throat Cardiovascular: Cardiovascular: Reports chest pain, Denies syncope, Denies pedal edema, Denies leg edema, Denies palpitations, Denies dyspnea, Denies dyspnea on exertion and Denies orthopnea Respiratory: Respiratory: Denies cough, Denies dyspnea, Denies dyspnea on exertion and Denies wheezing Gastrointestinal: Gastrointestinal: Denies abdominal pain, Denies diarrhea, Denies nausea and Reports vomiting Genitourinary: Genitourinary: Denies hematuria, Denies genital lesions and Denies dysuria Musculoskeletal: Musculoskeletal: Denies arthralgias, Denies joint swelling and Denies numbness Integumentary/Breasts: Skin/Breast: Denies pruritus and Denies rash Neurologic: Denies dizziness, Denies syncope, Denies loss of vision and Denies numbness Psychiatric: Psychiatric: Denies anxiety and Denies depression Endocrine: Endocrine: Denies cold intolerance, Denies heat intolerance and Denies palpitations Hematologic/Lymphatic: Hematologic/Lymphatic: Denies easy bleeding and Denies easy bruising Allergic/Immunologic: Allergic/Immunologic: Denies urticaria and Denies wheezing Exam Const: General: cooperative, comfortable, no acute distress, alert, awake and well nourished Nutritional Appearance: well nourished Orientation/consciousness: patient oriented x3 HENMT: Head: normal to inspection, normocephalic and atraumatic Ears: hearing grossly normal bilaterally Face/Nose/Sinus: Normal external nose present, Normal nares present, no nasal discharge noted, normal facial exam and No erythema Face and sinus: normal facial exam a
== END 2023-04-28 12:58 | disposition home health service (06) ==
LOC: ANHED 21:05 → ANHIMU 04-26 12:13 → ANH2MED 04-27 19:27 → ANHIMU 05-01 08:16
PROVIDERS: Emergency Medicine; Internal Medicine Gastroenterology; Admitting Provider Internal Medicine; Emergency Provider Family Medicine; PCP Internal Medicine; Visit Provider Hospitalist
PROC: 0DJ08ZZ Inspection of Upper Intestinal Tract, Via Natural or Artificial Opening Endoscopic (ICD-10-PCS; CPT 43235; principal; 2023-04-26 15:15)
DX: K31.84 Gastroparesis (principal); R07.89 Other chest pain; I25.2 Old myocardial infarction; I95.1 Orthostatic hypotension; I25.10 Atherosclerotic heart disease of native coronary artery without angina pectoris; Z95.5 Presence of coronary angioplasty implant and graft; I13.0 Hypertensive heart and chronic kidney disease with heart failure and stage 1 through stage 4 chronic kidney disease, or unspecified chronic kidney disease; E08.22 Diabetes mellitus due to underlying condition with diabetic chronic kidney disease; N18.30 Chronic kidney disease, stage 3 unspecified; I50.20 Unspecified systolic (congestive) heart failure; E86.0 Dehydration; F41.9 Anxiety disorder, unspecified; E78.5 Hyperlipidemia, unspecified; M10.9 Gout, unspecified; G47.33 Obstructive sleep apnea (adult) (pediatric); Z99.89 Dependence on other enabling machines and devices; K21.9 Gastro-esophageal reflux disease without esophagitis; R29.6 Repeated falls; N40.0 Benign prostatic hyperplasia without lower urinary tract symptoms; M19.90 Unspecified osteoarthritis, unspecified site; R94.31 Abnormal electrocardiogram [ECG] [EKG]; E66.9 Obesity, unspecified; Z68.30 Body mass index [BMI] 30.0-30.9, adult; Z66 Do not resuscitate; Z79.82 Long term (current) use of aspirin; Z79.02 Long term (current) use of antithrombotics/antiplatelets; Z79.4 Long term (current) use of insulin; Z79.899 Other long term (current) drug therapy; Z83.3 Family history of diabetes mellitus; Z82.49 Family history of ischemic heart disease and other diseases of the circulatory system
CPT/HCPCS: 43235; 36415; 71045; 80053; 82948; 83690; 84484; 85025; 85055; 85610; 85730; 93005; 96372; 96374; 96375; 96376; 99285; A9270; C8929; C9113; G0378; J1650; J1815; J2001; J2405; J2704; J2765; J3010; J7030; J7120; Q9957

== ENCOUNTER 2023-06-26 14:40 | Outpatient (CLI) | payer MEDICARE, SELFPAY ==
[2023-06-26 18:51] LABS: Basophils Absolute Auto 0.1 K/mm3 (0.0-0.1); Eosinophils Absolute Auto 0.3 K/mm3 (0-0.3); Hematocrit 44.1 % (42.0-52.0); Hemoglobin 14.6 g/dL (14.0-18.0); Immature Granulocyte Absolute 0.05 K/mm3 (0.00-0.031); Immature Granulocyte Percent A 0.8 % (0-0.5); Lymphocytes Percent Auto 14.9 % (18.3-44.2); Mean Corpuscular HGB Conc 33.1 g/dl (32-36); Mean Corpuscular Hemoglobin 30.1 pg (26-34); Mean Corpuscular Volume 90.9 fl (80-100); Mean Platelet Volume 10.1 fl (7.4-10.4); Monocytes Absolute Auto 0.5 K/mm3 (0.1-0.6); Monocytes Percent Auto 8.3 % (2.6-8.5); Neutrophils Absolute Auto 4.2 K/mm3 (1.3-6.7); Platelet Count Result 145 k/mm3 (150-375); Red Blood Count 4.85 M/mm3 (4.6-6.20); Red Cell Distribution Width 13.2 % (11.5-14.5); White Blood Count 6.1 K/mm3 (4.5-10.0)
[2023-06-26 19:06] LABS: Alanine Aminotransferase 47 U/L (6-50); Albumin Level 4.1 g/dL (3.5-5.1); Alkaline Phosphatase 128 U/L (38-126); Anion Gap 8 mmol/L (8-16); Aspartate Amino Transferase 41 U/L (17-59); Bilirubin,Total 0.5 mg/dL (0.2-1.3); Blood Urea Nitrogen 23 mg/dL (9-20); Calcium 9.8 mg/dL (8.4-10.2); Carbon Dioxide 31 mmol/L (22-30); Chloride 101 mmol/L (98-107); Estimated Glomerular Filt Rate 50; Glucose 225 mg/dL (65-110); Potassium 4.7 mmol/L (3.4-5.0); Sodium 140 mmol/L (137-145)
[2023-06-26 19:12] LABS: Hemoglobin A1C 8.9 % (<5.7)
[2023-06-26 19:17] LABS: Appearance Urine Cloudy (Clear); Bacteria Urine None Seen /hpf; Bilirubin Urine Negative (Negative); Blood Urine Negative (Negative); Calcium Oxalate Crystals Urine Present /hpf; Color Urine Yellow (Yellow); Glucose Urine UA 2+ mg/dL (Negative); Ketones Urine Negative (Negative); Leukocyte Esterase Ur Negative LEU/UL (Negative); Nitrate Urine Negative (Negative); Non Pathogenic Casts 0-2; Protein Urine Trace mg/dL (Negative); Specific Grav Ur 1.022 (1.001-1.035); Squamous Epithelial Cell Urine None seen /hpf (Few); Urobilinogen Urine 0.2 mg/dL (<2.0); WBC Urine 0-5 /hpf
[2023-06-26 19:18] LABS: Add Urine Microscopic? YES
== END 2023-06-26 14:41 | disposition home or self-care (01) ==
LOC: ANHGOSHLAB 14:41
PROVIDERS: PCP Internal Medicine; Visit Provider Nurse Practitioner
DX: R97.20 Elevated prostate specific antigen [PSA] (principal); E11.9 Type 2 diabetes mellitus without complications; R30.0 Dysuria; Z12.5 Encounter for screening for malignant neoplasm of prostate
CPT/HCPCS: 36415; 80053; 81001; 83036; 84153; 85025; G0103

== ENCOUNTER 2023-08-19 22:30 | Emergency (ER) | payer MEDICARE, SELFPAY ==
--- NOTE | ~2023-08-19 | XR_ITS ---
EXAMINATION: XR foot RT min 3V DATE: 08/20/2023 01:20 INDICATION: Right foot pain TECHNIQUE: Dorsoplantar, lateral, and 2 oblique views of the right foot were obtained. COMPARISON: None. FINDINGS: Bone alignment is normal. There is subtle lucency in the medial base of the second proximal phalanx. There is mild to moderate osteoarthritis of multiple interphalangeal joints. Posterior and plantar calcaneal enthesophytes are noted. There is calcified atherosclerosis. IMPRESSION: 1. Subtle lucency in the medial base of the second proximal phalanx which could reflect vascular francis julian or possibly nondisplaced fracture. Recommend clinical correlation for tenderness at this site. Reviewed, dictated and finalized at location L. IMPRESSION: 1. Subtle lucency in the medial base of the second proximal phalanx which could reflect vascular channel or possibly nondisplaced fracture. Recommend clinical correlation for tenderness at this site.
--- NOTE | ~2023-08-19 | XR_ITS ---
EXAMINATION: XR shoulder RT min 2V INDICATION: Right shoulder pain TECHNIQUE: Four views of the right shoulder are submitted. COMPARISON: None FINDINGS: Normal alignment. No fracture. There is moderate osteoarthritis of the glenohumeral and acr omioclavicular joints. Soft tissues are unremarkable. IMPRESSION: 1. No acute osseous abnormality. Reviewed, dictated and finalized at location L.
--- NOTE | ~2023-08-19 | XR_ITS ---
Right ankle Technique: AP, oblique, and lateral views were obtained. Clinical History: Pain Findings: No acute fracture or dislocation is seen. Osseous alignment is anatomic. Ankle mortise and other visualized joint spaces are preserved. Small plantar calcaneal spur noted. Vascular calcificati ons are noted. Impression: No fracture or dislocation. Plantar calcaneal spur. Reviewed, dictated and finalized at location . Impression: No fracture or dislocation. Plantar calcaneal spur.
[2023-08-19 22:36] VITALS: BP 126/77; PULSE 83; RESP 16; TEMP 36.4; O2SAT 100
--- NOTE | 2023-08-20 00:49 | ED.LOWEXIN ---
HPI - Extremity Injury (Lower) General Chief Complaint: Extremity Injury, Lower Stated Complaint: R foot injury Time Seen by Provider: 08/20/23 00:34 Source: patient Mode of arrival: wheelchair Limitations: no limitations History of Present Illness HPI Narrative: This is a 73 year old male that presents to the ER for right foot and ankle pain ongoing since yesterday. Reports he stepped in a hole and twisted the ankle. This caused him to fall landing on his right shoulder. He did not hit his head or lose consciousness. Denies decreased ROM, numbness or weakness. Related Data Home Medications Medication Instructions Recorded Confirmed calcitriol 0.25 mcg capsule 0.25 mcg PO BID 08/01/22 06/26/23 potassium chloride 20 mEq 20 meq PO DAILY 08/01/22 06/26/23 tablet,extended release aspirin 81 mg chewable tablet 81 mg PO HS 08/28/22 06/26/23 clopidogrel 75 mg tablet 75 mg PO DAILY 02/25/23 06/26/23 Allergies Allergy/AdvReac Type Severity Reaction Status Date / Time cyclobenzaprine Allergy Severe Stopped Verified 08/19/23 22:41 Breathing Sulfa (Sulfonamide Allergy Severe Dyspnea / Verified 08/19/23 22:41 Antibiotics) SOB amoxicillin Allergy Intermediate Dyspnea / Verified 08/19/23 22:41 SOB clavulanic acid Allergy Intermediate Dyspnea / Verified 08/19/23 22:41 SOB lisinopril Allergy Unknown Unknown Verified 08/19/23 22:41 norepinephrine Allergy Unknown Unknown Verified 08/19/23 22:41 [From Levophed (bitartrate)] morphine AdvReac Severe Jittery Verified 08/19/23 22:41 Cephalosporins AdvReac Intermediate SHORTNESS Verified 08/19/23 22:41 OF BREATH hydrocodone AdvReac Intermediate Confusion Verified 08/19/23 22:41 oxycodone [From OxyContin] AdvReac Intermediate Confusion Verified 08/19/23 22:41 nitroglycerin AdvReac Unknown HEART RATE Verified 08/19/23 22:41 GOES DOWN FAST Review of Systems Review of Systems: CONSTITUTIONAL: Denies fever MUSCULOSKELETAL: Reports joint pain and myalgia. Denies back pain NEUROLOGIC: Denies numbness, or weakness. All systems reviewed & are unremarkable except as noted in HPI and below PMFSH Past Medical History Medical History (Updated 08/20/23 @ 03:37 by Rachel Arciniega PA-C) Adenomatous colon polyp Anxiety Arthritis BPH (benign prostatic hyperplasia) Chronic kidney disease, stage 3 Coarctation of aorta Coronary artery disease Depression Diabetic autonomic neuropathy Diabetic peripheral neuropathy Gastroesophageal reflux disease Gout Heart failure with reduced ejection fraction With EF of 45% on cardiac catheterization January 2023, history of diastolic dysfunction Hepatitis B History of esophageal stricture Hypercholesterolemia Hyperlipidemia Hypertension Hypertriglyceridemia Insulin dependent diabetes mellitus Kidney stone Methicillin resistant Staphylococcus aureus infection (2014) Myocardial infarction Obstructive sleep apnea Intolerant to CPAP Overactive bladder Peripheral neuropathy Psoriasis Rectal polyp SBO (small bowel obstruction) Multiple bowel obstructions as far back as 2012 in the records Surgical History Surgical History History of aortic coarctation repair (1964) History of appendectomy History of arthroscopy of both knees History of arthroscopy of left shoulder With removal of bone spur. History of bilateral carpal tunnel release History of bilateral knee replacement Right knee 2019 History of cardiac catheterization Catheterization 2013 unremarkable, Cardiac catheterization June 2022 distal obtuse marginal stenosis 90% no stent placed and January 2023 at [facility] demonstrating severe disease diagonal and LAD 2.5 x 22 mm stent in the diagonal, transferred to [facility] with stent 01/18/2023 4.5 x 24 mm synergy DWAYNE placed in the LAD History of cataract surgery History of cholecystectomy History of colonoscopy with polypecto
[2023-08-20] MEDS: ACETAMINOPHEN 500 MG TABLET 1000 MG PO (00:55)
[2023-08-20 02:23] VITALS: BP 142/75; PULSE 57; RESP 16; O2SAT 100
[2023-08-20 04:50] VITALS: BP 126/71; PULSE 96; RESP 15; TEMP 36.4; O2SAT 100
== END 2023-08-20 04:50 | disposition home or self-care (01) ==
PROVIDERS: Emergency Provider Physician Assistant; PCP Internal Medicine
DX: S99.921A Unspecified injury of right foot, initial encounter (principal); S49.91XA Unspecified injury of right shoulder and upper arm, initial encounter; E11.22 Type 2 diabetes mellitus with diabetic chronic kidney disease; I13.0 Hypertensive heart and chronic kidney disease with heart failure and stage 1 through stage 4 chronic kidney disease, or unspecified chronic kidney disease; I50.9 Heart failure, unspecified; N18.30 Chronic kidney disease, stage 3 unspecified; E11.43 Type 2 diabetes mellitus with diabetic autonomic (poly)neuropathy; E78.00 Pure hypercholesterolemia, unspecified; E78.1 Pure hyperglyceridemia; I25.10 Atherosclerotic heart disease of native coronary artery without angina pectoris; I25.2 Old myocardial infarction; N40.0 Benign prostatic hyperplasia without lower urinary tract symptoms; N32.81 Overactive bladder; G47.33 Obstructive sleep apnea (adult) (pediatric); K21.9 Gastro-esophageal reflux disease without esophagitis; M19.90 Unspecified osteoarthritis, unspecified site; M10.9 Gout, unspecified; F41.9 Anxiety disorder, unspecified; F32.A Depression, unspecified; Z66 Do not resuscitate; Z95.5 Presence of coronary angioplasty implant and graft; Z96.653 Presence of artificial knee joint, bilateral; Z86.010 Personal history of colon polyps; Z87.19 Personal history of other diseases of the digestive system; Z87.442 Personal history of urinary calculi; Z86.14 Personal history of Methicillin resistant Staphylococcus aureus infection; Z98.49 Cataract extraction status, unspecified eye; Z90.49 Acquired absence of other specified parts of digestive tract; Z79.84 Long term (current) use of oral hypoglycemic drugs; Z79.82 Long term (current) use of aspirin; Z79.4 Long term (current) use of insulin; X50.9XXA Other and unspecified overexertion or strenuous movements or postures, initial encounter; W18.39XA Other fall on same level, initial encounter
CPT/HCPCS: 73030; 73610; 73630; 99284; A9270

== ENCOUNTER 2023-10-16 14:02 | Outpatient (CLI) | payer MEDICARE, SELFPAY ==
[2023-10-16 20:31] LABS: Cholesterol 141 mg/dL (0-200); HDL Direct 40 mg/dL; Triglycerides 162 mg/dL (<150)
[2023-10-16 20:41] LABS: LDL Cholesterol Direct 70 mg/dL
== END 2023-10-16 14:03 | disposition home or self-care (01) ==
LOC: ANHGOSHLAB 14:04
PROVIDERS: PCP Internal Medicine; Visit Provider Nurse Practitioner
DX: E78.5 Hyperlipidemia, unspecified (principal)
CPT/HCPCS: 36415; 80061

== ENCOUNTER 2023-11-19 13:00 | Outpatient (RCR) | payer MEDICARE, SELFPAY ==
[2023-10-15 14:39] VITALS: BMI 32.2
[2023-11-13 13:30] VITALS: BMI 32.5
== END 2023-11-26 12:13 | disposition home or self-care (01) ==
LOC: ANHDMC 13:00
PROVIDERS: PCP Internal Medicine; Visit Provider Internal Medicine
DX: E11.42 Type 2 diabetes mellitus with diabetic polyneuropathy (principal); E11.65 Type 2 diabetes mellitus with hyperglycemia; Z71.89 Other specified counseling; Z71.3 Dietary counseling and surveillance
CPT/HCPCS: 97802; 97803; G0108

== ENCOUNTER 2023-12-24 01:09 | Inpatient (IN) | payer MEDICARE, SELFPAY ==
[2023-12-24] VITALS (10 sets, daily range): BP systolic 113–177; BP diastolic 79–98; PULSE 94–111; RESP 14–23; TEMP 36.8–37; O2SAT 91–98; BMI 34.8
--- NOTE | ~2023-12-24 | XR_ITS ---
EXAMINATION: XR sm bowel follow through WS DATE: 12/24/2023 12:19 INDICATION: Small bowel obstruction TECHNIQUE: Veneer Jointer radiograph(s) of the abdomen was/were obtained. Water-soluble oral contrast was admi nistered through the patient's nasogastric tube, and sequential radiographs of the abdomen were obtai justus until oral contrast was noted to be in the proximal colon. COMPARISON: CT dated 12/24/2023 FINDINGS: Nasogastric tube with tip in proximal side port in the body of the stomach. Cholecystectomy clips in right upper quadrant. There are few gas-filled but not frankly dilated loops of small bowel in the in itial surgical orderly image. Excreted contrast the bladder from the earlier contrast-enhanced CT. Transit time from the stomach to proximal colon was approximately 90 minutes. There is normal caliber and mucosal fold pattern throughout the small bowel. No dilated loops of small bowel to suggest obstruction. IMPRESSION: 1. Normal small bowel follow-through. Reviewed, dictated and finalized at location A. ERTY MANAGEMENT BOOKKEEPER
--- NOTE | ~2023-12-24 | CT_ITS ---
CT of the Abdomen and Pelvis: Indication: Abdominal pain Technique: 2.5 mm axial scans were obtained through the abdomen and pelvis following intravenous adm inistration of 100 cc of Omnipaque 350. Dose reduction technique was used on this scan by utilizing a utomated exposure control and iterative reconstruction technique. The dose-length product (DLP) was 1 638.83 mGy-cm. COMPARISON: 07/04/2021 Findings: Scans through the lung bases demonstrate prominent, extensive wall thickening of the visua lized esophagus. The liver, spleen, pancreas, adrenals and kidneys are within normal limits. Cholecystectomy clips are present. There are atherosclerotic calcifications of the aorta. No lymphadenopathy. There are several dilated small bowel loops, predominantly left midabdomen, with evidence of prior luis wel surgery. Suggestion of possibly 2 transition points (axial image 149, and coronal image 67). No a bscess or free air evident. Images through the pelvis were performed. Urinary bladder unremarkable. Prostate gland is enlarged. N o ascites. Impression: Several dilated small bowel loops, predominantly left midabdomen, with suggestion of 2 transition poi nts. Small bowel obstruction, including possibility of a closed loop obstruction, should be considere d. Extensive wall thickening of the visualized esophagus, most compatible with esophagitis. Correlate cl inically. Reviewed, dictated and finalized at location M. ESSORI PARAPROFESSIONAL Impression: Several dilated small bowel loops, predominantly left midabdomen, with suggesti on of 2 transition points. Small bowel obstruction, including possibility of a closed loop obstruction, should be considered. Extensive wall thickening of the visualized esophagus, most compatible with eso phagitis. Correlate clinically.
--- NOTE | ~2023-12-24 | XR_ITS ---
Portable upright view of the abdomen Clinical history: NG tube placement Findings: NG tube in satisfactory position. Possible dilated small bowel loops noted in the upper abd omen. No free air evident. No abnormal mass lesion or calcification is seen. Osseous structures are i ntact. Impression: NG tube in satisfactory position. Reviewed, dictated and finalized at [facility]. ING BOAT MATE Impression: NG tube in satisfactory position.
--- NOTE | 2023-12-24 01:16 | ECG_ITS ---
Measurements Intervals [place] Rate: 102 P: 93 IN: 133 QRS: 13 QRSD: 90 T: 77 QT: 345 QTc: 450 Interpretive Statements SINUS TACHYCARDIA ATRIAL AND VENTRICULAR PREMATURE COMPLEXES INCOMPLETE RIGHT BUNDLE BRANCH BLOCK BORDERLINE R WAVE PROGRESSION, ANTERIOR LEADS BORDERLINE ST-T WAVE ABNORMALITY- HIGH LATERAL LEADS BASELINE ARTIFACT- I, II, AVR, AVL, AVF BORDERLINE ECG COMPARED TO ECG 04/25/2023 17:02:23 SINUS TACHYCARDIA NOW PRESENT Electronically Signed On 12-24-2023 6:48:40 NUTRITION AIDES TEACHER by Virgil Santos D.O.
[2023-12-24] MEDS: SODIUM CHLORIDE 0.9% IV 1,000 ML 999 ML IV CONT (01:41)
[2023-12-24 01:47] LABS: Basophils Percent Auto 0.4 % (0.2-1.2); Eosinophils Absolute Auto 0.3 K/mm3 (0-0.3); Eosinophils Percent Auto 4.4 % (0-4.4); Hematocrit 42.6 % (42.0-52.0); Hemoglobin 14.1 g/dL (14.0-18.0); Immature Granulocyte Absolute 0.02 K/mm3 (0.00-0.031); Immature Granulocyte Percent A 0.3 % (0-0.5); Lymphocytes Absolute Auto 0.69 K/mm3 (0.9-3.2); Lymphocytes Percent Auto 9.3 % (18.3-44.2); Mean Corpuscular HGB Conc 33.1 g/dl (32-36); Mean Corpuscular Hemoglobin 29.3 pg (26-34); Mean Corpuscular Volume 88.6 fl (80-100); Monocytes Absolute Auto 0.6 K/mm3 (0.1-0.6); Monocytes Percent Auto 7.9 % (2.6-8.5); Neutrophils Absolute Auto 5.8 K/mm3 (1.3-6.7); Neutrophils Percent Auto 77.7 % (45.5-73.1); Platelet Count Result 117 k/mm3 (150-375); Red Blood Count 4.81 M/mm3 (4.6-6.20); Red Cell Distribution Width 12.6 % (11.5-14.5); White Blood Count 7.5 K/mm3 (4.5-10.0)
[2023-12-24] MEDS: MORPHINE SULFATE (*CRX) 4 MG/ML INJ IV PUSH (01:48)
[2023-12-24] MEDS: ONDANSETRON INJ 4 MG/2 ML VIAL IV PUSH (01:48)
[2023-12-24 01:59] LABS: Lactic Acid Reflex 1.4 mmol/L (0.7-2.0)
[2023-12-24 02:00] LABS: Alanine Aminotransferase 39 U/L (6-50); Albumin Level 3.7 g/dL (3.5-5.1); Alkaline Phosphatase 134 U/L (38-126); Anion Gap 5 mmol/L (8-16); Aspartate Amino Transferase 28 U/L (17-59); Bilirubin,Total 0.5 mg/dL (0.2-1.3); Blood Urea Nitrogen 19 mg/dL (9-20); Calcium 9.5 mg/dL (8.4-10.2); Carbon Dioxide 32 mmol/L (22-30); Chloride 98 mmol/L (98-107); Estimated CRCL calculation 71 ml/min; Estimated Glomerular Filt Rate 60; Glucose 286 mg/dL (65-110); Lipase 108 U/L (23-300); Potassium 3.9 mmol/L (3.4-5.0); Sodium 135 mmol/L (137-145)
--- NOTE | 2023-12-24 03:19 | ED.GENADULT ---
HPI - General Adult General Chief complaint: Abdominal Pain Stated complaint: ABD PAIN Time Seen by Provider: 12/24/23 01:21 History of Present Illness HPI narrative: Patient 73-year-old gentleman who presents emergency department with chief complaint of abdominal pain. Patient has prior history abdominal surgeries and has had bowel obstructions before in the past patient states that he started having pain yesterday reports that his last bowel movement was yesterday. Patient states that he had prior appendectomy prior cholecystectomy has had bowel resections patient reports that his last bowel movement was yesterday on 12-23 Related Data Home Medications Medication Instructions Recorded Confirmed calcitriol 0.25 mcg capsule 0.25 mcg PO BID 08/01/22 10/16/23 potassium chloride 20 mEq 20 meq PO DAILY 08/01/22 10/16/23 tablet,extended release aspirin 81 mg chewable tablet 81 mg PO HS 08/28/22 10/16/23 clopidogrel 75 mg tablet 75 mg PO DAILY 02/25/23 10/16/23 insulin regular hum U-500 conc 500 30 unit subcut TIDWMEAL 09/04/23 10/16/23 unit/mL(3 mL) subcut pen (Humulin R U-500 (Conc) Insulin Kwikpen) oxybutynin chloride 5 mg tablet 5 mg PO BID 09/04/23 10/16/23 mirabegron 50 mg tablet,extended 50 mg PO DAILY 10/16/23 10/16/23 release 24 hr (Myrbetriq) Allergies Allergy/AdvReac Type Severity Reaction Status Date / Time amoxicillin AdvReac Dyspnea / Verified 12/24/23 01:30 SOB Cephalosporins AdvReac Dyspnea / Verified 12/24/23 01:30 SOB clavulanic acid AdvReac Dyspnea / Verified 12/24/23 01:30 SOB cyclobenzaprine AdvReac Stopped Verified 12/24/23 01:30 Breathing hydrocodone AdvReac Confusion Verified 12/24/23 01:30 lisinopril AdvReac Unknown Verified 12/24/23 01:30 nitroglycerin AdvReac Unknown Verified 12/24/23 01:30 norepinephrine AdvReac Unknown Verified 12/24/23 01:30 oxycodone AdvReac Fatigued Verified 12/24/23 01:30 Sulfa (Sulfonamide AdvReac Dyspnea / Verified 12/24/23 01:30 Antibiotics) SOB Review of Systems Review of Systems: A 10 system review of systems was completed on the patient and is negative except for what is stated in the HPI. Nursing and ancillary documentation was reviewed. [facility] Past Medical History Medical History Adenomatous colon polyp Anxiety Arthritis BPH (benign prostatic hyperplasia) Chronic kidney disease, stage 3 Coarctation of aorta Coronary artery disease Depression Diabetic autonomic neuropathy Diabetic peripheral neuropathy Gastroesophageal reflux disease Gout Heart failure with reduced ejection fraction With EF of 45% on cardiac catheterization January 2023, history of diastolic dysfunction Hepatitis B History of esophageal stricture Hypercholesterolemia Hyperlipidemia Hypertension Hypertriglyceridemia Insulin dependent diabetes mellitus Kidney stone Methicillin resistant Staphylococcus aureus infection (2014) Myocardial infarction Obstructive sleep apnea Intolerant to CPAP Overactive bladder Peripheral neuropathy Psoriasis Rectal polyp SBO (small bowel obstruction) Multiple bowel obstructions as far back as 2012 in the records Surgical History Surgical History History of aortic coarctation repair (1964) History of appendectomy History of arthroscopy of both knees History of arthroscopy of left shoulder With removal of bone spur. History of bilateral carpal tunnel release History of bilateral knee replacement Right knee 2019 History of cardiac catheterization Catheterization 2013 unremarkable, Cardiac catheterization June 2022 distal obtuse marginal stenosis 90% no stent placed and January 2023 at [facility] demonstrating severe disease diagonal and LAD 2.5 x 22 mm stent in the diagonal, transferred to [facility] with stent 01/18/2023 4.5 x 24 mm synergy DWAYNE placed i
[2023-12-24] MEDS: HYDROmorphone HCL INJ (*CRX) 1 MG/ML SYR IV PUSH (03:56)
[2023-12-24 04:08] LABS: Appearance Urine Cloudy (Clear); Bacteria Urine None Seen /hpf; Bilirubin Urine Negative (Negative); Blood Urine Negative (Negative); Color Urine Yellow (Yellow); Glucose Urine UA 3+ mg/dL (Negative); Ketones Urine Negative (Negative); Leukocyte Esterase Ur Negative LEU/UL (Negative); Nitrate Urine Negative (Negative); Non Pathogenic Casts 0-2; Protein Urine Trace mg/dL (Negative); RBC Urine 0-2 /hpf (0-2); Specific Grav Ur 1.032 (1.001-1.035); Squamous Epithelial Cell Urine None seen /hpf (Few); Urobilinogen Urine 0.2 mg/dL (<2.0); WBC Urine 0-5 /hpf
[2023-12-24 04:10] LABS: Add Urine Microscopic? YES
--- NOTE | 2023-12-24 05:54 | PC.NURSE ---
EDP Dr. Norwood verbalized placement and okay to use of NG tube.
[2023-12-24 06:25] LABS: Glucose Point of Care 276 mg/dl (65-105)
--- NOTE | 2023-12-24 06:29 | ADMGEN ---
This patient, Gordo Hale, was admitted to Medical Room 344-01. Patient/family oriented to hospital policies and general routines including ID bracelet, bed and alarms, visiting hours, pain management, procedures, bathroom and other care routines, personal items, smoking policy, room service/diet, and visiting hours. Information on how to activate the Rapid Response Team has been discussed. Patient/Family are encouraged to report perceived risks to care and to ask questions if they do not understand what they are told or what they should do.
[2023-12-24] MEDS: SODIUM CHLORIDE 0.9% IV 1,000 ML 125 ML IV CONT ×3 (06:44→21:10)
[2023-12-24] MEDS: HYDROmorphone HCL INJ (*CRX) 1 MG/ML SYR 0.5 MG IV PUSH (09:17)
[2023-12-24 09:32] LABS: Glucose Point of Care 247 mg/dl (65-105)
[2023-12-24] MEDS: INSULIN ASPART (*BKC) 100 UNITS/ML SUB-Q ×2 (10:07→17:51)
--- NOTE | 2023-12-24 11:39 | PM.CNGS ---
Assessment and Plan Assessment and plan (1) Small bowel obstruction: Code(s): K56.609 - Unspecified intestinal obstruction, unspecified as to partial versus complete obstruction Status: Acute Assessment and Plan: CT reviewed and suggests a small bowel obstruction with two possible transition points concerning for a possible closed loop obstruction. No free intra-peritoneal air to suggest perforation. Lactic acid is normal. Patient has had multiple previous abdominal surgeries and multiple previous small bowel obstructions. This is likely due to intraabdominal adhesions. His abdominal exam is benign. With the concern of a possible closed loop obstruction, this would increase his risks for bowel ischemia and perforation. This could require more urgent surgical intervention if he has a high-grade obstruction. We will continue NG tube decompression, bowel rest, IV fluids, and get a water-soluble small bowel follow through to further evaluate. Discussed with the patient that he may require surgical exploration if there is evidence of a high-grade obstruction. We also discussed that he has multiple co-morbidities that increases his risks of surgery, as well as him being on clopidogrel that would increase his bleeding risks. (2) CAD (coronary artery disease): Qualifiers: Coronary Disease-Associated Artery/Lesion type: chilkoot artery [place] vs. transplanted heart: chilkoot heart Associated angina: without angina Qualified Code(s): I25.10 - Atherosclerotic heart disease of chilkoot coronary artery without angina pectoris Code(s): I25.10 - Atherosclerotic heart disease of chilkoot coronary artery without angina pectoris Status: Acute Assessment and Plan: Reportedly has a total of 3 cardiac stents with his most recent one placed about a year ago. (3) Antiplatelet or antithrombotic long-term use: Code(s): Z79.02 - terminal makeup operator (current) use of antithrombotics/antiplatelets Status: Acute Assessment and Plan: Plavix on hold. He believes his last dose was 2 days ago, but not for sure. (4) CKD (chronic kidney disease): Qualifiers: Chronic kidney disease stage: stage 3 (moderate) Chronic kidney disease stage 3 subtype: stage 3a (GFR 45-59) Qualified Code(s): N18.31 - Chronic kidney disease, stage 3a Code(s): N18.9 - Chronic kidney disease, unspecified Status: Acute (5) Insulin dependent diabetes mellitus: Status: Chronic (6) Hypertension: Qualifiers: Hypertension type: essential hypertension Qualified Code(s): I10 - Essential (primary) hypertension Code(s): I10 - Essential (primary) hypertension Status: Acute Plan I have discussed the patient's case and plan of care with Dr. Yanes. Thank you for allowing us to see the patient in consultation and we will continue to follow along with you. History of Present Illness Consult details Consult date: 12/24/23 Reason for consult: other (Small bowel obstruction) Requesting physician: Gildardo Norwood MD Narrative: This is a 73-year-old man with a history of type 2 IDDM, neuropathy, chronic kidney disease, coronary artery disease, and multiple other medical problems, who we have been asked to see in surgical consultation for a small bowel obstruction. The patient presented to the ER overnight with complaints of abdominal pain and vomiting. He has had innumerable admissions for small bowel obstructions for at least the last 20 years. He has been treated both conservatively and surgically. He has had at least one, possibly two, laparotomies for small bowel obstructions with the most recent one in 2014 requiring small bowel resection. He is a poor historian when reviewing his surgical history. He also reports having an open appendectomy, laparoscopic cholecystectomy, open ventral hernia repair with mesh, and a sigmoid resection. In review of his records, he has not been hospitalized for a small bowel ob
[2023-12-24 12:55] LABS: Glucose Point of Care 194 mg/dl (65-105)
--- NOTE | 2023-12-24 14:27 | PM.IMHP ---
H&P: HPI History of Present Illness Date/Time: 12/24/23 14:27 Chief Complaint: abdominal pain Narrative: 72-year-old male with a past medical history of coronary artery disease status post multiple coronary stents, hypertension, dyslipidemia, insulin-dependent diabetes mellitus, orthostatic hypotension, esophageal stricture and GERD the present to the ED on 12/24/2023 due to abdominal pain. Patient is a poor historian. He states that his abdominal pain started December 10 although he continued to have bowel movements. His last bowel movement was the day prior to ED presentation. He states that this bowel movement was watery in nature but denied any melena or hematochezia. He did have some associated nausea but no vomiting. He has a past medical history of several abdominal surgeries including cholecystectomy, appendectomy and 2 hernia repairs with mesh placement. CT of the abdomen pelvis suggests small bowel obstruction with 2 possible transition points concerning for closed loop obstruction. NG tube was placed in the ED. General surgery consulted. Patient was started on IV fluids and bowel rest. Patient admitted to the for further workup and evaluation. [facility] Past Medical History Medical History Adenomatous colon polyp Anxiety Arthritis BPH (benign prostatic hyperplasia) Chronic kidney disease, stage 3 Coarctation of aorta Coronary artery disease Depression Diabetic autonomic neuropathy Diabetic peripheral neuropathy Gastroesophageal reflux disease Gout Heart failure with reduced ejection fraction With EF of 45% in January of 2023 and echocardiogram in April 2023 showing normal EF 55-60% Hepatitis B History of esophageal stricture Hypercholesterolemia Hyperlipidemia Hypertension Hypertriglyceridemia Insulin dependent diabetes mellitus Kidney stone Methicillin resistant Staphylococcus aureus infection (2014) Myocardial infarction Obstructive sleep apnea Intolerant to CPAP Overactive bladder Peripheral neuropathy Psoriasis Rectal polyp SBO (small bowel obstruction) Multiple bowel obstructions as far back as 2012 in the records Surgical History Surgical History History of aortic coarctation repair (1964) History of appendectomy History of arthroscopy of both knees History of arthroscopy of left shoulder With removal of bone spur. History of bilateral carpal tunnel release History of bilateral knee replacement Right knee 2019 History of cardiac catheterization Catheterization 2013 unremarkable, Cardiac catheterization June 2022 distal obtuse marginal stenosis 90% no stent placed and January 2023 at [facility] demonstrating severe disease diagonal and LAD 2.5 x 22 mm stent in the diagonal, transferred to [facility] with stent 01/18/2023 4.5 x 24 mm synergy DWAYNE placed in the LAD History of cataract surgery History of cholecystectomy History of colonoscopy with polypectomy History of coronary artery stent placement History of hemorrhoidectomy History of hernia repair History of partial colectomy (09/2015) Secondary to bowel obstruction with recurrence requiring exploratory laparotomy and lysis of adhesions 03/28/2000 History of repair of rotator cuff History of resection of small bowel 2014 exploratory laparotomy for SBO that resulted in adhesiolysis and jejunal small bowel resection History of tonsillectomy S/P dilatation of esophageal stricture November [address] Trejo and likely more recent in January 2023 but this cannot be confirmed Family History Family History Sibling Family history of thyroid disease Hypertension Family history of diabetes mellitus in first degree relative Family history of obesity Patient's sister is in good health Diabetes mellitus Mother Hypertension Family histor
[2023-12-24] MEDS: oxyBUTYnin CHLORIDE 5 MG TABLET PO (17:42)
[2023-12-24] MEDS: MIRABEGRON 50 MG ER TABLET PO (17:42)
[2023-12-24] MEDS: SERTRALINE HCL 50 MG TABLET 150 MG PO (17:42)
[2023-12-24] MEDS: FINASTERIDE 5 MG TABLET PO (17:43)
[2023-12-24] MEDS: MIDODRINE HCL 2.5 MG TABLET PO (17:43)
[2023-12-24] MEDS: CLOPIDOGREL BISULFATE 75 MG TABLET PO (17:43)
[2023-12-24] MEDS: GABAPENTIN 100 MG CAPSULE PO (17:43)
[2023-12-24] MEDS: PANTOPRAZOLE 40 MG TABLET PO (17:43)
[2023-12-24 17:50] LABS: Glucose Point of Care 260 mg/dl (65-105)
[2023-12-24] MEDS: INSULIN ASPART (*BKC) 100 UNITS/ML 30 UNITS SUB-Q (17:50)
[2023-12-24] MEDS: ASPIRIN 81 MG CHEWABLE TABLET PO (21:11)
[2023-12-24 22:05] LABS: Glucose Point of Care 130 mg/dl (65-105)
[2023-12-25] VITALS (7 sets, daily range): BP systolic 131–163; BP diastolic 62–89; PULSE 89–97; RESP 16–26; TEMP 36.5–36.6; O2SAT 92–98
[2023-12-25 01:00] LABS: Glucose Point of Care 125 mg/dl (65-105)
[2023-12-25] MEDS: HYDROmorphone HCL INJ (*CRX) 1 MG/ML SYR 0.5 MG IV PUSH (01:35)
[2023-12-25 05:48] LABS: Basophils Percent Auto 0.3 % (0.2-1.2); Eosinophils Absolute Auto 0.3 K/mm3 (0-0.3); Eosinophils Percent Auto 5.2 % (0-4.4); Hematocrit 38.5 % (42.0-52.0); Hemoglobin 12.4 g/dL (14.0-18.0); Immature Granulocyte Absolute 0.01 K/mm3 (0.00-0.031); Immature Granulocyte Percent A 0.2 % (0-0.5); Immature Platelet Fraction Pct 2.7 % (0.9-11.2); Lymphocytes Absolute Auto 0.81 K/mm3 (0.9-3.2); Lymphocytes Percent Auto 13.5 % (18.3-44.2); Mean Corpuscular HGB Conc 32.2 g/dl (32-36); Mean Corpuscular Hemoglobin 29.3 pg (26-34); Mean Platelet Volume 10.2 fl (7.4-10.4); Monocytes Absolute Auto 0.5 K/mm3 (0.1-0.6); Monocytes Percent Auto 7.9 % (2.6-8.5); Neutrophils Absolute Auto 4.4 K/mm3 (1.3-6.7); Neutrophils Percent Auto 72.9 % (45.5-73.1); Platelet Count Result 112 k/mm3 (150-375); Red Blood Count 4.23 M/mm3 (4.6-6.20)
[2023-12-25 05:50] LABS: Glucose Point of Care 144 mg/dl (65-105)
[2023-12-25 06:02] LABS: Anion Gap 7 mmol/L (8-16); Blood Urea Nitrogen 16 mg/dL (9-20); Calcium 8.3 mg/dL (8.4-10.2); Carbon Dioxide 29 mmol/L (22-30); Chloride 106 mmol/L (98-107); Estimated CRCL calculation 76 ml/min; Estimated Glomerular Filt Rate > 60; Glucose 136 mg/dL (65-110); Potassium 3.6 mmol/L (3.4-5.0); Sodium 142 mmol/L (137-145)
[2023-12-25 08:08] LABS: Hemoglobin A1C 8.4 % (<5.7)
[2023-12-25] MEDS: FINASTERIDE 5 MG TABLET PO (10:12)
[2023-12-25] MEDS: GABAPENTIN 100 MG CAPSULE PO ×3 (10:12→17:42)
[2023-12-25] MEDS: SERTRALINE HCL 50 MG TABLET 150 MG PO (10:12)
[2023-12-25] MEDS: MIDODRINE HCL 2.5 MG TABLET PO ×3 (10:12→17:42)
[2023-12-25] MEDS: CLOPIDOGREL BISULFATE 75 MG TABLET PO (10:12)
[2023-12-25] MEDS: PANTOPRAZOLE 40 MG TABLET PO (10:12)
[2023-12-25] MEDS: SODIUM CHLORIDE 0.9% IV 1,000 ML 125 ML IV CONT (10:17)
[2023-12-25] MEDS: INSULIN ASPART (*BKC) 100 UNITS/ML 30 UNITS SUB-Q ×2 (10:17→13:07)
[2023-12-25] MEDS: MIRABEGRON 50 MG ER TABLET PO (10:30)
[2023-12-25] MEDS: oxyBUTYnin CHLORIDE 5 MG TABLET PO ×2 (10:30→17:42)
--- NOTE | 2023-12-25 10:31 | PM.PNGS ---
Progress Note: A&P Assessment and Plan (1) Small bowel obstruction: Code(s): K56.609 - Unspecified intestinal obstruction, unspecified as to partial versus complete obstruction Status: Acute Assessment and Plan: Normal SBFT yesterday. Bowels are moving. Will remove NG and advance his diet as tolerated. (2) Antiplatelet or antithrombotic long-term use: Code(s): Z79.02 - senior care (current) use of antithrombotics/antiplatelets Status: Acute Assessment and Plan: Plavis restarted. Plan I have discussed the patient's case and plan of care with Dr. Yanes. Subjective Subjective Date/Time Seen: 12/25/23 10:31 Patient reports: no new complaints, feels better, pain is less, tolerating liquids well, flatus and bowel movement Review of Systems Review of Systems: All systems reviewed & are unremarkable except as noted in HPI and below Exam Const: General: comfortable and no acute distress Orientation/consciousness: patient oriented x3 GI: Inspection: non-distended GI Palp: Yes Soft to palpation, No Tenderness to palpation present (GI), No Guarding due to palpation present (GI) and No Rebound tenderness present Auscultation: normal bowel sounds Objective Data Vital Signs Vital Signs: Vital Signs - 24 hr 12/24/23 14:00 12/24/23 21:05 12/24/23 20:00 Temperature 98.5 F 98.6 F Pulse Rate 97 95 Respiratory Rate 18 20 Blood Pressure 144/84 H 153/79 H Pulse Oximetry 96 94 Oxygen Delivery Room Air 12/25/23 05:13 Temperature 98 F Pulse Rate 97 Respiratory Rate 16 Blood Pressure 155/78 H Pulse Oximetry 94 Oxygen Delivery Intake/Output Intake/Output: Intake & Output 12/22/23 12/23/23 12/24/23 12/25/23 23:59 23:59 23:59 23:59 Intake Total 3900 1075 Output Total 400 800 Balance 3500 275 Meds/Results Medications: Active Medications Generic Name Dose Route Start Last Admin Trade Name Freq PRN Reason Stop Dose Admin Aspirin 81 mg 12/24/23 21:00 12/24/23 21:11 Aspirin 81 Mg Chewable Tablet PO 81 mg HS MAYTE Administration Clopidogrel Bisulfate 75 mg 12/24/23 14:55 12/25/23 10:12 Clopidogrel Bisulfate 75 Mg Tablet PO 75 mg DAILY MAYTE Administration Dextrose 12.5 gm 12/24/23 07:55 Dextrose 50% 25 Gm/50 Ml Syringe IV PUSH PRN PRN Hypoglycemia Protocol Finasteride 5 mg 12/24/23 14:55 12/25/23 10:12 Finasteride 5 Mg Tablet PO 5 mg DAILY MAYTE Administration Gabapentin 100 mg 12/24/23 17:00 12/25/23 10:12 Gabapentin 100 Mg Capsule PO 100 mg TID MAYTE Administration Glucagon 1 mg 12/24/23 07:55 Glucagon For Inj 1 Mg Vial IM PRN PRN Hypoglycemia Protocol Glucose 15 gm 12/24/23 07:55 Glucose Oral Gel 15 Gm Of Glucse In 37.5 Gm Tube PO PRN PRN Hypoglycemia Protocol Hydromorphone HCl 0.5 mg 12/24/23 04:51 12/25/23 01:35 Hydromorphone Hcl Inj (*Crx) 1 Mg/Ml Syr IV PUSH 0.5 mg Q4H PRN Administration Pain Rated 7-10 Sodium Chloride 1,000 mls @ 100 mls/hr 12/24/23 04:55 12/25/23 10:17 Normal Saline Iv IV CONT 125 mls/hr .Q10H MAYTE Administration Dextrose 1,000 mls @ 100 mls/hr 12/24/23 07:55 Dextrose 5% 1,000 Ml IVPB PRN PRN Hypoglycemia Protocol Insulin Aspart 30 units 12/24/23 08:00 12/25/23 10:17 Insulin Aspart (*Bkc) 100 Units/Ml SUB-Q 30 units TIDWM MAYTE Administration Insulin Aspart 4 - 8 units 12/24/23 08:00 12/25/23 10:11 Insulin Aspart (*Bkc) 100 Units/Ml SUB-Q Not Given TIDWM MAYTE Protocol Insulin Aspart 2 - 4 units 12/24/23 21:00 12/24/23 22:27 Insulin Aspart (*Bkc) 100 Units/Ml SUB-Q Not Given HS MAYTE Protocol Midodrine 2.5 mg 12/24/23 17:00 12/25/23 10:12 Midodrine Hcl 2.5 Mg Tablet PO 2.5 mg TID MAYTE Administration Mirabegron 50 mg 12/24/23 14:55 12/25/23 10:30 Mirabegron 50 Mg Er Tablet PO 50 mg DAILY MAYTE Administration Ondansetron
[2023-12-25 12:32] LABS: Glucose Point of Care 143 mg/dl (65-105)
--- NOTE | 2023-12-25 16:11 | P.PNIM_ITS ---
Progress Note: A&P Assessment and Plan (1) Small bowel obstruction: Code(s): K56.609 - Unspecified intestinal obstruction, unspecified as to partial versus complete obstruction Status: Acute Assessment and Plan: CT of the abdomen pelvis revealing a small bowel obstruction. * General surgery consulted * NG decompression, IV fluids and bowel rest ordered on admission. * Small-bowel follow-through was normal. * NG tube clamped and patient was started on clear liquids * Advanced diet as tolerated 12/25/2023: * NG tube removed * General surgery has signed off * Advance diet as tolerated * Will likely discharge tomorrow as long as he is tolerating food and drink. * Patient has had some bouts of diarrhea today, he is passing gas, his abdomen is soft, bowel sounds are normoactive (2) Uncontrolled diabetes mellitus: Qualifiers: Diabetes mellitus type: type 2 Glycemic state: with hyperglycemia Qualified Code(s): E11.65 - Type 2 diabetes mellitus with hyperglycemia Status: Acute Assessment and Plan: * Insulin Lispro sliding scale, Accu-checks qAc and HS and Hold oral hypoglycemics * Initiate hypoglycemic precautions * Obtain a HgbA1c 12/25/2023: * Blood sugars ranging 136-143 * Hemoglobin A1c 8.4 * Continue with current treatment plan (3) Frequent falls: Code(s): R29.6 - Repeated falls Status: Acute Assessment and Plan: Patient apparently lives at home alone. Unsure if this is accurate information. * PT and OT ordered on the patient. 12/25/2023: * Continue with current treatment plan (4) Orthostatic hypotension: Code(s): I95.1 - Orthostatic hypotension Status: Chronic Assessment and Plan: Continue midodrine 12/25/2023: * Blood pressures ranging 131/62 to 155/78 * Continue with current treatment plan (5) Chronic kidney disease, stage 3: Qualifiers: Chronic kidney disease stage 3 subtype: unspecified whether 3a or 3b Qualified Code(s): N18.30 - Chronic kidney disease, stage 3 unspecified Code(s): N18.30 - Chronic kidney disease, stage 3 unspecified Status: Chronic Assessment and Plan: Kidney function stable. Continue to monitor BMP 12/25/2023: * Kidney function is normal with a normal EGFR greater than 60, estimated creatinine clearance is 76 * Continue to trend labs (6) Myocardial infarction: Code(s): I21.9 - Acute myocardial infarction, unspecified Status: Resolved Assessment and Plan: Patient now on aspirin and Plavix. Continue these medications. 12/25/2023: * No change to current treatment plan Time Spent With Patient Time with patient: Greater than 35 minutes Subjective Date/time seen: 12/25/23 16:11 Interval history: This is a 73-year-old male who presented to the hospital on 12/24/2023 with complaints of abdominal pain. Workup in the hospital included abdomen pelvis CT which showed several dilated small bowel loops, predominantly left mid abdomen, with suggestion of 2 transition points, small-bowel obstruction including possible closed loop obstruction, esophagitis. Abdomen x-ray shown dilated small bowel loops in the upper abdomen, no free air, no mass. Small-bowel follow-through x-ray was normal. General surgery was consulted. Patient had an NG tube which was removed today and can advance his diet as tolerated to a regular diet. On examination today patient is alert oriented x3, lying in the bed. Vital signs are stable, he is af
--- NOTE | 2023-12-25 16:11 | PM.IMPN ---
Progress Note: A&P Assessment and Plan (1) Small bowel obstruction: Code(s): K56.609 - Unspecified intestinal obstruction, unspecified as to partial versus complete obstruction Status: Acute Assessment and Plan: CT of the abdomen pelvis revealing a small bowel obstruction. General surgery consulted NG decompression, IV fluids and bowel rest ordered on admission. Small-bowel follow-through was normal. NG tube clamped and patient was started on clear liquids Advanced diet as tolerated 12/25/2023: NG tube removed General surgery has signed off Advance diet as tolerated Will likely discharge tomorrow as long as he is tolerating food and drink. Patient has had some bouts of diarrhea today, he is passing gas, his abdomen is soft, bowel sounds are normoactive (2) Uncontrolled diabetes mellitus: Qualifiers: Diabetes mellitus type: type 2 Glycemic state: with hyperglycemia Qualified Code(s): E11.65 - Type 2 diabetes mellitus with hyperglycemia Status: Acute Assessment and Plan: Insulin Lispro sliding scale, Accu-checks qAc and HS and Hold oral hypoglycemics Initiate hypoglycemic precautions Obtain a HgbA1c 12/25/2023: Blood sugars ranging 136-143 Hemoglobin A1c 8.4 Continue with current treatment plan (3) Frequent falls: Code(s): R29.6 - Repeated falls Status: Acute Assessment and Plan: Patient apparently lives at home alone. Unsure if this is accurate information. PT and OT ordered on the patient. 12/25/2023: Continue with current treatment plan (4) Orthostatic hypotension: Code(s): I95.1 - Orthostatic hypotension Status: Chronic Assessment and Plan: Continue midodrine 12/25/2023: Blood pressures ranging 131/62 to 155/78 Continue with current treatment plan (5) Chronic kidney disease, stage 3: Qualifiers: Chronic kidney disease stage 3 subtype: unspecified whether 3a or 3b Qualified Code(s): N18.30 - Chronic kidney disease, stage 3 unspecified Code(s): N18.30 - Chronic kidney disease, stage 3 unspecified Status: Chronic Assessment and Plan: Kidney function stable. Continue to monitor BMP 12/25/2023: Kidney function is normal with a normal EGFR greater than 60, estimated creatinine clearance is 76 Continue to trend labs (6) Myocardial infarction: Code(s): I21.9 - Acute myocardial infarction, unspecified Status: Resolved Assessment and Plan: Patient now on aspirin and Plavix. Continue these medications. 12/25/2023: No change to current treatment plan Time Spent With Patient Time with patient: Greater than 35 minutes Subjective Date/time seen: 12/25/23 16:11 Interval history: This is a 73-year-old male who presented to the hospital on 12/24/2023 with complaints of abdominal pain. Workup in the hospital included abdomen pelvis CT which showed several dilated small bowel loops, predominantly left mid abdomen, with suggestion of 2 transition points, small-bowel obstruction including possible closed loop obstruction, esophagitis. Abdomen x-ray shown dilated small bowel loops in the upper abdomen, no free air, no mass. Small-bowel follow-through x-ray was normal. General surgery was consulted. Patient had an NG tube which was removed today and can advance his diet as tolerated to a regular diet. On examination today patient is alert oriented x3, lying in the bed. Vital signs are stable, he is afebrile, he is on room air. Labs today reveal a hemoglobin of 12.4, hematocrit 38.5, platelet count of 112, blood sugars ranging 136-143, calcium 8.3, hemoglobin A1c is 8.4. He denies and chest pain, nausea, vomiting, abdominal pain. He does report that he has had some diarrhea today and states that he feels a little short of breath today. He has been passing gas, his abdomen is soft, bowel sounds are present. He he states he has been tolerat
--- NOTE | 2023-12-25 16:25 | PCOTNOTE ---
Attempted occupational therapy evaluation, pt woke up enough to say come back later then returned to sleep. Following.
[2023-12-25] MEDS: DEXTROSE 50% 25 GM/50 ML SYRINGE IV PUSH (17:30)
--- NOTE | 2023-12-25 17:38 | PC.NURSE ---
Pt not responding to voice commands. Pt only responding to pain. Opened eyes once and then closed them. MD at bedside. VSS, blood sugar low at 61, D50 half amp given. Will recheck blood sugar in 15 minutes.
[2023-12-25 17:41] LABS: Glucose Point of Care 61 mg/dl (65-105)
[2023-12-25 17:50] LABS: Glucose Point of Care 102 mg/dl (65-105)
[2023-12-25 18:09] LABS: Alveolar/Arterial O2 Gradient 38.3 mmHg; Base Excess ABG 1.1 mEq/l (+/-2.0); Fractional Inspired Oxygen 21 %; HCO3 ABG 28.1 mEq/l (22.0-26.0); Oxygen Content ABG 15.1 %vol (16.0-22.0); PCO2 ABG 54.7 mmHg (35.0-45.0); PO2 FiO2 Ratio Arterial Blood 2.19 %; Total Hemoglobin 13.5 g/dL (12.0-18.0); pH ABG 7.329 (7.350-7.450)
[2023-12-25 18:11] LABS: PO2 ABG 45.9 mmHg (80.0-100.0)
[2023-12-25 18:12] LABS: Oxyhemoglobin 79.5 % THb (90.0-100.0); Site Drawn RIGHT BRACHIAL
[2023-12-26 01:27] LABS: Alveolar/Arterial O2 Gradient 424.6 mmHg; Base Excess ABG 0.4 mEq/l (+/-2.0); Fractional Inspired Oxygen 100 %; Oxygen Content ABG 19.6 %vol (16.0-22.0); Oxygen Saturation ABG 99.5 % (95.0-100.0); Oxyhemoglobin 97.6 % THb (90.0-100.0); PCO2 ABG 45.2 mmHg (35.0-45.0); PO2 ABG 243.2 mmHg (80.0-100.0); PO2 FiO2 Ratio Arterial Blood 2.43 %; Total Hemoglobin 13.9 g/dL (12.0-18.0); pH ABG 7.377 (7.350-7.450)
[2023-12-26 01:28] LABS: Modified Allen's Test Pass; Site Drawn LEFT RADIAL
[2023-12-26 01:29] LABS: Device BIPAP; Expiratory Pressure 6 cmH2O; Inspiratory Pressure 10 cmH2O
[2023-12-26] MEDS: ACETAMINOPHEN 500 MG TABLET 1000 MG PO (03:10)
[2023-12-26 04:59] VITALS: BP 154/70; PULSE 94; TEMP 36.6; O2SAT 92
--- NOTE | 2023-12-26 07:56 | P.PNIM_ITS ---
Progress Note: A&P Assessment and Plan (1) Small bowel obstruction: Code(s): K56.609 - Unspecified intestinal obstruction, unspecified as to partial versus complete obstruction Status: Acute Assessment and Plan: CT of the abdomen pelvis revealing a small bowel obstruction. * General surgery consulted * NG decompression, IV fluids and bowel rest ordered on admission. * Small-bowel follow-through was normal. * NG tube clamped and patient was started on clear liquids * Advanced diet as tolerated 12/25/2023: * NG tube removed * General surgery has signed off * Advance diet as tolerated * Will likely discharge tomorrow as long as he is tolerating food and drink. * Patient has had some bouts of diarrhea today, he is passing gas, his abdomen is soft, bowel sounds are normoactive 12/26/2023: * advance diet as tolerated * condition charge tomorrow if he is tolerating advancement in his diet * patient reports 1 bout of diarrhea today, he is passing gas, his abdomen is soft, bowel sounds are normoactive * he denies any nausea, vomiting, abdominal pain. (2) Uncontrolled diabetes mellitus: Qualifiers: Diabetes mellitus type: type 2 Glycemic state: with hyperglycemia Qualified Code(s): E11.65 - Type 2 diabetes mellitus with hyperglycemia Status: Acute Assessment and Plan: * Insulin Lispro sliding scale, Accu-checks qAc and HS and Hold oral hypoglycemics * Initiate hypoglycemic precautions * Obtain a HgbA1c 12/25/2023: * Blood sugars ranging 136-143 * Hemoglobin A1c 8.4 * Continue with current treatment plan 12/26/2023: * no change to current treatment (3) Frequent falls: Code(s): R29.6 - Repeated falls Status: Acute Assessment and Plan: Patient apparently lives at home alone. Unsure if this is accurate information. * PT and OT ordered on the patient. 12/25/2023: * Continue with current treatment plan 12/26/2023: * no change to current treatment plan (4) Orthostatic hypotension: Code(s): I95.1 - Orthostatic hypotension Status: Chronic Assessment and Plan: Continue midodrine 12/25/2023: * Blood pressures ranging 131/62 to 155/78 * Continue with current treatment plan 12/26/2023: * blood pressure stable * change to current treatment plan (5) Chronic kidney disease, stage 3: Qualifiers: Chronic kidney disease stage 3 subtype: unspecified whether 3a or 3b Qualified Code(s): N18.30 - Chronic kidney disease, stage 3 unspecified Code(s): N18.30 - Chronic kidney disease, stage 3 unspecified Status: Chronic Assessment and Plan: Kidney function stable. Continue to monitor BMP 12/25/2023: * Kidney function is normal with a normal EGFR greater than 60, estimated creatinine clearance is 76 * Continue to trend lab 12/26/2023: * kidney function is stable * continue to trend (6) Myocardial infarction: Code(s): I21.9 - Acute myocardial infarction, unspecified Status: Resolved Assessment and Plan: Patient now on aspirin and Plavix. Continue these medications. 12/25/2023: * No change to current treatment plan Time Spent With Patient Time with patient: 25 - 35 minutes Subjective Date/time seen: 12/26/23 07:56 Interval history: 12/25/23: This is a 73-year-old male who presented to the hospital on 12/24/2023 with complaints of abdominal pain. Workup in the hospital inclu
--- NOTE | 2023-12-26 07:56 | PM.IMPN ---
Progress Note: A&P Assessment and Plan (1) Small bowel obstruction: Code(s): K56.609 - Unspecified intestinal obstruction, unspecified as to partial versus complete obstruction Status: Acute Assessment and Plan: CT of the abdomen pelvis revealing a small bowel obstruction. General surgery consulted NG decompression, IV fluids and bowel rest ordered on admission. Small-bowel follow-through was normal. NG tube clamped and patient was started on clear liquids Advanced diet as tolerated 12/25/2023: NG tube removed General surgery has signed off Advance diet as tolerated Will likely discharge tomorrow as long as he is tolerating food and drink. Patient has had some bouts of diarrhea today, he is passing gas, his abdomen is soft, bowel sounds are normoactive 12/26/2023: advance diet as tolerated condition charge tomorrow if he is tolerating advancement in his diet patient reports 1 bout of diarrhea today, he is passing gas, his abdomen is soft, bowel sounds are normoactive he denies any nausea, vomiting, abdominal pain. (2) Uncontrolled diabetes mellitus: Qualifiers: Diabetes mellitus type: type 2 Glycemic state: with hyperglycemia Qualified Code(s): E11.65 - Type 2 diabetes mellitus with hyperglycemia Status: Acute Assessment and Plan: Insulin Lispro sliding scale, Accu-checks qAc and HS and Hold oral hypoglycemics Initiate hypoglycemic precautions Obtain a HgbA1c 12/25/2023: Blood sugars ranging 136-143 Hemoglobin A1c 8.4 Continue with current treatment plan 12/26/2023: no change to current treatment (3) Frequent falls: Code(s): R29.6 - Repeated falls Status: Acute Assessment and Plan: Patient apparently lives at home alone. Unsure if this is accurate information. PT and OT ordered on the patient. 12/25/2023: Continue with current treatment plan 12/26/2023: no change to current treatment plan (4) Orthostatic hypotension: Code(s): I95.1 - Orthostatic hypotension Status: Chronic Assessment and Plan: Continue midodrine 12/25/2023: Blood pressures ranging 131/62 to 155/78 Continue with current treatment plan 12/26/2023: blood pressure stable change to current treatment plan (5) Chronic kidney disease, stage 3: Qualifiers: Chronic kidney disease stage 3 subtype: unspecified whether 3a or 3b Qualified Code(s): N18.30 - Chronic kidney disease, stage 3 unspecified Code(s): N18.30 - Chronic kidney disease, stage 3 unspecified Status: Chronic Assessment and Plan: Kidney function stable. Continue to monitor BMP 12/25/2023: Kidney function is normal with a normal EGFR greater than 60, estimated creatinine clearance is 76 Continue to trend lab 12/26/2023: kidney function is stable continue to trend (6) Myocardial infarction: Code(s): I21.9 - Acute myocardial infarction, unspecified Status: Resolved Assessment and Plan: Patient now on aspirin and Plavix. Continue these medications. 12/25/2023: No change to current treatment plan Time Spent With Patient Time with patient: 25 - 35 minutes Subjective Date/time seen: 12/26/23 07:56 Interval history: 12/25/23: This is a 73-year-old male who presented to the hospital on 12/24/2023 with complaints of abdominal pain. Workup in the hospital included abdomen pelvis CT which showed several dilated small bowel loops, predominantly left mid abdomen, with suggestion of 2 transition points, small-bowel obstruction including possible closed loop obstruction, esophagitis. Abdomen x-ray shown dilated small bowel loops in the upper abdomen, no free air, no mass. Small-bowel follow-through x-ray was normal. General surgery was consulted. Patient had an NG tube which was removed today and can advance his diet as tolerated to a regular diet. On examination today anil
[2023-12-26 08:35] LABS: Basophils Percent Auto 0.3 % (0.2-1.2); Eosinophils Absolute Auto 0.3 K/mm3 (0-0.3); Eosinophils Percent Auto 4.1 % (0-4.4); Hemoglobin 12.8 g/dL (14.0-18.0); Immature Granulocyte Absolute 0.02 K/mm3 (0.00-0.031); Immature Granulocyte Percent A 0.3 % (0-0.5); Immature Platelet Fraction Pct 2.5 % (0.9-11.2); Lymphocytes Absolute Auto 0.43 K/mm3 (0.9-3.2); Lymphocytes Percent Auto 6.9 % (18.3-44.2); Mean Corpuscular HGB Conc 33.7 g/dl (32-36); Mean Corpuscular Hemoglobin 30.2 pg (26-34); Mean Corpuscular Volume 89.6 fl (80-100); Mean Platelet Volume 9.8 fl (7.4-10.4); Monocytes Absolute Auto 0.4 K/mm3 (0.1-0.6); Monocytes Percent Auto 6.7 % (2.6-8.5); Neutrophils Absolute Auto 5.1 K/mm3 (1.3-6.7); Neutrophils Percent Auto 81.7 % (45.5-73.1); Platelet Count Result 125 k/mm3 (150-375); Red Blood Count 4.24 M/mm3 (4.6-6.20); Red Cell Distribution Width 12.8 % (11.5-14.5); White Blood Count 6.3 K/mm3 (4.5-10.0)
[2023-12-26 08:39] LABS: Glucose Point of Care 156 mg/dl (65-105)
[2023-12-26 08:43] LABS: Alanine Aminotransferase 33 U/L (6-50); Albumin Level 3.4 g/dL (3.5-5.1); Alkaline Phosphatase 77 U/L (38-126); Anion Gap 6 mmol/L (8-16); Aspartate Amino Transferase 34 U/L (17-59); Blood Urea Nitrogen 15 mg/dL (9-20); Calcium 8.3 mg/dL (8.4-10.2); Carbon Dioxide 30 mmol/L (22-30); Chloride 104 mmol/L (98-107); Estimated CRCL calculation 92 ml/min; Estimated Glomerular Filt Rate > 60; Glucose 144 mg/dL (65-110); Magnesium 1.5 mg/dL (1.6-2.3); Potassium 3.5 mmol/L (3.4-5.0); Sodium 140 mmol/L (137-145)
[2023-12-26] MEDS: SERTRALINE HCL 50 MG TABLET 150 MG PO (08:51)
[2023-12-26] MEDS: oxyBUTYnin CHLORIDE 5 MG TABLET PO ×2 (08:51→16:01)
[2023-12-26] MEDS: MIDODRINE HCL 2.5 MG TABLET PO ×3 (08:51→16:01)
[2023-12-26] MEDS: MIRABEGRON 50 MG ER TABLET PO (08:51)
[2023-12-26] MEDS: PANTOPRAZOLE 40 MG TABLET PO (08:51)
[2023-12-26] MEDS: GABAPENTIN 100 MG CAPSULE PO ×3 (08:51→16:00)
[2023-12-26] MEDS: FINASTERIDE 5 MG TABLET PO (08:51)
[2023-12-26] MEDS: CLOPIDOGREL BISULFATE 75 MG TABLET PO (08:51)
[2023-12-26 09:00] VITALS: O2SAT 92
[2023-12-26] MEDS: INSULIN ASPART (*BKC) 100 UNITS/ML 30 UNITS SUB-Q ×3 (09:27→17:41)
[2023-12-26 11:09] LABS: Alveolar/Arterial O2 Gradient 43.5 mmHg; Base Excess ABG 1.7 mEq/l (+/-2.0); Fractional Inspired Oxygen 21 %; HCO3 ABG 24.2 mEq/l (22.0-26.0); Oxygen Saturation ABG 95.1 % (95.0-100.0); Oxyhemoglobin 93.9 % THb (90.0-100.0); PCO2 ABG 31.9 mmHg (35.0-45.0); PO2 FiO2 Ratio Arterial Blood 3.24 %; Total Hemoglobin 13.6 g/dL (12.0-18.0); pH ABG 7.498 (7.350-7.450)
[2023-12-26 11:10] LABS: Device ROOM AIR; Modified Allen's Test Pass; Site Drawn LEFT RADIAL
[2023-12-26 12:39] LABS: Glucose Point of Care 171 mg/dl (65-105)
[2023-12-26 14:01] VITALS: BP 138/78; PULSE 102; RESP 17; TEMP 37; O2SAT 99
[2023-12-26] MEDS: MAGNESIUM SULF 2 GM/WATER 50ML 2 GM/50 ML BAG IVPB (15:57)
[2023-12-26 17:08] LABS: Glucose Point of Care 93 mg/dl (65-105)
[2023-12-26] MEDS: ASPIRIN 81 MG CHEWABLE TABLET PO (20:03)
[2023-12-26 22:06] VITALS: BP 147/68; PULSE 89; RESP 18; TEMP 36.9; O2SAT 96
[2023-12-26 22:45] VITALS: PULSE 87; RESP 29; O2SAT 99
[2023-12-27 02:40] VITALS: PULSE 81; RESP 24; O2SAT 97
[2023-12-27 06:00] VITALS: BP 179/95; PULSE 92; RESP 16; TEMP 36.8; O2SAT 93
[2023-12-27 06:59] LABS: Glucose Point of Care 117 mg/dl (65-105)
[2023-12-27 08:34] LABS: Glucose Point of Care 137 mg/dl (65-105)
[2023-12-27] MEDS: MIRABEGRON 50 MG ER TABLET PO (09:14)
[2023-12-27] MEDS: ACETAMINOPHEN 500 MG TABLET 1000 MG PO (09:14)
[2023-12-27] MEDS: GABAPENTIN 100 MG CAPSULE PO (09:14)
[2023-12-27] MEDS: SERTRALINE HCL 50 MG TABLET 150 MG PO (09:14)
[2023-12-27] MEDS: oxyBUTYnin CHLORIDE 5 MG TABLET PO (09:14)
[2023-12-27] MEDS: PANTOPRAZOLE 40 MG TABLET PO (09:14)
[2023-12-27] MEDS: CLOPIDOGREL BISULFATE 75 MG TABLET PO (09:14)
[2023-12-27] MEDS: FINASTERIDE 5 MG TABLET PO (09:14)
[2023-12-27 11:06] LABS: Basophils Percent Auto 0.3 % (0.2-1.2); Eosinophils Absolute Auto 0.2 K/mm3 (0-0.3); Eosinophils Percent Auto 4.2 % (0-4.4); Hematocrit 37.2 % (42.0-52.0); Hemoglobin 12.6 g/dL (14.0-18.0); Immature Granulocyte Absolute 0.04 K/mm3 (0.00-0.031); Immature Granulocyte Percent A 0.7 % (0-0.5); Lymphocytes Absolute Auto 0.43 K/mm3 (0.9-3.2); Lymphocytes Percent Auto 7.4 % (18.3-44.2); Mean Corpuscular HGB Conc 33.9 g/dl (32-36); Mean Corpuscular Hemoglobin 29.9 pg (26-34); Mean Corpuscular Volume 88.2 fl (80-100); Mean Platelet Volume 9.8 fl (7.4-10.4); Monocytes Absolute Auto 0.4 K/mm3 (0.1-0.6); Monocytes Percent Auto 7.3 % (2.6-8.5); Neutrophils Absolute Auto 4.6 K/mm3 (1.3-6.7); Neutrophils Percent Auto 80.1 % (45.5-73.1); Platelet Count Result 141 k/mm3 (150-375); Red Blood Count 4.22 M/mm3 (4.6-6.20); Red Cell Distribution Width 12.6 % (11.5-14.5); White Blood Count 5.8 K/mm3 (4.5-10.0)
[2023-12-27 11:19] LABS: Alanine Aminotransferase 31 U/L (6-50); Albumin Level 3.3 g/dL (3.5-5.1); Alkaline Phosphatase 77 U/L (38-126); Anion Gap 6 mmol/L (8-16); Aspartate Amino Transferase 31 U/L (17-59); Blood Urea Nitrogen 19 mg/dL (9-20); Calcium 8.2 mg/dL (8.4-10.2); Carbon Dioxide 29 mmol/L (22-30); Chloride 100 mmol/L (98-107); Estimated CRCL calculation 76 ml/min; Estimated Glomerular Filt Rate > 60; Glucose 214 mg/dL (65-110); Potassium 3.6 mmol/L (3.4-5.0); Sodium 135 mmol/L (137-145)
[2023-12-27 12:28] LABS: Glucose Point of Care 186 mg/dl (65-105)
--- NOTE | 2023-12-27 12:35 | PM.DS ---
DS: Admitting Diagnosis Discharge Date 12/27/23 Admitting Diagnosis Small bowel obstruction Uncontrolled DM Frequent falls Orthostatic hypotension CKD stage 3 SD Hypertension DS: Discharge Diagnosis Discharge Diagnosis (1) Small bowel obstruction: Code(s): K56.609 - Unspecified intestinal obstruction, unspecified as to partial versus complete obstruction Status: Acute (2) Uncontrolled diabetes mellitus: Qualifiers: Diabetes mellitus type: type 2 Glycemic state: with hyperglycemia Qualified Code(s): E11.65 - Type 2 diabetes mellitus with hyperglycemia Status: Acute (3) Frequent falls: Code(s): R29.6 - Repeated falls Status: Acute (4) Orthostatic hypotension: Code(s): I95.1 - Orthostatic hypotension Status: Chronic (5) Chronic kidney disease, stage 3: Qualifiers: Chronic kidney disease stage 3 subtype: unspecified whether 3a or 3b Qualified Code(s): N18.30 - Chronic kidney disease, stage 3 unspecified Code(s): N18.30 - Chronic kidney disease, stage 3 unspecified Status: Chronic (6) Myocardial infarction: Code(s): I21.9 - Acute myocardial infarction, unspecified Status: Resolved DS: Summary Hospital Course Reason for hospitalization: Small bowel obstruction Hospital Course: This is a 73-year-old male who presented to the hospital on 12/24/2023 with complaints of abdominal pain.? Workup in the hospital included abdomen pelvis CT which showed several dilated small bowel loops, predominantly left mid abdomen, with suggestion of 2 transition points, small-bowel obstruction including possible closed loop obstruction, esophagitis.? Abdomen x-ray shown dilated small bowel loops in the upper abdomen, no free air, no mass.? Small-bowel follow-through x-ray was normal.? General surgery was consulted.? Patient had an NG tube which was removed today and can advance his diet as tolerated to a regular diet. On examination today patient is alert and oriented x3, lying in the bed. He denies any nausea, vomiting, diarrhea, abdominal pain, shortness of breath, or chest pain. Labs today are essentially unremarkable. Abdomen soft, bowel sounds normoactive, he is passing gas. He states that he is tolerating advancement in diet. He is stable for discharge. He will need to follow up with PCP in 1 week. Final diagnosis: small bowel obstruction Status at Discharge Cognitive/behavioral status at discharge: Alert and oriented x3 Functional status at discharge: uses cane/walker Overall status at discharge: patient is progressing back to baseline Time Spent with Patient Time attestation: Total time spent providing and/or coordinating discharge services: Time spent: Greater than 30 minutes Exam Narrative: General: In no acute distress, well nourished Head: atraumatic, no encephalopathy Eyes: EOMI, PERRLA, slcera clear ENT: moist mucous membranes, nasal passages clear Neck: supple, no JVD, no adenopathy, trachea midline Cardiac: Normal S1 and S2. No murmur, gallops or friction rubs, peripheral pulses intact. Respiratory: Lungs clear to auscultation, no adventitious lung sounds Gastrointestinal: soft, non-distended, non-tender, normoactive bowel sounds. Passing gas : voiding without difficulty. Extremities: moves all extremities well, no edema, good ROM, strength 5/5 Skin: clean, dry, intact. No wounds or lesions. Neuro: Alert and oriented x4, cranial nerves intact, no neuro deficits. Psych: normal mood, normal affect, interactive DS: Data Data Completed and Pending Completed studies during hospitalization: Small bowel x-ray abdomen x-ray abdomen/pelvis CT Pending studies at discharge: None Labs on day of discharge: Labs from last 24 hours 12/27/23 12/27/23 12/27/23 12:15 10:47 08:25 WBC 5.8 RBC 4.22 L Hgb 12.6 L Hct 37.2 L MCV 88.2 MCH 29.9 MCHC 33.9 RDW 12.6 Plt Count 141 L MPV 9.8 Immature Gr
== END 2023-12-27 14:00 | disposition home or self-care (01) | DRG 390 ==
LOC: ANHED 05:25 → ANH3MED 05:35
PROVIDERS: Family Medicine; Internal Medicine Critical Care Medicine; Admitting Provider Internal Medicine; Emergency Provider Emergency Medicine; PCP Internal Medicine; Visit Provider Nurse Practitioner Acute Care
DX: K56.609 Unspecified intestinal obstruction, unspecified as to partial versus complete obstruction (principal); E11.65 Type 2 diabetes mellitus with hyperglycemia; I95.1 Orthostatic hypotension; E11.22 Type 2 diabetes mellitus with diabetic chronic kidney disease; N40.0 Benign prostatic hyperplasia without lower urinary tract symptoms; I25.10 Atherosclerotic heart disease of native coronary artery without angina pectoris; N18.31 Chronic kidney disease, stage 3a; I12.9 Hypertensive chronic kidney disease with stage 1 through stage 4 chronic kidney disease, or unspecified chronic kidney disease; E11.42 Type 2 diabetes mellitus with diabetic polyneuropathy; R29.6 Repeated falls; N32.81 Overactive bladder; L40.9 Psoriasis, unspecified; E78.5 Hyperlipidemia, unspecified; K21.9 Gastro-esophageal reflux disease without esophagitis; G47.33 Obstructive sleep apnea (adult) (pediatric); Z96.653 Presence of artificial knee joint, bilateral; Z79.82 Long term (current) use of aspirin; I25.2 Old myocardial infarction; Z95.5 Presence of coronary angioplasty implant and graft; Z90.49 Acquired absence of other specified parts of digestive tract; Z79.02 Long term (current) use of antithrombotics/antiplatelets
CPT/HCPCS: 36415; 36600; 74177; 74250; 80048; 80053; 81001; 82805; 82948; 83036; 83605; 83690; 83735; 85025; 85055; 93005; 94002; 94003; 96361; 96374; 96375; 97162; 97165; 99285; A9270; J1170; J1815; J2270; J2405; J3475; J7030; Q9967

== ENCOUNTER 2024-01-08 09:19 | Outpatient (CLI) | payer MEDICARE, SELFPAY ==
--- NOTE | 2024-01-20 23:55 | WPDSLEEPSTUD ---
Sleep Study Date of Study: 01/08/24 Ordering Provider: Veronica Bruno NP Interpreting Physician: Vijaya Rivera MD Sleep Study Type: Polysomnogram Height: 1.85 m Weight: 113.398 kg Body Mass Index: 33.0 Neck Circumference (inches): 20 [place]: 11 Reason for Sleep Study Hypersomnolence, known obstructive sleep apnea * Home sleep test using Novasom on 05/06/2020, AHI 58.9, no centrals reported, desaturation below 70%, 33% of the night spent below says 70%. Sleep History Gordo Hale is a 73-year-old man with known obstructive sleep apnea. He was in the hospital with abdominal pain, has additional medical conditions including multiple coronary stents, hypertension, dyslipidemia, insulin-dependent diabetes mellitus, orthostatic hypotension, esophageal stricture and GERD. On December 24, 2023, had a small bowel obstruction was treated with NG tube fluids and rest. He also had mild hypercapnia with a pCO2 in the 50s, was treated with BiPAP while he was in the hospital last month. He frequently awakens from sleep feeling short of breath. He frequently wakes at night with heartburn, belching or coughing.??He frequently snores, and frequent snores loudly enough that others complain. He rarely has trouble sleeping when he has a cold. He rarely wakes up gasping for breath during the night. He occasionally has breathing problems at night. He occasionally sweats excessively at night. He rarely notices his heart pounding or beating irregularly during the night. He occasionally falls asleep during the day. He constantly falls asleep involuntarily, however never falls asleep while driving. He never experiences loss of muscle tone with strong emotion. He never has daytime difficulty at work due to excessive sleepiness. He rarely feels paralyzed on waking or falling asleep. He rarely experiences vivid dreams upon waking or falling asleep. He never feels afraid of going to sleep. He rarely has nightmares. He rarely recalls his dreams. He rarely has thoughts racing through his mind. He rarely feels sad or depressed. He rarely feels anxiety. He rarely notices parts of his body jerk. He rarely kicks during the night. He rarely feels crawling or aching feelings in his legs. He occasionally feels leg pain at night. He rarely has morning jaw pain, never grinds his teeth at night. He rarely feels bothered by pain during the day, rarely awakened by pain during the night. He occasionally wakes up feeling stiff in the morning, and he occasionally wakes feeling sore or achy. He never awakens with pain in his neck, spine, or joints. He has memory problems, headaches, palpitations and dizziness which he attributes to a recent heart attack. Normal bedtime is variable, falling asleep within a few minutes, waking a few times during the night to eat something and use the bathroom, returning to sleep easily. He reports getting 14 hours of sleep at night. He does not have a standard bedtime or wake time. He lives alone. He takes naps in the day, and he may feel refreshed after a 10-15 minute nap. Habits:??Tobacco: never smoker Caffeine: he consumes caffeine daily Alcohol: none Recreational substances: none [facility] Past Medical History Medical History (Updated 01/22/24 @ 12:37 by Vijaya Rivera MD) Adenomatous colon polyp Anxiety Arthritis BPH (benign prostatic hyperplasia) Chronic kidney disease, stage 3 Coarctation of aorta Coronary artery disease Depression Diabetic autonomic neuropathy Diabetic peripheral neuropathy Gastroesophageal reflux disease Gout Heart failure with reduced ejection fraction With EF of 45% in January of 2023 and echocardiogram in April 2023 showing normal EF 55-60% Hepatitis B History of esophageal stricture Hypercholesterolemia Hyperlipidemia Hypertension Hypertriglyceridemia Insulin dependent diabetes mellitus Kidney stone Methicillin resistant Staphylococcus aureus infection (2014) Myocardial infarction Obstruc
[2024-01-22 12:39] VITALS: BMI 33.0
== END 2024-01-09 07:31 | disposition home or self-care (01) ==
PROVIDERS: PCP Internal Medicine; Visit Provider Nurse Practitioner
DX: G47.33 Obstructive sleep apnea (adult) (pediatric) (principal); G47.31 Primary central sleep apnea; Z68.33 Body mass index [BMI] 33.0-33.9, adult
CPT/HCPCS: 95810

== ENCOUNTER 2024-02-11 03:59 | Emergency (ER) | payer MEDICARE, SELFPAY ==
[2024-02-11] VITALS (8 sets, daily range): BP systolic 107–165; BP diastolic 65–94; PULSE 63–87; RESP 10–17; TEMP 36.8–37.1; O2SAT 98–100
--- NOTE | 2024-02-11 | ECG_ITS ---
Measurements Intervals [place] Rate: 69 P: 89 NC: 147 QRS: 24 QRSD: 90 T: 80 QT: 404 QTc: 434 Interpretive Statements SINUS RHYTHM INCOMPLETE RIGHT BUNDLE BRANCH BLOCK CONSIDER ANTERIOR INFARCT, AGE INDETERMINATE BORDERLINE ST-T WAVE ABNORMALITY- HIGH LATERAL LEADS BASELINE ARTIFACT- I, II, AVR ABNORMAL ECG COMPARED TO ECG 12/24/2023 01:27:50 SINUS RHYTHM NOW PRESENT Electronically Signed On 02-11-2024 6:38:53 CDT by Virgil Santos D.O.
--- NOTE | ~2024-02-11 | XR_ITS ---
Portable chest x-ray Comparison: 04/25/2023 Clinical History: Chest pain Findings: Lungs are clear, without focal consolidation or pleural effusion. Cardiomediastinal silho uette is stable. Bones and soft tissues are unremarkable. Impression: Clear lungs. Reviewed, dictated and finalized at location . Impression: Clear lungs.
[2024-02-11] MEDS: ASPIRIN 81 MG CHEWABLE TABLET 324 MG PO (04:09)
[2024-02-11 04:17] LABS: Red Blood Count 4.98 M/mm3 (4.6-6.20); White Blood Count 4.8 K/mm3 (4.5-10.0)
[2024-02-11 04:18] LABS: Basophils Percent Auto 0.6 % (0.2-1.2); Eosinophils Absolute Auto 0.3 K/mm3 (0-0.3); Eosinophils Percent Auto 6.7 % (0-4.4); Hematocrit 44.2 % (42.0-52.0); Hemoglobin 14.8 g/dL (14.0-18.0); Immature Granulocyte Absolute 0.02 K/mm3 (0.00-0.031); Immature Granulocyte Percent A 0.4 % (0-0.5); Lymphocytes Percent Auto 27.1 % (18.3-44.2); Mean Corpuscular HGB Conc 33.5 g/dl (32-36); Mean Corpuscular Hemoglobin 29.7 pg (26-34); Mean Corpuscular Volume 88.8 fl (80-100); Mean Platelet Volume 9.8 fl (7.4-10.4); Monocytes Absolute Auto 0.4 K/mm3 (0.1-0.6); Monocytes Percent Auto 7.5 % (2.6-8.5); Neutrophils Absolute Auto 2.8 K/mm3 (1.3-6.7); Neutrophils Percent Auto 57.7 % (45.5-73.1); Platelet Count Result 153 k/mm3 (150-375); Red Cell Distribution Width 13.8 % (11.5-14.5)
[2024-02-11 04:32] LABS: Alanine Aminotransferase 31 U/L (6-50); Albumin Level 4.3 g/dL (3.5-5.1); Alkaline Phosphatase 102 U/L (38-126); Anion Gap 6 mmol/L (8-16); Aspartate Amino Transferase 31 U/L (17-59); Bilirubin,Total 0.5 mg/dL (0.2-1.3); Blood Urea Nitrogen 25 mg/dL (9-20); Calcium 9.5 mg/dL (8.4-10.2); Carbon Dioxide 28 mmol/L (22-30); Chloride 104 mmol/L (98-107); Estimated CRCL calculation 14 ml/min; Estimated Glomerular Filt Rate 60; Glucose 156 mg/dL (65-110); Lipase 63 U/L (23-300); Potassium 3.7 mmol/L (3.4-5.0); Sodium 138 mmol/L (137-145)
[2024-02-11 04:42] LABS: Prothrombin Time 13.1 Seconds (11.1-14.7)
[2024-02-11 04:44] LABS: Troponin I 0.024 ng/mL (0.000-0.034)
--- NOTE | 2024-02-11 04:45 | ED.GENADULT ---
HPI - General Adult General Chief complaint: Chest Pain <Gildardo Norwood MD - Last Filed: 02/11/24 04:59> Stated complaint: CHEST PAIN DURING SLEEP STUDY <Gildardo Norwood MD - Last Filed: 02/11/24 04:59> Time Seen by Provider: 02/11/24 04:06 <Gildardo Norwood MD - Last Filed: 02/11/24 04:59> History of Present Illness HPI narrative: Patient is 73-year-old gentleman presents emergency department with chief complaint of chest pain. Patient reports has prior history of an [place] and also had multiple abdominal surgeries the patient was undergoing a sleep study in the sleep center his mass came off while he was sleeping and woke up having discomfort in his chest patient reports the pain felt unusual could not really describe it reports that lasted less than 10 minutes. The patient reports resolved with time he has arrived to the emergency department received aspirin by EMS prior to arrival. <Gildardo Norwood MD - Last Filed: 02/11/24 04:59> Related Data Home medications: Home Medications Medication Instructions Recorded Confirmed calcitriol 0.25 mcg capsule 0.25 mcg PO BID 08/01/22 01/02/24 aspirin 81 mg chewable tablet 81 mg PO HS 08/28/22 01/02/24 clopidogrel 75 mg tablet 75 mg PO DAILY 02/25/23 01/02/24 insulin regular hum U-500 conc 500 30 unit subcut TIDWMEAL 09/04/23 01/02/24 unit/mL(3 mL) subcut pen (Humulin R U-500 (Conc) Insulin Kwikpen) oxybutynin chloride 5 mg tablet 5 mg PO BID 09/04/23 01/02/24 mirabegron 50 mg tablet,extended 50 mg PO DAILY 10/16/23 01/02/24 release 24 hr (Myrbetriq) nitroglycerin 0.4 mg sublingual 0.4 mg sublingual Q5M PRN Chest 12/24/23 01/02/24 tablet Pain famotidine 10 mg tablet (Pepcid AC) 10 mg PO DAILY 01/31/24 <Gildardo Norwood MD - Last Filed: 02/11/24 04:59> Allergies/adverse reactions: Allergies Allergy/AdvReac Type Severity Reaction Status Date / Time Cephalosporins Allergy Unknown SHORTNESS Verified 02/11/24 04:18 OF BREATH,Dyspnea / SOB morphine Allergy Unknown Jittery Verified 02/11/24 04:18 nitroglycerin Allergy Unknown HEART RATE Verified 02/11/24 04:18 GOES DOWN FAST,Unknown oxycodone Allergy Unknown Confusion,F Verified 02/11/24 04:18 atigued amoxicillin AdvReac Dyspnea / Verified 02/11/24 04:18 SOB clavulanic acid AdvReac Dyspnea / Verified 02/11/24 04:18 SOB cyclobenzaprine AdvReac Stopped Verified 02/11/24 04:18 Breathing hydrocodone AdvReac Confusion Verified 02/11/24 04:18 lisinopril AdvReac Unknown Verified 02/11/24 04:18 norepinephrine AdvReac Unknown Verified 02/11/24 04:18 Sulfa (Sulfonamide AdvReac Dyspnea / Verified 02/11/24 04:18 Antibiotics) SOB <Gildardo Norwood MD - Last Filed: 02/11/24 04:59> Review of Systems Review of Systems: A 10 system review of systems was completed on the patient and is negative except for what is stated in the HPI. Nursing and ancillary documentation was reviewed. <Gildardo Norwood MD - Last Filed: 02/11/24 04:59> PENDING SALE TO [facility] Past Medical History Medical History: Medical History Adenomatous colon polyp Anxiety Arthritis BPH (benign prostatic hyperplasia) Chronic kidney disease, stage 3 Coarctation of aorta Coronary artery disease Depression Diabetic autonomic neuropathy Diabetic peripheral neuropathy Gastroesophageal reflux disease Gout Heart failure with reduced ejection fraction With EF of 45% in January of 2023 and echocardiogram in April 2023 showing normal EF 55-60% Hepatitis B History of esophageal stricture Hypercholesterolemia Hyperlipidemia Hypertension Hypertriglyceridemia Insulin dependent diabetes mellitus Kidney stone Methicillin resistant Staphylococcus aureus infection (2014) Myocardial infarction Obstructive sleep apnea Intolerant to CPAP Obstructive sleep apnea Overactive
--- NOTE | 2024-02-11 07:48 | ECG_ITS ---
Measurements Intervals [place] Rate: 72 P: 93 GA: 127 QRS: 9 QRSD: 96 T: 91 QT: 406 QTc: 445 Interpretive Statements SINUS RHYTHM INCOMPLETE RIGHT BUNDLE BRANCH BLOCK CONSIDER ANTERIOR INFARCT, AGE INDETERMINATE BORDERLINE ST-T WAVE ABNORMALITY- HIGH LATERAL LEADS BASELINE ARTIFACT- I, II, AVR ABNORMAL ECG COMPARED TO ECG 02/11/2024 04:08:36 NO SIGNIFICANT CHANGES Electronically Signed On 02-11-2024 8:20:52 CDT by Virgil Santos D.O.
[2024-02-11 08:32] LABS: Troponin I 0.024 ng/mL (0.000-0.034)
--- NOTE | 2024-02-11 10:13 | PCCCNOTE ---
Pt needing transportation back to his vehicle at the sleep center. Cab voucher supplied.
== END 2024-02-11 09:45 | disposition home or self-care (01) ==
PROVIDERS: Emergency Medicine; Emergency Provider Emergency Medicine; PCP Internal Medicine
DX: R07.89 Other chest pain (principal); I25.2 Old myocardial infarction; E11.22 Type 2 diabetes mellitus with diabetic chronic kidney disease; I13.0 Hypertensive heart and chronic kidney disease with heart failure and stage 1 through stage 4 chronic kidney disease, or unspecified chronic kidney disease; I50.9 Heart failure, unspecified; N18.30 Chronic kidney disease, stage 3 unspecified; E11.43 Type 2 diabetes mellitus with diabetic autonomic (poly)neuropathy; E78.00 Pure hypercholesterolemia, unspecified; E78.1 Pure hyperglyceridemia; N40.0 Benign prostatic hyperplasia without lower urinary tract symptoms; N32.81 Overactive bladder; G47.33 Obstructive sleep apnea (adult) (pediatric); K21.9 Gastro-esophageal reflux disease without esophagitis; M19.90 Unspecified osteoarthritis, unspecified site; M10.9 Gout, unspecified; F41.9 Anxiety disorder, unspecified; F32.A Depression, unspecified; Z66 Do not resuscitate; Z95.5 Presence of coronary angioplasty implant and graft; Z96.653 Presence of artificial knee joint, bilateral; Z86.010 Personal history of colon polyps; Z87.19 Personal history of other diseases of the digestive system; Z87.442 Personal history of urinary calculi; Z86.14 Personal history of Methicillin resistant Staphylococcus aureus infection; Z98.49 Cataract extraction status, unspecified eye; Z90.49 Acquired absence of other specified parts of digestive tract; Z79.82 Long term (current) use of aspirin; Z79.4 Long term (current) use of insulin; I45.10 Unspecified right bundle-branch block; R94.31 Abnormal electrocardiogram [ECG] [EKG]
CPT/HCPCS: 36415; 71045; 80053; 83690; 84484; 85025; 85610; 85730; 93005; 99284; A9270

== ENCOUNTER 2024-03-17 14:15 | Outpatient (RCR) | payer MEDICARE, OTHER, SELFPAY ==
--- NOTE | 2024-01-20 12:37 | WPDSLEEPSTUD ---
Sleep Study Ordering Provider: Froilan Gonzalez MD Interpreting Physician: Vijaya Rivera MD [facility] Past Medical History Medical History Adenomatous colon polyp Anxiety Arthritis BPH (benign prostatic hyperplasia) Chronic kidney disease, stage 3 Coarctation of aorta Coronary artery disease Depression Diabetic autonomic neuropathy Diabetic peripheral neuropathy Gastroesophageal reflux disease Gout Heart failure with reduced ejection fraction With EF of 45% in January of 2023 and echocardiogram in April 2023 showing normal EF 55-60% Hepatitis B History of esophageal stricture Hypercholesterolemia Hyperlipidemia Hypertension Hypertriglyceridemia Insulin dependent diabetes mellitus Kidney stone Methicillin resistant Staphylococcus aureus infection (2014) Myocardial infarction Obstructive sleep apnea Intolerant to CPAP Overactive bladder Peripheral neuropathy Psoriasis Rectal polyp SBO (small bowel obstruction) Multiple bowel obstructions as far back as 2012 in the records Surgical History Surgical History History of aortic coarctation repair (1964) History of appendectomy History of arthroscopy of both knees History of arthroscopy of left shoulder With removal of bone spur. History of bilateral carpal tunnel release History of bilateral knee replacement Right knee 2019 History of cardiac catheterization Catheterization 2013 unremarkable, Cardiac catheterization June 2022 distal obtuse marginal stenosis 90% no stent placed and January 2023 at [facility] demonstrating severe disease diagonal and LAD 2.5 x 22 mm stent in the diagonal, transferred to [facility] with stent 01/18/2023 4.5 x 24 mm synergy DWAYNE placed in the LAD History of cataract surgery History of cholecystectomy History of colonoscopy with polypectomy History of coronary artery stent placement History of hemorrhoidectomy History of hernia repair History of partial colectomy (09/2015) Secondary to bowel obstruction with recurrence requiring exploratory laparotomy and lysis of adhesions 03/28/2000 History of repair of rotator cuff History of resection of small bowel 2014 exploratory laparotomy for SBO that resulted in adhesiolysis and jejunal small bowel resection History of tonsillectomy S/P dilatation of esophageal stricture November [address] Trejo and likely more recent in January 2023 but this cannot be confirmed Family History Family History Sibling Family history of thyroid disease Hypertension Family history of diabetes mellitus in first degree relative Family history of obesity Patient's sister is in good health Diabetes mellitus Mother Hypertension Family history of diabetes mellitus in first degree relative Family history of thyroid disease Family history of osteoporosis Patient's mother is in good health Cerebrovascular accident Family history of Alzheimer's disease Family history of hearing loss Family history of transient ischemic attacks Father Asthma Patient's father is Family history of chronic obstructive pulmonary disease Acute myocardial infarction Family history of lung disease, Onset Age: 64 Social History Social History Social History: Caffeine-none Surrogate medical decision maker: Doreen Yepez, daughter. Code status: DNR/DNI per patient report request. Smoking status: Never smoker Second hand tobacco smoke exposure: No Alcohol intake: never Substance use: never Substance use type: does not use Do You Feel Safe in your Home?: Yes Lack of Transportation: No Lack of Food: Never True Current Housing: I Have Housing Concerned About Future Housing: No Difficulty Paying Gas/Electric Bill
== END 2024-03-26 13:58 | disposition home or self-care (01) ==
LOC: ANHDMC 14:15
PROVIDERS: PCP Internal Medicine; Visit Provider Internal Medicine
DX: E11.42 Type 2 diabetes mellitus with diabetic polyneuropathy (principal); E11.65 Type 2 diabetes mellitus with hyperglycemia; Z71.89 Other specified counseling
CPT/HCPCS: G0108

== ENCOUNTER 2024-06-23 14:51 | Outpatient (RCR) | payer MEDICARE, SELFPAY ==
[2024-06-23 14:50] VITALS: BMI 35.8
[2024-06-23 14:56] VITALS: BMI 35.8
== END 2024-09-07 10:18 | disposition home or self-care (01) ==
LOC: ANHDMC 14:51
PROVIDERS: PCP Internal Medicine; Visit Provider Internal Medicine
DX: E11.42 Type 2 diabetes mellitus with diabetic polyneuropathy (principal); E11.65 Type 2 diabetes mellitus with hyperglycemia; Z71.3 Dietary counseling and surveillance
CPT/HCPCS: 97803

== ENCOUNTER 2024-07-18 20:03 | Inpatient (IN) | payer MEDICARE, SELFPAY ==
--- NOTE | ~2024-07-18 | XR_ITS ---
EXAMINATION: XR ankle LT min 3V DATE: 07/18/2024 22:01 INDICATION: Left ankle pain post fall TECHNIQUE: Anteroposterior, oblique and lateral views of the left ankle were obtained. COMPARISON: None. FINDINGS: 1 cortical width posterolateral displacement of an oblique distal left fibular fracture which extends across the medial cortex at the level of the tibiotalar joint line. Alignment is otherwise normal. N o fracture. Mild osteoarthritis at the ankle and multiple joints in the midfoot. Small Achilles calca layla spur and moderate-sized plantar calcaneal spur with additional enthesopathic calcifications at t he proximal plantar aponeurosis. Soft tissue swelling about the lateral malleolus. IMPRESSION: 1. Minimally displaced Alexis type B fracture of the distal left fibula. Reviewed, dictated and finalized at location A.
--- NOTE | ~2024-07-18 | XR_ITS ---
EXAMINATION: XR knee LT 3V DATE: 07/18/2024 22:01 INDICATION: Left knee pain post fall TECHNIQUE: Anteroposterior, oblique and crosstable lateral views of the left knee were obtained COMPARISON: None. FINDINGS: Left total knee arthroplasty with revision longstem femoral component and patellar resurfacing remain s in near-anatomic alignment. 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 No fracture. Mo derate-sized left knee joint effusion at the suprapatellar pouch. IMPRESSION: 1. 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 No fracture. 2. Moderate-sized left knee joint effusion. Reviewed, dictated and finalized at location A. IMPRESSION: 1. 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 No fracture. 2. Moderate-sized left knee joint effusion.
--- NOTE | ~2024-07-18 | XR_ITS ---
EXAMINATION: XR chest 1V portable DATE: 07/21/2024 12:41 INDICATION: Chest tightness. TECHNIQUE: A single frontal view of the chest was obtained on 2 radiographs. COMPARISON: Chest single view 07/18/2024 FINDINGS: There is no pneumonia, pleural effusion, or pneumothorax. The heart size is normal. There a re surgical clips in left neck. There is chronic deformity of left fourth rib. Surgical clips in the right upper quadrant are likely from cholecystectomy. IMPRESSION: 1. No acute cardiopulmonary disease. Reviewed, dictated and finalized at location A.
--- NOTE | ~2024-07-18 | XR_ITS ---
EXAMINATION: XR pelvis 1-2V DATE: 07/18/2024 22:01 INDICATION: Fall with right abdominal pain TECHNIQUE: An anteroposterior view of the pelvis was obtained. COMPARISON: None. FINDINGS: Alignment is normal. No fracture or suspected osteonecrosis. Mild bilateral hip and sacroiliac osteoa rthritis. IMPRESSION: 1. Mild bilateral hip and sacroiliac osteoarthritis. No acute osseous abnormality. Reviewed, dictated and finalized at location A. IMPRESSION: 1. Mild bilateral hip and sacroiliac osteoarthritis. No acute osseous abnormali ty.
--- NOTE | ~2024-07-18 | XR_ITS ---
EXAMINATION: XR chest 1V DATE: 07/18/2024 22:01 INDICATION: Right-sided abdominal pain TECHNIQUE: AP view of the chest was obtained. COMPARISON: Chest radiograph dated 02/11/24 FINDINGS: Large calcified nodule at the left lung base consistent with old granulomatous disease. No other airs pace opacities, pulmonary edema, pleural effusion or pneumothorax. The cardiomediastinal silhouette i s normal. Left chest wall deformity with old healed fracture of the left fourth rib. Mild upper lumba r levocurvature with moderate spondylosis. IMPRESSION: 1. No acute cardiopulmonary disease. Reviewed, dictated and finalized at location A.
--- NOTE | ~2024-07-18 | CT_ITS ---
EXAMINATION: CT chest abdomen pelvis w con DATE: 07/18/2024 23:37 INDICATION: Right lower quadrant abdominal pain post 20 foot fall down hill TECHNIQUE: Computed tomography (CT) of the chest, abdomen, and pelvis was performed with 100 mL Omnip aque-350 intravenous contrast. Automated exposure control and iterative reconstruction technique were employed. The dose-length product was 1944.99 mGy-cm. COMPARISON: CT dated 12/24/2023 FINDINGS: CHEST CT: No pneumonia, pulmonary edema, pleural effusion or pneumothorax. Heart size is normal. Atheroscleroti c coronary artery calcification thoracic aorta is normal in caliber with no dissection or acute traum atic aortic injury. Aortic valve calcification. No pericardial effusion. Thoracic aorta is normal in caliber with no dissection or acute traumatic aortic injury. The left common carotid artery is develo pmentally small. The left vertebral artery is thrombosed. Calcified mediastinal and left epiphrenic l ymph nodes consistent with old granulomatous disease. No pathologically enlarged thoracic lymphadenop athy. Likely benign bilateral subcentimeter thyroid nodules. Old fracture deformities of the anterior and posterolateral left fourth rib. Mild upper thoracic levoscoliosis with moderate spondylosis and bridging osteophytes at multiple levels consistent with diffuse idiopathic skeletal hyperostosis (DIS H). ABDOMEN/PELVIS CT: Cholecystectomy clips the gallbladder fossa. Additional dropped clip along the posterior margin of th e normal liver. Splenic calcifications consistent with old granulomatous disease. Pancreas and bilate ral adrenal glands are normal. Mild right renal atrophy. 1 cm cyst at the upper pole of the left kidn ey. Mild dilation of which short segment of small bowel associated with a small bowel anastomosis in the anterior abdomen. No other dilated bowel to suggest obstruction. Bladder is normal. Prostatomegal y. No free intraperitoneal gas or fluid. No pathologically enlarged abdominal or pelvic lymphadenopat hy. Mild lumbar spondylosis with chronic sclerotic bone island at L2. No acute osseous abnormality. IMPRESSION: 1. No acute fracture or acute vascular or visceral organ injury in the chest, abdomen or pelvis. Reviewed, dictated and finalized at location A. IMPRESSION: 1. No acute fracture or acute vascular or visceral organ injury in the chest, a bdomen or pelvis.
--- NOTE | ~2024-07-18 | XR_ITS ---
EXAMINATION: XR knee RT 3V DATE: 07/18/2024 22:01 INDICATION: Right knee pain post fall TECHNIQUE: AP, oblique and crosstable lateral views of the right knee were obtained. COMPARISON: 10/13/2019 FINDINGS: Right total knee arthroplasty without patellar resurfacing appears well seated in near-anatomic align ment. No fracture. Unchanged small region of intramedullary chondroid matrix in the distal right fibu lar metadiaphyseal region consistent with an enchondroma. Prepatellar soft tissue swelling with subcu taneous edema. No right knee joint effusion. IMPRESSION: 1. No right knee joint effusion or acute osseous abnormality Reviewed, dictated and finalized at location A.
--- NOTE | ~2024-07-18 | CT_ITS ---
EXAMINATION: CT cervical spine wo con DATE: 07/18/2024 21:32 INDICATION: Fall TECHNIQUE: Computed tomography (CT) of the cervical spine was performed without intravenous contrast. Automated exposure control and iterative reconstruction technique were employed. Exam dose: 616.63 mGy-cm total exam DLP. COMPARISON: None FINDINGS: Normal alignment at the atlantoaxial joints. C1 and C2 are normally aligned and the odontoid process is intact. No fracture or dislocation or lock ed facet or prevertebral soft tissue swelling is detected. There is moderate degenerative disease at C2-3, C3-4 and C4-5, with very prominent anterior osteophyt es from C4 to at least T3. There is posterior spurring as well at C4-5 and particularly C5-6 in addition to uncovertebral joint spurring, which is particularly severe at C5-6. There is fusion of the apophyseal joints on the right at C3-4 and degenerative change at the remainin g apophyseal joints.. IMPRESSION: Severe cervical and upper thoracic spondylosis No fracture, dislocation or locked facet Reviewed, dictated and finalized at Location A. Reviewed, dictated and finalized at location J.
--- NOTE | ~2024-07-18 | CT_ITS ---
EXAMINATION: CT brain wo con DATE: 07/18/2024 21:32 INDICATION: Fall. TECHNIQUE: Computed tomography (CT) of the head was performed without intravenous contrast. The mA wa s adjusted according to patient size. Iterative reconstruction technique was employed. Exam dose: 75 6.67 mGy-cm total exam DLP. COMPARISON: 09/10/2015 CT brain FINDINGS: Bilateral vertebral artery, basilar artery and bilateral carotid siphon internal carotid ar zehra calcifications. There is nonspecific diminished attenuation of the cerebral white matter, likely due to chronic small vessel ischemic changes. Prominent symmetric bilateral cerebral cortical atrophy. Moderate cerebellar atrophy. No intracranial mass lesion or hemorrhage, midline shift or mass effect. No subdural or epidural belle joel. The paranasal sinuses and mastoid air cells are normally developed and aerated. No fracture or bone destruction of the cranial vault. IMPRESSION: Cerebral atherosclerosis and chronic small vessel ischemic changes of the cerebral white matter Cerebral cortical and cerebellar atrophy No skull fracture or acute intracranial finding Reviewed, dictated and finalized at Location A. Reviewed, dictated and finalized at location J.
[2024-07-18 20:12] VITALS: BP 139/82; PULSE 102; RESP 18; TEMP 36.6; O2SAT 98
--- NOTE | 2024-07-18 21:08 | ECG_ITS ---
Test Date: 2024-07-18 22:05:31 Measurements Intervals [place] Rate: 88 P: 71 ID: [id number] QRS: 20 QRSD: 89 T: 96 QT: 378 QTc: 459 Interpretive Statements SINUS RHYTHM POSSIBLE RIGHT VENTRICULAR CONDUCTION DELAY [RSR (QR) IN V1/V2] CONSIDER SEPTAL MYOCARDIAL INFARCTION , OF INDETERMINATE AGE [40+ ms Q WAVE IN V1/V2] ABNORMAL ECG No previous ECG available for comparison Electronically Signed On 07-19-2024 08:45:18 CDT by David Sue M.D.
[2024-07-18] MEDS: HYDROmorphone HCL INJ (*CRX) 1 MG/ML SYR 0.5 MG IV PUSH ×3 (21:14→23:48)
[2024-07-18 21:20] VITALS: BP 136/75; PULSE 73; RESP 18; O2SAT 99
[2024-07-18 21:23] LABS: Basophils Percent Auto 0.3 % (0.2-1.2); Eosinophils Absolute Auto 0.3 K/mm3 (0-0.3); Hematocrit 50.1 % (42.0-52.0); Immature Granulocyte Absolute 0.04 K/mm3 (0.00-0.031); Immature Granulocyte Percent A 0.4 % (0-0.5); Lymphocytes Absolute Auto 0.73 K/mm3 (0.9-3.2); Lymphocytes Percent Auto 7.5 % (18.3-44.2); Mean Corpuscular HGB Conc 33.9 g/dl (32-36); Mean Corpuscular Hemoglobin 30.4 pg (26-34); Mean Corpuscular Volume 89.6 fl (80-100); Monocytes Absolute Auto 0.5 K/mm3 (0.1-0.6); Monocytes Percent Auto 5.6 % (2.6-8.5); Neutrophils Absolute Auto 8.1 K/mm3 (1.3-6.7); Neutrophils Percent Auto 83.2 % (45.5-73.1); Platelet Count Result 158 k/mm3 (150-375); Red Blood Count 5.59 M/mm3 (4.6-6.20); Red Cell Distribution Width 12.9 % (11.5-14.5); White Blood Count 9.7 K/mm3 (4.5-10.0)
[2024-07-18 21:33] LABS: Prothrombin Time 13.2 Seconds (11.1-14.7)
[2024-07-18 21:34] LABS: Partial Thromboplastin Time 25.5 Seconds (22.3-36.8)
[2024-07-18 21:35] LABS: Creatine Kinase 362 U/L (55-170); Lipase 81 U/L (23-300); Magnesium 1.9 mg/dL (1.6-2.3)
[2024-07-18 21:37] LABS: Alanine Aminotransferase 45 U/L (6-50); Albumin Level 4.7 g/dL (3.5-5.1); Alkaline Phosphatase 90 U/L (38-126); Anion Gap 11 mmol/L (4-12); Aspartate Amino Transferase 41 U/L (17-59); Bilirubin,Total 0.5 mg/dL (0.2-1.3); Blood Urea Nitrogen 26 mg/dL (9-20); Calcium 10.1 mg/dL (8.4-10.2); Carbon Dioxide 29 mmol/L (22-30); Chloride 102 mmol/L (98-107); Estimated CRCL calculation 57 ml/min; Estimated Glomerular Filt Rate 46; Glucose 120 mg/dL (65-110); Potassium 4.4 mmol/L (3.4-5.0); Sodium 142 mmol/L (137-145)
[2024-07-18 21:48] LABS: Troponin I 0.026 ng/mL (0.000-0.034)
[2024-07-18 22:19] VITALS: BP 143/92; PULSE 100; RESP 18; TEMP 36.4; O2SAT 98
[2024-07-18] MEDS: SODIUM CHLORIDE 0.9% IV 1,000 ML 999 ML IV CONT (22:31)
[2024-07-18] MEDS: TETANUS,DIPHTHERIA,AC PERTUSSIS ADULT (0.5 ML) BOOSTRIX IM (22:32)
--- NOTE | 2024-07-18 22:47 | PC.NURSE ---
Pt aware of the need to provide urine sample. Pt has urinal in the bed. Pt does not want straight cath at this time.
[2024-07-18 23:07] VITALS: BP 136/96; PULSE 86; RESP 20; O2SAT 96
[2024-07-19 00:22] LABS: Reflex Lactic Acid Yes or No Add Lactic
[2024-07-19 01:02] VITALS: BP 142/88; PULSE 80; RESP 17; TEMP 36.7; O2SAT 99
[2024-07-19 01:13] LABS: Lactic Acid 1.1 mmol/L (0.7-2.0)
[2024-07-19 02:52] LABS: Add Urine Microscopic? YES; Appearance Urine Clear (Clear); Bacteria Urine None Seen /hpf; Bilirubin Urine Negative (Negative); Blood Urine Trace (Negative); Color Urine Yellow (Yellow); Glucose Urine UA Negative (Negative); Ketones Urine Negative (Negative); Leukocyte Esterase Ur Negative LEU/UL (Negative); Need Manual Microscopic Reviewed; Nitrate Urine Negative (Negative); Protein Urine 1+ mg/dL (Negative); Specific Grav Ur > 1.045 (1.001-1.035); Squamous Epithelial Cell Urine None Seen /hpf (Few); Urobilinogen Urine 0.2 mg/dL (<2.0); WBC Urine 0-5 /hpf (0-3)
[2024-07-19 03:20] VITALS: BP 137/74; PULSE 70; RESP 16; TEMP 36.7; O2SAT 99
--- NOTE | 2024-07-19 03:38 | ED.GENADULT ---
HPI - General Adult General Chief complaint: Extremity Injury, Lower Stated complaint: fall Time Seen by Provider: 07/18/24 20:05 History of Present Illness HPI narrative: this is a 74-year-old male presenting ED after a fall. Patient was navigating down a steep hill near his house when he started to trip. He then fell down the last 15-20 feet of the hill landing in a the [place]. That time he stain significant ankle pain. He was unable to contact anyone and it took him several hours to crawl 75 ft back up the hill to his house. This time he is complaining of left ankle pain and right-sided abdominal pain. Patient is unsure if he hit his head. He did lose consciousness. He is on Plavix for heart disease. Related Data Home Medications Medication Instructions Recorded Confirmed calcitriol 0.25 mcg capsule 0.25 mcg PO BID 08/01/22 06/10/24 aspirin 81 mg chewable tablet 81 mg PO HS 08/28/22 06/10/24 clopidogrel 75 mg tablet 75 mg PO DAILY 02/25/23 06/10/24 oxybutynin chloride 5 mg tablet 5 mg PO BID 09/04/23 06/10/24 insulin regular hum U-500 conc 500 30 unit subcut TIDWMEAL 02/20/24 06/10/24 unit/mL(3 mL) subcut pen (Humulin R U-500 (Conc) Insulin Kwikpen) famotidine 20 mg tablet 20 mg PO DAILY 05/22/24 06/10/24 vibegron 75 mg tablet (Gemtesa) 75 mg PO DAILY 05/22/24 06/10/24 Allergies Allergy/AdvReac Type Severity Reaction Status Date / Time Cephalosporins Allergy Unknown SHORTNESS Verified 06/16/24 11:28 OF BREATH,Dyspnea / SOB morphine Allergy Unknown Jittery Verified 06/16/24 11:28 nitroglycerin Allergy Unknown HEART RATE Verified 06/16/24 11:28 GOES DOWN FAST,Unknown oxycodone Allergy Unknown Confusion,F Verified 06/16/24 11:28 atigued amoxicillin AdvReac Dyspnea / Verified 06/16/24 11:28 SOB clavulanic acid AdvReac Dyspnea / Verified 06/16/24 11:28 SOB cyclobenzaprine AdvReac Stopped Verified 06/16/24 11:28 Breathing hydrocodone AdvReac Confusion Verified 06/16/24 11:28 lisinopril AdvReac Unknown Verified 06/16/24 11:28 norepinephrine AdvReac Unknown Verified 06/16/24 11:28 Sulfa (Sulfonamide AdvReac Dyspnea / Verified 06/16/24 11:28 Antibiotics) [facility] Past Medical History Medical History Adenomatous colon polyp Anxiety Arthritis BPH (benign prostatic hyperplasia) Chronic kidney disease, stage 3 Coarctation of aorta Coronary artery disease Depression Diabetic autonomic neuropathy Diabetic peripheral neuropathy Gastroesophageal reflux disease Gout Heart failure with reduced ejection fraction With EF of 45% in January of 2023 and echocardiogram in April 2023 showing normal EF 55-60% Hepatitis B History of esophageal stricture Hypercholesterolemia Hyperlipidemia Hypertension Hypertriglyceridemia Insulin dependent diabetes mellitus Kidney stone Methicillin resistant Staphylococcus aureus infection (2014) Myocardial infarction Obstructive sleep apnea Intolerant to CPAP Obstructive sleep apnea Overactive bladder Peripheral neuropathy Psoriasis Rectal polyp SBO (small bowel obstruction) Multiple bowel obstructions as far back as 2012 in the records Surgical History Surgical History History of aortic coarctation repair (1964) History of appendectomy History of arthroscopy of both knees History of arthroscopy of left shoulder With removal of bone spur. History of bilateral carpal tunnel release History of bilateral knee replacement Right knee 2019 History of cardiac catheterization Catheterization 2013 unremarkable, Cardiac catheterization June 2022 distal obtuse marginal stenosis 90% no stent placed and January 2023 at [facility] demonstrating severe disease diagonal and LAD 2.5 x 22 mm stent in the diagonal, transferred to [facility] with stent 01/18/2023 4.5 x 24 mm synergy DWAYNE placed in the LAD History
[2024-07-19] MEDS: SODIUM CHLORIDE 0.9% IV 1,000 ML 999 ML IV CONT (03:55)
[2024-07-19 04:53] VITALS: BP 148/79; PULSE 69; RESP 19; O2SAT 98
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
[2024-07-19] MEDS: HYDROmorphone HCL INJ (*CRX) 1 MG/ML SYR IV PUSH ×5 (05:30→23:54)
--- NOTE | 2024-07-19 05:47 | PC.NURSE ---
Patient states his daughter has medication list, asks to call her after 0800.
--- NOTE | 2024-07-19 05:47 | ADMGEN ---
This patient, Gordo Hale, was admitted to [facility] Surg Room 330-02. Patient/family oriented to hospital policies and general routines including ID bracelet, bed and alarms, visiting hours, pain management, procedures, bathroom and other care routines, personal items, smoking policy, room service/diet, and visiting hours. Information on how to activate the Rapid Response Team has been discussed. Patient/Family are encouraged to report perceived risks to care and to ask questions if they do not understand what they are told or what they should do.
[2024-07-19 05:48] VITALS: BMI 35.9
[2024-07-19 06:20] VITALS: BP 154/79; PULSE 77; RESP 22; TEMP 37.2; O2SAT 99; BMI 35.3
[2024-07-19] MEDS: traMADol HCL (*CRX) 50 MG TABLET PO (06:55)
[2024-07-19 07:53] LABS: Glucose Point of Care 85 mg/dl (65-105)
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
--- NOTE | 2024-07-19 08:18 | PCPTNOTE ---
Patient has an ortho consult. Physical therapy will wait until after ortho consult for weight bearing status and possible surgery before attempting evaluation.
--- NOTE | 2024-07-19 08:56 | PCOTNOTE ---
Patient has an ortho consult. OT will wait until after ortho consult for weight bearing status and possible surgery before attempting evaluation.
[2024-07-19 09:33] LABS: Anion Gap 8 mmol/L (4-12); Blood Urea Nitrogen 24 mg/dL (9-20); Calcium 8.9 mg/dL (8.4-10.2); Carbon Dioxide 31 mmol/L (22-30); Chloride 103 mmol/L (98-107); Creatine Kinase 716 U/L (55-170); Estimated CRCL calculation 65 ml/min; Estimated Glomerular Filt Rate 54; Glucose 111 mg/dL (65-110); Potassium 3.9 mmol/L (3.4-5.0); Sodium 142 mmol/L (137-145)
[2024-07-19] MEDS: HYDROcodone/acetaminophen (*CRX) 5-325 MG TABLET 1 TAB PO (11:24)
[2024-07-19 12:15] LABS: Glucose Point of Care 150 mg/dl (65-105)
--- NOTE | 2024-07-19 12:39 | PM.IMPN ---
Progress Note: A&P Assessment and Plan (1) Fibula fracture: Qualifiers: Encounter type: initial encounter Fibula location: lateral malleolus Fracture alignment: nondisplaced Fracture type: closed Laterality: left Qualified Code(s): S82.65XA - Nondisplaced fracture of lateral malleolus of left fibula, initial encounter for closed fracture Code(s): S82.409A - Unspecified fracture of shaft of unspecified fibula, initial encounter for closed fracture Status: Acute Assessment and Plan: - X-Ray Ankle: Minimally displaced Alexis type B fracture of the distal left fibula. - Splinted in the ER. - Seen by ortho and bedrest ordered for now with severe pain. - Possibly PT and placement arrangements when pain improves. - Appreciate Ortho assistance. - Patient unsure of any allergies to hydrocodone or oxycodone. - We'll try him on a dose of norco to help wean IV narcotics. - Continue to adjust pain meds PRN. - Started on bowel regimen to prevent constipation from narcotics. (2) Acute kidney injury: Code(s): N17.9 - Acute kidney failure, unspecified Status: Acute Assessment and Plan: - Acute on Chronic. - Possibly affected by Rhabdomyolysis vs dehydration vs other. - Cr levels currently wnl. - IVF hydration for now with rhabdomyolysis. - Follow renal panel and avoid nephrotoxins. (3) Traumatic rhabdomyolysis: Code(s): T79.6XXA - Traumatic ischemia of muscle, initial encounter Status: Acute Assessment and Plan: - Likely related to prolonged period on the ground post fall. - CK slightly trended up. - Given fluid bolus on admission. - Started on IVF and we'll follow CK levels closely. - Avoid nephrotoxins. (4) Abrasion of knee, bilateral: Code(s): S80.211A - Abrasion, right knee, initial encounter; S80.212A - Abrasion, left knee, initial encounter Status: Acute Assessment and Plan: - No signs of active bleeding noted. - Tdap shot given in ER. - Skin care per nursing staff. (5) Coronary artery disease: Qualifiers: Coronary Disease-Associated Artery/Lesion type: unspecified vessel or lesion type [place] vs. transplanted heart: unspecified whether [place] or transplanted heart Associated angina: without angina Qualified Code(s): I25.10 - Atherosclerotic heart disease of [place] coronary artery without angina pectoris Code(s): I25.10 - Atherosclerotic heart disease of [place] coronary artery without angina pectoris Status: Acute Assessment and Plan: - Appears stable. - Continue aspirin, plavix and statin. - Hold statin with Rhabdomyolysis. 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 - No obvious signs of bleeding noted. - Monitor for bleeding signs. (7) Type 2 diabetes mellitus, with long-term current use of insulin: Qualifiers: Diabetes mellitus complication status: with neurologic complications Diabetes mellitus complication detail: with polyneuropathy Qualified Code(s): E11.42 - Type 2 diabetes mellitus with diabetic polyneuropathy; Z79.4 - superintendent container terminal (current) use of insulin Code(s): E11.9 - Type 2 diabetes mellitus without complications; Z79.4 - superintendent container terminal (current) use of insulin Status: Acute Assessment and Plan: - Blood glucose levels appear fairly well controlled. - Continue low-dose SSI for now TIDWM. - Jardiance resumed. - Adjust insulin as needed. (8) Hypercholesterolemia: Code(s): E78.00 - Pure hypercholesterolemia, unspecified Status: Acute Assessment and Plan: - Hold statin with Rhabdomyolysis. Plan Code: FULL-CODE. Diet: Diabetic/Heart Healthy. IVF: NS@100 ml/hr DVT PPx: SCD's. Time Spent With Patient Time with patient: 25 - 35 minutes Subjective Date/time seen:
[2024-07-19 14:00] VITALS: BP 144/77; PULSE 80; RESP 20; TEMP 36.9; O2SAT 96
[2024-07-19] MEDS: SODIUM CHLORIDE 0.9% IV 1,000 ML 100 ML IV CONT ×2 (15:14→23:55)
[2024-07-19] MEDS: polyethylene glycoL 3350 17 GM POWD.PACK PO (15:46)
[2024-07-19] MEDS: FAMOTIDINE 20 MG TABLET PO (15:48)
[2024-07-19] MEDS: SERTRALINE HCL 50 MG TABLET 100 MG PO (15:48)
[2024-07-19] MEDS: ASPIRIN 81 MG CHEWABLE TABLET PO (15:48)
[2024-07-19] MEDS: FINASTERIDE 5 MG TABLET PO (15:48)
[2024-07-19] MEDS: EMPAGLIFLOZIN 25 MG TABLET PO (15:48)
[2024-07-19] MEDS: oxyBUTYnin CHLORIDE 5 MG TABLET PO (15:54)
[2024-07-19] MEDS: BISACODYL 5 MG TABLET EC PO (15:54)
[2024-07-19 16:11] LABS: Glucose Point of Care 160 mg/dl (65-105)
[2024-07-19 16:55] LABS: Glucose Point of Care 183 mg/dl (65-105)
[2024-07-19] MEDS: DOCUSATE SODIUM 100 MG CAPSULE PO (19:44)
[2024-07-19 21:40] VITALS: BP 139/65; PULSE 77; RESP 20; TEMP 37.3; O2SAT 94
[2024-07-19 21:50] LABS: Glucose Point of Care 206 mg/dl (65-105)
[2024-07-20] MEDS: HYDROmorphone HCL INJ (*CRX) 1 MG/ML SYR IV PUSH ×2 (03:03→12:14)
[2024-07-20 04:20] VITALS: BP 174/94; PULSE 77; RESP 18; TEMP 36.9; O2SAT 92
[2024-07-20 05:57] LABS: Creatine Kinase 743 U/L (55-170)
[2024-07-20 07:47] LABS: Glucose Point of Care 189 mg/dl (65-105)
[2024-07-20 07:51] LABS: Basophils Absolute Auto 0.1 K/mm3 (0.0-0.1); Basophils Percent Auto 0.9 % (0.2-1.2); Eosinophils Absolute Auto 0.5 K/mm3 (0-0.3); Eosinophils Percent Auto 6.6 % (0-4.4); Hematocrit 43.7 % (42.0-52.0); Hemoglobin 14.7 g/dL (14.0-18.0); Immature Granulocyte Absolute 0.02 K/mm3 (0.00-0.031); Immature Granulocyte Percent A 0.3 % (0-0.5); Lymphocytes Absolute Auto 1.18 K/mm3 (0.9-3.2); Lymphocytes Percent Auto 17.3 % (18.3-44.2); Mean Corpuscular HGB Conc 33.6 g/dl (32-36); Mean Corpuscular Hemoglobin 30.9 pg (26-34); Mean Platelet Volume 10.5 fl (7.4-10.4); Monocytes Absolute Auto 0.5 K/mm3 (0.1-0.6); Monocytes Percent Auto 7.8 % (2.6-8.5); Neutrophils Absolute Auto 4.6 K/mm3 (1.3-6.7); Neutrophils Percent Auto 67.1 % (45.5-73.1); Platelet Count Result 125 k/mm3 (150-375); Red Blood Count 4.75 M/mm3 (4.6-6.20); Red Cell Distribution Width 12.9 % (11.5-14.5); White Blood Count 6.8 K/mm3 (4.5-10.0)
[2024-07-20] MEDS: FAMOTIDINE 20 MG TABLET PO (08:29)
[2024-07-20] MEDS: HYDROcodone/acetaminophen (*CRX) 5-325 MG TABLET 1 TAB PO ×2 (08:29→21:17)
[2024-07-20] MEDS: polyethylene glycoL 3350 17 GM POWD.PACK PO (08:29)
[2024-07-20] MEDS: SERTRALINE HCL 50 MG TABLET 100 MG PO (08:29)
[2024-07-20] MEDS: oxyBUTYnin CHLORIDE 5 MG TABLET PO ×2 (08:29→17:30)
[2024-07-20] MEDS: ASPIRIN 81 MG CHEWABLE TABLET PO (08:29)
[2024-07-20] MEDS: FINASTERIDE 5 MG TABLET PO (08:30)
[2024-07-20] MEDS: DOCUSATE SODIUM 100 MG CAPSULE PO ×2 (08:30→21:17)
[2024-07-20] MEDS: EMPAGLIFLOZIN 25 MG TABLET PO (08:30)
[2024-07-20] MEDS: traMADol HCL (*CRX) 50 MG TABLET PO (08:30)
[2024-07-20] MEDS: BISACODYL 5 MG TABLET EC PO (08:31)
[2024-07-20 08:38] LABS: Alanine Aminotransferase 43 U/L (6-50); Albumin Level 3.9 g/dL (3.5-5.1); Alkaline Phosphatase 100 U/L (38-126); Anion Gap 10 mmol/L (4-12); Aspartate Amino Transferase 40 U/L (17-59); Bilirubin,Total 0.8 mg/dL (0.2-1.3); Blood Urea Nitrogen 21 mg/dL (9-20); Calcium 8.8 mg/dL (8.4-10.2); Carbon Dioxide 24 mmol/L (22-30); Chloride 103 mmol/L (98-107); Estimated CRCL calculation 65 ml/min; Estimated Glomerular Filt Rate 54; Glucose 145 mg/dL (65-110); Potassium 4.4 mmol/L (3.4-5.0); Sodium 137 mmol/L (137-145)
[2024-07-20 08:42] VITALS: BP 137/80; PULSE 87; RESP 16; O2SAT 97
[2024-07-20 08:50] VITALS: O2SAT 96
[2024-07-20 11:49] LABS: Glucose Point of Care 172 mg/dl (65-105)
[2024-07-20] MEDS: SODIUM CHLORIDE 0.9% IV 1,000 ML 100 ML IV CONT (12:02)
--- NOTE | 2024-07-20 13:42 | PM.IMPN ---
Progress Note: A&P Assessment and Plan (1) Fibula fracture: Qualifiers: Encounter type: initial encounter Fibula location: lateral malleolus Fracture alignment: nondisplaced Fracture type: closed Laterality: left Qualified Code(s): S82.65XA - Nondisplaced fracture of lateral malleolus of left fibula, initial encounter for closed fracture Code(s): S82.409A - Unspecified fracture of shaft of unspecified fibula, initial encounter for closed fracture Status: Acute Assessment and Plan: - X-Ray Ankle: Minimally displaced Alexis type B fracture of the distal left fibula. - Splinted in ER. - Seen by ortho and [facility]B for now. - Conservative treatment for now per pt request. - PT/OT eval and treatment. - Further mgt per ortho. - Tolerating norco well with no reaction though on allergy list. - Continue pain meds PRN and adjust as needed. - Started on bowel regimen to prevent constipation from narcotics. (2) Acute kidney injury: Code(s): N17.9 - Acute kidney failure, unspecified Status: Acute Assessment and Plan: - Acute on Chronic. - Possibly affected by Rhabdomyolysis vs dehydration vs other. - Cr levels remain wnl. - Continue IVF hydration for now with rhabdomyolysis. - Follow renal panel and avoid nephrotoxins. (3) Traumatic rhabdomyolysis: Code(s): T79.6XXA - Traumatic ischemia of muscle, initial encounter Status: Acute Assessment and Plan: - Likely related to prolonged period on the ground post fall. - CK slightly trended up again. - Continue IVF and follow CK levels closely. - Avoid nephrotoxins. (4) Abrasion of knee, bilateral: Code(s): S80.211A - Abrasion, right knee, initial encounter; S80.212A - Abrasion, left knee, initial encounter Status: Acute Assessment and Plan: - No signs of active bleeding noted. - Tdap shot given in ER. - Skin care per nursing staff. (5) Coronary artery disease: Qualifiers: Coronary Disease-Associated Artery/Lesion type: unspecified vessel or lesion type [place] vs. transplanted heart: unspecified whether [place] or transplanted heart Associated angina: without angina Qualified Code(s): I25.10 - Atherosclerotic heart disease of [place] coronary artery without angina pectoris Code(s): I25.10 - Atherosclerotic heart disease of [place] coronary artery without angina pectoris Status: Acute Assessment and Plan: - Appears stable. - Continue aspirin, plavix. - Hold statin with Rhabdomyolysis. (6) Antiplatelet or antithrombotic long-term use: Code(s): Z79.02 - correction (current) use of antithrombotics/antiplatelets Status: Acute Assessment and Plan: - Patient on baby aspirin and plavix. - No obvious signs of bleeding noted. - Monitor for bleeding signs. 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 - Continue low-dose SSI for now TIDWM. - Continue Jardiance. - Adjust insulin as needed. (8) Hypercholesterolemia: Code(s): E78.00 - Pure hypercholesterolemia, unspecified Status: Acute Assessment and Plan: - Hold statin with Rhabdomyolysis. Plan Code: FULL-CODE. Diet: Diabetic/Heart Healthy. IVF: NS@100 ml/hr DVT PPx: SCD's. Time Spent With Patient Time with patient: 25 - 35 minutes Subjective Date/time seen: 07/20/24 10:42 Interval history: Patient admitted to the hospital following a mechanical fall at home. Patient
[2024-07-20 14:00] VITALS: BP 166/54; PULSE 80; RESP 18; TEMP 36; O2SAT 96
--- NOTE | 2024-07-20 14:06 | PM.PNORT ---
Progress Note: A&P Assessment and Plan (1) Closed fracture of left distal fibula: Qualifiers: Encounter type: initial encounter Fracture morphology: other fracture Qualified Code(s): S82.832A - Other fracture of upper and lower end of left fibula, initial encounter for closed fracture Code(s): S82.832A - Other fracture of upper and lower end of left fibula, initial encounter for closed fracture Status: Acute Assessment and Plan: Splint removed today. Skin intact. Foot with fracture boot. May progress weight-bearing as tolerated with fracture boot on. May remove boot for hygiene and for sleep as well as edema control. okay for transfer to rehab. Follow up in 3 weeks in Orthopedic office. Subjective Subjective Date/Time Seen: 07/20/24 14:06 Principal diagnosis: left distal fibula fracture Interval history: complains of pain at the knee and the lateral ankle. No new events. Exam Const: General: No confusion Orientation/consciousness: No confusion HENMT: Head: normal to inspection, normocephalic and atraumatic Neck: Neck: supple and nontender Chest: Chest palpation & inspection: normal inspection of the chest Resp: Effort & Inspection: normal respiratory effort and no audible wheezes Skin: General skin exam: abrasion (Bilateral elbows and knees. Well-healed anterior surgical incisions knees) Neuro: General: No confusion Extrem: General: capillary refill normal Right upper extremity: normal to inspection Left upper extremity: normal to inspection Right lower extremity: normal to inspection, hip/thigh Details: normal to inspection and foot Details: motor-sensory exam Details: light-touch abnormal Location: in all toes Left lower extremity: hip/thigh Details: normal to inspection, knee Details: normal to inspection and knee ligament exam normal Details: anterior drawer test normal, valgus stress test normal, varus stress test normal and Amanda's test normal, ankle (no calf tenderness) Details: abnormal to inspection ( Obvious swelling at the ankle joint), tenderness ( lateral malleolus), swelling (moderate lateral ankle), abnormal ROM Details: pain with active ROM Details: with plantar flexion and with dorsiflexion and with range as follows ( limited secondary to injury), crepitus Details: at the lateral malleolus and other ( good capillary refill in toes, 2+ DP pulse) and foot Details: normal capillary refill, toes with normal ROM, vascular exam Details: dorsalis pedis pulse present and motor-sensory exam light-touch abnormal in all toes Psych: Affect: normal affect Objective Data Vital Signs Vital Signs: Vital Signs - 24 hr 07/19/24 20:00 07/19/24 21:40 07/20/24 04:20 Temperature 99.1 F 98.5 F Pulse Rate 77 77 Respiratory Rate 20 18 Blood Pressure 139/65 174/94 H Pulse Oximetry 94 92 Oxygen Delivery Room Air Fraction of Inspired Oxygen 07/20/24 08:42 07/20/24 08:50 07/20/24 08:30 Temperature Pulse Rate 87 Respiratory Rate 16 Blood Pressure 137/80 Pulse Oximetry 97 96 Oxygen Delivery Room Air Room Air Fraction of Inspired Oxygen 21 Intake/Output Intake/Output: Intake & Output 07/17/24 07/18/24 07/19/24 07/20/24 23:59 23:59 23:59 23:59 Intake Total 1000 3528.3 1370 Output Total 1254 525 Balance 1000 2274.3 845 Meds/Results Medications: Active Medications Generic Name Dose Route Start Last Admin Trade Name Freq PRN Reason Stop Dose Admin Acetaminophen 650 mg 07/19/24 05:12 Acetaminophen 325 Mg Tablet PO Q4H PRN Mild Pain (1-3) or Fever Hydrocodone Bitart/Acetaminophen 1 tab 07/19/24 09:32 07/20/24 08:29 Hydrocodone/Acetaminophen (*Crx) 5-325 Mg Tablet PO 1 tab Q6H PRN Administration Pain Rated 4-6 Aspirin 81 mg 07/19/24 14:00 07/20/24 08:29 Aspirin 81 Mg Chewable Tablet PO 81 mg DAILY@0800 MAYTE Administration Bisacodyl 5 mg 07/19/24 17:00 07/20/24 08:31 Bisacodyl 5 M
[2024-07-20 17:03] LABS: Glucose Point of Care 280 mg/dl (65-105)
[2024-07-20] MEDS: INSULIN ASPART (*BKC) 100 UNITS/ML SUB-Q (17:33)
[2024-07-20 20:00] VITALS: O2SAT 96
[2024-07-20 22:00] VITALS: BP 169/85; PULSE 81; RESP 18; TEMP 36.9; O2SAT 93
[2024-07-21 04:18] LABS: Glucose Point of Care 146 mg/dl (65-105)
--- NOTE | 2024-07-21 04:51 | ECG_ITS ---
Test Date: 2024-07-21 05:10:59 Measurements Intervals [place] Rate: 93 P: 82 MI: 125 QRS: -8 QRSD: 102 T: 101 QT: 394 QTc: 492 Interpretive Statements SINUS RHYTHM WITH OCCASIONAL SUPRAVENTRICULAR PREMATURE COMPLEXES POSSIBLE RIGHT VENTRICULAR CONDUCTION DELAY [RSR (QR) IN V1/V2] Compared to ECG 07/18/2024 22:05:31 No significant changes Electronically Signed On 07-21-2024 10:23:52 CDT by Mau Zelaya M.D.
[2024-07-21] MEDS: NITROGLYCERIN SL 0.4 MG TABLET SUBLINGUAL ×2 (05:00→05:18)
[2024-07-21] MEDS: ASPIRIN 81 MG CHEWABLE TABLET 324 MG PO (05:05)
[2024-07-21 05:24] LABS: Basophils Absolute Auto 0.1 K/mm3 (0.0-0.1); Basophils Percent Auto 0.8 % (0.2-1.2); Eosinophils Absolute Auto 0.5 K/mm3 (0-0.3); Eosinophils Percent Auto 8.2 % (0-4.4); Hematocrit 45.7 % (42.0-52.0); Hemoglobin 15.5 g/dL (14.0-18.0); Immature Granulocyte Absolute 0.02 K/mm3 (0.00-0.031); Immature Granulocyte Percent A 0.3 % (0-0.5); Immature Platelet Fraction Pct 3.1 % (0.9-11.2); Lymphocytes Absolute Auto 0.78 K/mm3 (0.9-3.2); Lymphocytes Percent Auto 12.5 % (18.3-44.2); Mean Corpuscular HGB Conc 33.9 g/dl (32-36); Mean Corpuscular Hemoglobin 30.7 pg (26-34); Mean Corpuscular Volume 90.5 fl (80-100); Mean Platelet Volume 9.7 fl (7.4-10.4); Monocytes Absolute Auto 0.4 K/mm3 (0.1-0.6); Monocytes Percent Auto 6.9 % (2.6-8.5); Neutrophils Absolute Auto 4.5 K/mm3 (1.3-6.7); Neutrophils Percent Auto 71.3 % (45.5-73.1); Platelet Count Result 134 k/mm3 (150-375); Red Blood Count 5.05 M/mm3 (4.6-6.20); Red Cell Distribution Width 12.8 % (11.5-14.5); White Blood Count 6.3 K/mm3 (4.5-10.0)
[2024-07-21] MEDS: HYDROmorphone HCL INJ (*CRX) 1 MG/ML SYR IV PUSH ×2 (05:32→23:01)
[2024-07-21 05:38] LABS: Alanine Aminotransferase 39 U/L (6-50); Albumin Level 4.3 g/dL (3.5-5.1); Alkaline Phosphatase 99 U/L (38-126); Anion Gap 10 mmol/L (4-12); Aspartate Amino Transferase 42 U/L (17-59); Bilirubin,Total 1.1 mg/dL (0.2-1.3); Blood Urea Nitrogen 24 mg/dL (9-20); Calcium 9.3 mg/dL (8.4-10.2); Carbon Dioxide 31 mmol/L (22-30); Chloride 97 mmol/L (98-107); Estimated CRCL calculation 60 ml/min; Estimated Glomerular Filt Rate 50; Glucose 137 mg/dL (65-110); Potassium 4.5 mmol/L (3.4-5.0); Sodium 138 mmol/L (137-145)
[2024-07-21 05:39] LABS: Creatine Kinase 687 U/L (55-170)
[2024-07-21 05:54] LABS: Troponin I 0.036 ng/mL (0.000-0.034)
[2024-07-21 06:00] VITALS: BP 198/98; PULSE 82; RESP 16; TEMP 37.3; O2SAT 98
--- NOTE | 2024-07-21 06:44 | PC.NURSE ---
0450 Patient C/O difficulty breathing, chest pain/tightness, and numbness to chest. BP 198/[address] Dugan. New orders received for Stat EKG, 4 baby asa, nitro SL, troponin series, and telemetry.
[2024-07-21 07:52] LABS: Glucose Point of Care 227 mg/dl (65-105)
[2024-07-21 08:00] VITALS: PULSE 99
[2024-07-21] MEDS: SERTRALINE HCL 50 MG TABLET 100 MG PO (08:17)
[2024-07-21] MEDS: polyethylene glycoL 3350 17 GM POWD.PACK PO ×2 (08:17→17:15)
[2024-07-21] MEDS: ASPIRIN 81 MG CHEWABLE TABLET PO (08:17)
[2024-07-21] MEDS: DOCUSATE SODIUM 100 MG CAPSULE PO ×2 (08:18→21:35)
[2024-07-21] MEDS: EMPAGLIFLOZIN 25 MG TABLET PO (08:18)
[2024-07-21] MEDS: FAMOTIDINE 20 MG TABLET PO (08:18)
[2024-07-21] MEDS: FINASTERIDE 5 MG TABLET PO (08:18)
[2024-07-21] MEDS: oxyBUTYnin CHLORIDE 5 MG TABLET PO ×2 (08:18→17:14)
[2024-07-21] MEDS: BISACODYL 5 MG TABLET EC PO (08:22)
[2024-07-21] MEDS: INSULIN ASPART (*BKC) 100 UNITS/ML SUB-Q ×3 (08:22→21:38)
--- NOTE | 2024-07-21 08:35 | P.CDI_ITS ---
CDI Query Clarification Request CHF was documented as a PMH. Please specify type and acuity of heart failure if known. * Acute * Chronic * Acute on Chronic * Unknown * Systolic * Diastolic * Combined Systolic and Diastolic * Unknown <Julianna Quiles RN - Last Filed: 07/21/24 08:41> Clarified Diagnosis Clarified Diagnosis: Chronic CHF, Unknown Type <Darien Chaudhry NP - Last Filed: 08/19/24 22:54>
--- NOTE | 2024-07-21 08:35 | WPDCDIQUERY2 ---
CDI Query Clarification Request CHF was documented as a PMH. Please specify type and acuity of heart failure if known. Acute Chronic Acute on Chronic Unknown Systolic Diastolic Combined Systolic and Diastolic Unknown <Julianna Quiles RN - Last Filed: 07/21/24 08:41> Clarified Diagnosis Clarified Diagnosis: Chronic CHF, Unknown Type <Darien Chaudhry NP - Last Filed: 08/19/24 22:54>
[2024-07-21 08:48] LABS: Troponin I 0.039 ng/mL (0.000-0.034)
[2024-07-21 11:31] LABS: Glucose Point of Care 182 mg/dl (65-105)
[2024-07-21 11:42] LABS: Troponin I 0.031 ng/mL (0.000-0.034)
[2024-07-21] MEDS: amLODIPine BESYLATE 5 MG TABLET PO (11:55)
[2024-07-21 12:00] VITALS: PULSE 74
--- NOTE | 2024-07-21 12:02 | PM.IMPN ---
Progress Note: A&P Assessment and Plan (1) Fibula fracture: Qualifiers: Encounter type: initial encounter Fibula location: lateral malleolus Fracture alignment: nondisplaced Fracture type: closed Laterality: left Qualified Code(s): S82.65XA - Nondisplaced fracture of lateral malleolus of left fibula, initial encounter for closed fracture Code(s): S82.409A - Unspecified fracture of shaft of unspecified fibula, initial encounter for closed fracture Status: Acute Assessment and Plan: - X-Ray Ankle: Minimally displaced Alexis type B fracture of the distal left fibula. - Splinted in ER. - Seen by ortho and splint removed, WBAT. - Conservative treatment for now per pt request. - Continue PT/OT treatment. - Continue pain meds PRN and adjust as needed. - Ok to discharge to rehab when facility available per ortho. (2) Acute kidney injury: Code(s): N17.9 - Acute kidney failure, unspecified Status: Acute Assessment and Plan: - Acute on Chronic. - Possibly affected by Rhabdomyolysis vs dehydration vs other. - Cr slightly trended up, 1.3>>1.4. - Continue IVF hydration for now. - Follow renal panel and avoid nephrotoxins. (3) Traumatic rhabdomyolysis: Code(s): T79.6XXA - Traumatic ischemia of muscle, initial encounter Status: Acute Assessment and Plan: - Likely related to prolonged period on the ground post fall. - CK sstarting to trend down. - Continue IVF and follow CK levels closely. - Avoid nephrotoxins. (4) Abrasion of knee, bilateral: Code(s): S80.211A - Abrasion, right knee, initial encounter; S80.212A - Abrasion, left knee, initial encounter Status: Acute Assessment and Plan: - No signs of active bleeding noted. - Tdap shot given in ER. - Skin care per nursing staff. (5) Coronary artery disease: Qualifiers: Coronary Disease-Associated Artery/Lesion type: unspecified vessel or lesion type [place] vs. transplanted heart: unspecified whether [place] or transplanted heart Associated angina: without angina Qualified Code(s): I25.10 - Atherosclerotic heart disease of [place] coronary artery without angina pectoris Code(s): I25.10 - Atherosclerotic heart disease of [place] coronary artery without angina pectoris Status: Acute Assessment and Plan: - Appears stable. - Continue aspirin, plavix. - Hold statin with Rhabdomyolysis. (6) Antiplatelet or antithrombotic long-term use: Code(s): Z79.02 - alf (current) use of antithrombotics/antiplatelets Status: Acute Assessment and Plan: - Patient on baby aspirin and plavix. - No obvious signs of bleeding noted. - Monitor for bleeding signs. 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 - Continue low-dose SSI for now TIDWM. - Continue Jardiance. - Adjust insulin as needed. (8) Hypercholesterolemia: Code(s): E78.00 - Pure hypercholesterolemia, unspecified Status: Acute Assessment and Plan: - Hold statin with Rhabdomyolysis. Plan Code: FULL-CODE. Diet: Diabetic/Heart Healthy. IVF: NS@100 ml/hr DVT PPx: SCD's. Subjective Date/time seen: 07/21/24 12:02 Review of Systems Review of Systems: Patient admitted following a mechanical fall at home. Patient fell and rolled down a hill as he was going down the steep hill. Patient had to crawl back up the hill on his knees and elbows as he was unable to find
[2024-07-21 13:40] VITALS: BP 174/89; PULSE 79; RESP 16; TEMP 36.7; O2SAT 95
[2024-07-21 16:38] LABS: Glucose Point of Care 217 mg/dl (65-105)
[2024-07-21 20:00] VITALS: PULSE 80
[2024-07-21 20:38] LABS: Glucose Point of Care 209 mg/dl (65-105)
[2024-07-21 21:02] VITALS: BP 169/79; PULSE 78; RESP 20; TEMP 36.6; O2SAT 98
[2024-07-22] VITALS (10 sets, daily range): BP systolic 129–173; BP diastolic 64–94; PULSE 68–92; RESP 20; TEMP 36.6–37; O2SAT 95–100
[2024-07-22 06:56] LABS: Creatine Kinase 475 U/L (55-170)
[2024-07-22 07:52] LABS: Glucose Point of Care 212 mg/dl (65-105)
[2024-07-22] MEDS: EMPAGLIFLOZIN 25 MG TABLET PO (08:16)
[2024-07-22] MEDS: BISACODYL 5 MG TABLET EC PO (08:16)
[2024-07-22] MEDS: polyethylene glycoL 3350 17 GM POWD.PACK PO ×2 (08:16→17:34)
[2024-07-22] MEDS: amLODIPine BESYLATE 5 MG TABLET PO (08:16)
[2024-07-22] MEDS: DOCUSATE SODIUM 100 MG CAPSULE PO ×2 (08:16→20:18)
[2024-07-22] MEDS: oxyBUTYnin CHLORIDE 5 MG TABLET PO ×2 (08:16→17:34)
[2024-07-22] MEDS: FAMOTIDINE 20 MG TABLET PO (08:16)
[2024-07-22] MEDS: CLOPIDOGREL BISULFATE 75 MG TABLET PO (08:16)
[2024-07-22] MEDS: SERTRALINE HCL 50 MG TABLET 100 MG PO (08:16)
[2024-07-22] MEDS: FINASTERIDE 5 MG TABLET PO (08:16)
[2024-07-22] MEDS: HYDROcodone/acetaminophen (*CRX) 5-325 MG TABLET 1 TAB PO (08:16)
[2024-07-22] MEDS: INSULIN ASPART (*BKC) 100 UNITS/ML SUB-Q ×2 (08:23→12:05)
[2024-07-22] MEDS: ASPIRIN 81 MG CHEWABLE TABLET PO (08:23)
--- NOTE | 2024-07-22 11:16 | PM.IMPN ---
Progress Note: A&P Assessment and Plan (1) Fibula fracture: Qualifiers: Encounter type: initial encounter Fibula location: lateral malleolus Fracture alignment: nondisplaced Fracture type: closed Laterality: left Qualified Code(s): S82.65XA - Nondisplaced fracture of lateral malleolus of left fibula, initial encounter for closed fracture Code(s): S82.409A - Unspecified fracture of shaft of unspecified fibula, initial encounter for closed fracture Status: Acute Assessment and Plan: - X-Ray Ankle: Minimally displaced Alexis type B fracture of the distal left fibula. - Splinted in ER. - Seen by ortho and splint removed, WBAT. - Conservative treatment for now per pt request. - Continue PT/OT treatment. - Continue pain meds PRN and adjust as needed. - Ok to discharge to rehab when facility available per ortho. (2) Acute kidney injury: Code(s): N17.9 - Acute kidney failure, unspecified Status: Acute Assessment and Plan: - Acute on Chronic. - Possibly affected by Rhabdomyolysis vs dehydration vs other. - Cr slightly trended up, 1.3>>1.4.>1.10 - Stop IVF today - Follow renal panel and avoid nephrotoxins. (3) Traumatic rhabdomyolysis: Code(s): T79.6XXA - Traumatic ischemia of muscle, initial encounter Status: Acute Assessment and Plan: - Likely related to prolonged period on the ground post fall. - CK starting to trend down. -Stopping IV - Avoid nephrotoxins. (4) Abrasion of knee, bilateral: Code(s): S80.211A - Abrasion, right knee, initial encounter; S80.212A - Abrasion, left knee, initial encounter Status: Acute Assessment and Plan: - No signs of active bleeding noted. - Tdap shot given in ER. - Skin care per nursing staff. (5) Coronary artery disease: Qualifiers: Coronary Disease-Associated Artery/Lesion type: unspecified vessel or lesion type [place] vs. transplanted heart: unspecified whether [place] or transplanted heart Associated angina: without angina Qualified Code(s): I25.10 - Atherosclerotic heart disease of [place] coronary artery without angina pectoris Code(s): I25.10 - Atherosclerotic heart disease of [place] coronary artery without angina pectoris Status: Acute Assessment and Plan: - Appears stable. - Continue aspirin, plavix. - Hold statin with Rhabdomyolysis. 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 - No obvious signs of bleeding noted. - Monitor for bleeding signs. (7) Type 2 diabetes mellitus, with long-term current use of insulin: Qualifiers: Diabetes mellitus complication status: with neurologic complications Diabetes mellitus complication detail: with polyneuropathy Qualified Code(s): E11.42 - Type 2 diabetes mellitus with diabetic polyneuropathy; Z79.4 - [facility] (current) use of insulin Code(s): E11.9 - Type 2 diabetes mellitus without complications; Z79.4 - [facility] (current) use of insulin Status: Acute Assessment and Plan: - Blood glucose levels appear fairly well controlled. - Continue low-dose SSI for now TIDWM. - Continue Jardiance. - Adjust insulin as needed. (8) Hypercholesterolemia: Code(s): E78.00 - Pure hypercholesterolemia, unspecified Status: Acute Assessment and Plan: - Hold statin with Rhabdomyolysis. Plan Code: FULL-CODE. Diet: Diabetic/Heart Healthy. 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
[2024-07-22 11:24] LABS: Glucose Point of Care 259 mg/dl (65-105)
[2024-07-22 11:40] LABS: Alanine Aminotransferase 38 U/L (6-50); Albumin Level 4.3 g/dL (3.5-5.1); Alkaline Phosphatase 104 U/L (38-126); Anion Gap 17 mmol/L (4-12); Aspartate Amino Transferase 36 U/L (17-59); Bilirubin,Total 0.7 mg/dL (0.2-1.3); Blood Urea Nitrogen 26 mg/dL (9-20); Calcium 9.6 mg/dL (8.4-10.2); Carbon Dioxide 16 mmol/L (22-30); Chloride 106 mmol/L (98-107); Estimated CRCL calculation 76 ml/min; Estimated Glomerular Filt Rate > 60; Glucose 128 mg/dL (65-110); Potassium 4.2 mmol/L (3.4-5.0); Sodium 139 mmol/L (137-145)
[2024-07-22] MEDS: calcitrioL 0.25 MCG CAPSULE PO ×2 (12:05→17:34)
[2024-07-22] MEDS: traMADol HCL (*CRX) 50 MG TABLET PO (12:08)
[2024-07-22 16:26] LABS: Glucose Point of Care 190 mg/dl (65-105)
[2024-07-22 17:33] LABS: Basophils Absolute Auto 0.1 K/mm3 (0.0-0.1); Basophils Percent Auto 0.7 % (0.2-1.2); Eosinophils Absolute Auto 0.5 K/mm3 (0-0.3); Eosinophils Percent Auto 6.4 % (0-4.4); Immature Granulocyte Absolute 0.03 K/mm3 (0.00-0.031); Immature Granulocyte Percent A 0.4 % (0-0.5); Lymphocytes Absolute Auto 0.73 K/mm3 (0.9-3.2); Lymphocytes Percent Auto 10.1 % (18.3-44.2); Mean Corpuscular Hemoglobin 30.7 pg (26-34); Monocytes Absolute Auto 0.5 K/mm3 (0.1-0.6); Monocytes Percent Auto 7.1 % (2.6-8.5); Neutrophils Absolute Auto 5.4 K/mm3 (1.3-6.7); Neutrophils Percent Auto 75.3 % (45.5-73.1); Platelet Count Result 166 k/mm3 (150-375); Red Blood Count 5.22 M/mm3 (4.6-6.20); Red Cell Distribution Width 12.7 % (11.5-14.5); White Blood Count 7.2 K/mm3 (4.5-10.0)
[2024-07-22 17:50] LABS: Alanine Aminotransferase 39 U/L (6-50); Albumin Level 4.2 g/dL (3.5-5.1); Alkaline Phosphatase 119 U/L (38-126); Anion Gap 14 mmol/L (4-12); Aspartate Amino Transferase 33 U/L (17-59); Bilirubin,Total 0.5 mg/dL (0.2-1.3); Blood Urea Nitrogen 31 mg/dL (9-20); Calcium 9.6 mg/dL (8.4-10.2); Carbon Dioxide 28 mmol/L (22-30); Chloride 96 mmol/L (98-107); Estimated CRCL calculation 53 ml/min; Estimated Glomerular Filt Rate 43; Glucose 199 mg/dL (65-110); Potassium 4.1 mmol/L (3.4-5.0); Sodium 138 mmol/L (137-145)
[2024-07-23] VITALS (9 sets, daily range): BP systolic 145–147; BP diastolic 67–87; PULSE 73–100; RESP 16–20; TEMP 36.4–36.7; O2SAT 95–97
[2024-07-23] MEDS: HYDROmorphone HCL INJ (*CRX) 1 MG/ML SYR IV PUSH (01:53)
[2024-07-23 06:27] LABS: Basophils Absolute Auto 0.1 K/mm3 (0.0-0.1); Basophils Percent Auto 0.9 % (0.2-1.2); Eosinophils Absolute Auto 0.5 K/mm3 (0-0.3); Hematocrit 44.1 % (42.0-52.0); Immature Granulocyte Absolute 0.02 K/mm3 (0.00-0.031); Immature Granulocyte Percent A 0.3 % (0-0.5); Lymphocytes Absolute Auto 0.98 K/mm3 (0.9-3.2); Lymphocytes Percent Auto 16.7 % (18.3-44.2); Mean Corpuscular Hemoglobin 30.3 pg (26-34); Mean Corpuscular Volume 89.1 fl (80-100); Mean Platelet Volume 10.1 fl (7.4-10.4); Monocytes Absolute Auto 0.5 K/mm3 (0.1-0.6); Neutrophils Absolute Auto 3.9 K/mm3 (1.3-6.7); Neutrophils Percent Auto 66.1 % (45.5-73.1); Platelet Count Result 155 k/mm3 (150-375); Red Blood Count 4.95 M/mm3 (4.6-6.20); Red Cell Distribution Width 12.8 % (11.5-14.5); White Blood Count 5.9 K/mm3 (4.5-10.0)
[2024-07-23 06:39] LABS: Alanine Aminotransferase 34 U/L (6-50); Albumin Level 4.1 g/dL (3.5-5.1); Alkaline Phosphatase 99 U/L (38-126); Anion Gap 12 mmol/L (4-12); Aspartate Amino Transferase 29 U/L (17-59); Bilirubin,Total 0.7 mg/dL (0.2-1.3); Blood Urea Nitrogen 29 mg/dL (9-20); Carbon Dioxide 23 mmol/L (22-30); Chloride 102 mmol/L (98-107); Estimated CRCL calculation 60 ml/min; Estimated Glomerular Filt Rate 50; Glucose 133 mg/dL (65-110); Potassium 3.9 mmol/L (3.4-5.0); Sodium 137 mmol/L (137-145)
[2024-07-23 06:40] LABS: Creatine Kinase 331 U/L (55-170)
[2024-07-23] MEDS: amLODIPine BESYLATE 5 MG TABLET PO (07:48)
[2024-07-23 07:49] LABS: Glucose Point of Care 181 mg/dl (65-105)
[2024-07-23] MEDS: calcitrioL 0.25 MCG CAPSULE PO ×2 (07:49→16:43)
[2024-07-23] MEDS: DOCUSATE SODIUM 100 MG CAPSULE PO ×2 (07:49→20:49)
[2024-07-23] MEDS: CLOPIDOGREL BISULFATE 75 MG TABLET PO (07:49)
[2024-07-23] MEDS: EMPAGLIFLOZIN 25 MG TABLET PO (07:49)
[2024-07-23] MEDS: ENOXAPARIN 40 MG/0.4 ML SYRINGE SUB-Q (07:49)
[2024-07-23] MEDS: FAMOTIDINE 20 MG TABLET PO (07:50)
[2024-07-23] MEDS: SERTRALINE HCL 50 MG TABLET 100 MG PO (07:50)
[2024-07-23] MEDS: FINASTERIDE 5 MG TABLET PO (07:50)
[2024-07-23] MEDS: oxyBUTYnin CHLORIDE 5 MG TABLET PO ×2 (07:50→16:43)
[2024-07-23] MEDS: polyethylene glycoL 3350 17 GM POWD.PACK PO ×2 (07:51→16:43)
--- NOTE | 2024-07-23 08:56 | PM.IMPN ---
Progress Note: A&P Assessment and Plan (1) Fibula fracture: Qualifiers: Encounter type: initial encounter Fibula location: lateral malleolus Fracture alignment: nondisplaced Fracture type: closed Laterality: left Qualified Code(s): S82.65XA - Nondisplaced fracture of lateral malleolus of left fibula, initial encounter for closed fracture Code(s): S82.409A - Unspecified fracture of shaft of unspecified fibula, initial encounter for closed fracture Status: Acute Assessment and Plan: - X-Ray Ankle: Minimally displaced Alexis type B fracture of the distal left fibula. - Splinted in ER. - Seen by ortho and splint removed, WBAT with fracture boot. - Conservative treatment for now per pt request. - Continue PT/OT treatment. - Continue pain meds PRN and adjust as needed. - Ok to discharge to rehab when facility available per ortho. (2) Acute kidney injury: Code(s): N17.9 - Acute kidney failure, unspecified Status: Acute Assessment and Plan: - Acute on Chronic. - Possibly affected by Rhabdomyolysis vs dehydration vs other. - Cr slightly trended up, 1.3>>1.4.>1.10.1.6>1.4 - Stop IVF today - Follow renal panel and avoid nephrotoxins. (3) Traumatic rhabdomyolysis: Code(s): T79.6XXA - Traumatic ischemia of muscle, initial encounter Status: Acute Assessment and Plan: - Likely related to prolonged period on the ground post fall. - CK starting to trend down. -Stopping IV - Avoid nephrotoxins. (4) Abrasion of knee, bilateral: Code(s): S80.211A - Abrasion, right knee, initial encounter; S80.212A - Abrasion, left knee, initial encounter Status: Acute Assessment and Plan: - No signs of active bleeding noted. - Tdap shot given in ER. - Skin care per nursing staff. (5) Coronary artery disease: Qualifiers: Associated angina: without angina Coronary Disease-Associated Artery/Lesion type: unspecified vessel or lesion type [place] vs. transplanted heart: unspecified whether [place] or transplanted heart Qualified Code(s): I25.10 - Atherosclerotic heart disease of [place] coronary artery without angina pectoris Code(s): I25.10 - Atherosclerotic heart disease of [place] coronary artery without angina pectoris Status: Acute Assessment and Plan: - Appears stable. - Continue aspirin, plavix. - Hold statin with Rhabdomyolysis. (6) Antiplatelet or antithrombotic long-term use: Code(s): Z79.02 - shelter (current) use of antithrombotics/antiplatelets Status: Acute Assessment and Plan: - Patient on baby aspirin and plavix. - No obvious signs of bleeding noted. - Monitor for bleeding signs. 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 - Continue low-dose SSI for now TIDWM. - Continue Jardiance. - Adjust insulin as needed. (8) Hypercholesterolemia: Code(s): E78.00 - Pure hypercholesterolemia, unspecified Status: Acute Assessment and Plan: - Hold statin with Rhabdomyolysis. Plan Code: FULL-CODE. Diet: Diabetic/Heart Healthy. DVT PPx: SCD's, lovenox Disposition: awaiting insurance auth [facility] Subjective Date/time seen: 07/23/24 08:56 Interval history: 74-year-old male with past medical history of obesity, sleep apnea, vascular disease, congenital coarctation of the aorta status post repair, chronic kidney disease stage 2-3, type 2 diabetes mellitus with
[2024-07-23] MEDS: HYDROcodone/acetaminophen (*CRX) 5-325 MG TABLET 1 TAB PO ×3 (10:20→20:49)
--- NOTE | 2024-07-23 11:29 | PC.NURSE ---
Trini Verma [employer] WORK[employer] on floor and notified of patient having 10 beat run of vtach on tele. Patient asymptomatic.
[2024-07-23] MEDS: traMADol HCL (*CRX) 50 MG TABLET PO (11:38)
[2024-07-23 11:44] LABS: Glucose Point of Care 188 mg/dl (65-105)
[2024-07-23 11:50] LABS: Glucose Point of Care 156 mg/dl (65-105)
[2024-07-23 16:45] LABS: Glucose Point of Care 189 mg/dl (65-105)
[2024-07-23 20:42] LABS: Glucose Point of Care 203 mg/dl (65-105)
[2024-07-23] MEDS: ASPIRIN 81 MG CHEWABLE TABLET PO (20:50)
[2024-07-23] MEDS: INSULIN ASPART (*BKC) 100 UNITS/ML SUB-Q (20:50)
[2024-07-24] VITALS (11 sets, daily range): BP systolic 91–160; BP diastolic 59–95; PULSE 60–104; RESP 16–22; TEMP 36.6–36.8; O2SAT 90–100
[2024-07-24] MEDS: diphenhydrAMINE HCl INJ 50 MG/ML VIAL IV PUSH (01:00)
[2024-07-24] MEDS: amLODIPine BESYLATE 5 MG TABLET PO (05:56)
[2024-07-24] MEDS: HYDROcodone/acetaminophen (*CRX) 5-325 MG TABLET 1 TAB PO ×3 (05:57→20:47)
[2024-07-24 06:56] LABS: Basophils Absolute Auto 0.1 K/mm3 (0.0-0.1); Basophils Percent Auto 0.9 % (0.2-1.2); Eosinophils Absolute Auto 0.5 K/mm3 (0-0.3); Eosinophils Percent Auto 9.9 % (0-4.4); Hematocrit 45.2 % (42.0-52.0); Hemoglobin 15.5 g/dL (14.0-18.0); Immature Granulocyte Absolute 0.03 K/mm3 (0.00-0.031); Immature Granulocyte Percent A 0.6 % (0-0.5); Lymphocytes Absolute Auto 0.93 K/mm3 (0.9-3.2); Lymphocytes Percent Auto 17.4 % (18.3-44.2); Mean Corpuscular HGB Conc 34.3 g/dl (32-36); Mean Corpuscular Hemoglobin 30.6 pg (26-34); Mean Corpuscular Volume 89.3 fl (80-100); Monocytes Absolute Auto 0.5 K/mm3 (0.1-0.6); Neutrophils Absolute Auto 3.3 K/mm3 (1.3-6.7); Neutrophils Percent Auto 62.2 % (45.5-73.1); Platelet Count Result 159 k/mm3 (150-375); Red Blood Count 5.06 M/mm3 (4.6-6.20); Red Cell Distribution Width 12.9 % (11.5-14.5); White Blood Count 5.4 K/mm3 (4.5-10.0)
--- NOTE | 2024-07-24 07:00 | PM.IMPN ---
Progress Note: A&P Assessment and Plan (1) Fibula fracture: Qualifiers: Encounter type: initial encounter Fibula location: lateral malleolus Fracture alignment: nondisplaced Fracture type: closed Laterality: left Qualified Code(s): S82.65XA - Nondisplaced fracture of lateral malleolus of left fibula, initial encounter for closed fracture Code(s): S82.409A - Unspecified fracture of shaft of unspecified fibula, initial encounter for closed fracture Status: Acute Assessment and Plan: - X-Ray Ankle: Minimally displaced Alexis type B fracture of the distal left fibula. - Splinted in ER. - Seen by ortho and splint removed, WBAT with fracture boot. - Conservative treatment for now per pt request. - Continue PT/OT treatment. - Continue pain meds PRN and adjust as needed. - Ok to discharge to rehab when facility available per ortho. (2) Acute kidney injury: Code(s): N17.9 - Acute kidney failure, unspecified Status: Acute Assessment and Plan: - Acute on Chronic. - Possibly affected by Rhabdomyolysis vs dehydration vs other. - Cr slightly trended up, 1.3>>1.4.>1.10.1.6>1.4. Back to baseline 1.3 on am labs. - Follow renal panel and avoid nephrotoxins. (3) Traumatic rhabdomyolysis: Code(s): T79.6XXA - Traumatic ischemia of muscle, initial encounter Status: Acute Assessment and Plan: - Likely related to prolonged period on the ground post fall. - CK starting to trend down. -Stopping IV - Avoid nephrotoxins. (4) Abrasion of knee, bilateral: Code(s): S80.211A - Abrasion, right knee, initial encounter; S80.212A - Abrasion, left knee, initial encounter Status: Acute Assessment and Plan: - No signs of active bleeding noted. - Tdap shot given in ER. - Skin care per nursing staff. (5) Coronary artery disease: Qualifiers: Coronary Disease-Associated Artery/Lesion type: unspecified vessel or lesion type [place] vs. transplanted heart: unspecified whether [place] or transplanted heart Associated angina: without angina Qualified Code(s): I25.10 - Atherosclerotic heart disease of [place] coronary artery without angina pectoris Code(s): I25.10 - Atherosclerotic heart disease of [place] coronary artery without angina pectoris Status: Acute Assessment and Plan: - Appears stable. - Continue aspirin, plavix. - Hold statin with Rhabdomyolysis. 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 - No obvious signs of bleeding noted. - Monitor for bleeding signs. 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 - Continue low-dose SSI for now TIDWM. - Continue Jardiance. - Adjust insulin as needed. (8) Hypercholesterolemia: Code(s): E78.00 - Pure hypercholesterolemia, unspecified Status: Acute Assessment and Plan: - Hold statin with Rhabdomyolysis. (9) Chest pain: Qualifiers: Chest pain type: unspecified Qualified Code(s): R07.9 - Chest pain, unspecified Code(s): R07.9 - Chest pain, unspecified Status: Acute Assessment and Plan: Patient was to be discharged, however he developed chest pain around 6 pm per covering physician, Dr. Stokes which caused him to remain inpatient to rule out ACS. EKG showed no
[2024-07-24 07:02] LABS: Creatine Kinase 340 U/L (55-170)
[2024-07-24 07:04] LABS: Alanine Aminotransferase 34 U/L (6-50); Albumin Level 4.2 g/dL (3.5-5.1); Alkaline Phosphatase 102 U/L (38-126); Anion Gap 11 mmol/L (4-12); Aspartate Amino Transferase 31 U/L (17-59); Bilirubin,Total 0.7 mg/dL (0.2-1.3); Blood Urea Nitrogen 28 mg/dL (9-20); Carbon Dioxide 28 mmol/L (22-30); Chloride 99 mmol/L (98-107); Estimated CRCL calculation 65 ml/min; Estimated Glomerular Filt Rate 54; Glucose 135 mg/dL (65-110); Potassium 3.9 mmol/L (3.4-5.0); Sodium 138 mmol/L (137-145)
[2024-07-24 07:57] LABS: Glucose Point of Care 160 mg/dl (65-105)
[2024-07-24] MEDS: FINASTERIDE 5 MG TABLET PO (10:34)
[2024-07-24] MEDS: BISACODYL 5 MG TABLET EC PO (10:35)
[2024-07-24] MEDS: EMPAGLIFLOZIN 25 MG TABLET PO (10:35)
[2024-07-24] MEDS: DOCUSATE SODIUM 100 MG CAPSULE PO ×2 (10:35→20:45)
[2024-07-24] MEDS: polyethylene glycoL 3350 17 GM POWD.PACK PO (10:35)
[2024-07-24] MEDS: oxyBUTYnin CHLORIDE 5 MG TABLET PO (10:35)
[2024-07-24] MEDS: CLOPIDOGREL BISULFATE 75 MG TABLET PO (10:35)
[2024-07-24] MEDS: FAMOTIDINE 20 MG TABLET PO (10:35)
[2024-07-24] MEDS: calcitrioL 0.25 MCG CAPSULE PO (10:35)
[2024-07-24] MEDS: SERTRALINE HCL 50 MG TABLET 100 MG PO (10:35)
[2024-07-24] MEDS: ENOXAPARIN 40 MG/0.4 ML SYRINGE SUB-Q (10:36)
[2024-07-24 11:52] LABS: Glucose Point of Care 186 mg/dl (65-105)
--- NOTE | 2024-07-24 14:40 | PM.DS ---
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 type 2 diabetes mellitus, with [facility] current use of insulin hypercholesterolemia DS: Discharge Diagnosis Discharge Diagnosis (1) Fibula fracture: Qualifiers: Encounter type: initial encounter Fibula location: lateral malleolus Fracture alignment: nondisplaced Fracture type: closed Laterality: left Qualified Code(s): S82.65XA - Nondisplaced fracture of lateral malleolus of left fibula, initial encounter for closed fracture Code(s): S82.409A - Unspecified fracture of shaft of unspecified fibula, initial encounter for closed fracture Status: Acute (2) Acute kidney injury: Code(s): N17.9 - Acute kidney failure, unspecified Status: Acute (3) Traumatic rhabdomyolysis: Code(s): T79.6XXA - Traumatic ischemia of muscle, initial encounter Status: Acute (4) Abrasion of knee, bilateral: Code(s): S80.211A - Abrasion, right knee, initial encounter; S80.212A - Abrasion, left knee, initial encounter Status: Acute (5) Coronary artery disease: Qualifiers: Associated angina: without angina Coronary Disease-Associated Artery/Lesion type: unspecified vessel or lesion type [place] vs. transplanted heart: unspecified whether [place] or transplanted heart Qualified Code(s): I25.10 - Atherosclerotic heart disease of [place] coronary artery without angina pectoris Code(s): I25.10 - Atherosclerotic heart disease of [place] coronary artery without angina pectoris Status: Acute (6) Antiplatelet or antithrombotic long-term use: Code(s): Z79.02 - [facility] (current) use of antithrombotics/antiplatelets Status: Acute (7) Type 2 diabetes mellitus, with long-term current use of insulin: Qualifiers: Diabetes mellitus complication detail: with polyneuropathy Diabetes mellitus complication status: with neurologic complications Qualified Code(s): E11.42 - Type 2 diabetes mellitus with diabetic polyneuropathy; Z79.4 - [facility] (current) use of insulin Code(s): E11.9 - Type 2 diabetes mellitus without complications; 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 Status: Acute (8) Hypercholesterolemia: Code(s): E78.00 - Pure hypercholesterolemia, unspecified Status: Acute DS: Summary Hospital Course Reason for hospitalization: Fibula fracture acute kidney injury traumatic rhabdomyolysis abrasion knee, bilateral coronary artery disease antiplatelet or antithrombotic 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 Patient has abrasions to his knees and received a TDAP shot in the ED. Labs with CK concerning for rhabdomyolysis and mild MARCIE, both of which improved with fluids during admission. Head CT showed no skull fracture or acute intracranial finding. C spine showed no fracture, dislocation or locked facet. Chest XR no acute cardiopulmonary disease. Left knee XR effusion, right knee nonconcerning. Ankle XR with minimally displaced Alexis type B fracture of the distal left fibula. Patient was splinted in the ER. Ortho was consulted and patient chose conservative treatment as opposed to surgery. Patient made WBAT with fracture boot in place. He worked with PT/OT who recommended SNF. Patient was to be discharged on 07/23, however he developed chest pain a
[2024-07-24 16:22] LABS: SARS-CoV-2 RNA PCR Negative (Negative)
[2024-07-24 16:45] LABS: Glucose Point of Care 150 mg/dl (65-105)
--- NOTE | 2024-07-24 17:07 | ECG_ITS ---
Test Date: 2024-07-24 17:25:04 Measurements Intervals [place] Rate: 109 P: 95 MO: 138 QRS: 0 QRSD: 118 T: 88 QT: 364 QTc: 492 Interpretive Statements SINUS TACHYCARDIA WITH OCCASIONAL VENTRICULAR PREMATURE COMPLEXES MODERATE INTRAVENTRICULAR CONDUCTION DELAY [110+ ms QRS DURATION] BASELIEN ARTIFACT PRESENT Compared to ECG 07/21/2024 05:10:59 NO SIGNIFICANT CHANGES Electronically Signed On 07-25-2024 10:34:40 CDT by Mau Zelaya M.D.
[2024-07-24] MEDS: NITROGLYCERIN SL 0.4 MG TABLET SUBLINGUAL (17:20)
[2024-07-24] MEDS: ONDANSETRON INJ 4 MG/2 ML VIAL IV PUSH (17:32)
[2024-07-24] MEDS: PANTOPRAZOLE SODIUM IV 40 MG VIAL IV PUSH (18:31)
[2024-07-24 19:17] LABS: Troponin I 0.015 ng/mL (0.000-0.034)
[2024-07-24] MEDS: ASPIRIN 81 MG CHEWABLE TABLET PO (20:46)
[2024-07-24 21:19] LABS: Troponin I 0.016 ng/mL (0.000-0.034)
[2024-07-24 21:40] LABS: Glucose Point of Care 189 mg/dl (65-105)
[2024-07-25] VITALS: PULSE 77
[2024-07-25 00:55] LABS: Troponin I 0.015 ng/mL (0.000-0.034)
[2024-07-25 01:35] VITALS: BP 146/77; PULSE 81; RESP 16; TEMP 36.7; O2SAT 96
[2024-07-25 01:40] LABS: Glucose Point of Care 179 mg/dl (65-105)
[2024-07-25] MEDS: HYDROcodone/acetaminophen (*CRX) 5-325 MG TABLET 1 TAB PO ×2 (01:40→11:50)
[2024-07-25 04:00] VITALS: PULSE 89
[2024-07-25 06:00] VITALS: BP 131/66; PULSE 76; RESP 16; TEMP 36.8; O2SAT 92
[2024-07-25 07:18] LABS: Basophils Absolute Auto 0.1 K/mm3 (0.0-0.1); Basophils Percent Auto 0.9 % (0.2-1.2); Eosinophils Absolute Auto 0.5 K/mm3 (0-0.3); Hematocrit 47.1 % (42.0-52.0); Hemoglobin 15.9 g/dL (14.0-18.0); Immature Granulocyte Absolute 0.02 K/mm3 (0.00-0.031); Immature Granulocyte Percent A 0.4 % (0-0.5); Lymphocytes Percent Auto 14.6 % (18.3-44.2); Mean Corpuscular HGB Conc 33.8 g/dl (32-36); Mean Corpuscular Hemoglobin 30.5 pg (26-34); Mean Corpuscular Volume 90.4 fl (80-100); Mean Platelet Volume 10.1 fl (7.4-10.4); Monocytes Absolute Auto 0.4 K/mm3 (0.1-0.6); Monocytes Percent Auto 7.3 % (2.6-8.5); Neutrophils Absolute Auto 3.7 K/mm3 (1.3-6.7); Neutrophils Percent Auto 67.8 % (45.5-73.1); Platelet Count Result 167 k/mm3 (150-375); Red Blood Count 5.21 M/mm3 (4.6-6.20); Red Cell Distribution Width 12.9 % (11.5-14.5); White Blood Count 5.5 K/mm3 (4.5-10.0)
[2024-07-25 07:21] LABS: Alanine Aminotransferase 36 U/L (6-50); Albumin Level 4.2 g/dL (3.5-5.1); Alkaline Phosphatase 102 U/L (38-126); Anion Gap 9 mmol/L (4-12); Aspartate Amino Transferase 28 U/L (17-59); Bilirubin,Total 0.6 mg/dL (0.2-1.3); Blood Urea Nitrogen 26 mg/dL (9-20); Calcium 9.1 mg/dL (8.4-10.2); Carbon Dioxide 26 mmol/L (22-30); Chloride 102 mmol/L (98-107); Estimated CRCL calculation 65 ml/min; Estimated Glomerular Filt Rate 54; Glucose 146 mg/dL (65-110); Potassium 4.1 mmol/L (3.4-5.0); Sodium 137 mmol/L (137-145)
[2024-07-25 07:47] LABS: Glucose Point of Care 163 mg/dl (65-105)
[2024-07-25 08:00] VITALS: PULSE 85
[2024-07-25] MEDS: polyethylene glycoL 3350 17 GM POWD.PACK PO (08:46)
[2024-07-25] MEDS: SERTRALINE HCL 50 MG TABLET 100 MG PO (08:47)
[2024-07-25] MEDS: CLOPIDOGREL BISULFATE 75 MG TABLET PO (08:48)
[2024-07-25] MEDS: BISACODYL 5 MG TABLET EC PO (08:48)
[2024-07-25] MEDS: calcitrioL 0.25 MCG CAPSULE PO (08:48)
[2024-07-25] MEDS: DOCUSATE SODIUM 100 MG CAPSULE PO (08:48)
[2024-07-25] MEDS: FAMOTIDINE 20 MG TABLET PO (08:48)
[2024-07-25] MEDS: oxyBUTYnin CHLORIDE 5 MG TABLET PO (08:48)
[2024-07-25] MEDS: amLODIPine BESYLATE 5 MG TABLET PO (08:48)
[2024-07-25] MEDS: FINASTERIDE 5 MG TABLET PO (08:48)
[2024-07-25] MEDS: EMPAGLIFLOZIN 25 MG TABLET PO (08:48)
[2024-07-25] MEDS: PANTOPRAZOLE SODIUM IV 40 MG VIAL IV PUSH (08:49)
[2024-07-25] MEDS: ENOXAPARIN 40 MG/0.4 ML SYRINGE SUB-Q (08:49)
[2024-07-25 11:53] LABS: Glucose Point of Care 133 mg/dl (65-105)
== END 2024-07-25 14:45 | DRG 563 ==
LOC: ANHED 07-19 03:56 → ANH3MEDSUR 07-19 08:15
PROVIDERS: Internal Medicine; Nurse Practitioner Acute Care; Nurse Practitioner Adult Health; Admitting Provider Internal Medicine; Emergency Provider Emergency Medicine; PCP Internal Medicine; Visit Provider Student in an Organized Health Care Education/Training Program
DX: S82.492A Other fracture of shaft of left fibula, initial encounter for closed fracture (principal); N17.9 Acute kidney failure, unspecified; I13.0 Hypertensive heart and chronic kidney disease with heart failure and stage 1 through stage 4 chronic kidney disease, or unspecified chronic kidney disease; I50.9 Heart failure, unspecified; T79.6XXA Traumatic ischemia of muscle, initial encounter; N18.2 Chronic kidney disease, stage 2 (mild); I25.10 Atherosclerotic heart disease of native coronary artery without angina pectoris; S80.212A Abrasion, left knee, initial encounter; S80.211A Abrasion, right knee, initial encounter; W17.89XA Other fall from one level to another, initial encounter; E78.00 Pure hypercholesterolemia, unspecified; E11.42 Type 2 diabetes mellitus with diabetic polyneuropathy; E11.22 Type 2 diabetes mellitus with diabetic chronic kidney disease; E66.9 Obesity, unspecified; F41.9 Anxiety disorder, unspecified; F32.A Depression, unspecified; M19.90 Unspecified osteoarthritis, unspecified site; G47.33 Obstructive sleep apnea (adult) (pediatric); K21.9 Gastro-esophageal reflux disease without esophagitis; N32.81 Overactive bladder; N40.0 Benign prostatic hyperplasia without lower urinary tract symptoms; L40.9 Psoriasis, unspecified; Z79.02 Long term (current) use of antithrombotics/antiplatelets; Z79.4 Long term (current) use of insulin; Z68.35 Body mass index [BMI] 35.0-35.9, adult; Z79.82 Long term (current) use of aspirin; I25.2 Old myocardial infarction; Z90.49 Acquired absence of other specified parts of digestive tract; Z96.653 Presence of artificial knee joint, bilateral; Z95.5 Presence of coronary angioplasty implant and graft
CPT/HCPCS: 27786; 36415; 70450; 71045; 71260; 72125; 72170; 73562; 73610; 74177; 80048; 80053; 81001; 82550; 82948; 83605; 83690; 83735; 84484; 85025; 85055; 85610; 85730; 87635; 90471; 90715; 93005; 96361; 96374; 96376; 97110; 97116; 97161; 97165; 97530; 97535; 99285; A9270; G0378; J1170; J1200; J1650; J1815; J2405; J2470; J7030; L2116; Q9967

== ENCOUNTER 2024-10-19 14:20 | Outpatient (CLI) | payer MEDICARE, SELFPAY ==
[2024-10-20 10:53] LABS: LH 7.6 mIU/mL (1.6-15.2)
[2024-10-20 11:12] LABS: HCG Tumor Marker <5 mIU/mL (<5)
== END 2024-10-19 14:21 | disposition home or self-care (01) ==
LOC: ANHGOSHLAB 14:21
PROVIDERS: PCP Internal Medicine; Visit Provider Nurse Practitioner
DX: N62 Hypertrophy of breast (principal); I10 Essential (primary) hypertension
CPT/HCPCS: 36415; 82670; 83002; 84402; 84403; 84443; 84702

== ENCOUNTER 2024-11-11 14:45 | Outpatient (RCR) | payer MEDICARE, SELFPAY ==
[2024-09-29 13:32] VITALS: BMI 35.8
[2024-09-29 13:35] VITALS: BMI 35.8
[2024-11-11 14:50] VITALS: BMI 35.8
== END 2024-12-14 10:11 | disposition home or self-care (01) ==
LOC: ANHDMC 14:45
PROVIDERS: PCP Internal Medicine; Visit Provider Internal Medicine
DX: E11.65 Type 2 diabetes mellitus with hyperglycemia (principal); E11.42 Type 2 diabetes mellitus with diabetic polyneuropathy; E11.22 Type 2 diabetes mellitus with diabetic chronic kidney disease; N18.30 Chronic kidney disease, stage 3 unspecified; Z79.4 Long term (current) use of insulin; Z71.3 Dietary counseling and surveillance
CPT/HCPCS: 97803

== ENCOUNTER 2025-07-02 17:50 | Emergency (ER) | payer MEDICARE, SELFPAY ==
--- NOTE | 2025-07-02 17:58 | ED_ITS ---
HPI - Extremity Injury (Lower) General Chief Complaint: Extremity Injury, Lower Stated Complaint: LT foot/knee pain Time Seen by Provider: 07/02/25 18:20 Source: patient and RN notes reviewed Mode of arrival: ambulatory Limitations: no limitations History of Present Illness HPI Narrative: 75-year-old male presents with concern for pedal foot pain for 2-3 weeks. He denies injury. He reports pain is worse in the morning. He has been using a cane for mobility. He has been taking Tylenol which helps with the pain. He denies redness, warmth, open skin, bruising, swelling. MD complaint: other (Foot pain) Related Data Home Medications ?Medication ?Instructions ?Recorded ?Confirmed ?Last Taken ?Type clopidogrel 75 mg tablet 75 mg PO DAILY 02/25/23 06/23/25 1 Day Ago History ~12/23/23 mecobalamin (vitamin B12) 5,000 5,000 mcg PO WEEKLY 02/01/25 06/23/25 Unknown History mcg chewable tablet aspirin 81 mg tablet 81 mg PO DAILY 04/30/25 06/23/25 Unknown History finasteride 5 mg tablet 5 mg PO DAILY 04/30/25 06/23/25 Unknown History amlodipine 5 mg tablet 5 mg PO DAILY 05/17/25 06/23/25 Unknown History magnesium 200 mg tablet 200 mg PO DAILY 05/17/25 06/23/25 Unknown History Allergies Allergy/AdvReac Type Severity Reaction Status Date / Time Cephalosporins Allergy Unknown SHORTNESS Verified 07/02/25 18:12 OF BREATH,Dyspnea / SOB morphine Allergy Unknown Jittery Verified 07/02/25 18:12 nitroglycerin Allergy Unknown HEART RATE Verified 07/02/25 18:12 GOES DOWN FAST,Unknown oxycodone Allergy Unknown Confusion,F Verified 07/02/25 18:12 atigued amoxicillin AdvReac Dyspnea / Verified 07/02/25 18:12 SOB clavulanic acid AdvReac Dyspnea / Verified 07/02/25 18:12 SOB cyclobenzaprine AdvReac Stopped Verified 07/02/25 18:12 Breathing hydrocodone AdvReac Confusion Verified 07/02/25 18:12 lisinopril AdvReac Unknown Verified 07/02/25 18:12 norepinephrine AdvReac Unknown Verified 07/02/25 18:12 Sulfa (Sulfonamide AdvReac Dyspnea / Verified 07/02/25 18:12 Antibiotics) SOB Review of Systems Review of Systems: CONSTITUTIONAL: Denies malaise, chills, sweats, or fever. CARDIOVASCULAR: Denies chest pain, palpitations, or edema. RESPIRATORY: Denies cough or dyspnea. SKIN: Denies rash or itching, bruising, redness, swelling. MUSCULOSKELETAL: Reports left pedal foot pain NEUROLOGIC: Denies numbness, weakness All systems reviewed & are unremarkable except as noted in HPI and below PMFSH Past Medical History Medical History Peripheral sensory neuropathy due to type 2 diabetes mellitus Closed fracture of left distal fibula Obstructive sleep apnea Hyperlipidemia Overactive bladder BPH (benign prostatic hyperplasia) Gout Diabetic autonomic neuropathy History of esophageal stricture Diabetic peripheral neuropathy Hypertriglyceridemia Myocardial infarction Methicillin resistant Staphylococcus aureus infection (2014) Psoriasis Obstructive sleep apnea Intolerant to CPAP Gastroesophageal reflux disease Heart failure with reduced ejection fraction With EF of 45% in January of 2023 and echocardiogram in April 2023 showing normal EF 55-60% Chronic kidney disease, stage 3 Coronary artery disease Insulin dependent diabetes mellitus SBO (small bowel obstruction) Multiple bowel obstructions as far back as 2012 in the records Coarctation of aorta Anxiety Arthritis Depression Hepatitis B Kidney stone Peripheral neuropathy Rectal polyp Hypercholesterolemia Hypertension Surgical History Surgical History History of resection of small bowel 2014 exploratory laparotomy for SBO that resulted in adhesiolysis and jejunal small bowel resection History of repair of rotator cuff S/P dilatation of esophageal stricture November [address] Trejo and likely more recent in January 2023 but this cannot be confirmed History of tonsillectomy History of arthroscopy of both knees History of bilateral knee replacement Right knee 2019 History of colonoscopy with polypectomy History of hernia repair History of cholecystectomy History of appendectomy History of partial colectomy (09/2015) Secondary to bowel obstruction with recurrence requiring exploratory laparotomy and lysis of adhesions 03/28/2000 History of aortic coarctation repair (1964) History of coronary artery stent placement History of cardiac catheterization Catheterization 2013 unremarkable, Cardiac catheterization June 2022 distal obtuse marginal stenosis 90% no stent placed and January 2023 at [facility] demonstrating severe disease diagonal and LAD 2.5 x 22 mm stent in the diagonal, transferred to [facility] with stent 01/18/2023 4.5 x 24 mm synergy DWAYNE placed in the LAD History of hemorrhoidectomy History of arthroscopy of left shoulder With removal of bone spur. History of cataract surgery History of bilateral carpal tunnel release Family History Family History Sibling Family history of thyroid disease Hypertension Family history of diabetes mellitus in first degree relative Family history of obesity Diabetes mellitus Mother Hypertension Family history of diabetes mellitus in first degree relative Family history of thyroid disease Family history of osteoporosis Patient's mother is in good health Cerebrovascular accident Family history of Alzheimer's disease Family history of hearing loss Family history of transient ischemic attacks Father Asthma Patient's father is Family history of chronic obstructive pulmonary disease Acute myocardial infarction Family history of lung disease, Onset Age: 64 Social History Social History Social History: Caffeine-decaf tea Surrogate medical decision maker: Doreen Yepez, daughter. Code status: DNR/DNI per patient report request. Smoking status: Never smoker Second hand tobacco smoke exposure: No Alcohol intake: never Substance use: never Substance use type: does not use Do You Feel Safe in your Home?: Yes Lack of Transportation: No Lack of Food: Never True Current Housing: I Have Housing Concerned About Future Housing: No Difficulty Paying Gas/Electric Bills: No Difficulty Paying for Meds: No Currently Unemployed: No Education: High School Diploma/GED Difficulty w/ Childcare or Family Care: No Living arrangements: alone Additional living arrangements comments: The patient has been since 2020. He lives alone. He has 1 daughter and 1 son. Occupation/Education: retired Additional occupation/education comments: He is retired from [employer]. Spiritual care concerns: No Comments At time of signature, agree with nursing past medical, surgical, social and family history. There is no relevant family history pertinent to the presenting complaint Exam Narrative: GENERAL: Well-appearing, well-nourished, and in no acute distress. HEAD: Normocephalic, atraumatic. EYES: PERRLA, conjunctivae clear NECK: Supple. CHEST: Speaks in full sentences. No respiratory distress. HEART: Regular rate and rhythm. Normal and equal peripheral pulses. EXTREMITIES: Left foot, ankle, digit have grossly normal strength and sensation, normal range of motion. No edema or ecchymosis. Normal sensation with sensitivity to light touch and pain. Pedal tenderness, no other tenderness noted. No open wounds, no skin tenting, no devitalized tissue or atrophy, no trophic changes, no obvious deformity, alignment normal, nearby joints and structures intact. Distal pulses palpable and equal bilaterally, skin warm, dry, pink. Capillary refill less than 3 seconds. SKIN: Warm, dry, no rash. NEURO: Alert and oriented x3. PSYCH: Normal mood and affect Course Course Emergency Course: Patient is aware of diagnosis, understands and agrees to treatment plan. Anticipatory guidance given. Patient agrees to follow-up as directed and is aware of reasons to seek care at the emergency department. Portions of this record may have been created with voice recognition software Level of Care: Express Care Visit Vital Signs Vital signs: Reviewed. MDM - Extremity Injury (Lower) MDM Narrative Medical decision making narrative: Patients injury and/or pain is consistent with musculoskeletal etiology. No signs of neurological or vascular compromise on exam. Compartments and tissues are soft without signs of compartment syndrome. Pain is felt appropriate for further evaluation on an outpatient basis. Critical Care Time Critical Care Time Critical Care Time: No Discharge Plan Discharge Clinical Impression: Plantar fasciitis of left foot Patient Disposition: Home Condition: Stable Instructions: Plantar Fasciitis (ED), Plantar Fasciitis Exercises (ED) Additional Instructions: Read information included in the discharge packet about plantar fasciitis exercises Perform these exercises in the morning before you get out of bed Please follow-up with your mechanical maintenance supervisor for further evaluation and recommendation for shoe choice Tylenol for pain Use topical pain medication for pain relief Follow up with your mechanical maintenance supervisor next week If the condition worsens with numbness, tingling, decrease sensation with weakness seek treatment in the emergency room immediately. Patient Language: Ukrainian Prescriptions: New lidocaine HCl [Pain Relief (lidocaine)] 4 % cream 1 applic topical BID PRN (Reason: pain) Qty: 120 0RF No Action Gvoke HypoPen 2-Pack 1 mg/0.2 mL auto-injector 1 mg subcut ONCE Qty: 2 0RF Rx Instructions: as a single dose; may repeat once after 15 minutes if no response mecobalamin (vitamin B12) 5,000 mcg tablet,chewable 5,000 mcg PO WEEKLY aspirin 81 mg tablet 81 mg PO DAILY finasteride 5 mg tablet 5 mg PO DAILY amlodipine 5 mg tablet 5 mg PO DAILY magnesium 200 mg tablet 200 mg PO DAILY (DME) blood-glucose meter [OneTouch Verio Flex meter] Misc See Rx Instructions .Route Qty: 1 0RF Rx Instructions: check BS 3 times daily (DME) OneTouch Verio test strips Strip See Rx Instructions .Route Qty: 100 0RF Rx Instructions: check Bs 3 times daily glucose 4 gram tablet,chewable 16 g PO Q15M PRN (Reason: hypoglycemia) Qty: 360 0RF Rx Instructions: until symptoms of low blood sugar are controlled (DME) FreeStyle Dawit 2 Chicken Misc See Rx Instructions .Route Qty: 1 0RF Rx Instructions: As directed Januvia 50 mg tablet 50 mg PO DAILY Qty: 90 0RF (DME) FreeStyle Dawit 3 Chicken Misc See Rx Instructions .Route Qty: 1 0RF Rx Instructions: As directed (DME) FreeStyle Dawit 3 Sensor Device See Rx Instructions .Route Qty: 6 12RF Rx Instructions: once every 2 weeks clopidogrel 75 mg tablet 75 mg PO DAILY (DME) lancets 33 gauge misc See Rx Instructions .ROUTE .MEDSUPPLY Qty: 100 0RF Rx Instructions: check Bs 3 times daily atorvastatin 80 mg tablet 80 mg PO QHS Qty: 90 1RF sertraline 100 mg tablet 100 mg PO DAILY Qty: 90 1RF (DME) pen needle, diabetic [BD Ultra-Fine Micro Pen Needle] 32 gauge x 1/4 needle See Rx Instructions .ROUTE .COMPLEX Qty: 300 12RF Dose Instruction: USE 3 TIMES A DAY Rx Instructions: USE 3 TIMES A DAY (DME) FreeStyle Dawit 14 Day Sensor Kit See Rx Instructions .Route Qty: 6 1RF Rx Instructions: Use to check blood sugars (DME) FreeStyle Dawit 3 Sensor Device See Rx Instructions .Route Qty: 6 0RF Rx Instructions: change every 15 days (DME) FreeStyle Dawit 3 Chicken Misc See Rx Instructions .Route Qty: 1 0RF Rx Instructions: Use to check BS metformin 500 mg tablet 500 mg PO BID Qty: 180 0RF Humulin R U-500 (Conc) Kwikpen 500 unit/mL (3 mL) insulin pen See Rx Instructions subcut .twice daily Qty: 12 0RF Rx Instructions: subcutaneously TWICE DAILY; 60 units 30 minutes before breakfast and 20 units before dinner Follow-up/Referrals: Veronica Bruno, ONLINE PUBLISHER [Primary Care Provider] - 2 Days (Acute foot pain) Time of Disposition: 18:30
[2025-07-02 18:06] VITALS: BP 134/84; PULSE 89; RESP 16; TEMP 36.4; O2SAT 96
== END 2025-07-02 18:35 | disposition home or self-care (01) ==
PROVIDERS: Emergency Provider Nurse Practitioner; PCP Nurse Practitioner
DX: M72.2 Plantar fascial fibromatosis (principal); N32.81 Overactive bladder; N40.0 Benign prostatic hyperplasia without lower urinary tract symptoms; M10.9 Gout, unspecified; E11.42 Type 2 diabetes mellitus with diabetic polyneuropathy; E78.1 Pure hyperglyceridemia; I25.2 Old myocardial infarction; L40.9 Psoriasis, unspecified; G47.33 Obstructive sleep apnea (adult) (pediatric); K21.9 Gastro-esophageal reflux disease without esophagitis; I13.0 Hypertensive heart and chronic kidney disease with heart failure and stage 1 through stage 4 chronic kidney disease, or unspecified chronic kidney disease; E11.22 Type 2 diabetes mellitus with diabetic chronic kidney disease; N18.30 Chronic kidney disease, stage 3 unspecified; I50.9 Heart failure, unspecified; Z79.84 Long term (current) use of oral hypoglycemic drugs; Z79.4 Long term (current) use of insulin; I25.10 Atherosclerotic heart disease of native coronary artery without angina pectoris; E78.00 Pure hypercholesterolemia, unspecified; M19.90 Unspecified osteoarthritis, unspecified site; F41.9 Anxiety disorder, unspecified; F32.A Depression, unspecified; Z96.653 Presence of artificial knee joint, bilateral; Z95.5 Presence of coronary angioplasty implant and graft; Z79.82 Long term (current) use of aspirin; Z66 Do not resuscitate
CPT/HCPCS: 99213; G0463

== ENCOUNTER 2025-07-30 15:06 | Emergency (ER) | payer MEDICARE, SELFPAY ==
--- OUTSIDE RECORDS SUMMARY | 2017-08-21 05:56 | XMS_ITS | Continuity of Care Document ---
Author Organization [facility] Address [address] [place] [address] Phone Care Team Providers Care Process Control Board Operator Name Role Phone Siddharth Mckeon MD Unavailable [...] Lat Office/outpatient visit,est, mod 2014 Office/outpatient visit,est, [facility] 2014 Asp/inject major joint or bursa 015 Depo Medrol Methylprednisolone 40 MG inj X-ray exam knee, 1 or 2 views 5 X-ray exam knee, 1 or 2 views 5 X-ray exam both knees, standing 015 Office/outpatient visit,est, mod 2014 Office/outpatient visit,est, [facility] 2013 X-ray exam knee, 1 or 2 views 4 X-ray exam both knees, standing 014 Office/outpatient visit,new, [facility] 2013 Office/outpatient visit,est, mod 2009 X-ray exam of knee, 1 or2 views 010 Office/outpatient visit,est, [facility] 2006 X-ray exam of knee, [...] Date Provider Providers Copied on Encounter [facility] [employer] [facility], [address] [address], [place], [place], [id number], [place] tel:[phone] [facility] [employer] [facility] Unilateral primary osteoarthritis, right knee 7 Mike Messina. [address] [address], [place], [place], [id number] , [place]. tel:[phone] Office/outpa tient visit,est, [facility], [address] [address], [place], [place], [id number], [place] [phone] [facility] [employer] [facility] Bilateral knee (chief complaint) Unilateral primary osteoarthritis, right kneePresence of left artificial knee joint 7 Mike Messina. [address] [address], [place], [place], [address] , [place]. tel:[phone] Referring Provider: David Sevilla MD P, [facility] [address], [place], [address] . tel:[phone] Office/outpa tient visit,est, [facility] [employer] [facility], [address] [address], [place], [place], [id number], [place] tel:[phone] [facility] [employer] [facility] bilateral knee symtoms (chief complaint) Unilateral primary osteoarthritis, right kneePresence of left artificial knee jointARTHROPATHY NOS-L/LEG 6 Nir Shabazz. [address] [address], [place], [place], [id number] , [place]. tel: [phone] Referring Provider: David Sevilla MD P, [address] [address], [place], [address] . tel:[phone] Office/outpa tient visit,est, [facility] [employer] [facility], [address] [place] [address], [place], [place], [id number], [place] tel:[phone] [facility] [employer] [facility] bilateral knees (chief complaint) Unilateral primary osteoarthritis, right kneePain in left knee 5 Nir Shabazz. [address], [id number] , [place]. tel: [phone] [facility], [address] [place] [address], [id number], [place] tel:[phone] [facility] [employer] [facility] right knee global follow up (chief complaint) TEAR MED MENISC KNEE-CURARTHROPAT HY NOS-L/LEG Sep-1 5 Nir Shabazz. [address], [id number] , [place]. tel: [phone] [facility], [address] [place] [address], [id number], [place] tel:[phone] [facility] [employer] [facility] post op right knee (chief complaint) TEAR MED MENISC KNEE-CUR Sep-0 5 Nir Shabazz. [address] [place] [address], [id number] , [place]. tel:[phone] [facility], [address] [place] [address], [id number], [place] tel:[phone] [facility] [place] No Information 5 Nir Shabazz. [address] [place] [address], [id number] , [place]. tel:[phone] Office/outpa tient visit,est, [facility], [address] [place] [address], [id number], [place] tel:[phone] [facility] [employer] [facility] RIGHT KNEE ARTHRITIS (chief complaint) JOINT PAIN-L/LEG Jul- 5 iNr Shabazz. [address] [place] [address], [id number] , [place]. tel:[phone] Referring Provider: David Richardson, [address] [place] [address], [address] . tel:[phone] Office/outpa tient visit,est, [facility], [address] [place] [address], [place], [place], [id number], [place] [phone] [facility] LOC PRIM OSTEOART-L/LEGJOI NT PAIN-L/LEG 5 Roel Hernandez. [address] [facility] [address], [place], [place], [id number] , [place]. tel: [phone] [facility], [address] [address], [place], [place], [address], [place] tel:[phone] [facility] AFTERCARE JOINT REPLACELOC PRIM OSTEOART-L/LEGCho ndromalacia 5 Roel Hernandez. [address] [facility], [address] [address], [place], [place], [id number] , [place]. tel: [phone] Office/outpa tient visit,[facility], [facility], [address] [address], [place], [place], [address], [place] tel:[phone] [facility] JOINT PAIN-L/LEGAFTERCA RE JOINT REPLACELOC PRIM OSTEOART-L/LEG April- 5 Roel Hernandez. [address] [facility], [address] [address], [place], [place], [address] , [place]. tel: [phone] Office/outpa tient visit,[facility], [facility], [address] [address], [place], [place], [id number], [place] tel:[phone] [facility] AFTERCARE JOINT REPLACELOC PRIM OSTEOART-L/LEGJOI NT PAIN-L/LEG Mar- 4 Roel Hernandez. [address] [facility], [address] [address], [place], [place], [id number] , [place]. tel: [phone] Office/outpa tient visit,new, [facility], [address] [address], [place], [place], [id number], [place] tel:[phone] [facility] JOINT PAIN-L/LEGLOC PRIM OSTEOART-L/LEGAFT ERCARE JOINT REPLACE 4 Roel Hernandez. [address] [facility], [facility] [address], [place], [place], [id number] , [place]. tel: [phone] Office/outpa tient visit,est, [facility], [address] [facility] [address], [place], [place], [id number], [place] tel:[phone] [facility] No Information 0 Roel Hernandez. [address] [facility], [facility] [address], [place], [place], [id number] , [place]. tel: [phone] Office/outpa tient visit,est, [facility], [address] [address], [place], [place], [id number], [place] tel:[phone] [facility] No Information 7 Roel Hernandez. [address] [facility], [address] [address], [place], [place], [address] , [place]. tel: [phone] Office/outpa tient visit,est, [facility], [address], [id number], [place] tel:[phone] [facility] [employer] No Information 6 Roel Hernandez. [address] [facility], [facility] [address], [place], [place], [id number] , [place]. tel: [phone] [facility], [address] [address], [place], [place], [id number], [place] tel:[phone] [facility] No Information 6 Roel Hernandez. [address] [facility], [facility] [address], [place], [place], [address] , [place]. tel: [phone] [facility], [address] [address], [place], [place], [id number], [place] tel:[phone] [facility] No Information 6 Roel Hernandez. [address] [facility], [address] [address], [place], [place], [address] , [place]. tel: [phone] [facility], [address] [facility], [place], [place], [address], [place] [phone] [facility] No Information 6 Roel Hernandez. [address], [address], [place], [place], [address] , [place]. tel: [phone] Family History Family Member Type Diagnosis Age [...] Payer name Insurance type Covered republican ID [facility](s) [facility] [id number] Social History Type Description Quantity Date Captured [...]
--- OUTSIDE RECORDS SUMMARY | 2017-08-21 05:56 | XMS_ITS | Continuity of Care Document ---
Author Organization [facility] Address [address] [place] [address] Phone Care Team Providers Care Training Associate Name Role Phone Siddharth Mckeon MD Unavailable [...] Lat Office/outpatient visit,est, mod 2014 Office/outpatient visit,est, [facility] 2014 Asp/inject major joint or bursa 015 Depo Medrol Methylprednisolone 40 MG inj X-ray exam knee, 1 or 2 views 5 X-ray exam knee, 1 or 2 views 5 X-ray exam both knees, standing 015 Office/outpatient visit,est, mod 2014 Office/outpatient visit,est, [facility] 2013 X-ray exam knee, 1 or 2 views 4 X-ray exam both knees, standing 014 Office/outpatient visit,new, [facility] 2013 Office/outpatient visit,est, mod 2009 X-ray exam of knee, 1 or2 views 010 Office/outpatient visit,est, [facility] 2006 X-ray exam of knee, 1 or2 [...] Date Provider Providers Copied on Encounter [facility] [facility], [address] [address], [place], [place], [id number], [place] tel:[phone] [facility] Unilateral primary osteoarthritis, right knee 7 Mike Messina. [address] [address], [place], [place], [id number] , [place]. tel:[phone] Office/outpa tient visit,est, [facility], [address] [address], [place], [place], [address], [place] [phone] [facility] [facility] Bilateral knee (chief complaint) Unilateral primary osteoarthritis, right kneePresence of left artificial knee joint 7 Mike Messina. [address] [address], [place], [place], [address] , [place]. tel:[phone] Referring Provider: David Sevilla MD P, [facility] [address], [place], [address] . tel:[phone] Office/outpa tient visit,est, [facility], [address] [address], [place], [place], [address], [place] tel:[phone] [facility] bilateral knee symtoms (chief complaint) Unilateral primary osteoarthritis, right kneePresence of left artificial knee jointARTHROPATHY NOS-L/LEG 6 Nir Shabazz. [address] [address], [place], [place], [address] , [place]. tel:[phone] Referring Provider: David Sevilla MD P, [address] [address], [place], [address] . tel:[phone] Office/outpa tient visit,est, [facility], [address] [place] [address], [place], [place], [id number], [place] tel:[phone] [facility] bilateral knees (chief complaint) Unilateral primary osteoarthritis, right kneePain in left knee 5 Nir Shabazz. [address], [id number] , [place]. tel: [phone] [facility], [address] [place] [address], [id number], [place] tel:[phone] [facility] right knee global follow up (chief complaint) TEAR MED MENISC KNEE-CURARTHROPAT HY NOS-L/LEG Sep-1 5 Nir Shabazz. [address], [id number] , [place]. tel: [phone] [facility], [address] [place] [address], [id number], [place] tel:[phone] [facility] post op right knee (chief complaint) TEAR MED MENISC KNEE-CUR Sep-0 5 Nir Shabazz. [address] [place] [address], [id number] , [place]. tel:[phone] [facility], [address] [place] [address], [id number], [place] tel:[phone] [facility] [place] No Information 5 Nir Shabazz. [address] [place] [address], [id number] , [place]. tel:[phone] Office/outpa tient visit,est, [facility], [address] [place] [address], [id number], [place] tel:[phone] [facility] [facility] RIGHT KNEE ARTHRITIS (chief complaint) JOINT PAIN-L/LEG Jul- 5 Nir Shabazz. [address] [place] [address], [id number] , [place]. tel:[phone] Referring Provider: David Richardson, [address] [place] [address], [address] . tel:[phone] Office/outpa tient visit,est, [facility], [address] [place] [address], [place], [place], [id number], [place] [phone] [facility] LOC PRIM OSTEOART-L/LEGJOI NT PAIN-L/LEG 5 Roel Hernandez. [address] [facility], [address] [address], [place], [place], [id number] , [place]. tel: [phone] [facility], [address] [address], [place], [place], [address], [place] tel:[phone] [facility] AFTERCARE JOINT REPLACELOC PRIM OSTEOART-L/LEGCho ndromalacia 5 Roel Hernandez. [address] [facility], [address] [address], [place], [place], [address] , [place]. tel: [phone] Office/outpa tient visit,[facility], [facility], [address] [address], [place], [place], [address], [place] tel:[phone] [facility] JOINT PAIN-L/LEGAFTERCA RE JOINT REPLACELOC PRIM OSTEOART-L/LEG April- 5 Roel Hernandez. [address] [facility], [address] [address], [place], [place], [address] , [place]. tel: [phone] Office/outpa tient visit,[facility], [facility], [address] [address], [place], [place], [address], [place] tel:[phone] [facility] AFTERCARE JOINT REPLACELOC PRIM OSTEOART-L/LEGJOI NT PAIN-L/LEG Mar- 4 Roel Hernandez. [address] [facility], [address] [address], [place], [place], [address] , [place]. tel: [phone] Office/outpa tient visit,new, [facility], [address] [address], [place], [place], [address], [place] tel:[phone] [facility] JOINT PAIN-L/LEGLOC PRIM OSTEOART-L/LEGAFT ERCARE JOINT REPLACE 4 Roel Hernandez. [address] [facility], [facility] [address], [place], [place], [id number] , [place]. tel: [phone] Office/outpa tient visit,est, [facility], [address] [facility] [address], [place], [place], [address], [place] tel:[phone] [facility] No Information 0 Roel Hernandez. [address] [facility], [facility] [address], [place], [place], [address] , [place]. tel: [phone] Office/outpa tient visit,est, [facility], [address] [address], [place], [place], [address], [place] tel:[phone] [facility] No Information 7 Roel Hernandez. [address] [facility], [address] [address], [place], [place], [address] , [place]. tel: [phone] Office/outpa tient visit,est, [facility], [address], [id number], [place] tel:[phone] [facility] [employer] No Information 6 Roel Hernandez. [address] [facility], [facility] [address], [place], [place], [address] , [place]. tel: [phone] [facility], [address] [address], [place], [place], [address], [place] tel:[phone] [facility] No Information 6 Roel Hernandez. [address] [facility], [facility] [address], [place], [place], [address] , [place]. tel: [phone] [facility], [address] [address], [place], [place], [address], [place] tel:[phone] [facility] No Information 6 Roel Hernandez. [address] [facility], [address] [address], [place], [place], [address] , [place]. tel: [phone] [facility], [address] [facility] [address], [place], [place], [address], [place] [phone] [facility] No Information 6 Roel Hernandez. [address] [facility], [address], [place], [place], [address] , [place]. tel: [phone] Family History Family Member Type Diagnosis Age [...] Provider Payers Payer name Insurance type Covered democrat ID [facility] tiricardo(s) [facility] [id number] Social History Type Description Quantity Date Captured [...]
[2025-07-30] VITALS (7 sets, daily range): BP systolic 120–185; BP diastolic 70–105; PULSE 70–88; RESP 16–20; TEMP 36.3–36.6; O2SAT 95–98
--- NOTE | ~2025-07-30 | CT_ITS ---
EXAMINATION: CT abdomen pelvis w con DATE: 07/30/2025 20:49 INDICATION: Right lower abdominal pain TECHNIQUE: Computed tomography (CT) of the abdomen and pelvis was performed with 100 mL Omnipaque-350 intravenous contrast. Automated exposure control and iterative reconstruction technique were employed. The dose-length product was 1186.04 mGy-cm. COMPARISON: 07/18/2024. FINDINGS: Small calcified nodules in the right middle lobe and calcified left epiphrenic lymph node consistent with old granulomatous disease. Heart size is normal. Atherosclerotic coronary artery calcifications. Aortic valve and mitral annular calcifications. No pericardial effusion. Cholecystectomy clips at the gallbladder fossa. Splenic calcification consistent with old granulomatous disease. Liver, pancreas and bilateral adrenal glands are normal. Mild right renal atrophy. There are small bilateral renal cysts the largest on the left measuring 1 cm. Dilation of a short segment of small bowel associated with a small bowel anastomosis in the anterior abdomen. No evident transition point or further dilated bowel to suggest obstruction. The appendix is not again visualized likely surgically absent. No pericecal inflammatory stranding to suggest acute appendicitis.. Bladder is normal. Prostatomegaly. No free intraperitoneal gas or fluid. No pathologically enlarged abdominal or pelvic lymphadenopathy. Mild lumbar spondylosis with chronic bone island at L2. IMPRESSION: 1. No acute intra-abdominal/pelvic process. Reviewed, dictated and finalized at location A.
--- OUTSIDE RECORDS SUMMARY | 2025-07-30 15:08 | XMS_ITS | Encounter Summary ---
Author Organization [facility] Healthcare Address [address] [place] [id number] Care Team Providers Care Fur Finisher Seamstress Name Role Phone Fercho Santos DO Primary Care Provider + [phone] Melissa Andino Unavailable [phone] Drew Lai MD Unavailable Dorinda Nunez MD Unavailable Encounter Details Date Type Department Care Team (Late st Contact Info) Description 03/28/2020 Documentation [facility] Case Management [address] [place] [address] Kesha Jordan RN Social History Tobacco Use Types Packs/Day Years Used Date Smoking Tobacco: Never Smokeless Tobacco: Never Alcohol Use Standard Drinks/Week Comments Never 0 (1 standard drink = 0.6 oz pur e alcohol) AUDIT-C Answer Date Recorded Frequency of Alcohol Consumption Never 01/08/2020 Average Number of Drinks Not on file 020 Frequency of Binge Drinking Not on file 06/2020 Sex and Gender Information Value Date Recorded Sex Assigned at Not on file 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 Add 03/31/20 documented in this encounter Plan of Treatment Not on file documented as of this encounter Visit Diagnoses Not on filedocumented in this encounter Additional Health Concerns Infection Onset Date Last Indicated Resolved Time COVID: Suspected 07/05/2022 07/05/2022 07/05/2022 11:07 AM CDT documented as of this encounter Care Teams Fur Finisher Seamstress Relationship Specialty Start Date End Date Fercho Santos DO PCP - General 04/11/17 Melissa Andino PA Orthopedic Surgery 08/25/20 Drew Lai MD [address] [place] [address] Consulting Physician Cardiovascular Disease 07/08/22 [place] [id number] [address] Consulting Physician Cardiology 01/19/23 documented as of this encounter
--- OUTSIDE RECORDS SUMMARY | 2025-07-30 15:08 | XMS_ITS | Clinical Summary ---
Author Organization [facility] Address [address] [facility] [place] [address] Care Team Providers Care Consulting Technical Manager Name Role Phone Fercho Santos DO Primary Care Provider [phone] Source Comments [facility] [employer],non-owned Affiliates and Associated Physician Practices is amultiple site organization consisting of ambulatory clinics and hospital sitesin [place], [place], [place] and [place]. This disclosure is being madepursuant to the Care Everywhere program and may not contain all information available regarding this patient. Last updated 18.[facility] [employer] Allergies Active Allergy Reactions Criticality Noted Date Comments Adhesive Sensitivity 07/14/2017 Augmentin 07/14/2017 Contrast-Gadolinium Agents For Mri 0 07/14/2017 Cyclobenzaprine Unknown Low 07/14/2017 Lisinopril 07/14/2017 Metformin 07/14/2017 Sulfa Drugs 07/14/2017 Medications * Be aware that medications may not be up to date on this document. Alwaysverify current medications with the patient. ATENOLOL PO Active LORazepam (ATIVAN) 1 MG tablet Take 1 mg by mouth every 8 hours as needed for Anxiety Active simvastatin (ZOCOR) 10 MG tablet Take 10 mg by mouth at bedtime Active Acetaminophen (TYLENOL) 325 MG CAPS Active Insulin Aspart (NOVOLOG FLEXPEN SC) Active Insulin Glargine (LANTUS SC) Active aspirin (ASPIRIN) 325 MG tablet Take 325 mg by mouth once daily Active Vmfch-Z-Feqglo osidase (BEANO PO) Active melatonin 1 MG tablet Take 1 mg by mouth at bedtime Active benzonatate (TESSALON) 200 MG capsuleIndicat ions:Cough Take 1 capsule by mouth 3 times daily as needed for Cough Reasons: Cough 30 capsule 7 Active pregabalin (LYRICA) 100 MG capsule Take 100 mg by mouth 3 times daily 7 Active insulin glargine (LANTUS) pen Inject subcutaneously at bedtime Active insulin aspart (NOVOLOG) pen Inject subcutaneously 3 times daily before meals 7 Active LORAZEPAM PO Take by mouth. Active Cholecalcifero l ([employer] VIT D 5000 HIGH-POTENCY PO) Take by mouth. Active SIMVASTATIN PO Take by mouth. Active esomeprazole (NEXIUM) 40 MG capsule Take 40 mg by mouth daily before breakfast Active Melatonin-Pyri doxine (MELATIN PO) Take by mouth. Active aspirin (ASPIRIN) 81 MG chew tablet Take 81 mg by mouth once daily Active acetaminophen (TYLENOL) 325 MG tablet Take 325 mg by mouth every 4 hours as needed for Fever or Pain Maximum allowable Acetaminophen amount = 4 Grams (4000 mg) / 24 hours. Active ATENOLOL PO Take by mouth. Active Social History Tobacco Use Types Packs/Day Years Used Date Smoking Tobacco: Never Smokeless Tobacco: Never Sex and Gender Information Value Date Recorded Sex Assigned at Not on file Legal Sex Male 3:03 PM CDT Gender Identity Not on file Sexual Orientation Not on file Last Filed Vital Signs Vital Sign Reading Time Taken Comments Blood Pressure 132/68 10/19/2017 12:00 PM TELEVISION ANALYZER Pulse 88 10/19/2017 12:00 PM TELEVISION ANALYZER Temperature 36.9 C (98.5 F) 10/19/2017 12:00 PM TELEVISION ANALYZER Respiratory Rate 18 10/19/2017 12:00 PM TELEVISION ANALYZER Oxygen Saturation 96% 10/19/2017 12:00 PM TELEVISION ANALYZER Inhaled Oxygen Concentration - - Weight 131.5 kg (290 lb) 10/19/2017 12:00 PM TELEVISION ANALYZER Height 188 cm (6' 2) 10/19/2017 12:00 PM TELEVISION ANALYZER Body Mass Index 37.23 10/19/2017 12:00 PM TELEVISION ANALYZER Plan of Treatment Health Maintenance Due Date Last Done Comments DIMITRY (AGES 45-75) - COL ON CA SCREENING 1952 COLON MONITORING 1952 COLONOSCOPY - COLON CA SCREENING 1952 CT COLONOGRAPHY - COLON CA SCREENING 1950 Colorectal Cancer Screening 1952 FIT - COLON CA SCREENING 1952 FLEX SIG - COLON CA SCREENING 1952 HEPATITIS C SCREENING 03/21/1970 DTAP/TDAP/TD VACCINES (1 - Tdap) 1971 PNEUMOCOCCAL VACCINE 50+ (1 of 1 - PCV) 2002 ZOSTER VACCINE (1 of 2) 2002 SCREENING FOR DIABETES 07/14/2020 07/14/2017 COVID-19 VACCINE (1 - 2023-2 5 season) 2024 DEPRESSION SCREENING 12/02/2024 INFLUENZA VACCINE (#1) 2025 Respiratory Syncytial Virus (RSV) Vaccine Pt: or over 60 yrs (1 - 1-dose 75+ series) 2027 HEPATITIS B VACCINE Aged Out No longe r eligible based on patient's age to complete this topic HIB VACCINE Aged Out No longer eligi ble based on patient's age to complete this topic HPV VACCINE Aged Out No longer eligi ble based on patient's age to complete this topic MENINGOCOCCAL (Group B) VACC INE SHARED DECISION-MAKING Aged Out No longer eligibl e based on patient's age to complete this topic MENINGOCOCCAL GROUPS A/C/Y/W VACCINE Aged Out No longer eligible b ased on patient's age to complete this topic Procedures Procedure Name Priority Date/Time Associated Diagnosis Comments GLUCOSE WHOLE BLOOD MONITOR - POINT OF CARE Routine 07/14/2017 6:13 PM CDT from Last 3 Months or Most Recently Relevant to Health Maintenance Results * (ABNORMAL) GLUCOSE WHOLE BLOOD MONITOR - POINT OF CARE (07/14/2017 6:13 PM CDT) Pathologist [facility] Glucose POCT 312(H) 70 - 99 mg/dL 07/15/2017 12:14 AM CDT [facility] Whole blood specimen (specimen) BLOOD SPECIMEN / Unknown 07/14/2017 6:13 PM CDT 07/15/2017 12:14 AM CDT Narrative [facility] - 07/15/2017 12:14 AM CDT Point of Care Test-results have been reviewed by caregiver. us Pete Soto MD LAB - POINT OF CARE ORDERABL ES Final Result [facility] [address] [place] [address], [facility] from Last 3 Months or Most Recently Relevant to Health Maintenance Insurance [facility] [id number] [id number] Care Teams Consulting Technical Manager Relationship Specialty Start Date End Date Fercho Santos DO PCP - General 09/12/22
--- OUTSIDE RECORDS SUMMARY | 2025-07-30 15:08 | XMS_ITS | Clinical Summary ---
Author Organization [facility] Address [address] [place] [address] Phone Care Team Providers Care Ug Designer Name Role Phone Provider, None Primary Care Provider Unavailabl e Allergies Active Allergy Reactions Criticality Noted Date Comments Amoxicillin-Pot Clavulanate Unknown 08/31/2020 Cyclobenzaprine Unknown 08/31/2020 Dulaglutide Unknown 08/31/2020 Elemental Sulfur Unknown 08/31/2020 Lisinopril Unknown 08/31/2020 Metformin Unknown 07/14/2017 Morphine Other (see Comments) 08/30/2020 keeps him awake Nitroglycerin Unknown 08/31/2020 Sulfa Antibiotics Unknown 08/30/2020 Wound Dressing Adhesive Unknown 08/31/2020 Medications aspirin 325 MG Tablet Take 325 mg by mouth daily. Active Magnesium 250 MG Tablet Take 250 mg by mouth daily. Active simvastatin (ZOCOR) 20 MG Tablet Take 20 mg by mouth nightly. Active Cholecalciferol (Vitamin D3) 1.25 MG (71604 UT) Capsule Take 1 Cap by mouth twice a week. Active atenolol (TENORMIN) 50 MG Tablet Take 50 mg by mouth daily. Active sertraline (ZOLOFT) 100 MG Tablet Take 100 mg by mouth daily. Active simethicone (MYLICON) 125 MG Chewable Tablet Take 125 mg by mouth 2 times daily as needed for Cramping or Flatulence. Active acetaminophen (TYLENOL) 500 MG Tablet Take 1,000 mg by mouth every 6 hours as needed for Mild or more severe pain. Active docusate sodium (COLACE) 100 MG Capsule Take 200 mg by mouth nightly as needed for Constipation - 1st line. Active pantoprazole (PROTONIX) 40 MG Pack Take 40 mg by mouth 2 times daily. Active Mirabegron ER (Myrbetriq) 25 MG TABLET SR 24 HR Take 25 mg by mouth daily. Active famotidine (PEPCID) 10 MG Tablet Take 10 mg by mouth daily. Active oxyCODONE-acetam inophen (PERCOCET) 5-325 MG Tablet Take 1-2 Tabs by mouth every 4 hours as needed for Moderate or more severe pain. Active amLODIPine (NORVASC) 5 MG Tablet Take 5 mg by mouth daily. Active ARTIFICIAL SALIVA MT Take 1 Dose by mouth 4 times daily as needed for Other (dry mouth). Active betamethasone dipropionate 0.05 % Cream Apply 1 Dose 3 times daily as needed for Other (psoarisis of forehead). Active Carbamide Peroxide-Saline (2CRisk EAR WAX CLEANSING SYSTEM OT) Place 1 Drop in both ears daily. Active Clotrimazole (EQL ANTIFUNGAL EX) Apply 1 Dose daily as needed for Other (toe, foot fungus). Active ferrous sulfate 325 (65 Fe) MG Tablet Take 325 mg by mouth daily. Active Ascorbic Acid (Vitamin C) 500 MG Capsule Take 1 Tab by mouth daily. Active cloNIDine (CATAPRES) 0.1 MG Tablet Take 0.1 mg by mouth 2 times daily. Active insulin regular human, CONCENTRATED, (HumuLIN R U-500 KwikPen) 500 UNIT/ML Solution Pen-injector 80 Units by Subcutaneous route every morning and evening. 80 units in the morning, 40 units at lunch 80 units at night Active insulin regular human, CONCENTRATED, (HumuLIN R U-500 KwikPen) 500 UNIT/ML Solution Pen-injector 40 Units by Subcutaneous route daily (before lunch). Active clopidogrel (PLAVIX) 75 MG Tablet Take 75 mg by mouth daily. Active Social History Tobacco Use Types Packs/Day Years Used Date Smoking Tobacco: Never Smokeless Tobacco: Never Tobacco Cessation:Counseling Given: No Alcohol Use Standard Drinks/Week Comments Not Currently 0 (1 standard drink = 0.6 oz pur e alcohol) Sex and Gender Information Value Date Recorded Sex Assigned at Not on file Legal Sex Male 3:17 PM CDT Gender Identity Not on file Sexual Orientation Not on file Last Filed Vital Signs Vital Sign Reading Time Taken Comments Blood Pressure 100/56 04/18/2023 10:57 AM CDT Pulse 43 04/18/2023 10:57 AM CDT Temperature 37 C (98.6 F) 10/04/2020 2:12 PM CONTRACTS ADVISOR Respiratory Rate 14 04/18/2023 10:57 AM CDT Oxygen Saturation 98% 04/18/2023 10:57 AM CDT Inhaled Oxygen Concentration - - Weight 99.8 kg (220 lb) 04/18/2023 10:57 AM CDT Height 167.6 cm (5' 6) 04/18/2023 10:57 AM CDT Body Mass Index 35.51 04/18/2023 10:57 AM CDT Plan of Treatment Health Maintenance Due Date Last Done Comments Hepatitis C Virus (HCV) Screening 1950 TdaP Immunization 1950 Cologuard 1997 Colonoscopy 1997 Colorectal Cancer Screening 1997 Immunochemical Fecal Occult Blood 1997 Zoster Immunization (2 of 3) 12/25/2013 10/30/2013 SARS-COV-2 Immunization ( season) 2024 08/09/2022, 11/21/2021, 03/20/2021, Additional history exists Influenza Immunization (#1) 08/02/202509/01, 09/22/2019, 09/01/2019, Additional history exists Respiratory Syncytial Virus (RSV) Immunization (Adult) (1 - 1-dose 75+ series) 2027 Pneumococcal Immunization (50+ years) Completed 08/09/2022 Hepatitis B Immunization Aged Out No longer eligible based on patient's age to complete this topic Human Papillomavirus (HPV) Immunization Aged Out No longer eligible based on patient's age to complete this topic Meningococcal Immunization (ACWY) Aged Out No longer eligible based on patient's age to complete this topic Rotavirus Immunization Aged Out No lo nger eligible based on patient's age to complete this topic [place] [address] [place] [address] MEDICARE MEDICARE C HUMANA Advance Directives * Full Code (Latest Code Status on File) Date Activated Date Inactivated Comments 09/13/2020 10:06 AM Care Teams Ug Designer Relationship Specialty Start Date End Date Provider, None [place] PCP - General 08/31/20
--- OUTSIDE RECORDS SUMMARY | 2025-07-30 15:09 | XMS_ITS | Encounter Summary ---
[facility] Organization [facility] Address 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
--- OUTSIDE RECORDS SUMMARY | 2025-07-30 15:09 | XMS_ITS | Encounter Summary ---
Author Organization [facility] Care Team Providers Care Combination Technician Name Role Phone Fercho Santos DO Primary Care Provider [phone] Melissa Andino Unavailable [phone] Drew aLi MD Unavailable Dorinda Nunez MD Unavailable Encounter Details Date Type Department Care Team (Latest Contact Info) Description 08/10/2010 Orders Only [facility] ProviderRae MD [address] [place] [id number] Social History Tobacco Use Types Packs/Day Years Used Date Smoking Tobacco: Never Assessed Sex and Gender Information Value Date Recorded Sex Assigned at Not on file 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 us Historical Provider [facility] Final Result documented in this encounter Visit Diagnoses Not on filedocumented in this encounter Additional Health Concerns Infection Onset Date Last Indicated Resolved Time COVID: Suspected Comment:ID reviewed patient, isolation can be discontinued. 03/26/2020 Myranda Varela 2020 03/25/202003/26/2020 11:30 AM CDT COVID: Suspected 07/05/2022 07/05/2022 07/05/2022 11:07 AM CDT documented as of this encounter Care Teams Combination Technician Relationship Specialty Start Date End Date Fercho Santos DO PCP - General 04/11/17 Melissa Andino PA Orthopedic Surgery 08/25/20 Drew Lai MD [address] [place] [address] Consulting Physician Cardiovascular Disease 07/08/22 [place] [address] [address] [address] Consulting Physician Cardiology 01/19/23 documented as of this encounter
--- OUTSIDE RECORDS SUMMARY | 2025-07-30 15:09 | XMS_ITS | Encounter Summary ---
Author Organization [facility] Care Team Providers Care Manufacturing Accountant Name Role Phone Fercho Santos DO Primary Care Provider [phone]- [phone] Melissa Andino Unavailable [phone] Drew Lai MD Unavailable Dorinda Nunez MD Unavailable Encounter Details Date Type Department Care Team (Latest Contact Info) Description 05/15/1965 Orders Only [facility] ProviderRae MD [address] [place] [address] Social History Tobacco Use Types Packs/Day Years Used Date Smoking Tobacco: Never Assessed Sex and Gender Information Value Date Recorded Sex Assigned at Not on file 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 Historical Provider [facility] Final Result * CARDIOLOGY REPORT (10/03/2016 12:00 AM CDT) [...] can be discontinued. 03/26/2020 Myranda Varela 2020 2020 03/26/2020 11:30 AM CDT COVID: Suspected 07/05/2022 07/05/2022 07/05/2022 11:07 AM CDT documented as of this encounter Care Teams Manufacturing Accountant Relationship Specialty Start Date End Date Fercho Santos DO PCP - General 04/11/17 Melissa Andino PA Orthopedic Surgery 08/25/20 Drew Lai MD [address] [place] [address] Consulting Physician Cardiovascular Disease 07/08/22 [place] [address] [address] Consulting Physician Cardiology 01/19/23 documented as of this encounter
--- OUTSIDE RECORDS SUMMARY | 2025-07-30 15:09 | XMS_ITS | Encounter Summary ---
Author Organization [facility] Care Team Providers Care Campus Wellness Coordinator Name Role Phone Fercho Santos DO Primary Care Provider [phone]- [phone] Melissa Andino Unavailable [phone] Drew Lai MD Unavailable Dorinda Nunez MD Unavailable Encounter Details Date Type Department Care Team (Latest Contact Info) Description 08/27/2014 Orders Only [facility] ProviderRae MD [address] [place] [address] Social History Tobacco Use Types Packs/Day Years Used Date Smoking Tobacco: Never Assessed Sex and Gender Information Value Date Recorded Sex Assigned at Not on file 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 us Historical Provider Final Res ult documented in this encounter Visit Diagnoses Not on filedocumented in this encounter Additional Health Concerns Infection Onset Date Last Indicated Resolved Time COVID: Suspected Comment:ID reviewed patient, isolation can be discontinued. 03/26/2020 Myranda Varela 2020 2020 03/26/2020 11:30 AM CDT COVID: Suspected 07/05/2022 07/05/2022 07/05/2022 11:07 AM CDT documented as of this encounter Care Teams Campus Wellness Coordinator Relationship Specialty Start Date End Date Fercho Santos DO PCP - General 04/11/17 Melissa Andino PA Orthopedic Surgery 08/25/20 Drew Lai MD [address] [place] [address] Consulting Physician Cardiovascular Disease 07/08/22 [place] [address] [address] Consulting Physician Cardiology 01/19/23 documented as of this encounter
--- OUTSIDE RECORDS SUMMARY | 2025-07-30 15:09 | XMS_ITS | Clinical Summary ---
Author Organization [facility] Address [address] [place] [address] Care Team Providers Care Screw Supervisor Name Role Phone Fercho Santos DO Primary Care Provider [phone] Melissa Andino Unavailable [phone] Drew Lai MD Unavailable Dorinda Nunez MD Unavailable Allergies Active Allergy Reactions Criticality Noted Date Comments Adhesive Rash Medium Adhesive Tape-Silicones Rash Medium Reaction: Rash, Amoxicillin-Pot Clavulanate Unknown Low 07/14/2017 Not sure just got sick Cyclobenzaprine Shortness of breath,Unknown High 07/14/2017 Reaction: Short of breath, Iodinated Contrast Media Hives High Reaction: Hives, Lisinopril Unknown High 10/19/2017 Morphine Other (See comments) Reaction: Insomnia, Nitroglycerin Unknown,Other (See comments) Low 08/25/2019 lower hr too quick Oxycodone Mental status changes High 08/28/2020 lethargy Sulfa Unknown Low Sulfa (Sulfonamide Antibiotics) Unknown 02/23/2014 Dulaglutide Vomiting Low 09/17/2017 Medications blood glucose diagnostic (ONETOUCH VERIO) strip USE TO CHECK GLUCOSE 4 X DAILY DX E11.65 and Z79.4 360 each [address] (PROTONIX) 40 mg EC tabletIndications :Treatment of Non-Bleeding Gastric Disorder Take 40 mg by mouth daily Active sertraline (ZOLOFT) 100 mg tablet Take 1 tablet (100 mg total) by mouth nightly 0 Active HumuLIN R U-500, Conc, Kwikpen 500 unit/mL (3 mL) CONCENTRATED injection Inject under the skin 3 (three) times a day with meals Per Sliding Scale 0 Active gabapentin (NEURONTIN) 100 mg capsule Take 1 capsule (100 mg total) by mouth 3 (three) times a day 90 capsule 1 1 Active calcitRIOL (ROCALTROL) 0.25 mcg capsule Take 0.25 mcg by mouth 2 (two) times a day 1 Active FreeStyle Dawit 2 Sensor kit USE DIRECTED. FOR CONTINUOUS GLUCOSE MONITORING, CHANGE SENSOR EVERY 14 DAYS 1 Active oxybutynin XL (DITROPAN-XL) 5 mg 24 hr tablet Take 5 mg by mouth 2 (two) times a day Active atorvastatin (LIPITOR) 80 mg tablet 1 tablet daily 2 Active aspirin 81 mg chewable tablet Take 1 tablet (81 mg total) by mouth daily 30 tablet 11 2 Active ticagrelor (BRILINTA) 90 mg tablet Take 1 tablet (90 mg total) by mouth 2 (two) times a day 60 tablet 11 2 Active metoprolol tartrate (LOPRESSOR) 25 mg immediate release tablet Take 1 tablet (25 mg total) by mouth 2 (two) times a day 60 tablet 11 2 Active pen needle, diabetic 32 gauge x 5/32 needle BD Rebeca 2nd Gen Pen Needle 32 gauge x 5/32 INJECT INSULIN UP TO 4 TIMES DAILY Active pen needle, diabetic 32 gauge x 5/32 needle BD Rebeca 2nd Gen Pen Needle 32 gauge x 5/32 Active flash glucose sensor (FreeStyle Dawit 2 Sensor) kit FreeStyle Dawit 2 Sensor kit change sensor every 14 days Active losartan (COZAAR) 50 mg tablet Take 25 mg by mouth daily 2 Active tamsulosin (FLOMAX) 0.4 mg extended release capsule Take 1 capsule by mouth nightly 2 Active potassium chloride ER (KLOR-CON) 20 mEq CR tablet Take 1 tablet by mouth daily Active Active Problems Problem Noted Date Diagnosed Date CAD (coronary artery disease) 01/10/2023 Overview (01/10/2023): Added automatically from request for surgery [id number] Acute chest pain 07/05/2022 Aftercare following right knee joint replacement surgery 09/09/2020 Type 2 diabetes mellitus wit h hyperglycemia, with long-term current use of insulin 08/27/2020 Generalized weakness 08/27/2020 Non-intractable vomiting with nausea 08/27/2020 Essential hypertension 08/27/2020 Hx of total knee arthroplasty, right 08/27/2020 IRAIDA (obstructive sleep apnea) 08/27/2020 Noncompliance with CPAP treatment 08/27/2020 Hypersomnia 08/27/2020 Generalized abdominal pain 08/27/2020 Constipation 08/27/2020 Ileus, postoperative 04/03/2020 COVID-19 virus not detected 03/31/2020 Small bowel obstruction due to adhesions 020 Overview (2020): Added automatically from request for surgery [id number] MARCIE (acute kidney injury) 01/13/2020 Acute upper respiratory infection 08/25/2019 Aneurysm of thoracic aorta 08/25/2019 Dehydration 08/25/2019 Diverticulitis of small intestine 08/25/2019 Gastroenteritis 08/25/2019 Gastroesophageal reflux disease 08/25/2019 Hyperkalemia 08/25/2019 Skin tag 08/25/2019 Partial small bowel obstruction 08/25/2019 Urinary tract infectious disease 08/25/2019 Uncontrolled type 2 diabetes mellitus with hyperglycemia, with long-term current use of insulin 09/17/2017 History of surgical procedure 05/19/2017 Neuropathy 03/19/2017 Essential hypertension 01/04/2017 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 Hepatitis B virus infection 01/04/2017 Rib pain 01/04/2017 Overview (03/14/2018): Description: left Chronic pain 01/04/2017 Obesity 07/06/2016 History of total knee arthroplasty 04/27/2016 Idiopathic osteoarthritis 04/27/2016 Hyperlipidemia 04/23/2016 DM (diabetes mellitus) 04/20/2016 Chest pain 04/20/2016 Coarctation of aorta 04/20/2016 Hypertensive heart disease without heart failure 04/20/2016 Renal insufficiency 04/20/2016 Pain in lower limb 04/19/2015 Resolved Problems Problem Noted Date Diagnosed Date Resolved Date Primary osteoarthritis of right knee 08/11/2020 09/08/2020 Overview (08/11/2020): Added automatically from request for surgery [id number] Encounters Date Type Department Care Team Description 07/16/2025 3:14 AM CDT - 07/16/2025 3:31 PM CDT Emergency [facility] Emergency Department [address] [place] [address] Lorenzo Jarrett MD PhD Suarez, MD Sofie García Emily Jean, MD Abdominal pain (Primary Dx); Chronic kidney disease, unspecified CKD stage; Primary hypertension; History of small bowel obstruction Discharge Disposition: Discharge to home or self care from Last 3 Months Immunizations Immunization Administration Dates Next Due Influenza, Trivalent, Preservative Free, Intramu scular 11/10/2014 Influenza, Unspecified 09/01/2019 Pfizer SARS-CoV-2 Monovalent Vaccination (12+ Yrs) PURPLE 03/20/2021,02/20/2021 ZOSTER LIVE 10/30/2013 Surgical History Surgery Date Site/Laterality Comments INCISIONAL HERNIA REPAIR 10/09/2016 open VHR with AWR TOTAL KNEE ARTHROPLASTY Bilateral APPENDECTOMY CHOLECYSTECTOMY COARCTATION OF AORTA EXCISION 12/02/1964 - 12/01/1965 CATARACT EXTRACTION EXPLORATORY LAPAROTOMY 03/28/2020 N/A Ex Lap, YANI CARDIAC CATHETERIZATION KNEE SURGERY Bilateral total of 12 surgeries ESOPHAGOGASTRODUODENOSCOPY Medical History Medical History Date Comments Hypertension Hypercholesteremia Peripheral neuropathy Diabetes mellitus (HCC) Infectious viral hepatitis Depression SBO (small bowel obstruction) (HCC) post op Sleep apnea Type 2 diabetes mellitus CAD (coronary artery disease) Peripheral neuropathy BPH (benign prostatic hyperplasia) Renal insufficiency Non-STEMI (non-ST elevated m yocardial infarction) (HCC) Claustrophobia SOB (shortness of breath) GERD (gastroesophageal reflux disease) Carotid artery disease Left [place] tid artery blockage Family History Medical History Relation Name Comments No Known Problems Father Diabetes Mother Diabetes Sister Relation Name Status Comments Father Mother Sister Social History Tobacco Use Types Packs/Day Years Used Date Smoking Tobacco: Never Passive Smoke Exposure: Past Smokeless Tobacco: Never Tobacco Cessation:Counseling Given: Not Answered Alcohol Use Standard Drinks/Week Comments Never 0 (1 standard drink = 0.6 oz pur e alcohol) Social Connection and Isolation Panel Answer Date Recorded In a typical week, how many times do you talk on the phone with family, friends, or neighbors? More than three times a week 07/06/2022 How often do you get togethe r with friends or relatives? More than three times a week 07/06/2022 How often do you attend chur or jewish services? More than 4 times per year 07/06/2022 Do you belong to any clubs o r organizations such as yazidi groups, unions, fraternal or athletic groups, or school groups? No 07/06/2022 How often do you attend meet ings of the clubs or organizations you belong to? Never 07/06/2022 Are you , , di vorced, , never , or living with a partner? 07/06/2022 AUDIT-C Answer Date Recorded Q1: How often do you have a drink containing alcohol? Never 07/05/2022 Q2: How many drinks containi ng alcohol do you have on a typical day when you are drinking? Patient does not drink Q3: How often do you have si x or more drinks on one occasion? Never 07/05/2022 Overall Financial Resource Strain (CARDIA) Answe r Date Recorded How hard is it for you to pa y for the very basics like food, housing, medical care, and heating? Not hard at all 07/06/2022 PHQ-2 Answer Date Recorded PHQ-2 Total Score (If total score is 3 or more points, staff should administer the PHQ-9) 0 08/24/2020 Hunger Vital Sign Answer Date Recorded Within the past 12 months, y ou worried that your food would run out before you got the money to buy more. Never true 07/06/20 22 Within the past 12 months, t he food you bought just didn't last and you didn't have money to get more. Never true 07/06/2022 PRAPARE - Transportation Answer Date Re corded In the past 12 months, has l ack of transportation kept you from medical appointments or from getting medications? No 04/2022 In the past 12 months, has l ack of transportation kept you from meetings, work, or from getting things needed for daily living? No 07/06/2022 Housing Stability Vital Sign Answer Malachi e Recorded In the last 12 months, was t here a time when you were not able to pay the mortgage or rent on time? No 07/06/2022 In the last 12 months, how many places have you lived? 1 07/06/2022 In the last 12 months, was t here a time when you did not have a steady place to sleep or slept in a custodial (including now)? No 07/06/2022 Personal Safety Answer Date Recorded Have you ever been in or are you currently in a harmful physical or emotional relationship or is someone making you feel afraid or unsafe? Denies 07/15/2025 Sex and Gender Information Value Date Recorded Sex Assigned at Not on file Legal Sex Male 3:17 AM [employer]ING [employer] Gender Identity Not on file Sexual Orientation Not on file Obstetrics History Last Filed Vital Signs Vital Sign Reading Time Taken Comments Blood Pressure 126/76 07/16/2025 12:00 PM CDT Pulse 71 07/16/2025 12:00 PM CDT Temperature 36.2 C (97.2 F) 07/16/2025 2:10 AM CDT Respiratory Rate 16 07/16/2025 12:00 PM CDT Oxygen Saturation 99% 07/16/2025 12:00 PM CDT Inhaled Oxygen Concentration - - Weight 117.9 kg (260 lb) 07/15/2025 9:00 PM CDT Height 188 cm (6' 2) 07/15/2025 9:00 PM CDT Body Mass Index 33.38 07/15/2025 9:00 PM CDT Plan of Treatment Health Maintenance Due Date Last Done Comments Albumin Creatinine Ratio, Urine 1950 Colon Cancer Screening-Colonoscopy 1950 Hepatitis C Screening 1950 DTaP/Tdap/Td Vaccine (1 - Tdap) 1963 Pneumococcal vaccine 65+ (1 of 2 - PCV) 1971 Zoster Vaccine (2 of 3) 12/25/2013 10/30/2013 Well Visit 65+ 2017 Foot Exam 10/27/2019 10/27/2018, 09/01, 09/17/2017 Dilated Eye Exam 12/05/2019 12/05/2018, 07/2018, 03/05/2017 Depression Screening 08/11/2021 08/11/2020, 12/10/2017, 09/17/2017 Hemoglobin A1C 03/08/2022 09/07/2021, 08/02, 07/21/2020, Additional history exists Lipid Panel 07/06/2023 07/06/2022, 03/03, 10/28/2019, Additional history exists Fall Risk Assessment 01/18/2024 01/18/2023 Covid-19 Vaccine (3 - 2023-2 5 season) 2024 03/20/2021, 02/20/2021 Influenza Vaccine (#1) 2025 09/01/2019, 2013 eGFR 07/15/2026 07/15/2025, 01/02, 01/18/2023, Additional history exists Abdominal Aortic Aneurysm (A AA) Screen Completed 07/16/2025, 08/26/2020, 07/16/2020, Additional history exists Medical Devices Implanted Type Area [employer] Device Identifier Shelf Expiration Date Model / Serial / Lot [employer] 6195-1-001 Cement Bone Simplex Gentamicin High Viscosity 40gm - [id number] Implanted:Qty: 2 on 08/24/2020 by Gregory Arriola MD at [facility] Right: Knee [employer] 08/31/2021 6195-1-001 / / [id number] Description:Both packages griffin ve same lot number and expiration date [employer] [id number] Attune S+ Cement Fix Bearing Knee 8 Baseplate Tibial - [id number] Implanted:Qty: 1 on 08/24/2020 by Gregory Arriola MD at [facility] Right: Knee [employer] 05/01/2030 [id number] / / [id number] [employer] [id number] Attune Cemented Posterior Stabilize Knee Right 7 Component - [id number] Implanted:Qty: 1 on 08/24/2020 by Gregory Arriola MD at [facility] Right: Knee [employer] 01/01/2030 [id number] / / [id number] [employer] [id number] Attune 6mm Posterior Stabilize Fix Bearing Knee 7 Insert Tibial - [id number] Implanted:Qty: 1 on 08/24/2020 by Gregory Arriola MD at [facility] Right: Knee [employer] 10/01/2023 [id number] / / [id number] [employer] Jenny Synergy Xd Monorail 4.5mm 24mm 144cm Delivery System 1 Access [id number] - [id number] Implanted:Qty: 1 on 01/18/2023 by Suyapa Lakhani MD at [facility] [employer] 01/29/2024 [id number] / / [id number] [employer] Device Clsr Perclose Prostyle Sut-Mediatd Closure-Repair Sys [id number] - [id number] Implanted:Qty: 1 on 01/18/2023 by Suyapa Lakhani MD at [facility] [employer] 10/01/2024 [id number] / / [id number] Procedures Procedure Name Priority Date/Time Associated Diagnosis Comments POCT GLUCOSE DEVICE Routine 07/16/2025 3 :19 PM CDT POCT LACTATE - DEVICE Routine 07/16/2025 1:33 PM CDT POCT GLUCOSE DEVICE Routine 07/16/2025 7 :17 AM CDT TROPONIN I HIGH-SENSITIVITY 2-HOUR Timed 07/16/2025 6:[address] ABDOMEN PELVIS WO CONTRAST ED 07/16/2025 4:30 AM CDT ECG 12-LEAD Routine 07/16/2025 3:55 AM CDT POCT GLUCOSE DEVICE Routine 07/16/2025 3 :52 AM CDT TROPONIN I HIGH-SENSITIVITY SERIES (BASELINE, 2HR, 4HR, 6HR) STAT 07/16/2025 3:50 AM CDT XR KUB ED 07/16/2025 1:23 AM CDT EGFR STAT 07/15/2025 11:39 PM CDT DIFFERENTIAL AUTO STAT 07/15/2025 11: 39 PM CDT LIPASE STAT 07/15/2025 11:39 PM CDT COMPREHENSIVE METABOLIC PANEL STAT 07/15/2025 11:39 PM CDT CBC WITH AUTO DIFFERENTIAL STAT 07/15/2025 11:39 PM CDT LIPID PANEL Routine 07/06/2022 10:45 AM CDT HEMOGLOBIN A1C Routine 09/07/2021 1:19 PM CDT Pain due to total left knee replacement, initial encounter DIABETES EYE EXAM Routine 12/05/2018 DIABETES FOOT EXAM Routine 10/27/2018 from Last 3 Months or Most Recently Relevant to Health Maintenance Results * POCT glucose (07/16/2025 3:19 PM CDT) Glucose, POC 78 70 - 199 mg/dL Blood 07/16/2025 3:19 PM CDT 07/16/2025 3:19 PM CDT us Rachel Carrizales MD LAB POCT ORDERABLES - DEVICE Final Result [facility] Department [place] [address] * POCT lactate (07/16/2025 1:33 PM CDT) Lactate POC i-STAT 1.2 0.7 - 2.0 mmol/L Blood 07/16/2025 1:33 PM CDT 07/16/2025 1:33 PM CDT us Raza Herring MD LAB POCT ORDERABLES - DEV ICE Final Result [facility] Department [place] [address] * POCT glucose (07/16/2025 7:17 AM CDT) Glucose, POC 173 70 - 199 mg/dL Blood 07/16/2025 7:17 AM CDT 07/16/2025 7:17 AM CDT us Lorenzo Jarrett MD PhD LAB POCT ORDERABLES - DEVICE Final Result Performing Organization Address [facility] [place] [address] * Troponin I high-sensitivity 2-hour (07/16/2025 6:33 AM CDT) Pathologist [facility] Trop I hs 24 <=35 ng/L Comment: Interpretive Data For further hscTnI resources including the diagnostic algorithm and an aid in interpretation, copy and paste this link: [email or web address].[email or web address]/show/[email or web address] Current Interpretive Data last revised 2020. Trop I hs delta 0 ng/L [facility] Trop I hs interp Insignificant [facility] Blood 07/16/2025 6:33 AM CDT 07/16/2025 6:51 AM CDT Mehrdad Crawford MD LAB BLOOD ORDERABLES Fin al Result Performing Organization Address [facility] Co de Phone Number [facility] Department [place] [address] * CT Abdomen Pelvis WO Contrast (07/16/2025 4:30 AM CDT) Anatomical Region Laterality Modality Body N/A Computed Tomogra phy 07/16/2025 4:37 AM CDT Impressions 07/16/2025 7:23 AM CDT No acute abnormality in abdomen or pelvis. Dictated by: Suleiman You MD The radiology attending physician has personally reviewed this study, and had reviewed and/or edited this written report and agrees with it. Electronically signed by: Erasto Watkins M.D. Narrative 07/16/2025 7:23 AM CDT EXAMINATION: CT of the abdomen and pelvis without intravenous contrast. HISTORY: Concern for bowel obstruction, history of prior obstruction and bowel resections. TECHNIQUE: Transaxial computed tomographic images of the abdomen and pelvis were obtained without contrast according to standard protocol. COMPARISON: Multiple prior studies most recently CT dated 04/19/2021.. FINDINGS: Minimal atelectasis or scarring in the right middle lobe. Normal noncontrast appearance of the liver. Cholecystectomy. No intrahepatic or extra hepatic biliary ductal dilation. Normal spleen, pancreas, and adrenal glands. No hydronephrosis or renal calculi. Unchanged mild atrophy of the right kidney. Too small to characterize bilateral hypoattenuating renal lesions likely represent cysts. Postsurgical changes of prior partial small bowel resection. Appendix is surgically absent. Normal caliber small and large bowel without evidence of obstruction or bowel wall thickening. Normal urinary bladder. No ascites or organized fluid collection. No pneumoperitoneum. No intra-abdominal or pelvic lymphadenopathy. Normal caliber intra-abdominal aorta with mild calcified atherosclerosis. No suspicious osseous lesions. Procedure Note Erasto Watkins MD - 07/16/2025 EXAMINATION: CT of the abdomen and pelvis without intravenous contrast. HISTORY: Concern for bowel obstruction, history of prior obstruction and bowel resections. TECHNIQUE: Transaxial computed tomographic images of the abdomen and pelvis were obtained without contrast according to standard protocol. COMPARISON: Multiple prior studies most recently CT dated 04/19/2021.. FINDINGS: Minimal atelectasis or scarring in the right middle lobe. Normal noncontrast appearance of the liver. Cholecystectomy. No intrahepatic or extra hepatic biliary ductal dilation. Normal spleen, pancreas, and adrenal glands. No hydronephrosis or renal calculi. Unchanged mild atrophy of the right kidney. Too small to characterize bilateral hypoattenuating renal lesions likely represent cysts. Postsurgical changes of prior partial small bowel resection. Appendix is surgically absent. Normal caliber small and large bowel without evidence of obstruction or bowel wall thickening. Normal urinary bladder. No ascites or organized fluid collection. No pneumoperitoneum. No intra-abdominal or pelvic lymphadenopathy. Normal caliber intra-abdominal aorta with mild calcified atherosclerosis. No suspicious osseous lesions. IMPRESSION: No acute abnormality in abdomen or pelvis. Dictated by: Suleiman You MD The radiology attending physician has personally reviewed this study, and had reviewed and/or edited this written report and agrees with it. Electronically signed by: Erasto Watkins M.D. Mehrdad Crawford MD IMG CT PROCEDURES Final Result * ECG 12-LEAD (07/16/2025 3:55 AM CDT) Narrative [facility] - 07/16/2025 3:55 AM CDT Lorenzo Jarrett MD PhD 07/16/2025 3:56 AM ECG 12 lead Date/Time: 07/16/2025 3:55 AM Performed by: Lorenzo Jarrett MD PhD Authorized by: Mehrdad Crawford MD Comments: (03:42) sinus rhythm at 84 beats per minute; PACs; normal axis; normal intervals; nonspecific T-wave abnormality. Nonspecific EKG. Procedure Note Lorenzo Jarrett MD PhD - 07/16/2025 3:55 AM CDT Procedure ECG 12 lead Date/Time: 07/16/2025 3:55 AM Performed by: Lorenzo Jarrett MD PhD Authorized by: Mehrdad Crawford MD Comments: (03:42) sinus rhythm at 84 beats per minute; PACs; normal axis; normalintervals; nonspecific T-wave abnormality. Nonspecific EKG. Lorenzo Jarrett MD PhD 07/16/25 [id number] Mehrdad Crawford MD ECG ORDERABLES Final Re sult [facility] * POCT glucose (07/16/2025 3:52 AM CDT) Glucose, POC 161 70 - 199 mg/dL Blood 07/16/2025 3:52 AM CDT 07/16/2025 3:52 AM CDT Lorenzo Jarrett MD PhD LAB POCT ORDERABLES - DEVICE Final Result Performing Organization Address [facility] de Phone Number [facility] Department [place] [address] * Troponin I high-sensitivity series (baseline, 2hr, 4hr, 6hr) (07/16/2025 3:50 AM CDT) Trop I hs 24 <=35 ng/L Comment: Interpretive Data For further hscTnI resources including the diagnostic algorithm and an aid in interpretation, copy and paste this link: [email or web address].[email or web address]/show/[email or web address] Current Interpretive Data last revised 2020. Blood 07/16/2025 3:50 AM CDT 07/16/2025 4:18 AM CDT Mehrdad Crawford MD LAB BLOOD ORDERABLES Fin al Result Performing Organization Address [facility] de Phone Number [facility] [place] [address] * XR Kub (Abd 1 View) (07/16/2025 1:23 AM CDT) Anatomical Region Laterality Modality Body, Abdomen N/A Computed Radiogr aphy 07/16/2025 1:36 AM CDT Impressions 07/16/2025 7:19 AM CDT Cholecystectomy clips. Nonobstructive bowel gas pattern. Scattered stool throughout the colon. Dictated by: Suleiman You MD The radiology attending physician has personally reviewed this study, and had reviewed and/or edited this written report and agrees with it. Electronically signed by: Erasto Watkins M.D. Narrative 07/16/2025 7:19 AM CDT EXAMINATION: Abdomen, one view. HISTORY: Right upper quadrant abdominal pain COMPARISON: Multiple prior studies most recently dated 08/26/2020 Procedure Note Erasto Watkins MD - 07/16/2025 EXAMINATION: Abdomen, one view. HISTORY: Right upper quadrant abdominal pain COMPARISON: Multiple prior studies most recently dated 08/26/2020 IMPRESSION: Cholecystectomy clips. Nonobstructive bowel gas pattern. Scattered stool throughout the colon. Dictated by: Suleiman You MD The radiology attending physician has personally reviewed this study, and had reviewed and/or edited this written report and agrees with it. Electronically signed by: Erasto Watkins M.D. us Mague Armenta MD IMG XR PROCEDURES Final Re sult * (ABNORMAL) eGFR (07/15/2025 11:39 PM CDT) eGFR 56(L) >=60 mL/min/1. 73 m2 Comment: Interpretive Data Reference Interval Normal >/= 90 mL/min/1.73m2 Mildly decreased* 60 - 89 mL/min/1.73m2 Mildly to moderately decreased 45 - 59 mL/min/1.73m2 Moderately to severely decreased 30 - 44 mL/min/1.73m2 Severely decreased 15 - 29 mL/min/1.73m2 Kidney Failure < 15 mL/min/1.73m2 *Relative to young adult level Estimated glomerular filtration rate is determined by the 2020 CKD-EPI equation recommended by the National Kid[employer] (A Unifying Approach to GFR Estimation: Recommendations of the NKF-ASK Task Force on Reassessing the Inclusion of Race in Diagnosing Kidney Disease, JASN 2020). The CKD-EPI equation should not be used for patients with unstable renal function and has not been validated in children and those over 70. Current interpretive data was last reviewed 2021. Blood 07/15/2025 11:3 9 PM CDT 07/16/2025 12:23 AM CDT us Lorenzo Jarrett MD PhD LAB BLOOD ORDERABLE S Final Result [facility] Department of Laboratories [place], [place] [id number] * Differential, auto (07/15/2025 11:39 PM CDT) Neutrophil abs 4.08 1.50 - 6.50 K/cumm Imm gran abs 0.04 0.00 - 0.10 K/cumm [facility] Lymphocyte abs 1.44 0.80 - 3.30 K/cumm [facility] Monocyte abs 0.49 0.20 - 0.80 K/cumm [facility] Eosinophil abs 0.42 0.00 - 0.50 K/cumm [facility] Basophil abs 0.07 0.00 - 0.10 K/cumm [facility] Neutrophil pct 62.4 % [facility] Comment: Interpretive Data Percent cell count reference ranges are not reported, since discordance with absolute values may lead to misinterpretation of CBC data. Current Interpretive Data was last revised on 2018. Imm gran pct 0.6 % [facility] Comment: Interpretive Data Percent cell count reference ranges are not reported, since discordance with absolute values may lead to misinterpretation of CBC data. Current Interpretive Data was last revised on 2018. Lymphocyte pct 22.0 % [facility] Comment: Interpretive Data Percent cell count reference ranges are not reported, since discordance with absolute values may lead to misinterpretation of CBC data. Current Interpretive Data was last revised on 2018. Monocyte pct 7.5 % [facility] Comment: Interpretive Data Percent cell count reference ranges are not reported, since discordance with absolute values may lead to misinterpretation of CBC data. Current Interpretive Data was last revised on 2018. Eosinophil pct 6.4 % [facility] Comment: Interpretive Data Percent cell count reference ranges are not reported, since discordance with absolute values may lead to misinterpretation of CBC data. Current Interpretive Data was last revised on 2018. Basophil pct 1.1 % [facility] Comment: Interpretive Data Percent cell count reference ranges are not reported, since discordance with absolute values may lead to misinterpretation of CBC data. Current Interpretive Data was last revised on 2018. Blood 07/15/2025 11:3 9 PM CDT 07/16/2025 12:23 AM CDT us Lorenzo Jarrett MD PhD LAB BLOOD ORDERABLE S Final Result [facility] Department [place] [address] * CBC with auto differential (07/15/2025 11:39 PM CDT) [facility] WBC 6.52 3.80 - 9.90 K/cumm Hgb 16.3 13.0 - 17.5 g/dL [facility] Hct 46.4 38.9 - 50.3 % [facility] Plt 172 150 - 400 K/cumm [facility] MPV 10.8 9.1 - 12.3 fL [facility] RBC 5.24 4.30 - 5.80 M/cumm [facility] MCV 88.5 81.3 - 96.4 fL [facility] MCH 31.1 27.1 - 33.3 pg [facility] MCHC 35.1 32.3 - 35.7 g/dL [facility] RDW CV 12.8 11.1 - 14.9 % [facility] RDW SD 41.1 35.7 - 48.1 fL [facility] NRBC abs 0.00 0.00 - 0.01 K/cumm [facility] Blood Venous blood specimen / Unknown 07/15/2025 11:39 PM CDT 07/16/2025 12:23 AM CDT us Lorenzo Jarrett MD PhD LAB BLOOD ORDERABLE S Final Result [facility] Department [place] [address] * Lipase (07/15/2025 11:39 PM CDT) [facility] Lipase 16 10 - 99 Units/L Blood Venous blood specimen / Unknown 07/15/2025 11:39 PM CDT 07/16/2025 12:23 AM CDT us Lorenzo Jarrett MD PhD LAB BLOOD ORDERABLE S Final Result [facility] Department [place] [address] * (ABNORMAL) Comprehensive metabolic panel (07/15/2025 11:39 PM CDT) Sodium 144 135 - 145 mmol/L Potassium, pl 3.9 3.3 - 4.9 mmol/L [facility] Chloride 103 97 - 110 mmol/L [facility] CO2 30 22 - 32 mmol/L [facility] Anion gap 11 2 - 15 mmol/L [facility] BUN 24 6 - 25 mg/dL [facility] Creatinine 1.34(H) 0.80 - 1.30 mg/dL [facility] Glucose 116 70 - 199 mg/dL [facility] Comment: Interpretive Data Fasting glucose >/= 126 mg/dl is diagnostic for diabetes. Fasting is defined as no caloric intake for at least 8 hours. Fasting glucose between 100 mg/dl to 125 mg/dl is diagnostic of prediabetes. In a patient with classic symptoms of hyperglycemia or hyperglycemic crisis, a random glucose >/= 200 mg/dl is diagnostic for diabetes. In the absence of unequivocal hyperglycemia, results should be confirmed by repeat testing. The classification and Diagnosis of Diabetes Diabetes Care 2021; 46: S19-S40. Current interpretive data was last revised 2022. Calcium 9.8 8.5 - 10.3 mg/dL [facility] Bilirubin, total 0.4 0.1 - 1.2 mg/dL [facility] Protein, pl 7.3 6.5 - 8.5 g/dL [facility] Albumin 4.4 3.5 - 5.0 g/dL [facility] Alk phos 125 40 - 130 Units/L [facility] ALT 30 7 - 55 Units/L [facility] AST 25 10 - 50 Units/L [facility] Blood 07/15/2025 11:3 9 PM CDT 07/16/2025 12:23 AM CDT us Lorenzo Jarrett MD PhD LAB BLOOD ORDERABLE S Final Result [facility] Department [place] [address] * (ABNORMAL) Lipid panel (07/06/2022 10:45 AM CDT) Cholesterol 149 30 - 199 mg/dL [facility] Comment: Interpretive Data Ages < or = 19 years Acceptable: <170 mg/dL Borderline high: 170-199 mg/dL High: >or= 200 mg/dL Ages > or = 20 years Desirable: <200 mg/dL Borderline high: 200-239 mg/dL High: >or= 240 mg/dL Literature References: 1. Expert Panel on Integrated Guidelines for Cardiovascular Health and Risk Reduction in Children and Adolescents. Pediatrics 2011;128:S213 2. NCEP Expert Panel. Circulation 2004;110:227 Current Interpretive Data was last revised on 2018. Triglycerides 212(H) <=149 mg/dL [facility] Comment: Interpretive Data Ages < or = 9 years Acceptable: <75 mg/dL Borderline high: 75-99 mg/dL High: >or= 100 mg/dL Ages 10 to 20 years Acceptable: <90 mg/dL Borderline high: 90-129 mg/dL High: >or= 130 mg/dL Ages > or = 20 years Desirable: <150 mg/dL Borderline high: 150-199 mg/dL High: 200-499 mg/dL Very high: >or= 499 mg/dL Literature References: 1. Expert Panel on Integrated Guidelines for Cardiovascular Health and Risk Reduction in Children and Adolescents. Pediatrics 2011;128:S213 2. NCEP Expert Panel. Circulation 2004;110:227 Current Interpretive Data was last revised on 2018. HDL 28(L) >=40 mg/dL [facility] Comment: Interpretive Data Ages < or = 19 years Acceptable: >45 mg/dL Borderline low: 40-45 mg/dL Low: <40 mg/dL Ages > or = 20 years Desirable: >or= 60 mg/dL Low: <40 mg/dL Literature References: 1. Expert Panel on Integrated Guidelines for Cardiovascular Health and Risk Reduction in Children and Adolescents. Pediatrics 2011;128:S213 2. NCEP Expert Panel. Circulation 2004;110:227 Current Interpretive Data was last revised on 2018. LDL, calculated 79 <=129 mg/dL [facility] Comment: Interpretive Data Ages < or = 19 years Acceptable: <110 mg/dL Borderline high: 110-129 mg/dL High: >or= 130 mg/dL Ages > or = 20 years Optimal: <100 mg/dL Near optimal: 100-129 mg/dL Borderline high: 130-159 mg/dL High: >160 mg/dL Literature References: 1. Expert Panel on Integrated Guidelines for Cardiovascular Health and Risk Reduction in Children and Adolescents. Pediatrics 2011;128:S213 2. NCEP Expert Panel. Circulation 2004;110:227 Current Interpretive Data was last revised on 2018. Non-HDL Cholesterol 121 mg/dL [facility] Comment: Interpretive Data Ages < or = 19 years Acceptable: <120 mg/dL Borderline high: 120-144 mg/dL High: >145 mg/dL Ages > or = 20 years When triglycerides are >200 mg/dL, Non-HDL cholesterol is a secondary target of therapy with treatment goals that are 30 mg/dL greater than the LDL cholesterol target. Literature References: 1. Expert Panel on Integrated Guidelines for Cardiovascular Health and Risk Reduction in Children and Adolescents. Pediatrics 2011;128:S213 2. NCEP Expert Panel. Circulation 2004;110:227 Current Interpretive Data was last revised on 2018. Chol/HDL ratio 5 [facility] Blood 07/06/2022 10:4 5 AM CDT 07/06/2022 10:56 AM CDT Maggi Pineda PEARL FISHERMAN LAB BLOOD ORDERABLES Final Result [facility] [address] Department [place] [address] * (ABNORMAL) Hemoglobin A1c (09/07/2021 1:19 PM CDT) Hgb A1C 8.5(H) 4.0 - 5.6 % [facility] Estimated Average Glucose 197 mg/dL [facility] Comment: The ADA recommends reporting an estimated Average Glucose (eAG) with all Hemoglobin A1c results using the equation derived from a study of 507 normal and diabetic adults. Minority populations were underrepresented and children were not included. (Diabetes Care 31:0164-1135, 2008). The eAG is not equivalent to a fasting glucose. Blood 09/07/2021 1:19 PM CDT 09/07/2021 3:18 PM CDT us Gregory Arriola MD LAB BLOOD ORDERABLES Fin al Result [facility] Department [place] [address] * DIABETES EYE EXAM (12/05/2018) Diabetic Eye Exam Unknown Historical Provider HEALTH MAINTENANCE Final Result * DIABETES FOOT EXAM (10/27/2018) Diabetic Foot Exam Normal Historical Provider HEALTH MAINTENANCE Final Result from Last 3 Months or Most Recently Relevant to Health Maintenance Insurance [employer] MEDICARE HMO AETNA MEDICARE GOLD [facility] TRADITIONAL MEDICARE AETNA MEDICARE GOLD Advance Directives For more information, please contact: [phone] Documents on File Type Date Recorded 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 ADVANCE DIRECTIVE 10/29/2017 2:12 PM ADVANCE DIRECTIVE 08/26/2017 Advance Di rective Checklist * Full Code (Latest Code Status on File) Date Activated Date Inactivated Comments 01/18/2023 12:24 PM 01/19/2023 3:23 PM * Full Code Date Activated Date Inactivated Comments 07/05/2022 3:34 PM 07/10/2022 8:29 PM * Full Code Date Activated Date Inactivated Comments 08/27/2020 3:19 PM 08/29/2020 5:54 PM * Full Code Date Activated Date Inactivated Comments 08/24/2020 11:28 AM 08/25/2020 7:20 PM * Full Code Date Activated Date Inactivated Comments 07/16/2020 7:40 PM 07/18/2020 7:22 PM Care Teams Screw Supervisor Relationship Specialty Start Date End Date Fercho Santos DO PCP - General 04/11/17 Melissa Andino PA Orthopedic Surgery 08/25/20 Drew Lai MD [address] [place] [address] Consulting Physician Cardiovascular Disease 07/08/22 [place] [id number] [address] Consulting Physician Cardiology 01/19/23
--- OUTSIDE RECORDS SUMMARY | 2025-07-30 15:09 | XMS_ITS | Encounter Summary ---
Author Organization [facility] Facility Care Team Providers Care Calender Tender Name Role Phone Fercho Santos DO Primary Care Provider [phone]- [phone] Melissa Andino Unavailable [phone] Drew Lai MD Unavailable Dorinda Nunez MD Unavailable Encounter Details Date Type Department Care Team (Latest Contact Info) Description 10/20/2015 Orders Only [facility] ProviderRae MD [address] [place] [address] Social History Tobacco Use Types Packs/Day Years Used Date Smoking Tobacco: Never Assessed Sex and Gender Information Value Date Recorded Sex Assigned at Not on file 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
--- OUTSIDE RECORDS SUMMARY | 2025-07-30 15:09 | XMS_ITS | Encounter Summary ---
Author Organization [facility] Facility Care Team Providers Care Rock Crusher Operator Name Role Phone Fercho Santos DO Primary Care Provider [phone] Melissa Andino Unavailable [phone] Drew Lai MD Unavailable Dorinda Nunez MD Unavailable Encounter Details Date Type Department Care Team (Latest Contact Info) Description 11/09/1964 Orders Only [facility] ProviderRae MD [address] [place] [address] Social History Tobacco Use Types Packs/Day Years Used Date Smoking Tobacco: Never Assessed Sex and Gender Information Value Date Recorded Sex Assigned at Not on file 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
--- OUTSIDE RECORDS SUMMARY | 2025-07-30 15:09 | XMS_ITS | Encounter Summary ---
Author Organization [facility] Facility Care Team Providers Care Customer Marketing Assistant Name Role Phone Fercho Santos DO Primary Care Provider [phone] Melissa Andino Unavailable [phone] Drew Lai MD Unavailable Dornida Nunez MD Unavailable Encounter Details Date Type Department Care Team (Latest Contact Info) Description 01/16/2012 Orders Only [facility] ProviderRae MD [address] [place] [address] Social History Tobacco Use Types Packs/Day Years Used Date Smoking Tobacco: Never Assessed Sex and Gender Information Value Date Recorded Sex Assigned at Not on file 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
--- OUTSIDE RECORDS SUMMARY | 2025-07-30 15:09 | XMS_ITS | Encounter Summary ---
Author Organization [facility] Address 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
--- OUTSIDE RECORDS SUMMARY | 2025-07-30 15:09 | XMS_ITS | Encounter Summary ---
Author Organization [facility] Facility Care Team Providers Care Stem Roller Or Crusher Operator Name Role Phone Fercho Santos DO Primary Care Provider [phone]- [phone] Melissa Andino Unavailable [phone] Drew Lai MD Unavailable Dorinda Nunez MD Unavailable Encounter Details Date Type Department Care Team (Latest Contact Info) Description 08/24/2014 Orders Only [facility] ProviderRae MD [address] [place] [address] Social History Tobacco Use Types Packs/Day Years Used Date Smoking Tobacco: Never Assessed Sex and Gender Information Value Date Recorded Sex Assigned at Not on file 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
--- OUTSIDE RECORDS SUMMARY | 2025-07-30 15:09 | XMS_ITS | Clinical Summary ---
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
--- NOTE | 2025-07-30 18:42 | WPDEDEXPGENP ---
HPI - General Ped General Chief complaint: Urogenital-Male Stated complaint: testicle pain Time Seen by Provider: 07/30/25 18:40 Source: patient and EMS Mode of arrival: EMS History of Present Illness HPI narrative: 75 YEARS OLD WHITE MALE CAME TO THE ED BY AMBULANCE COMPLAINING OF RIGHT ABDOMINAL PAIN FOR THE LAST 3 WEEKS BEEN SEEN AT [facility] TWICE AND [facility] ONCE AND BY HIS UROLOGIST YESTERDAY FOR THE SAME SYMPTOMS. PATIENT DENIES ANY FEVER, CHILLS, NAUSEA, VOMITING. PATIENT IS TELLING ME THAT HE AT 5 EPISODE OF LOOSE STOOL THIS MORNING. PATIENT REPORT THAT HIS PAIN STARTED FROM THE RIGHT KNEE MEDIALLY OLD WAY TO THE RIGHT GROIN AND OLD WAY TO THE RIGHT ABDOMEN. SHARP STABBING PAIN. HISTORY OF CHRONIC RIGHT KNEE PAIN FOR THE LAST 3 YEARS. Related Data Home Medications ?Medication ?Instructions ?Recorded ?Confirmed ?Last Taken ?Type clopidogrel 75 mg tablet 75 mg PO DAILY 02/25/23 06/23/25 1 Day Ago History ~12/23/23 mecobalamin (vitamin B12) 5,000 5,000 mcg PO WEEKLY 02/01/25 06/23/25 Unknown History mcg chewable tablet aspirin 81 mg tablet 81 mg PO DAILY 04/30/25 06/23/25 Unknown History finasteride 5 mg tablet 5 mg PO DAILY 04/30/25 06/23/25 Unknown History amlodipine 5 mg tablet 5 mg PO DAILY 05/17/25 06/23/25 Unknown History magnesium 200 mg tablet 200 mg PO DAILY 05/17/25 06/23/25 Unknown History Allergies Allergy/AdvReac Type Severity Reaction Status Date / Time Cephalosporins Allergy Unknown SHORTNESS Verified 07/13/25 11:06 OF BREATH,Dyspnea / SOB morphine Allergy Unknown Jittery Verified 07/13/25 11:06 nitroglycerin Allergy Unknown HEART RATE Verified 07/13/25 11:06 GOES DOWN FAST,Unknown oxycodone Allergy Unknown Confusion,F Verified 07/13/25 11:06 atigued amoxicillin AdvReac Dyspnea / Verified 07/13/25 11:06 SOB clavulanic acid AdvReac Dyspnea / Verified 07/13/25 11:06 SOB cyclobenzaprine AdvReac Stopped Verified 07/13/25 11:06 Breathing hydrocodone AdvReac Confusion Verified 07/13/25 11:06 lisinopril AdvReac Unknown Verified 07/13/25 11:06 norepinephrine AdvReac Unknown Verified 07/13/25 11:06 Sulfa (Sulfonamide AdvReac Dyspnea / Verified 07/13/25 11:06 Antibiotics) SOB Pediatric Review of Systems All systems ED: reviewed and negative except as stated PMF Past Medical History Medical History Peripheral sensory neuropathy due to type 2 diabetes mellitus Closed fracture of left distal fibula Obstructive sleep apnea Hyperlipidemia Overactive bladder BPH (benign prostatic hyperplasia) Gout Diabetic autonomic neuropathy History of esophageal stricture Diabetic peripheral neuropathy Hypertriglyceridemia Myocardial infarction Methicillin resistant Staphylococcus aureus infection (2014) Psoriasis Obstructive sleep apnea Intolerant to CPAP Gastroesophageal reflux disease Heart failure with reduced ejection fraction With EF of 45% in January of 2023 and echocardiogram in April 2023 showing normal EF 55-60% Chronic kidney disease, stage 3 Coronary artery disease Insulin dependent diabetes mellitus SBO (small bowel obstruction) Multiple bowel obstructions as far back as 2012 in the records Coarctation of aorta Anxiety Arthritis Depression Hepatitis B Kidney stone Peripheral neuropathy Rectal polyp Hypercholesterolemia Hypertension Surgical History Surgical History History of resection of small bowel 2014 exploratory laparotomy for SBO that resulted in adhesiolysis and jejunal small bowel resection History of repair of rotator cuff S/P dilatation of esophageal stricture November [address] Trejo and likely more recent in January 2023 but this cannot be confirmed History of tonsillectomy History of arthroscopy of both knees History of bilateral knee replacement Right knee 2019 History of colonoscopy with polypectomy History of hernia repair History of cholecystectomy History of appendectomy History of partial colectomy (09/2015) Secondary to bowel obstruction with recurrence requiring exploratory laparotomy and lysis of adhesions 03/28/2000 History of aortic coarctation repair (1964) History of coronary artery stent placement History of cardiac catheterization Catheterization 2013 unremarkable, Cardiac catheterization June 2022 distal obtuse marginal stenosis 90% no stent placed and January 2023 at [facility] demonstrating severe disease diagonal and LAD 2.5 x 22 mm stent in the diagonal, transferred to [facility] with stent 01/18/2023 4.5 x 24 mm synergy DWAYNE placed in the LAD History of hemorrhoidectomy History of arthroscopy of left shoulder With removal of bone spur. History of cataract surgery History of bilateral carpal tunnel release Family History Family History Sibling Family history of thyroid disease Hypertension Family history of diabetes mellitus in first degree relative Family history of obesity Diabetes mellitus Mother Hypertension Family history of diabetes mellitus in first degree relative Family history of thyroid disease Family history of osteoporosis Patient's mother is in good health Cerebrovascular accident Family history of Alzheimer's disease Family history of hearing loss Family history of transient ischemic attacks Father Asthma Patient's father is Family history of chronic obstructive pulmonary disease Acute myocardial infarction Family history of lung disease, Onset Age: 64 Social History Social History Social History: Caffeine-decaf tea Surrogate medical decision maker: Doreen Yepez, daughter. Code status: DNR/DNI per patient report request. Smoking status: Never smoker Second hand tobacco smoke exposure: No Alcohol intake: never Substance use: never Substance use type: does not use Do You Feel Safe in your Home?: Yes Lack of Transportation: No Lack of Food: Never True Current Housing: I Have Housing Concerned About Future Housing: No Difficulty Paying Gas/Electric Bills: No Difficulty Paying for Meds: No Currently Unemployed: No Education: High School Diploma/GED Difficulty w/ Childcare or Family Care: No Living arrangements: alone Additional living arrangements comments: The patient has been since 2020. He lives alone. He has 1 daughter and 1 son. Occupation/Education: retired Additional occupation/education comments: He is retired from [employer]. Spiritual care concerns: No Pediatric Exam Narrative: Physical exam: GENERAL APPEARANCE: WELL-DEVELOPED, WELL-NOURISHED SKIN: NORMAL COLOR HEAD: NORMOCEPHALIC, NONTRAUMATIC EYES: CLEAR CONJUNCTIVA ENT: OROPHARYNX NORMAL, EARS NORMAL, NOSE NORMAL NECK: SUPPLE, NONTENDER CHEST AND RESPIRATORY: AIRWAY PATENT, NO RESPIRATORY DISTRESS, NO ACCESSORY MUSCLE USE HEART: REGULAR RATE/RHYTHM ABDOMEN: SOFT, MILD TENDERNESS RIGHT LOWER QUADRANT, NO GUARDING OR REBOUND, NO ORGANOMEGALY, QUIET BOWEL SOUNDS VASCULAR: NORMAL PERIPHERAL PULSES, NORMAL CAPILLARY REFILL. MUSCULOSKELETAL: NORMAL RANGE OF MOTION, NONTENDER BACK NEUROLOGIC: ALERT AND ORIENTED ?3, WHOLESALE AND RETAIL MERCHANT IS NORMAL TESTED, NO GROSS MOTOR DEFICIT Course Vital Signs Vital signs: Vital Signs Temperature 36.3 C L 07/30/25 15:34 Pulse Rate 88 07/30/25 15:34 Respiratory Rate 20 07/30/25 15:34 Blood Pressure 120/70 07/30/25 15:34 Pulse Oximetry 98 07/30/25 15:34 Oxygen Delivery Room Air 07/30/25 15:34 Temperature 36.6 C 07/30/25 18:00 Pulse Rate 70 07/30/25 20:37 Respiratory Rate 20 07/30/25 20:37 Blood Pressure 185/101 H 07/30/25 20:37 Pulse Oximetry 98 07/30/25 20:37 Oxygen Delivery Room Air 07/30/25 18:00 Medical Decision Making MDM Narrative Medical decision making narrative: PATIENT COMPLAINING OF RIGHT ABDOMINAL PAIN FOR THE LAST 3 WEEKS, TODAY IS THE 5TH THE MEDICAL PROVIDER TO EVALUATE PATIENT FOR THE SAME COMPLAIN. PAIN VITAL SIGNS ARE STABLE PHYSICAL EXAMINATION SHOWING MILD TENDERNESS RIGHT ABDOMEN OTHERWISE WITHIN NORMAL LIMIT DIFFERENTIAL DIAGNOSIS INCLUDE ANXIETY, DEPRESSION, DIVERTICULITIS, COLITIS, APPENDICITIS, URINARY TRACT INFECTION BLOOD WORKUP TODAY INCLUDES CBC, CMP, LIPASE SHOWED NO SIGNIFICANT ABNORMALITY URINALYSIS SHOWED NO SIGNIFICANT ABNORMALITY CT ABDOMEN AND PELVIS WITH IV CONTRAST SHOWED NO ACUTE INTRA-ABDOMINAL ABNORMALITY DIAGNOSIS ABDOMINAL PAIN OF UNKNOWN ETIOLOGY THE PT WAS DISCHARGED TO HOME.THE PT,S CONDITION UPON DISCHARGE WAS FAIR,EDUCATION WAS PROVIDED TO THE PT IN REFERENCE TO THE FINAL IMPRESSION,DISCHARGE STUDY RESULTS,TREATMENT,PROGNOSIS AND NEED FOR FOLLOW UP . Differential Diagnosis Differential Diagnosis: ABOVE Vital Signs Vital Signs: Vital Signs Temperature 36.3 C L 07/30/25 15:34 Pulse Rate 88 07/30/25 15:34 Respiratory Rate 20 07/30/25 15:34 Blood Pressure 120/70 07/30/25 15:34 Pulse Oximetry 98 07/30/25 15:34 Oxygen Delivery Room Air 07/30/25 15:34 Temperature 36.6 C 07/30/25 18:00 Pulse Rate 70 07/30/25 20:37 Respiratory Rate 20 07/30/25 20:37 Blood Pressure 185/101 H 07/30/25 20:37 Pulse Oximetry 98 07/30/25 20:37 Oxygen Delivery Room Air 07/30/25 18:00 Lab Data 07/30/25 19:26 07/30/25 19:26 Labs: Lab Results 07/30/25 Range/Units 19:26 WBC 6.0 (4.5-10.0) K/mm3 RBC 5.05 (4.6-6.20) M/mm3 Hgb 15.1 (14.0-18.0) g/dL Hct 46.1 (42.0-52.0) % MCV 91.3 (80-100) fl MCH 29.9 (26-34) pg MCHC 32.8 (32-36) g/dl RDW 13.1 (11.5-14.5) % Plt Count 144 L (150-375) k/mm3 MPV 9.7 (7.4-10.4) fl Immature Gran % (Auto) 0.3 (0-0.5) % Neut % (Auto) 66.3 (45.5-73.1) % Lymph % (Auto) 19.3 (18.3-44.2) % [place] % (Auto) 7.6 (2.6-8.5) % Eos % (Auto) 6.0 H (0-4.4) % Baso % (Auto) 0.5 (0.2-1.2) % Lymph # (Auto) 1.15 (0.9-3.2) K/mm3 [place] # (Auto) 0.5 (0.1-0.6) K/mm3 Eos # (Auto) 0.4 H (0-0.3) K/mm3 Baso # (Auto) 0.0 (0.0-0.1) K/mm3 Abs Immat Gran (auto) 0.02 (0.00-0.031) K/mm3 Absolute Neuts (auto) 4.0 (1.3-6.7) K/mm3 Absolute Nucleated RBC 0.000 (0.0-0.012) K/mm3 Nucleated RBC % 0.0 (0.0-0.2) % Sodium 138 (137-145) mmol/L Potassium 3.6 (3.4-5.0) mmol/L Chloride 106 (98-107) mmol/L Carbon Dioxide 25 (22-30) mmol/L Anion Gap 7 (4-12) mmol/L BUN 19 (9-20) mg/dL Creatinine 1.00 (0.7-1.3) mg/dL Estim Creat Clear Calc 79 ml/min Estimated GFR > 60 (59 - ) Glucose 151 H (65-110) mg/dL Calcium 9.2 (8.4-10.2) mg/dL Total Bilirubin 0.7 (0.2-1.3) mg/dL AST 27 (17-59) U/L ALT 29 (6-50) U/L Alkaline Phosphatase 88 (38-126) U/L Total Protein 6.6 (6.3-8.2) g/dL Albumin 4.0 (3.5-5.1) g/dL Lipase 36 (23-300) U/L Urine Color Yellow (Yellow) Urine Appearance Cloudy H (Clear) Urine pH 5.0 (5.0-9.0) Ur Specific [place] 1.018 (1.001-1.035) Urine Protein 1+ H (Negative) mg/dL Urine Glucose (UA) Trace H (Negative) mg/dL Urine Ketones Negative (Negative) mg/dL Ur Blood (Man) Negative (Negative) Urine Nitrate Negative (Negative) Urine Bilirubin Negative (Negative) Urine Urobilinogen 0.2 (<2.0) mg/dL Leukocyte Esterase Rfl Negative (Negative) AMERICO/UL Urine RBC 0-2 (0-2) /hpf Urine WBC 0-5 (0-3) /hpf Ur Squamous Epith Cells None seen (Few) /hpf Urine Bacteria None seen /hpf Urine Casts 0-2 Imaging Data Radiologist's impression: Impressions Abdomen/Pelvis CT 07/30/25 20:58 IMPRESSION: 1. No acute intra-abdominal/pelvic process. Critical Care Time Critical Care Time Critical Care Time: No Discharge Plan Discharge Clinical Impression: Abdominal pain, Chronic pain of right knee Patient Disposition: Home Condition: Stable Instructions: Abdominal Pain (ED) Additional Instructions: RETURN IF SYMPTOMS ARE WORSENING , CALL YOUR FAMILY PHYSICIAN FOR APPOINTMENT, TAKE TYLENOL NEEDED FOR ACHES AND PAIN, CONTINUE HOME MEDICATIONS. Patient Language: Amharic Prescriptions: No Action lidocaine HCl [Pain Relief (lidocaine)] 4 % cream 1 applic topical BID PRN (Reason: pain) Qty: 120 0RF Gvoke HypoPen 2-Pack 1 mg/0.2 mL auto-injector 1 mg subcut ONCE Qty: 2 0RF Rx Instructions: as a single dose; may repeat once after 15 minutes if no response mecobalamin (vitamin B12) 5,000 mcg tablet,chewable 5,000 mcg PO WEEKLY aspirin 81 mg tablet 81 mg PO DAILY finasteride 5 mg tablet 5 mg PO DAILY amlodipine 5 mg tablet 5 mg PO DAILY magnesium 200 mg tablet 200 mg PO DAILY (DME) FreeStyle Dawit 3 Plus Sensor Device See Rx Instructions .Route Qty: 6 12RF Rx Instructions: once every 15 days (DME) blood-glucose meter [OneTouch Verio Flex meter] Misc See Rx Instructions .Route Qty: 1 0RF Rx Instructions: check BS 3 times daily (DME) OneTouch Verio test strips Strip See Rx Instructions .Route Qty: 100 0RF Rx Instructions: check Bs 3 times daily glucose 4 gram tablet,chewable 16 g PO Q15M PRN (Reason: hypoglycemia) Qty: 360 0RF Rx Instructions: until symptoms of low blood sugar are controlled (DME) FreeStyle Dawit 2 [place] Misc See Rx Instructions .Route Qty: 1 0RF Rx Instructions: As directed Januvia 50 mg tablet 50 mg PO DAILY Qty: 90 0RF (DME) FreeStyle Dawit 3 [place] Misc See Rx Instructions .Route Qty: 1 0RF Rx Instructions: As directed clopidogrel 75 mg tablet 75 mg PO DAILY (DME) lancets 33 gauge misc See Rx Instructions .ROUTE .MEDSUPPLY Qty: 100 0RF Rx Instructions: check Bs 3 times daily atorvastatin 80 mg tablet 80 mg PO QHS Qty: 90 1RF sertraline 100 mg tablet 100 mg PO DAILY Qty: 90 1RF (DME) pen needle, diabetic [BD Ultra-Fine Micro Pen Needle] 32 gauge x 1/4 needle See Rx Instructions .ROUTE .COMPLEX Qty: 300 12RF Dose Instruction: USE 3 TIMES A DAY Rx Instructions: USE 3 TIMES A DAY (DME) FreeStyle Dawit 14 Day Sensor Kit See Rx Instructions .Route Qty: 6 1RF Rx Instructions: Use to check blood sugars (DME) FreeStyle Dawit 3 [place] Misc See Rx Instructions .Route Qty: 1 0RF Rx Instructions: Use to check BS metformin 500 mg tablet 500 mg PO BID Qty: 180 0RF Humulin R U-500 (Conc) Kwikpen 500 unit/mL (3 mL) insulin pen See Rx Instructions subcut .twice daily Qty: 12 0RF Rx Instructions: subcutaneously TWICE DAILY; 60 units 30 minutes before breakfast and 20 units before dinner Follow-up/Referrals: Veronica Bruno, DEBATE DIRECTOR [Primary Care Provider, Internal Medicine]
--- OUTSIDE RECORDS SUMMARY | 2025-07-30 18:46 | XMS_ITS | Clinical Summary ---
Author Organization [facility] Address [address] [place] [address] Phone Care Team Providers Care Golf Caddy Name Role Phone Provider, None Primary Care [...] nightly. Active Cholecalciferol (Vitamin D3) 1.25 MG (26961 UT) Capsule Take 1 Cap by mouth [...] Other (psoarisis of forehead). Active Carbamide Peroxide-Saline (Flinja [employer] OT) Place 1 [...] 37 C (98.6 F) 10/04/2020 2:12 PM AIRCRAFT METALSMITH Respiratory Rate 14 04/18/2023 10:57 AM CDT [...] patient's age to complete this topic [place] [address] [place] [address] MEDICARE MEDICARE C [employer] Advance Directives * Full Code (Latest Code Status on File) Date Activated Date Inactivated Comments 09/13/2020 10:06 AM Care Teams Golf Caddy Relationship Specialty Start Date End Date Provider, None [place] PCP - General 08/31/20
--- OUTSIDE RECORDS SUMMARY | 2025-07-30 18:46 | XMS_ITS | Clinical Summary ---
Author Organization [facility] Address [address] [place] [address] Care Team Providers Care Metalizer Name Role Phone Fercho Santos DO Primary Care Provider [phone] Source Comments [facility] [employer],non-owned Affiliates and Associated Physician Practices is amultiple site organization consisting of ambulatory clinics and hospital sitesin [place], [place], [place] and [place]. This disclosure is being madepursuant to the Care Everywhere program and may not contain all information available regarding this patient. Last updated 18.[facility] [employer] Allergies Active Allergy Reactions Criticality Noted Date [...] 325 mg by mouth once daily Active Sevff-R-Jhxyhf osidase (BEANO PO) Active melatonin 1 MG [...] Comments Blood Pressure 132/68 10/19/2017 12:00 PM DERMATOLOGIST AND DERMATOPATHOLOGIST Pulse 88 10/19/2017 12:00 PM DERMATOLOGIST AND DERMATOPATHOLOGIST Temperature 36.9 C (98.5 F) 10/19/2017 12:00 PM DERMATOLOGIST AND DERMATOPATHOLOGIST Respiratory Rate 18 10/19/2017 12:00 PM DERMATOLOGIST AND DERMATOPATHOLOGIST Oxygen Saturation 96% 10/19/2017 12:00 PM DERMATOLOGIST AND DERMATOPATHOLOGIST Inhaled Oxygen Concentration - - Weight 131.5 kg (290 lb) 10/19/2017 12:00 PM DERMATOLOGIST AND DERMATOPATHOLOGIST Height 188 cm (6' 2) 10/19/2017 12:00 PM DERMATOLOGIST AND DERMATOPATHOLOGIST Body Mass Index 37.23 10/19/2017 12:00 PM DERMATOLOGIST AND DERMATOPATHOLOGIST Plan of Treatment Health Maintenance Due Date [...] OF CARE (07/14/2017 6:13 PM CDT) Pathologist [facility] Glucose POCT 312(H) 70 - 99 mg/dL 07/15/2017 12:14 AM CDT [facility] Whole blood specimen (specimen) BLOOD SPECIMEN / Unknown 07/14/2017 6:13 PM CDT 07/15/2017 12:14 AM CDT Narrative [facility] - 07/15/2017 12:14 AM CDT Point of Care Test-results have been reviewed by caregiver. us Pete Soto MD LAB - POINT OF CARE ORDERABL ES Final Result [facility] [address] [place] [address], [facility] from Last 3 Months or Most Recently Relevant to Health Maintenance Insurance [facility] [id number] [id number] Care Teams Metalizer Relationship Specialty Start Date End Date Fercho Santos DO PCP - General 09/12/22
--- OUTSIDE RECORDS SUMMARY | 2025-07-30 18:46 | XMS_ITS | Clinical Summary ---
Author Organization [facility] Address [address] [place] [address] Care Team Providers Care Interior Painter Name Role Phone Fercho Santos DO Primary Care Provider +1- [phone] Melissa Andino Unavailable [phone] Drew Lai MD Unavailable Dorinda Nunez MD [...] (01/10/2023): Added automatically from request for surgery [id number] Acute chest pain 07/05/2022 Aftercare following right [...] (2020): Added automatically from request for surgery [id number] MARCIE (acute kidney injury) 01/13/2020 Acute upper [...] (08/11/2020): Added automatically from request for surgery [id number] Encounters Date Type Department Care Team Description 07/16/2025 3:14 AM CDT - 07/16/2025 3:[address] [facility] Emergency Department [address] [place] [address] Lorenzo Jarrett MD PhD Suarez, MD Sofie [...] How often do you attend chur or congregational services? More than 4 times per year 07/06/2022 Do you belong to any clubs o r organizations such as presybeterian groups, unions, fraternal or athletic groups, or [...] place to sleep or slept in a fci (including now)? No 07/06/2022 Personal Safety Answer Date Recorded Have you ever been in or are you currently in a harmful physical or emotional relationship or is someone making you feel afraid or unsafe? 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 Gender Identity Not on file Sexual Orientation [...] history exists Medical Devices Implanted Type Area Theatre Program Director Device Identifier Shelf Expiration Date Model / Serial / Lot [employer] 6195-1-001 Cement Bone Simplex Gentamicin High Viscosity 40gm - [id number] Implanted:Qty: 2 on 08/24/2020 by Gregory Arriola MD at [facility] Right: Knee [employer] 08/31/2021 6195-1-001 / / [id number] Description:Both packages griffin ve same lot number and expiration date [employer] [id number] Attune S+ Cement Fix Bearing Knee 8 Baseplate Tibial - [id number] Implanted:Qty: 1 on 08/24/2020 by Gregory Arriola MD at [facility] Right: Knee [employer] 05/01/2030 [id number] / / [id number] [employer] [id number] Attune Cemented Posterior Stabilize Knee Right 7 Component - [id number] Implanted:Qty: 1 on 08/24/2020 by Gregory Arriola MD at [facility] Right: Knee [employer] 01/01/2030 [id number] / / [id number] [employer] [id number] Attune 6mm Posterior Stabilize Fix Bearing Knee 7 Insert Tibial - [id number] Implanted:Qty: 1 on 08/24/2020 by Gregory Arriola MD at [facility] Right: Knee [employer] 10/01/2023 [id number] / / [id number] [employer] Jenny Synergy Xd Monorail 4.5mm 24mm 144cm Delivery System 1 Access [id number] - [id number] Implanted:Qty: 1 on 01/18/2023 by Suyapa Lakhani MD at [facility] [employer] Jenny 01/29/2024 [id number] / / [id number] [employer] Device Clsr Perclose Prostyle Sut-Mediatd Closure-Repair Sys 27947-46 - [id number] Implanted:Qty: 1 on 01/18/2023 by Suyapa Lakhani MD at [facility] [employer] 10/01/2024 [id number] / / [id number] Procedures Procedure Name Priority Date/Time Associated Diagnosis [...] LAB POCT ORDERABLES - DEVICE Final Result [facility] [place] [address] * POCT lactate (07/16/2025 1:33 PM CDT) Lactate POC i-STAT 1.2 0.7 - 2.0 mmol/L Blood 07/16/2025 1:33 PM CDT 07/16/2025 1:33 PM CDT us Raza Herring MD LAB POCT ORDERABLES - DEV ICE Final Result [facility] [place] [address] * POCT glucose (07/16/2025 7:17 AM CDT) Glucose, POC 173 70 - 199 mg/dL Blood 07/16/2025 7:17 AM CDT 07/16/2025 7:17 AM CDT us Lorenzo Jarrett MD PhD LAB POCT ORDERABLES - DEVICE Final Result Performing Organization Address [facility] [place] [address] * Troponin I high-sensitivity 2-hour (07/16/2025 6:33 AM CDT) Pathologist [facility] Trop I hs 24 <=35 ng/L Comment: Interpretive Data For further hscTnI resources including the diagnostic algorithm and an aid in interpretation, copy and paste this link: [email or web address]/[email or web address] Current Interpretive Data last revised 2020. Trop I hs delta 0 ng/L [facility] Trop I hs interp Insignificant [facility] Blood 07/16/2025 6:33 AM CDT 07/16/2025 6:51 AM CDT Mehrdad Crawford MD LAB BLOOD ORDERABLES Fin al Result Performing Organization Address [facility] Co de Phone Number [facility] [place] [address] * CT Abdomen Pelvis WO Contrast (07/16/2025 [...] 12-LEAD (07/16/2025 3:55 AM CDT) Narrative [facility] - 07/16/2025 3:55 AM CDT Lorenzo Jarrett [...] Crawford MD ECG ORDERABLES Final Re sult [facility] * POCT glucose (07/16/2025 3:52 AM CDT) Glucose, POC 161 70 - 199 mg/dL Blood 07/16/2025 3:52 AM CDT 07/16/2025 3:52 AM CDT Lorenzo Jarrett MD PhD LAB POCT ORDERABLES - DEVICE Final Result Performing Organization Address [facility] de Phone Number [facility] [place] [address] * Troponin I high-sensitivity series (baseline, 2hr, [...] ORDERABLES Fin al Result Performing Organization Address [facility] de Phone Number [facility] [place] [address] * XR Kub (Abd 1 View) (07/16/2025 [...] ORDERABLE S Final Result [facility] Department of Laboratories [place], [place] [id number] * Differential, auto (07/15/2025 11:39 PM CDT) Neutrophil abs 4.08 1.50 - 6.50 K/cumm Imm gran abs 0.04 0.00 - 0.10 K/cumm [facility] Lymphocyte abs 1.44 0.80 - 3.30 K/cumm [facility] Monocyte abs 0.49 0.20 - 0.80 K/cumm [facility] Eosinophil abs 0.42 0.00 - 0.50 K/cumm [facility] Basophil abs 0.07 0.00 - 0.10 K/cumm [facility] Neutrophil pct 62.4 % [facility] Comment: Interpretive Data Percent cell count reference ranges are not reported, since discordance with absolute values may lead to misinterpretation of CBC data. Current Interpretive Data was last revised on 2018. Imm gran pct 0.6 % [facility] Comment: Interpretive Data Percent cell count reference ranges are not reported, since discordance with absolute values may lead to misinterpretation of CBC data. Current Interpretive Data was last revised on 2018. Lymphocyte pct 22.0 % [facility] Comment: Interpretive Data Percent cell count reference ranges are not reported, since discordance with absolute values may lead to misinterpretation of CBC data. Current Interpretive Data was last revised on 2018. Monocyte pct 7.5 % [facility] Comment: Interpretive Data Percent cell count reference ranges are not reported, since discordance with absolute values may lead to misinterpretation of CBC data. Current Interpretive Data was last revised on 2018. Eosinophil pct 6.4 % [facility] Comment: Interpretive Data Percent cell count reference ranges are not reported, since discordance with absolute values may lead to misinterpretation of CBC data. Current Interpretive Data was last revised on 2018. Basophil pct 1.1 % [facility] Comment: Interpretive Data Percent cell count reference ranges are not reported, since discordance with absolute values may lead to misinterpretation of CBC data. Current Interpretive Data was last revised on 2018. Blood 07/15/2025 11:3 9 PM CDT 07/16/2025 12:23 AM CDT us Lorenzo Jarrett MD PhD LAB BLOOD ORDERABLE S Final Result [facility] [place] [address] * CBC with auto differential (07/15/2025 11:39 PM CDT) [facility] WBC 6.52 3.80 - 9.90 K/cumm Hgb 16.3 13.0 - 17.5 g/dL [facility] Hct 46.4 38.9 - 50.3 % [facility] Plt 172 150 - 400 K/cumm [facility] MPV 10.8 9.1 - 12.3 fL [facility] RBC 5.24 4.30 - 5.80 M/cumm [facility] MCV 88.5 81.3 - 96.4 fL [facility] MCH 31.1 27.1 - 33.3 pg [facility] MCHC 35.1 32.3 - 35.7 g/dL [facility] RDW CV 12.8 11.1 - 14.9 % [facility] RDW SD 41.1 35.7 - 48.1 fL [facility] NRBC abs 0.00 0.00 - 0.01 K/cumm [facility] Blood Venous blood specimen / Unknown 07/15/2025 11:39 PM CDT 07/16/2025 12:23 AM CDT us Lorenzo Jarrett MD PhD LAB BLOOD ORDERABLE S Final Result [facility] [place] [address] * Lipase (07/15/2025 11:39 PM CDT) [facility] Lipase 16 10 - 99 Units/L Blood Venous blood specimen / Unknown 07/15/2025 11:39 PM CDT 07/16/2025 12:23 AM CDT us Lorenzo Jarrett MD PhD LAB BLOOD ORDERABLE S Final Result [facility] [place] [address] * (ABNORMAL) Comprehensive metabolic panel (07/15/2025 11:39 PM CDT) Sodium 144 135 - 145 mmol/L Potassium, pl 3.9 3.3 - 4.9 mmol/L [facility] Chloride 103 97 - 110 mmol/L [facility] CO2 30 22 - 32 mmol/L [facility] Anion gap 11 2 - 15 mmol/L [facility] BUN 24 6 - 25 mg/dL [facility] Creatinine 1.34(H) 0.80 - 1.30 mg/dL [facility] Glucose 116 70 - 199 mg/dL [facility] Comment: Interpretive Data Fasting glucose >/= 126 [...] 2022. Calcium 9.8 8.5 - 10.3 mg/dL [facility] Bilirubin, total 0.4 0.1 - 1.2 mg/dL [facility] Protein, pl 7.3 6.5 - 8.5 g/dL [facility] Albumin 4.4 3.5 - 5.0 g/dL [facility] Alk phos 125 40 - 130 Units/L [facility] ALT 30 7 - 55 Units/L [facility] AST 25 10 - 50 Units/L [facility] Blood 07/15/2025 11:3 9 PM CDT 07/16/2025 12:23 AM CDT us Lorenzo Jarrett MD PhD LAB BLOOD ORDERABLE S Final Result [facility] [place] [address] * (ABNORMAL) Lipid panel (07/06/2022 10:45 AM [...] CDT 07/06/2022 10:56 AM CDT Maggi Pineda VOLTAGE REGULATOR ASSEMBLER LAB BLOOD ORDERABLES Final Result [facility] [id number] [place] [address] * (ABNORMAL) Hemoglobin A1c (09/07/2021 1:19 PM [...] and children were not included. (Diabetes Care [id number], 2008). The eAG is not equivalent to a fasting glucose. Blood 09/07/2021 1:19 PM CDT 09/07/2021 3:18 PM CDT us Gregory Arriola MD LAB BLOOD ORDERABLES Fin al Result [facility] [place] [address] * DIABETES EYE EXAM (12/05/2018) Diabetic Eye Exam Unknown Historical Provider HEALTH MAINTENANCE Final Result * DIABETES FOOT EXAM (10/27/2018) Diabetic Foot Exam Normal Historical Provider HEALTH MAINTENANCE Final Result from Last 3 Months or Most Recently Relevant to Health Maintenance Insurance [employer] MEDICARE HMO AETNA MEDICARE GOLD [facility] MED[facility] AETNA MEDICARE GOLD Advance Directives For more information, please contact: [phone] Documents on File Type Date Recorded Patient Vamp Creaser Expl anation ADVANCE DIRECTIVE 10/29/2017 2:12 PM [...] 7:40 PM 07/18/2020 7:22 PM Care Teams Interior Painter Relationship Specialty Start Date End Date Fercho Santos DO PCP - General 04/11/17 Melissa Andino PA Orthopedic Surgery 08/25/20 Drew Lai MD [address] [place] [address] Consulting Physician Cardiovascular Disease 07/08/22 [place] [address] [address] [address] Consulting Physician Cardiology 01/19/23
--- OUTSIDE RECORDS SUMMARY | 2025-07-30 18:46 | XMS_ITS | Encounter Summary ---
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
--- OUTSIDE RECORDS SUMMARY | 2025-07-30 18:47 | XMS_ITS | Encounter Summary ---
Author Organization [facility] Facility Care Team Providers Care Apiculture Teacher Name Role Phone Fercho Santos DO Primary Care Provider [phone]- [phone] Melissa Andino Unavailable [phone] Drew Lai MD Unavailable Dorinda Nunez MD Unavailable Encounter Details Date Type Department Care Team (Latest Contact Info) Description 08/24/2014 Orders Only [facility] ProviderRae MD [address] [place] [address] Social History Tobacco Use Types Packs/Day Years Used Date Smoking Tobacco: Never Assessed Sex and Gender Information Value Date Recorded Sex Assigned at Not on file 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
--- OUTSIDE RECORDS SUMMARY | 2025-07-30 18:47 | XMS_ITS | Encounter Summary ---
Author Organization [facility] Address 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
--- OUTSIDE RECORDS SUMMARY | 2025-07-30 18:47 | XMS_ITS | Encounter Summary ---
Author Organization [facility] Facility Care Team Providers Care Associate Curator Name Role Phone Fercho Santos DO Primary Care Provider +1- [phone] Melissa Andino Unavailable [phone] Drew Lai MD Unavailable Dorinda Nunez MD Unavailable Encounter Details Date Type Department Care Team (Latest Contact Info) Description 08/27/2014 Orders Only [facility] ProviderRae MD [address] [place] [address] Social History Tobacco Use Types Packs/Day Years Used Date Smoking Tobacco: Never Assessed Sex and Gender Information Value Date Recorded Sex Assigned at Not on file 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
--- OUTSIDE RECORDS SUMMARY | 2025-07-30 18:47 | XMS_ITS | Encounter Summary ---
Author Organization [employer] Address [address] [place] [address] Care Team Providers Care Mover Name Role Phone Unavailable Primary Care Provider [...] on file Legal Sex Male 4:26 AM COURTESY CLERK Gender Identity Not on file Sexual Orientation Not on file documented as of this encounter Plan of Treatment Not on file documented as of this encounter Visit Diagnoses Diagnosis Mechanical complication of internal orthopedic device, implant, and graft- Primary documented in this encounter
--- OUTSIDE RECORDS SUMMARY | 2025-07-30 18:47 | XMS_ITS | Encounter Summary ---
Author Organization [facility] Facility Care Team Providers Care Wage And Salary Specialist Name Role Phone Fercho Santos DO Primary Care Provider [phone] Melissa Andino Unavailable [phone] Drew Lai MD Unavailable Dorinda Nunez MD Unavailable Encounter Details Date Type Department Care Team (Latest Contact Info) Description 05/15/1965 Orders Only [facility] ProviderRae MD [address] [place] [address] Social History Tobacco Use Types Packs/Day Years Used Date Smoking Tobacco: Never Assessed Sex and Gender Information Value Date Recorded Sex Assigned at Not on file Legal 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
--- OUTSIDE RECORDS SUMMARY | 2025-07-30 18:47 | XMS_ITS | Clinical Summary ---
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
--- OUTSIDE RECORDS SUMMARY | 2025-07-30 18:47 | XMS_ITS | Encounter Summary ---
Author Organization [facility] Facility Care Team Providers Care Group Care Worker Name Role Phone Fercho Santos DO Primary Care Provider [phone]- [phone] Melissa Andino Unavailable [phone] Drew Lai MD Unavailable Dorinda Nunez MD Unavailable Encounter Details Date Type Department Care Team (Latest Contact Info) Description 10/20/2015 Orders Only [facility] ProviderRae MD [address] [place] [address] Social History Tobacco Use Types Packs/Day Years Used Date Smoking Tobacco: Never Assessed Sex and Gender Information Value Date Recorded Sex Assigned at Not on file 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
--- OUTSIDE RECORDS SUMMARY | 2025-07-30 18:47 | XMS_ITS | Encounter Summary ---
Author Organization [facility] Facility Care Team Providers Care Procurement Agent Name Role Phone Fercho Santos DO Primary Care Provider +1- [phone] Melissa Andino Unavailable [phone] Drew Lai MD Unavailable Dorinda Nunez MD Unavailable Encounter Details Date Type Department Care Team (Latest Contact Info) Description 08/10/2010 Orders Only [facility] ProviderRae MD [address] [place] [address] Social History Tobacco Use Types Packs/Day Years Used Date Smoking Tobacco: Never Assessed Sex and Gender Information Value Date Recorded Sex Assigned at Not on file Legal 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
--- OUTSIDE RECORDS SUMMARY | 2025-07-30 18:47 | XMS_ITS | Encounter Summary ---
Author Organization [facility] Facility Care Team Providers Care Laboratory Technical Specialist Name Role Phone Fercho Santos DO Primary Care Provider [phone]- [phone] Melissa Andino Unavailable [phone] Drew Lai MD Unavailable Dorinda Nunez MD Unavailable Encounter Details Date Type Department Care Team (Latest Contact Info) Description 11/09/1964 Orders Only [facility] ProviderRae MD [address] [place] [address] Social History Tobacco Use Types Packs/Day Years Used Date Smoking Tobacco: Never Assessed Sex and Gender Information Value Date Recorded Sex Assigned at Not on file Legal Sex Male 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
--- OUTSIDE RECORDS SUMMARY | 2025-07-30 18:47 | XMS_ITS | Encounter Summary ---
Author Organization [facility] Facility Care Team Providers Care Feather Trimmer Name Role Phone Fercho Santos DO Primary Care Provider [phone] Melissa Andino Unavailable [phone] Drew Lai MD Unavailable Dorinda Nunez MD Unavailable Encounter Details Date Type Department Care Team (Latest Contact Info) Description 01/16/2012 Orders Only [facility] ProviderRae MD [address] [place] [id number] Social History Tobacco Use Types Packs/Day Years Used Date Smoking Tobacco: Never Assessed Sex and Gender Information Value Date Recorded Sex Assigned at Not on file Legal Sex Male 3:17 AM [employer] Gender Identity Not on file Sexual Orientation [...] documented as of this encounter Care Teams Feather Trimmer Relationship Specialty Start Date End Date Fercho Santos DO PCP - General 04/11/17 Melissa Andino PA Orthopedic Surgery 08/25/20 Drew Lai MD [address] [place] [address] Consulting Physician Cardiovascular Disease 07/08/22 [place] [id number] [address] Consulting Physician Cardiology 01/19/23 documented as of this encounter
[2025-07-30] MEDS: SODIUM CHLORIDE 0.9% IV 1,000 ML 999 ML IV CONT (19:27)
[2025-07-30 19:38] LABS: Hematocrit 46.1 % (42.0-52.0); Hemoglobin 15.1 g/dL (14.0-18.0); Immature Granulocyte Percent A 0.3 % (0-0.5); Lymphocytes Absolute Auto 1.15 K/mm3 (0.9-3.2); Mean Corpuscular HGB Conc 32.8 g/dl (32-36); Mean Corpuscular Hemoglobin 29.9 pg (26-34); Mean Corpuscular Volume 91.3 fl (80-100); Nucleated Red Blood Cells Absolute Auto 0.000 K/mm3 (0.0-0.012); Nucleated Red Blood Cells Perc 0.0 % (0.0-0.2); Platelet Count Result 144 k/mm3 (150-375); Red Blood Count 5.05 M/mm3 (4.6-6.20); White Blood Count 6.0 K/mm3 (4.5-10.0)
[2025-07-30 19:49] LABS: Alanine Aminotransferase 29 U/L (6-50); Albumin Level 4.0 g/dL (3.5-5.1); Alkaline Phosphatase 88 U/L (38-126); Anion Gap 7 mmol/L (4-12); Aspartate Amino Transferase 27 U/L (17-59); Bilirubin,Total 0.7 mg/dL (0.2-1.3); Blood Urea Nitrogen 19 mg/dL (9-20); Calcium 9.2 mg/dL (8.4-10.2); Carbon Dioxide 25 mmol/L (22-30); Chloride 106 mmol/L (98-107); Estimated CRCL calculation 79 ml/min; Estimated Glomerular Filt Rate > 60; Glucose 151 mg/dL (65-110); Lipase 36 U/L (23-300); Potassium 3.6 mmol/L (3.4-5.0); Sodium 138 mmol/L (137-145); Total Protein 6.6 g/dL (6.3-8.2)
[2025-07-30 21:03] LABS: Add Urine Microscopic? YES; Appearance Urine Cloudy (Clear); Glucose Urine UA Trace mg/dL (Negative); Leukocyte Esterase Ur Negative LEU/UL (Negative); Nitrate Urine Negative (Negative); Non Pathogenic Casts 0-2; Specific Grav Ur 1.018 (1.001-1.035)
== END 2025-07-30 21:56 | disposition home or self-care (01) ==
PROVIDERS: Emergency Provider Emergency Medicine; PCP Nurse Practitioner
DX: R10.31 Right lower quadrant pain (principal); M25.561 Pain in right knee; G89.29 Other chronic pain; E11.22 Type 2 diabetes mellitus with diabetic chronic kidney disease; I13.0 Hypertensive heart and chronic kidney disease with heart failure and stage 1 through stage 4 chronic kidney disease, or unspecified chronic kidney disease; N18.30 Chronic kidney disease, stage 3 unspecified; I50.9 Heart failure, unspecified; I25.10 Atherosclerotic heart disease of native coronary artery without angina pectoris; I25.2 Old myocardial infarction; E11.43 Type 2 diabetes mellitus with diabetic autonomic (poly)neuropathy; E78.00 Pure hypercholesterolemia, unspecified; E78.1 Pure hyperglyceridemia; N40.0 Benign prostatic hyperplasia without lower urinary tract symptoms; G47.33 Obstructive sleep apnea (adult) (pediatric); M10.9 Gout, unspecified; K21.9 Gastro-esophageal reflux disease without esophagitis; F41.9 Anxiety disorder, unspecified; F32.A Depression, unspecified; Z66 Do not resuscitate; Z95.5 Presence of coronary angioplasty implant and graft; Z96.653 Presence of artificial knee joint, bilateral; Z87.442 Personal history of urinary calculi; Z86.0100 Personal history of colon polyps, unspecified; Z90.49 Acquired absence of other specified parts of digestive tract; Z98.49 Cataract extraction status, unspecified eye; Z79.82 Long term (current) use of aspirin; Z79.84 Long term (current) use of oral hypoglycemic drugs; Z79.4 Long term (current) use of insulin; Z79.899 Other long term (current) drug therapy
CPT/HCPCS: 36415; 74177; 80053; 81001; 83690; 85025; 96360; 99284; J7030; Q9967

== ENCOUNTER 2025-10-07 11:57 | Emergency (ER) | payer MEDICARE, SELFPAY ==
--- OUTSIDE RECORDS SUMMARY | 2017-08-21 04:56 | XMS_ITS | Continuity of Care Document ---
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 Role Phone Siddharth Mckeon MD Unavailable Unavailable Allergies, Adverse Reactions, Alerts Substance Reaction Status Criticality metformin Active No Information lisinopril Active No Information adhesive Active No Information POTASSIUM CLAVULANATE Active No Inf ormation AMOXICILLIN TRIHYDRATE Active No In formation HYDROCODONE BITARTRATE Active No In formation acetaminophen Active No Information CYCLOBENZAPRINE HCL Active No Infor mation IODINE Active No Information Sulfa (Sulfonamide Antibiotics) Active No Information Medications Medication Instructions Dosage Effective Dates (start - stop) Status Comments Aspir-81 81 mg tablet,delayed release - Active melatonin 1 mg tablet - Active lorazepam 0.5 mg tablet as needed - Active Novolog Flexpen 100 unit/mL subcutaneous - Active Lantus Solostar 100 unit/mL (3 mL) subcutaneous insulin pen - Active Lyrica 50 mg capsule - Active ATENOLOL (unknown strength) Not Available - Active SIMVASTATIN (unknown strength) Not Available - Active Vitamin D2 50,000 unit capsule take 1 capsule by oral route every week - Active NEXIUM (unknown strength) take 1 capsule by oral route every day at least 1 hour before a meal swallowing whole. Do not crush or chew granules. Not Available - Active ACETAMINOPHEN (unknown strength) Not Available - Active Procedures Procedure Date Office/outpatient visit,est, mod 2016 X-ray exam knee, 1 or 2 views 6 X-ray exam both knees, standing 016 X-ray exam knee, 1 or 2 views 6 Depo Medrol Methylprednisolone 40 MG inj Asp/inject major joint or bursa w/o US g uidance Office/outpatient visit,est, mod 2015 Depo Medrol Methylprednisolone 40 MG inj Asp/inject major joint or bursa w/o US g uidance Office/outpatient visit,est, mod 2014 Depo Medrol Methylprednisolone 40 MG inj Asp/inject major joint or bursa 015 Global/Postop followup visit Global/Postop followup visit Meniscectomy Med AND Lat Office/outpatient visit,est, mod 2014 Office/outpatient visit,est, [facility] 2014 Asp/inject major joint or bursa 015 Depo Medrol Methylprednisolone 40 MG inj X-ray exam knee, 1 or 2 views 5 X-ray exam knee, 1 or 2 views 5 X-ray exam both knees, standing 015 Office/outpatient visit,est, mod 2014 Office/outpatient visit,est, [facility] 2013 X-ray exam knee, 1 or 2 views 4 X-ray exam both knees, standing 014 Office/outpatient visit,new, [facility] 2013 Office/outpatient visit,est, mod 2009 X-ray exam of knee, 1 or2 views 010 Office/outpatient visit,est, [facility] 2006 X-ray exam of knee, 1 or2 views 007 Office/outpatient visit,est, mod 2005 X-ray exam of knee, 3 views Postop followup visit Postop followup visit X-ray exam of knee, 3 views Revise knee joint replacement 6 Advance Directives Directive Yes / No Effective Date File Name No Information Encounters Encounter Description Practice Location Reason(s) For Visit Diagnoses Date Provider Providers Copied on Encounter [facility], [address] [address], [place], [place], [id number], [place] tel:[phone] [facility] Unilateral primary osteoarthritis, right knee 7 Mike Messina. [address] [address], [place], [place], [id number] , [place]. tel:[phone] Office/outpa tient visit,est, [facility], [address] [address], [place], [place], [id number], [place] [phone] [facility] Bilateral knee (chief complaint) Unilateral primary osteoarthritis, right kneePresence of left artificial knee joint 7 Mike Messina. [address] [address], [place], [place], [id number] , [place]. tel:[phone] Referring Provider: David Sevilla MD P, [facility] [address], [place], [address] . tel:[phone] Office/outpa tient visit,est, [facility], [address] [address], [place], [place], [id number], [place] tel:[phone] [facility] bilateral knee symtoms (chief complaint) Unilateral primary osteoarthritis, right kneePresence of left artificial knee jointARTHROPATHY NOS-L/LEG 6 Nir Shabazz. [address] [address], [place], [place], [id number] , [place]. tel:[phone] Referring Provider: David Sevilla MD P, [address] [address], [place], [address] . tel:[phone] Office/outpa tient visit,est, [facility], [address] [place] [address], [place], [place], [id number], [place] tel:[phone] [facility] bilateral knees (chief complaint) Unilateral primary osteoarthritis, right kneePain in left knee 5 Nir Shabazz. [address], [id number] , [place]. tel: [phone] [facility], [address] [place] [address], [id number], [place] tel:[phone] [facility] right knee global follow up (chief complaint) TEAR MED MENISC KNEE-CURARTHROPAT HY NOS-L/LEG Sep-1 5 Nir Shabazz. [address], [id number] , [place]. tel: [phone] [facility], [address] [place] [address], [id number], [place] tel:[phone] [facility] post op right knee (chief complaint) TEAR MED MENISC KNEE-CUR Sep-0 5 Nir Shabazz. [address] [place] [address], [id number] , [place]. tel:[phone] [facility], [address] [place] [address], [id number], [place] tel:[phone] [facility] [place] No Information 5 Nir Shabazz. [address] [place] [address], [id number] , [place]. tel:[phone] Office/outpa tient visit,est, [facility], [address] [place] [address], [id number], [place] tel:[phone] [facility] RIGHT KNEE ARTHRITIS (chief complaint) JOINT PAIN-L/LEG Jul- 5 Nir Shabazz. [address] [place] [address], [id number] , [place]. tel:[phone] Referring Provider: David Richardson, [address] [place] [address], [address] . tel:[phone] Office/outpa tient visit,est, [facility], [address] [place] [address], [place], [place], [id number], [place] [phone] [facility] LOC PRIM OSTEOART-L/LEGJOI NT PAIN-L/LEG 5 Roel Hernandez. [address] [facility], [address] [address], [place], [place], [id number] , [place]. tel: [phone] [facility], [address] [address], [place], [place], [id number], [place] tel:[phone] [facility] AFTERCARE JOINT REPLACELOC PRIM OSTEOART-L/LEGCho ndromalacia 5 Roel Hernandez. [address] [facility], [address] [address], [place], [place], [id number] , [place]. tel: [phone] Office[facility]pa [facility]ient visit,[facility], [facility], [address] [address], [place], [place], [id number], [place] tel:[phone] [facility] JOINT PAIN-L/LEGAFTERCA RE JOINT REPLACELOC PRIM OSTEOART-L/LEG April- 5 Roel Hernandez. [address] [facility], [address] [address], [place], [place], [id number] , [place]. tel: [phone] Office/outpa [facility]ient visit,[facility], [facility], [address] [address], [place], [place], [id number], [place] tel:[phone] [facility] JOINT REPLACELOC PRIM OSTEOART-L/LEGJOI NT PAIN-L/LEG Mar- 4 Roel Hernandez. [address] [facility], [address] [address], [place], [place], [id number] , [place]. tel: [phone] Office/outpa tient visit,new, [facility], [address] [address], [place], [place], [id number], [place] tel:[phone] [facility] JOINT PAIN-L/LEGLOC PRIM OSTEOART-L/LEGAFT ERCARE JOINT REPLACE 4 Roel Hernandez. [address] [facility], [facility] [address], [place], [place], [id number] , [place]. tel: [phone] Office/outpa tient visit,est, [facility], [address] [facility] [address], [place], [place], [id number], [place] tel:[phone] [facility] No Information 0 Roel Hernandez. [address] [facility], [facility] [address], [place], [place], [id number] , [place]. tel: [phone] Office/outpa tient visit,est, [facility], [address] [address], [place], [place], [id number], [place] tel:[phone] [facility] No Information 7 Roel Hernandez. [address] [facility], [address] [address], [place], [place], [id number] , [place]. tel: [phone] Office/outpa tient visit,est, [facility], [address], [id number], [place] tel:[phone] [facility] No Information 6 Roel Hernandez. [address] [facility], [facility] [address], [place], [place], [id number] , [place]. tel: [phone] [facility], [address] [address], [place], [place], [address], [place] tel:[phone] [facility] No Information 6 Roel Hernandez. [address] [facility], [facility] [address], [place], [place], [id number] , [place]. tel: [phone] [facility], [address] [address], [place], [place], [address], [place] tel:[phone] [facility] No Information 6 Roel Hernandez. [address] [facility], [address] [address], [place], [place], [id number] , [place]. tel: [phone] [facility], [address] [facility], [place], [place], [id number], [place] [phone] [facility] No Information 6 Roel Hernandez. [address] [facility], [address], [place], [place], [address] , [place]. tel: [phone] Family History Family Member Type Diagnosis Age At Onset Sister Problem (finding) diabetes melli tus in first degree relative Sister Problem (finding) hypertension Sister Problem (finding) Arthritis Immunizations Vaccine Date Status Comments Flu (split) (3 yrs or older) administered Source: Other Provider Pneumo (2 yrs or older)(PPV) administered Source: Other Provider Flu (split) (3 yrs or older) administered Source: Other Provider Payers Payer name Insurance type [facility] [id number] Social History Type Description Quantity Date Captured Comments Alcohol Use Details Unknown Caffeine Use Details Unknown Tobacco Use Status No Information Smoking Status No Information Sex Male Chief Complaint And Reason For Visit No Information Reason For Referral Reason For Referral No Information Plan Of Treatment Date Type Action Status Referral Ordered: X-ray exam knee, 1 or 2 views RT ordered Referral Ordered: X-ray exam knee, 1 or 2 views LT ordered Referral Ordered: X-ray exam knee, 1 or 2 views Bilateral ordered Referral Ordered: X-ray exam both knees, standing ordered Patient Education Knee Arthritis: After Y our Visit completed Patient Education Body Mass Index: After Your Visit completed Patient Education Body Mass Index: After Your Visit completed History Of Present Illness Encounter Date Complaint History Of Prese nt Illness Bilateral knee Patient comes in today for bilateral knee pain bilateral knee symtoms Gordo ramirez mes into the office today to discuss total joint replacement on surgery on his right knee. He has had his left knee replaced and revised by Dr. FONSECA. He has had multiple cortisone injections in his right knee and has had visco-supplementation. His last cortisone injection in the right knee was 11-10-15. He did have his knee scoped here. He fell a couple days ago landing on the anterior aspect of both knees and is asking to have his left knee xrayed along with his right one. bilateral knees Gordo comes in the office today for his bilateral knees. He complains of medial knee pain in both knees. He is status post right knee scope with PMM and PLM by Dr. Loyola on 07/28/15. He was found to have Grade 3 changes about the patella and Grade 2 changes about the medial compartment of the knee. He received a cortisone injection on 08/19/2015. He is status post left knee TKA and revision with Dr. Sevilla. 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 right knee global follow up Etta cohen presents to the office today in follow up for his right knee. He is status post right knee scope partial medial and lateral meniscectomy. He is 3 weeks and 1 day post surgery. He states that he is worse now since his last visit. He is not sure what happened. There was no new injury. He states about 3 nights ago he had such an increase in pain that he couldn't sleep. The pain is on the medial apsect of the knee. He is not currently in physical therapy. post op right knee Gordo comes back into the office today for his right knee scope PMM- PLM which was done on 07-28-15. He comes in with his sutures already out. He reports they were rubbing on his pants and came out on their own. His incisions are well healed. RIGHT KNEE ARTHRITIS Gordo come s into the office today by referral of Dr. Sevilla. He has had a long history of right knee pain. He was given a cortisone injection on 06-07-15. He also has had a series of3 hylan injections. He comes in to discuss replacement. He is accompanied by his . Functional Status Date Functional Assessmen t No Information Instructions Date Instruction Additional Infor mation No Information Assessments Type Assessment Date No Information Patient Care Teams Name Effective Dates (start - stop) Status Members No Information
--- OUTSIDE RECORDS SUMMARY | 2017-08-21 04:56 | XMS_ITS | Continuity of Care Document ---
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 Role Phone Siddharth Mckeon MD Unavailable [...] Lat Office/outpatient visit,est, mod 2014 Office/outpatient visit,est, [facility] 2014 Asp/inject major joint or bursa 015 Depo Medrol Methylprednisolone 40 MG inj X-ray exam knee, 1 or 2 views 5 X-ray exam knee, 1 or 2 views 5 X-ray exam both knees, standing 015 Office/outpatient visit,est, mod 2014 Office/outpatient visit,est, [facility] 2013 X-ray exam knee, 1 or 2 views 4 X-ray exam both knees, standing 014 Office/outpatient visit,new, [facility] 2013 Office/outpatient visit,est, mod 2009 X-ray exam of knee, 1 or2 views 010 Office/outpatient visit,est, [facility] 2006 X-ray exam of knee, 1 or2 [...] Date Provider Providers Copied on Encounter [facility], [address] [address], [place], [place], [id number], [place] tel:[phone] [facility] Unilateral primary osteoarthritis, right knee 7 Mike Messina. [address] [address], [place], [place], [id number] , [place]. tel:[phone] Office/outpa tient visit,est, [facility], [address] [address], [place], [place], [id number], [place] [phone] [facility] Bilateral knee (chief complaint) Unilateral primary osteoarthritis, right kneePresence of left artificial knee joint 7 Mike Messina. [address] [address], [place], [place], [address] , [place]. tel:[phone] Referring Provider: David Sevilla MD P, [facility] [address], [place], [address] . tel:[phone] Office/outpa tient visit,est, [facility], [address] [address], [place], [place], [id number], [place] tel:[phone] [facility] bilateral knee symtoms (chief complaint) Unilateral primary osteoarthritis, right kneePresence of left artificial knee jointARTHROPATHY NOS-L/LEG 6 Nir Shabazz. [address] [address], [place], [place], [address] , [place]. tel:[phone] Referring Provider: David Sevilla MD P, [address] [address], [place], [address] . tel:[phone] Office/outpa tient visit,est, [facility], [address] [place] [address], [place], [place], [id number], [place] tel:[phone] [facility] bilateral knees (chief complaint) Unilateral primary osteoarthritis, right kneePain in left knee 5 Nir Shabazz. [address], [id number] , [place]. tel: [phone] [facility], [address] [place] [address], [id number], [place] tel:[phone] [facility] right knee global follow up (chief complaint) TEAR MED MENISC KNEE-CURARTHROPAT HY NOS-L/LEG Sep-1 5 Nir Shabazz. [address], [id number] , [place]. tel: [phone] [facility], [address] [place] [address], [id number], [place] tel:[phone] [facility] post op right knee (chief complaint) TEAR MED MENISC KNEE-CUR Sep-0 5 Nir Shabazz. [address] [place] [address], [id number] , [place]. tel:[phone] [facility], [address] [place] [address], [id number], [place] tel:[phone] [facility] [place] No Information 5 Nir Shabazz. [address] [place] [address], [id number] , [place]. tel:[phone] Office/outpa tient visit,est, [facility], [address] [place] [address], [id number], [place] tel:[phone] [facility] RIGHT KNEE ARTHRITIS (chief complaint) JOINT PAIN-L/LEG Jul- 5 Nir Shabazz. [address] [place] [address], [id number] , [place]. tel:[phone] Referring Provider: David Richardson, [address] [place] [address], [address] . tel:[phone] Office/outpa tient visit,est, [facility], [address] [place] [address], [place], [place], [id number], [place] [phone] [facility] LOC PRIM OSTEOART-L/LEGJOI NT PAIN-L/LEG 5 Roel Hernandez. [address] [facility], [address] [address], [place], [place], [id number] , [place]. tel: [phone] [facility], [address] [address], [place], [place], [id number], [place] tel:[phone] [facility] AFTERCARE JOINT REPLACELOC PRIM OSTEOART-L/LEGCho ndromalacia 5 Roel Hernandez. [address] [facility], [address] [address], [place], [place], [id number] , [place]. tel: [phone] Office/outpa tient visit,[facility], [facility], [address] [address], [place], [place], [id number], [place] tel:[phone] [facility] JOINT PAIN-L/LEGAFTERCA RE JOINT REPLACELOC PRIM OSTEOART-L/LEG April- 5 Roel Hernandez. [address] [facility], [address] [address], [place], [place], [id number] , [place]. tel: [phone] Office/outpa tient visit,[facility], [facility], [address] [address], [place], [place], [id number], [place] tel:[phone] [facility] JOINT REPLACELOC PRIM OSTEOART-L/LEGJOI NT PAIN-L/LEG Mar- 4 Roel Hernandez. [address] [facility], [address] [address], [place], [place], [id number] , [place]. tel: [phone] Office/outpa tient visit,new, [facility], [address] [address], [place], [place], [id number], [place] tel:[phone] [facility] JOINT PAIN-L/LEGLOC PRIM OSTEOART-L/LEGAFT ERCARE JOINT REPLACE 4 Roel Hernandez. [address] [facility], [facility] [address], [place], [place], [id number] , [place]. tel: [phone] Office/outpa tient visit,est, [facility], [address] [facility] [address], [place], [place], [id number], [place] tel:[phone] [facility] No Information 0 Roel Hernandez. [address] [facility], [facility] [address], [place], [place], [id number] , [place]. tel: [phone] Office/outpa tient visit,est, [facility], [address] [address], [place], [place], [address], [place] tel:[phone] [facility] No Information 7 Roel Hernandez. [address] [facility], [address] [address], [place], [place], [id number] , [place]. tel: [phone] Office/outpa tient visit,est, [facility], [address], [id number], [place] tel:[phone] [facility] No Information 6 Roel Hernandez. [address] [facility], [facility] [address], [place], [place], [id number] , [place]. tel: [phone] [facility], [address] [address], [place], [place], [id number], [place] tel:[phone] [facility] No Information 6 Roel Hernandez. [address] [facility], [facility] [address], [place], [place], [address] , [place]. tel: [phone] [facility], [address] [address], [place], [place], [id number], [place] tel:[phone] [facility] No Information 6 Roel Hernandez. [address] [facility], [address] [address], [place], [place], [address] , [place]. tel: [phone] [facility], [address] [facility], [place], [place], [id number], [place] [phone] [facility] No Information 6 Roel Hernandez. [address] [facility], [address], [place], [place], [address] , [place]. tel: [phone] Family History Family Member Type Diagnosis Age [...] Provider Payers Payer name Insurance type Covered constitution [facility] [id number] Social History Type Description Quantity Date Captured [...] days. right knee global follow up Etta coehn presents to the office today in follow [...]
[2025-10-07] VITALS (10 sets, daily range): BP systolic 146–182; BP diastolic 68–145; PULSE 69–90; RESP 12–19; TEMP 36.6; O2SAT 96–99
--- NOTE | ~2025-10-07 | CT_ITS ---
EXAM/PROCEDURE: CT abdomen pelvis w con HISTORY: abd pain; black watery stools; GI bleed COMPARISON: 07/30/2025 TECHNIQUE: Contrast-enhanced CT of abdomen and pelvis FINDINGS: The bowel gas pattern is nonobstructive with no free air or free fluid or pneumatosis seen. Appendix appears removed. No gross inflammatory changes in the right lower quadrant or in the right extraperitoneal soft tissues. The intestines are unopacified and nondistended but no obvious acute process or abnormality seen. No clear source of bleeding. Liver spleen pancreas adrenal glands and kidneys appear stable. Aorta normal size. Bones intact. Lung bases are stable including calcified granuloma anterior left lung base. No bulky lymphadenopathy or mass is seen. The urinary bladder is unopacified and nondistended not well evaluated. Prostate mildly enlarged. IMPRESSION: No focal acute findings. No clear source for reported GI bleeding. Reviewed, dictated and finalized at location A. MANAGER
--- NOTE | 2025-10-07 13:08 | ED.ABDPAIN ---
HPI - Abdominal Pain General Chief Complaint: Abdominal Pain <Rachel Arciniega PA-C - Last Filed: 10/09/25 14:12> Stated Complaint: ab pain <Rachel Arciniega PA-C - Last Filed: 10/09/25 14:12> Time Seen by Provider: 10/07/25 13:08 <Rachel Arciniega PA-C - Last Filed: 10/09/25 14:12> Focused HPI: This is a 75 year old male that presents to the ER for abdominal pain. Reports he has had abdominal pain over the last 4 months. Reports an old scar that is inflamed. Reports dark stools. Denies fever, vomiting. GENERAL: Well-appearing, well-nourished, and in no acute distress. HEAD: Normocephalic, atraumatic. CHEST: Clear to auscultation. ?No respiratory distress. HEART: Regular rate and rhythm.? NEURO: ?Alert and oriented x3. Patient screened in triage and initial orders placed.? ?Additional care and disposition to be based upon?diagnostic testing and treatment. <Rachel Arciniega PA-C - Last Filed: 10/09/25 14:12> History of Present Illness HPI narrative: Agree with the above with the following additions/corrections: Patient presents with report of abdominal pain. He reports this had been generalized but is primarily at the site of a previous appendectomy scar. His appendectomy was performed approximately 50 years ago but he noted that it seemed to up opened a bit and been erythematous approximately 3 weeks ago. He was being seen in Dr Polanco' office at the time for an issue related to his testicles and he mentioned it then so was put on doxycycline for 10-14 days. He then followed up with Veronica Bruno, his PCP in Dr Santos's clinic and was put on another doxycycline course for 10-14 days. He used to get colonoscopies regularly (although he notes q2-3 years) with Dr Trejo. He has been having thin black watery stools for the past 4 weeks. He reports that he is on anticoagulation ; ASA and clopidogrel. Has not recently been steroid. He is prescribed naproxen per review of his medications but states he does not take NSAIDs as he has been told this is better for his kidney function and has instead been using Tylenol. He denies ever having any GI bleed and had had been dark watery stools before though states this seems somewhat different. He is use Pepto-Bismol 1 time in the past 6 weeks. Not iron supplementation. <Bonny Barnes MD - Last Filed: 10/07/25 20:31> Related Data Home Medications: Home Medications ?Medication ?Instructions ?Recorded ?Confirmed ?Last Taken ?Type mecobalamin (vitamin B12) 5,000 5,000 mcg PO WEEKLY 02/01/25 09/14/25 Unknown History mcg chewable tablet aspirin 81 mg tablet 81 mg PO DAILY 04/30/25 09/14/25 Unknown History finasteride 5 mg tablet 5 mg PO DAILY 04/30/25 09/14/25 Unknown History amlodipine 5 mg tablet 5 mg PO DAILY 05/17/25 09/14/25 Unknown History famotidine 10 mg tablet (Pepcid AC) 10 mg PO DAILY 08/20/25 09/14/25 Unknown History magnesium 200 mg tablet 400 mg PO DAILY 08/20/25 09/14/25 Unknown History naproxen 500 mg tablet (Naprosyn) 500 mg PO BID PRN 08/20/25 09/14/25 Unknown History vitamin E (dl, acetate) 180 mg 180 mg PO DAILY 08/20/25 09/14/25 Unknown History (400 unit) capsule <Rachel Arciniega PA-C - Last Filed: 10/09/25 14:12> Allergies/Adverse Reactions: Allergies Allergy/AdvReac Type Severity Reaction Status Date / Time Cephalosporins Allergy Unknown SHORTNESS Verified 10/07/25 13:44 OF BREATH,Dyspnea / SOB morphine Allergy Unknown Jittery Verified 10/07/25 13:44 nitroglycerin Allergy Unknown HEART RATE Verified 10/07/25 13:44 GOES DOWN FAST,Unknown oxycodone Allergy Unknown Confusion,F Verified 10/07/25 13:44 atigued amoxicillin AdvReac Dyspnea / Verified 10/07/25 13:44 SOB clavulanic acid AdvReac Dyspnea / Verified 10/07/25 13:44 SOB cyclobenzaprine AdvReac Stopped Verified 10/07/25 13:44 Breathing hydrocodone AdvReac Confusion Verified 10/07/25 13:44 lisinopril AdvReac Unknown Verified 10/07/25 13:44 norepinephrine AdvReac Unknown Verified 10/07/25 13:44 Sulfa (Sulfonamide AdvReac Dyspnea / Verified 10/07/25 13:44 Antibiotics) SOB <Rachel Arciniega PA-C - Last Filed: 10/09/25 14:12> [facility], [facility] Past Medical History Medical History: Medical History Peripheral sensory neuropathy due to type 2 diabetes mellitus Closed fracture of left distal fibula Obstructive sleep apnea Hyperlipidemia Overactive bladder BPH (benign prostatic hyperplasia) Gout Diabetic autonomic neuropathy History of esophageal stricture Diabetic peripheral neuropathy Hypertriglyceridemia Myocardial infarction Methicillin resistant Staphylococcus aureus infection (2014) Psoriasis Obstructive sleep apnea Intolerant to CPAP Gastroesophageal reflux disease Heart failure with reduced ejection fraction With EF of 45% in January of 2023 and echocardiogram in April 2023 showing normal EF 55-60% Chronic kidney disease, stage 3 Coronary artery disease Insulin dependent diabetes mellitus SBO (small bowel obstruction) Multiple bowel obstructions as far back as 2012 in the records Coarctation of aorta Anxiety Arthritis Depression Hepatitis B Kidney stone Peripheral neuropathy Rectal polyp Hypercholesterolemia Hypertension <Rachel Arciniega PA-C - Last Filed: 10/09/25 14:12> Surgical History Surgical History: Surgical History History of resection of small bowel 2014 exploratory laparotomy for SBO that resulted in adhesiolysis and jejunal small bowel resection History of repair of rotator cuff S/P dilatation of esophageal stricture November [address] Trejo and likely more recent in January 2023 but this cannot be confirmed History of tonsillectomy History of arthroscopy of both knees History of bilateral knee replacement Right knee 2019 History of colonoscopy with polypectomy History of hernia repair History of cholecystectomy History of appendectomy History of partial colectomy (09/2015) Secondary to bowel obstruction with recurrence requiring exploratory laparotomy and lysis of adhesions 03/28/2000 History of aortic coarctation repair (1964) History of coronary artery stent placement History of cardiac catheterization Catheterization 2013 unremarkable, Cardiac catheterization June 2022 distal obtuse marginal stenosis 90% no stent placed and January 2023 at [facility] demonstrating severe disease diagonal and LAD 2.5 x 22 mm stent in the diagonal, transferred to [facility] with stent 01/18/2023 4.5 x 24 mm synergy DWAYNE placed in the LAD History of hemorrhoidectomy History of arthroscopy of left shoulder With removal of bone spur. History of cataract surgery History of bilateral carpal tunnel release <Rachel Arciniega PA-C - Last Filed: 10/09/25 14:12> Family History Family History: Family History Sibling Family history of thyroid disease Hypertension Family history of diabetes mellitus in first degree relative Family history of obesity Diabetes mellitus Mother Hypertension Family history of diabetes mellitus in first degree relative Family history of thyroid disease Family history of osteoporosis Patient's mother is in good health Cerebrovascular accident Family history of Alzheimer's disease Family history of hearing loss Family history of transient ischemic attacks Father Asthma Patient's father is Family history of chronic obstructive pulmonary disease Acute myocardial infarction Family history of lung disease, Onset Age: 64 <Rachel Arciniega PA-C - Last Filed: 10/09/25 14:12> Social History Social History: Social History Social History: Caffeine-decaf tea Surrogate medical decision maker: Doreen Yepez, daughter. Code status: DNR/DNI per patient report request. Second hand tobacco smoke exposure: No Alcohol intake: never Substance use: never Substance use type: does not use Do You Feel Safe in your Home?: Yes Lack of Transportation: No Lack of Food: Never True Current Housing: I Have Housing Concerned About Future Housing: No Difficulty Paying Gas/Electric Bills: No Difficulty Paying for Meds: No Currently Unemployed: No Education: High School Diploma/GED Difficulty w/ Childcare or Family Care: No Living arrangements: alone Additional living arrangements comments: The patient has been since 2020. He lives alone. He has 1 daughter and 1 son. Moving in to assisted living end of 2024/beginning 2025. Occupation/Education: retired Additional occupation/education comments: He is retired from [employer]. Spiritual care concerns: No <Rachel Arciniega PA-C - Last Filed: 10/09/25 14:12> Exam Narrative: GENERAL: Well-appearing, well-nourished, and in no acute distress. HEAD: Normocephalic, atraumatic. EYES: Non injected, non icteric ENT: Nares clear, no rhinorrhea or epistaxis. Gross auditory acuity intact. NECK: Supple. No meningismus. CHEST: Speaking in full sentences. No respiratory distress. HEART: Regular rate and rhythm. . ABDOMEN: Soft, nondistended. No rigidity or guarding. Not peritoneal Digital Rectal EXAM: No external hemorrhoids. Normal rectal tone. No palpable masses. Guiaic/FOBT negative on bedside assay x2 windows compared to control. EXTREMITIES: Normal range of motion. No lower extremity edema. SKIN: Warm, dry. Scar RLQ abdomen with 2 areas covered by scab and with some mild erythema along the margins but otherwise not spreading. No purulent discharge. NEURO: No focal deficits. Alert and oriented. Answering questions. Following commands. Normal speech without aphasia or dysarthria. PSYCH: Normal mood and affect. <Bonny Barnes MD - Last Filed: 10/07/25 20:31> Course Vital Signs Vital signs: Vital Signs Temperature 97.8 F 10/07/25 12:14 Pulse Rate 90 10/07/25 12:14 Respiratory Rate 16 10/07/25 12:14 Blood Pressure 146/68 H 10/07/25 12:14 Pulse Oximetry 97 10/07/25 12:14 Oxygen Delivery Room Air 10/07/25 12:14 Temperature 97.8 F 10/07/25 12:14 Pulse Rate 69 10/07/25 20:25 Respiratory Rate 18 10/07/25 20:25 Blood Pressure 170/93 H 10/07/25 20:25 Pulse Oximetry 97 10/07/25 20:25 Oxygen Delivery Room Air 10/07/25 12:14 <Rachel Arciniega PA-C - Last Filed: 10/09/25 14:12> Vital Signs Temperature 97.8 F 10/07/25 12:14 Pulse Rate 90 10/07/25 12:14 Respiratory Rate 16 10/07/25 12:14 Blood Pressure 146/68 H 10/07/25 12:14 Pulse Oximetry 97 10/07/25 12:14 Oxygen Delivery Room Air 10/07/25 12:14 Temperature 97.8 F 10/07/25 12:14 Pulse Rate 69 10/07/25 20:25 Respiratory Rate 18 10/07/25 20:25 Blood Pressure 170/93 H 10/07/25 20:25 Pulse Oximetry 97 10/07/25 20:25 Oxygen Delivery Room Air 10/07/25 12:14 <Bonny Barnes MD - Last Filed: 10/07/25 20:31> MDM - Abdominal Pain MDM Narrative Medical decision making narrative: Exceedingly pleasant 75-year-old Patient presents with report of concern for an old appendectomy scar that opened up 3 weeks ago. He has been on 2 rounds of doxycycline for this. He reported abdominal pain but reports that in general is localized to this area. He also reports having thin black watery stools for the past 4 weeks. In the emergency department he is afebrile with acceptable vital signs. INR acceptable. CBC without leukocytosis anemia thrombocytopenia. Only mild abnormalities on differential. Repeat 4h H/H ordered. Hyperglycemia without anion gap acidosis. Glucosuria without signs of infection on urinalysis. He has hypokalemia. Oral repletion ordered in addition to magnesium lab. Lactic acid normal. Magnesium is also low. Repletion ordered. Repeat H&H remain stable. Although patient reports dark/black watery thin stools, he does not particularly describe melena and FOBT/guaiac negative on exam. I believe this instead just describes normal spectrum of diarrhea. Symptoms >2 weeks. My differential diagnosis for chronic diarrhea includes, but not limited to: Infectious (giardia, E histolytica, C difficile), medications (antibiotics, antacids, lactulose, sorbitol, chemotherapy, colchicine, gold), inflammatory etiology (such as IBD, radiation enteritis, ischemic colitis, diverticulitis). Also possible are malabsorption issues due to bile salt deficiency (cirrhosis, cholestasis, ileal disease, bacterial overgrowth), pancreatic insufficiency, mucosal abnormalities (celiac sprue, tropical sprue, Whipple disease), or lactose intolerance. They are also secretory causes such as hormonal (VIP, carcinoid tumor, medullary cancer of thyroid, a linear Walker, glucagon, thyroxine), laxative abuse, neoplasm; finally motility issues may be the cause (IBS, scleroderma, hyperthyroidism, diabetic autonomic neuropathy). Patient was unable to produce a stool sample. Less likely this represents C diff. Patient has erythema around the margins of the wound /scar with some scabs but otherwise this area does not appear particularly infected. I do not believe there is a need for oral antibiotics for this. We discussed the role of topical antibiotics as well as appropriate wound care and avoiding Neosporin and hydrogen peroxide. Bacitracin to be applied to the wound. Patient may require consideration of colonoscopy if diarrhea persists. Given contact information for GI, especially if previous GI Dr Trejo has retired. Discuss that he had some mild abnormalities of electrolytes and encouraged maintaining hydration supplementing with Pedialyte/Gatorade as needed. Also informed that I can prescribe magnesium supplementation however reasonable to trial this in magnesium containing fluids instead given side effect of the supplementation skin include increased diarrhea. Patient is not having any pain on reassessment. Reasonable to discharge. He does talk extensively at this point up out the of his 5 years ago, the fact that he is moving into an assisted living facility in the next month or so which has him excited on some friends but also causes some trepidation and sadness about having to move from the home he has been caring for and maintaining for so many years as well as the other belongings he will be selling. <Bonny Barnes MD - Last Filed: 10/07/25 20:31> Differential Diagnosis Differential diagnosis: Likely abdominal pain, diverticulitis, small bowel obstruction and other (IBD, upper/lower GI bleed various etiologies; cellulitis; (intra-abdominal) abscess; melena; medication side effect; malignancy) <Bonny Barnes MD - Last Filed: 10/07/25 20:31> Lab Data Attestation: I reviewed the patient's lab results. <Bonny Barnes MD - Last Filed: 10/07/25 20:31> Result diagrams: 10/07/25 18:00 10/07/25 13:29 <Rachel Arciniega PA-C - Last Filed: 10/09/25 14:12> Labs: Lab Results 10/07/25 10/07/25 10/07/25 Range/Units 13:28 13:29 13:32 WBC 5.6 (4.5-10.0) K/mm3 RBC 4.75 (4.6-6.20) M/mm3 Hgb 14.6 (14.0-18.0) g/dL Hct 43.7 (42.0-52.0) % MCV 92.0 (80-100) fl MCH 30.7 (26-34) pg MCHC 33.4 (32-36) g/dl RDW 12.8 (11.5-14.5) % Plt Count 151 (150-375) k/mm3 MPV 10.2 (7.4-10.4) fl Immature Gran % (Auto) 0.4 (0-0.5) % Neut % (Auto) 62.4 (45.5-73.1) % Lymph % (Auto) 20.8 (18.3-44.2) % Hawkins % (Auto) 8.2 (2.6-8.5) % Eos % (Auto) 7.3 H (0-4.4) % Baso % (Auto) 0.9 (0.2-1.2) % Lymph # (Auto) 1.16 (0.9-3.2) K/mm3 Hawkins # (Auto) 0.5 (0.1-0.6) K/mm3 Eos # (Auto) 0.4 H (0-0.3) K/mm3 Baso # (Auto) 0.1 (0.0-0.1) K/mm3 Abs Immat Gran (auto) 0.02 (0.00-0.031) K/mm3 Absolute Neuts (auto) 3.5 (1.3-6.7) K/mm3 Absolute Nucleated RBC 0.000 (0.0-0.012) K/mm3 Nucleated RBC % 0.0 (0.0-0.2) % PT 12.8 (11.1-14.7) Seconds INR 0.9 APTT 26.6 (22.3-36.8) Seconds Sodium 140 (137-145) mmol/L Potassium 3.0 L (3.4-5.0) mmol/L Chloride 104 (98-107) mmol/L Carbon Dioxide 26 (22-30) mmol/L Anion Gap 10 (4-12) mmol/L BUN 14 D (9-20) mg/dL Creatinine 1.06 (0.7-1.3) mg/dL Estim Creat Clear Calc 77 ml/min Estimated GFR > 60 (59 - ) Glucose 270 H (65-110) mg/dL Lactic Acid (0.7-2.0) mmol/L Calcium 8.9 (8.4-10.2) mg/dL Magnesium 1.4 L (1.6-2.3) mg/dL Total Bilirubin 0.5 (0.2-1.3) mg/dL AST 27 (17-59) U/L ALT 33 (6-50) U/L Alkaline Phosphatase 96 (38-126) U/L Total Protein 6.6 (6.3-8.2) g/dL Albumin 4.1 (3.5-5.1) g/dL Lipase 58 (23-300) U/L Urine Color Yellow (Yellow) Urine Appearance Clear (Clear) Urine pH 5.0 (5.0-9.0) Ur Specific Wilbraham 1.029 (1.001-1.035) Urine Protein 2+ H (Negative) mg/dL Urine Glucose (UA) 3+ H (Negative) mg/dL Urine Ketones Trace H (Negative) mg/dL Ur Blood (Man) Negative (Negative) Urine Nitrate Negative (Negative) Urine Bilirubin Negative (Negative) Urine Urobilinogen 1.0 (<2.0) mg/dL Add Ur Microanalysis Reviewed Leukocyte Esterase Rfl Negative (Negative) AMERICO/UL Urine RBC 0-2 (0-2) /hpf Urine WBC 0-5 (0-3) /hpf Ur Squamous Epith Cells None seen (Few) /hpf Calcium Oxalate Crystal Present (None) /hpf Urine Bacteria None seen /hpf Urine Casts 3-5 10/07/25 10/07/25 Range/Units 15:21 18:00 WBC (4.5-10.0) K/mm3 RBC (4.6-6.20) M/mm3 Hgb 14.7 (14.0-18.0) g/dL Hct 42.6 (42.0-52.0) % MCV (80-100) fl MCH (26-34) pg MCHC (32-36) g/dl RDW (11.5-14.5) % Plt Count (150-375) k/mm3 MPV (7.4-10.4) fl Immature Gran % (Auto) (0-0.5) % Neut % (Auto) (45.5-73.1) % Lymph % (Auto) (18.3-44.2) % Hawkins % (Auto) (2.6-8.5) % Eos % (Auto) (0-4.4) % Baso % (Auto) (0.2-1.2) % Lymph # (Auto) (0.9-3.2) K/mm3 Hawkins # (Auto) (0.1-0.6) K/mm3 Eos # (Auto) (0-0.3) K/mm3 Baso # (Auto) (0.0-0.1) K/mm3 Abs Immat Gran (auto) (0.00-0.031) K/mm3 Absolute Neuts (auto) (1.3-6.7) K/mm3 Absolute Nucleated RBC (0.0-0.012) K/mm3 Nucleated RBC % (0.0-0.2) % PT (11.1-14.7) Seconds INR APTT (22.3-36.8) Seconds Sodium (137-145) mmol/L Potassium (3.4-5.0) mmol/L Chloride (98-107) mmol/L Carbon Dioxide (22-30) mmol/L Anion Gap (4-12) mmol/L BUN (9-20) mg/dL Creatinine (0.7-1.3) mg/dL Estim Creat Clear Calc ml/min Estimated GFR (59 - ) Glucose (65-110) mg/dL Lactic Acid 2.0 (0.7-2.0) mmol/L Calcium (8.4-10.2) mg/dL Magnesium (1.6-2.3) mg/dL Total Bilirubin (0.2-1.3) mg/dL AST (17-59) U/L ALT (6-50) U/L Alkaline Phosphatase (38-126) U/L Total Protein (6.3-8.2) g/dL Albumin (3.5-5.1) g/dL Lipase (23-300) U/L Urine Color (Yellow) Urine Appearance (Clear) Urine pH (5.0-9.0) Ur Specific Wilbraham (1.001-1.035) Urine Protein (Negative) mg/dL Urine Glucose (UA) (Negative) mg/dL Urine Ketones (Negative) mg/dL Ur Blood (Man) (Negative) Urine Nitrate (Negative) Urine Bilirubin (Negative) Urine Urobilinogen (<2.0) mg/dL Add Ur Microanalysis Leukocyte Esterase Rfl (Negative) AMERICO/UL Urine RBC (0-2) /hpf Urine WBC (0-3) /hpf Ur Squamous Epith Cells (Few) /hpf Calcium Oxalate Crystal (None) /hpf Urine Bacteria /hpf Urine Casts <Rachel Arciniega PA-C - Last Filed: 10/09/25 14:12> Lab Results 10/07/25 10/07/25 10/07/25 Range/Units 13:28 13:29 13:32 WBC 5.6 (4.5-10.0) K/mm3 RBC 4.75 (4.6-6.20) M/mm3 Hgb 14.6 (14.0-18.0) g/dL Hct 43.7 (42.0-52.0) % MCV 92.0 (80-100) fl MCH 30.7 (26-34) pg MCHC 33.4 (32-36) g/dl RDW 12.8 (11.5-14.5) % Plt Count 151 (150-375) k/mm3 MPV 10.2 (7.4-10.4) fl Immature Gran % (Auto) 0.4 (0-0.5) % Neut % (Auto) 62.4 (45.5-73.1) % Lymph % (Auto) 20.8 (18.3-44.2) % Hawkins % (Auto) 8.2 (2.6-8.5) % Eos % (Auto) 7.3 H (0-4.4) % Baso % (Auto) 0.9 (0.2-1.2) % Lymph # (Auto) 1.16 (0.9-3.2) K/mm3 Hawkins # (Auto) 0.5 (0.1-0.6) K/mm3 Eos # (Auto) 0.4 H (0-0.3) K/mm3 Baso # (Auto) 0.1 (0.0-0.1) K/mm3 Abs Immat Gran (auto) 0.02 (0.00-0.031) K/mm3 Absolute Neuts (auto) 3.5 (1.3-6.7) K/mm3 Absolute Nucleated RBC 0.000 (0.0-0.012) K/mm3 Nucleated RBC % 0.0 (0.0-0.2) % PT 12.8 (11.1-14.7) Seconds INR 0.9 APTT 26.6 (22.3-36.8) Seconds Sodium 140 (137-145) mmol/L Potassium 3.0 L (3.4-5.0) mmol/L Chloride 104 (98-107) mmol/L Carbon Dioxide 26 (22-30) mmol/L Anion Gap 10 (4-12) mmol/L BUN 14 D (9-20) mg/dL Creatinine 1.06 (0.7-1.3) mg/dL Estim Creat Clear Calc 77 ml/min Estimated GFR > 60 (59 - ) Glucose 270 H (65-110) mg/dL Lactic Acid (0.7-2.0) mmol/L Calcium 8.9 (8.4-10.2) mg/dL Magnesium 1.4 L (1.6-2.3) mg/dL Total Bilirubin 0.5 (0.2-1.3) mg/dL AST 27 (17-59) U/L ALT 33 (6-50) U/L Alkaline Phosphatase 96 (38-126) U/L Total Protein 6.6 (6.3-8.2) g/dL Albumin 4.1 (3.5-5.1) g/dL Lipase 58 (23-300) U/L Urine Color Yellow (Yellow) Urine Appearance Clear (Clear) Urine pH 5.0 (5.0-9.0) Ur Specific Wil[place]ham 1.029 (1.001-1.035) Urine Protein 2+ H (Negative) mg/dL Urine Glucose (UA) 3+ H (Negative) mg/dL Urine Ketones Trace H (Negative) mg/dL Ur Blood (Man) Negative (Negative) Urine Nitrate Negative (Negative) Urine Bilirubin Negative (Negative) Urine Urobilinogen 1.0 (<2.0) mg/dL Add Ur Microanalysis Reviewed Leukocyte Esterase Rfl Negative (Negative) AMERICO/UL Urine RBC 0-2 (0-2) /hpf Urine WBC 0-5 (0-3) /hpf Ur Squamous Epith Cells None seen (Few) /hpf Calcium Oxalate Crystal Present (None) /hpf Urine Bacteria None seen /hpf Urine Casts 3-5 10/07/25 10/07/25 Range/Units 15:21 18:00 WBC (4.5-10.0) K/mm3 RBC (4.6-6.20) M/mm3 Hgb 14.7 (14.0-18.0) g/dL Hct 42.6 (42.0-52.0) % MCV (80-100) fl MCH (26-34) pg MCHC (32-36) g/dl RDW (11.5-14.5) % Plt Count (150-375) k/mm3 MPV (7.4-10.4) fl Immature Gran % (Auto) (0-0.5) % Neut % (Auto) (45.5-73.1) % Lymph % (Auto) (18.3-44.2) % Hawkins % (Auto) (2.6-8.5) % Eos % (Auto) (0-4.4) % Baso % (Auto) (0.2-1.2) % Lymph # (Auto) (0.9-3.2) K/mm3 Hawkins # (Auto) (0.1-0.6) K/mm3 Eos # (Auto) (0-0.3) K/mm3 Baso # (Auto) (0.0-0.1) K/mm3 Abs Immat Gran (auto) (0.00-0.031) K/mm3 Absolute Neuts (auto) (1.3-6.7) K/mm3 Absolute Nucleated RBC (0.0-0.012) K/mm3 Nucleated RBC % (0.0-0.2) % PT (11.1-14.7) Seconds INR APTT (22.3-36.8) Seconds Sodium (137-145) mmol/L Potassium (3.4-5.0) mmol/L Chloride (98-107) mmol/L Carbon Dioxide (22-30) mmol/L Anion Gap (4-12) mmol/L BUN (9-20) mg/dL Creatinine (0.7-1.3) mg/dL Estim Creat Clear Calc ml/min Estimated GFR (59 - ) Glucose (65-110) mg/dL Lactic Acid 2.0 (0.7-2.0) mmol/L Calcium (8.4-10.2) mg/dL Magnesium (1.6-2.3) mg/dL Total Bilirubin (0.2-1.3) mg/dL AST (17-59) U/L ALT (6-50) U/L Alkaline Phosphatase (38-126) U/L Total Protein (6.3-8.2) g/dL Albumin (3.5-5.1) g/dL Lipase (23-300) U/L Urine Color (Yellow) Urine Appearance (Clear) Urine pH (5.0-9.0) Ur Specific [place] (1.001-1.035) Urine Protein (Negative) mg/dL Urine Glucose (UA) (Negative) mg/dL Urine Ketones (Negative) mg/dL Ur Blood (Man) (Negative) Urine Nitrate (Negative) Urine Bilirubin (Negative) Urine Urobilinogen (<2.0) mg/dL Add Ur Microanalysis Leukocyte Esterase Rfl (Negative) AMERICO/UL Urine RBC (0-2) /hpf Urine WBC (0-3) /hpf Ur Squamous Epith Cells (Few) /hpf Calcium Oxalate Crystal (None) /hpf Urine Bacteria /hpf Urine Casts <Bonny Barnes MD - Last Filed: 10/07/25 20:31> Imaging Data Radiologist's impression: ITS Impressions Abdomen/Pelvis CT 10/07/25 15:47 IMPRESSION: No focal acute findings. No clear source for reported GI bleeding. <Rachel Arciniega PA-C - Last Filed: 10/09/25 14:12> ITS Impressions Abdomen/Pelvis CT 10/07/25 15:47 IMPRESSION: No focal acute findings. No clear source for reported GI bleeding. <Bonny Barnes MD - Last Filed: 10/07/25 20:31> Discharge Plan Discharge Clinical Impression: Hyperglycemia due to diabetes mellitus, Glucosuria, Hypokalemia, Hypomagnesemia, Scar due to wound, Chronic diarrhea <Rachel Arciniega PA-C - Last Filed: 10/09/25 14:12> Patient Disposition: Home <Rachel Arciniega PA-C - Last Filed: 10/09/25 14:12> Condition: Stable <Rachel Arciniega PA-C - Last Filed: 10/09/25 14:12> Instructions: Antibiotic Form, Hypokalemia (ED), Chronic Diarrhea (ED), Wound Healing and Your Diet (ED), Hypomagnesemia (ED), Diabetic Hyperglycemia (ED) <Rachel Arciniega PA-C - Last Filed: 10/09/25 14:12> Additional Instructions: The name of the skirt clipper (GI doctor) is listed below for follow up, particularly if the diarrhea persists. Make sure you are staying hydrated and can supplement by drinking Pedialyte/Gatorade (does not have to be name brand) for electrolytes. Given magnesium supplementation can cause diarrhea, can consider food sources to replete. Examples include salmon, tofu, samm seeds, bananas, black beans, spinach, cashews/cashew butter, oats, peanuts, potatoes with skins on, brown rice, soy milk, quinoa, kidney beans, whole wheat bread, avocado, raisins, pumpkin seeds, beet greens, dried prunes, white beans, almonds, chickpeas, etc. In terms of the scar/wound, keeping it warm clean and dry is important. As we discussed, you can apply topical antibiotic but recommend avoiding Neosporin in particular and no role for hydrogen peroxide as a cleanser; warm soapy water is fine. <Rachel Arciniega PA-C - Last Filed: 10/09/25 14:12> Patient Language: Nepali <Rachel Arciniega PA-C - Last Filed: 10/09/25 14:12> Prescriptions: New bacitracin [Bacitraycin Plus] 500 unit/gram ointment 1 applic topical Q8H Qty: 28 0RF No Action lidocaine HCl [Pain Relief (lidocaine)] 4 % cream 1 applic topical BID PRN (Reason: pain) Qty: 120 0RF Gvoke HypoPen 2-Pack 1 mg/0.2 mL auto-injector 1 mg subcut ONCE Qty: 2 0RF Rx Instructions: as a single dose; may repeat once after 15 minutes if no response mecobalamin (vitamin B12) 5,000 mcg tablet,chewable 5,000 mcg PO WEEKLY aspirin 81 mg tablet 81 mg PO DAILY finasteride 5 mg tablet 5 mg PO DAILY amlodipine 5 mg tablet 5 mg PO DAILY (DME) FreeStyle Dawit 3 Plus Sensor Device See Rx Instructions .Route Qty: 6 12RF Rx Instructions: once every 15 days (DME) blood-glucose meter [OneTouch Verio Flex meter] Misc See Rx Instructions .Route Qty: 1 0RF Rx Instructions: check BS 3 times daily (DME) OneTouch Verio test strips Strip See Rx Instructions .Route Qty: 100 0RF Rx Instructions: check Bs 3 times daily glucose 4 gram tablet,chewable 16 g PO Q15M PRN (Reason: hypoglycemia) Qty: 360 0RF Rx Instructions: until symptoms of low blood sugar are controlled (DME) FreeStyle Dawit 2 [place] Misc See Rx Instructions .Route Qty: 1 0RF Rx Instructions: As directed (DME) FreeStyle Dawit 3 [place] Misc See Rx Instructions .Route Qty: 1 0RF Rx Instructions: As directed clopidogrel 75 mg tablet 75 mg PO DAILY Qty: 90 3RF (DME) lancets 33 gauge misc See Rx Instructions .ROUTE .MEDSUPPLY Qty: 100 0RF Rx Instructions: check Bs 3 times daily atorvastatin 80 mg tablet 80 mg PO QHS Qty: 90 1RF sertraline 100 mg tablet 100 mg PO DAILY Qty: 90 1RF (DME) pen needle, diabetic [BD Ultra-Fine Micro Pen Needle] 32 gauge x 1/4 needle See Rx Instructions .ROUTE .COMPLEX Qty: 300 12RF Dose Instruction: USE 3 TIMES A DAY Rx Instructions: USE 3 TIMES A DAY (DME) FreeStyle Dawit 14 Day Sensor Kit See Rx Instructions .Route Qty: 6 1RF Rx Instructions: Use to check blood sugars (DME) FreeStyle Dawit 3 [place] Misc See Rx Instructions .Route Qty: 1 0RF Rx Instructions: Use to check BS Humulin R U-500 (Conc) Kwikpen 500 unit/mL (3 mL) insulin pen See Rx Instructions subcut .twice daily Qty: 12 0RF Rx Instructions: subcutaneously TWICE DAILY; 60 units 30 minutes before breakfast and 20 units before dinner vitamin E (dl, acetate) 180 mg (400 unit) capsule 180 mg PO DAILY famotidine [Pepcid AC] 10 mg tablet 10 mg PO DAILY naproxen [Naprosyn] 500 mg tablet 500 mg PO BID PRN magnesium 200 mg tablet 400 mg PO DAILY metformin 500 mg tablet See Rx Instructions .ROUTE .COMPLEX Qty: 180 2RF Dose Instruction: TAKE 1 TABLET (500 MG) BY MOUTH TWICE A DAY Rx Instructions: TAKE 1 TABLET (500 MG) BY MOUTH TWICE A DAY <Rachel Arciniega PA-C - Last Filed: 10/09/25 14:12> Follow-up/Referrals: Trejo,Gordo Casanova MD [Non-Staff, Gastroenterology] Solo Degroot MD [Physician, Gastroenterology] Veronica Bruno APRN [Primary Care Provider, Internal Medicine] <Rachel Arcinieag PA-C - Last Filed: 10/09/25 14:12> Time of Disposition: 19:36 <Rachel Arciniega PA-C - Last Filed: 10/09/25 14:12> 19:36 <Bonny Barnes MD - Last Filed: 10/07/25 20:31>
[2025-10-07 13:45] LABS: Hematocrit 43.7 % (42.0-52.0); Hemoglobin 14.6 g/dL (14.0-18.0); Immature Granulocyte Percent A 0.4 % (0-0.5); Lymphocytes Absolute Auto 1.16 K/mm3 (0.9-3.2); Mean Corpuscular HGB Conc 33.4 g/dl (32-36); Mean Corpuscular Hemoglobin 30.7 pg (26-34); Mean Corpuscular Volume 92.0 fl (80-100); Nucleated Red Blood Cells Absolute Auto 0.000 K/mm3 (0.0-0.012); Nucleated Red Blood Cells Perc 0.0 % (0.0-0.2); Platelet Count Result 151 k/mm3 (150-375); Red Blood Count 4.75 M/mm3 (4.6-6.20); White Blood Count 5.6 K/mm3 (4.5-10.0)
[2025-10-07 14:01] LABS: INR 0.9; Prothrombin Time 12.8 Seconds (11.1-14.7)
[2025-10-07 14:02] LABS: Partial Thromboplastin Time 26.6 Seconds (22.3-36.8)
[2025-10-07 14:05] LABS: Alanine Aminotransferase 33 U/L (6-50); Albumin Level 4.1 g/dL (3.5-5.1); Alkaline Phosphatase 96 U/L (38-126); Anion Gap 10 mmol/L (4-12); Aspartate Amino Transferase 27 U/L (17-59); Bilirubin,Total 0.5 mg/dL (0.2-1.3); Blood Urea Nitrogen 14 mg/dL (9-20); Calcium 8.9 mg/dL (8.4-10.2); Carbon Dioxide 26 mmol/L (22-30); Chloride 104 mmol/L (98-107); Estimated CRCL calculation 77 ml/min; Estimated Glomerular Filt Rate > 60; Glucose 270 mg/dL (65-110); Lipase 58 U/L (23-300); Potassium 3.0 mmol/L (3.4-5.0); Sodium 140 mmol/L (137-145); Total Protein 6.6 g/dL (6.3-8.2)
[2025-10-07 14:08] LABS: Add Urine Microscopic? YES; Appearance Urine Clear (Clear); Glucose Urine UA 3+ mg/dL (Negative); Leukocyte Esterase Ur Negative LEU/UL (Negative); Need Manual Microscopic Reviewed; Nitrate Urine Negative (Negative); Specific Grav Ur 1.029 (1.001-1.035)
[2025-10-07] MEDS: POTASSIUM BICARBONATE 25 MEQ TABEF 50 MEQ PO (16:22)
[2025-10-07 17:37] LABS: Magnesium 1.4 mg/dL (1.6-2.3)
[2025-10-07] MEDS: MAGNESIUM SULF 1 GM/D5W 100 ML 1 GM/100 ML BAG IVPB (17:56)
[2025-10-07 18:04] LABS: Hematocrit 42.6 % (42.0-52.0); Hemoglobin 14.7 g/dL (14.0-18.0)
[2025-10-07] MEDS: KETOROLAC 30 MG/ML VIAL (*BKC) IV PUSH (18:41)
[2025-10-07] MEDS: DICYCLOMINE HCL 10 MG CAPSULE 20 MG PO (18:42)
[2025-10-07] MEDS: ACETAMINOPHEN 500 MG TABLET 1000 MG PO (18:42)
[2025-10-07] MEDS: BACITRACIN OINTMENT 15 GM TUBE 1 APPLIC TOPICAL (19:11)
--- OUTSIDE RECORDS SUMMARY | 2025-10-07 19:22 | XMS_ITS | Clinical Summary ---
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
--- OUTSIDE RECORDS SUMMARY | 2025-10-07 19:22 | XMS_ITS | Encounter Summary ---
Author Organization 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
--- OUTSIDE RECORDS SUMMARY | 2025-10-07 19:22 | XMS_ITS | Encounter Summary ---
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 Gender Identity Not on file Sexual Orientation Not on file documented as of this encounter Functional Status * Question Answer Date of Assessment Author Arterial Line BP 177/67 03/28/2020 2:00 PM CDT Christiane Springer RN BP Location Left arm 03/31/2020 8:50 PM BENJAT Cassy Chapman, PABLO BP Method Automatic 03/31/2020 8:50 PM BENJAT Cassy Chapman RN MAP (mmHg) 84 03/31/2020 10:26 AM CDT Starr Gutiérrez PTA * Question Answer Date of Assessment Author Auto Low/High - if selected proceed to interventions (retired) High risk-per unit/hospital protocol 03/31/2020 7:00 PM CDT Cassy Chapman RN Gamino Fall Risk Score (Score >= 45 places fall precaution order) 50 03/31/2020 7:00 PM CDT Cassy Chapman RN * Question Answer Date of Assessment Author Arterial Line MAP (mmHg) 97 03/28/2020 2:00 PM CDT Christiane Jackson RN * Fall Risk Interventions Question Answer Date of Assessment Author All Low Fall Interventions Applied Yes 03/31/2020 7:00 PM BENJAT Cassy Chapman RN All Moderate Fall Interventions Applied Yes 03/31/2020 7:00 PM BENJAT Cassy Chapman RN All Moderate Fall Risk Interventions EXCEPT: Gait belt at bedside 03/31/2020 7:00 AM Val Jara RN All High Fall Risk Interventions Applied Yes 03/31/2020 7:00 PM BENJAT Cassy Chapman RN All High Risk Interventions EXCEPT: Bed alarm;Chair alarm;Collaborate with family;Near RN station/area 03/29/2020 8:45 AM CDT Danuta Francis RN Additional Interventions Applied Over-bed table on non-exit side;Exit bed on strong/preferred side;Bedside commode 03/29/2020 8:45 AM BENJAT Danuta Francis RN Reason For Exception(s) Abdominal incision 03/31 7:00 AM BENJAT Val Garcia RN Reason For Exception(s) pt does not get out of bed without calling 03/29/2020 8:45 AM BENJAT Danuta Francis RN * B.M.A.T. - Bedside Mobility Assessment Tool for Nurses Question Answer Date of Assessment Author Is patient able to participate in the BMAT? Yes 03/31/2020 11:02 PM Cassy Coreas RN BMAT Level Level 3 - Yellow 03/31/2020 11:0 2 PM BENJAT Cassy Chapman RN Level 3 Equipment Use assistive device such as cane/walker 03/31/2020 11:02 PM BENJAT Cassy Chapman RN * Pressure Injury Prevention Question Answer Date of Assessment Author Pressure Ulcer Prevention Interventions Keep skin clean and dry (Sensory Perception/Moistur e) 03/29/2020 8:45 AM CDT Danuta Francis RN * Integumentary Question Answer Date of Assessment Author Skin Color Appropriate for ethnicity 03/31/2020 8:50 PM BENJAT Cassy Chapman RN Skin Condition/Temp Warm;Dry 03/31/2020 8 :50 PM BENJAT Cassy Chapman RN Skin Integrity Surgical incision 03/31/2020 8:5 0 PM Cassy Coreas RN Skin Turgor Non-tenting 03/31/2020 8:50 PM BENJAT Cassy Chapman RN Integumentary Additional Assessments Yes-Afshin 03/31/2020 8:50 PM Cassy Coreas RN Integumentary (WDL) X 03/31/2020 8 :50 PM BENJAT Cassy Chapman RN Skin Location Midline Abd 03/31/2020 8:50 PM BENJAT Cassy Chapman RN * Wound (LDAs) Question Answer Date of Assessment Author Type of Wound (LDA) Surgical site 03/30/2020 8:30 PM Zoila Jimenez RN * Question Answer Date of Assessment Author BP Location Left arm 03/31/2020 8:50 PM Cassy Coreas RN BP Method Automatic 03/31/2020 8:50 PM BENJAT Cassy Chapman RN * Question Answer Date of Assessment Author Edema None 03/29/2020 7:00 PM Cat Cruz, PABLO Edema Generalized 03/29/2020 7:00 PM BENJAT Cat Jay, PABLO * Question Answer Date of Assessment Author Percent Meal Eaten (%) 0 03/31/2020 4:23 PM CDT Gina Person * Question Answer Date of Assessment Author Bed In Lowest Position Yes 03/31/2020 11:02 P M CDT Cassy Chapman RN Bed Wheels Locked Yes 03/31/2020 11:02 PM CDT Cassy Chapman RN * Fall Risk Interventions Question Answer Date of Assessment Author All Low Fall Interventions Applied Yes 03/31/2020 7:00 PM BENJAT Cassy Chapman RN All Moderate Fall Interventions Applied Yes 03/31/2020 7:00 PM BENJAT Cassy Chapman RN All Moderate Fall Risk Interventions EXCEPT: Gait belt at bedside 03/31/2020 7:00 AM BENJAT Val Garcia RN All High Fall Risk Interventions Applied Yes 03/31/2020 7:00 PM CDT Cassy Chapman RN All High Risk Interventions EXCEPT: Bed alarm;Chair alarm;Collaborate with family;Near RN station/area 03/29/2020 8:45 AM CDT Danuta Francis RN Additional Interventions Applied Over-bed table on non-exit side;Exit bed on strong/preferred side;Bedside commode 03/29/2020 8:45 AM BENJAT Danuta Francis RN Reason For Exception(s) Abdominal incision 03/31 7:00 AM BENJAT Val Garcia RN Reason For Exception(s) pt does not get out of bed without calling 03/29/2020 8:45 AM CDT Danuta Francis RN * Question Answer Date of Assessment Author Hygiene Bathed with chlorhex idine gluconate (CHG) 03/28/2020 5:10 AM CDT Jovana Nice RN * Nutrition Question Answer Date of Assessment Author Feeding Level of Assistance Other (Comment) 03/30/2020 7:10 PM CDT Zoila Ivan RN documented as of this encounter Mental Status * Question Answer Entry Date Author Level of Consciousness Responds to voice 020 8:50 PM BENJAT Cassy Chapman RN Orientation Oriented to person;Oriented to time 03/31/2020 8:50 PM BENJAT Cassy Chapman RN * Question Answer Entry Date Author Neuro (WDL) X 03/31/2020 8:50 PM CDT Cassy Chapman RN Other Neuro Symptoms Forgetful;Hallucina elizabeth ns 03/31/2020 8:50 PM CDT Cassy Chapman RN * Short Blessed Test Question Answer Entry Date Author What year is it now? 0 03/29/2020 8:11 AM CDT Angel Clinton OT What month is it now? 0 03/29/2020 8:11 AM CDT Angel Clinton OT Without looking at the clock, tell me what time it is 0 03/29/2020 8:11 AM CDT Angel Clinton OT Count aloud backwards from 20-1 0 03/29/2020 8:11 AM CDT Angel Clinton OT Say the months of the year backwards in reverse order 4 03/29/2020 8:11 AM BENJAT Angel Clinton OT Repeat the name and address I asked you to remember 4 03/29/2020 8:11 AM Angel Marshall OT Repeat this name and address after me Gregory Jarrett [address] [place] [address] 03/29/2020 8:11 AM CDT Angel lCinton OT Short Blessed Total Score 8 03/29/2020 8:11 AM CDT Angel Clinton OT Short Blessed Comments Scores of 7 and h igher indicate need for further cognitive testing to rule out a dementing disorder 03/29/2020 8:11 AM CDT Angel Clinton OT * Question Answer Entry Date Author Neuro (OLAYINKAL) X 03/28/2020 2:00 PM CDT Christiane Jackson RN documented in this encounter Miscellaneous Notes * Plan of [...] documented as of this encounter Care Teams Head Miller Relationship Specialty Start Date End Date Fercho Santos DO PCP - General 04/11/17 Melissa Andino PA Orthopedic Surgery 08/25/20 Drew Lai MD [address] [place] [address] Consulting Physician Cardiovascular Disease 07/08/22 [place] [address] [address] Consulting Physician Cardiology 01/19/23 documented as of this encounter
--- OUTSIDE RECORDS SUMMARY | 2025-10-07 19:22 | XMS_ITS | Encounter Summary ---
Author Organization [facility] Facility Care Team Providers Care Correctional Supervisor Lieutenant Name Role Phone Fercho Santos DO Primary Care Provider Melissa Andino Unavailable [phone] Drew Lai MD Unavailable Dorinda Nunez MD Unavailable Encounter Details Date Type Department Care Team (Latest Contact Info) Description 01/16/2012 Orders Only [facility] CLINCONV ProviderRae MD [address] [place] [address] Social History Tobacco Use Types Packs/Day Years Used Date Smoking Tobacco: Never Assessed Sex and Gender Information Value Date Recorded Sex Assigned at Not on file 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
--- OUTSIDE RECORDS SUMMARY | 2025-10-07 19:22 | XMS_ITS | Clinical Summary ---
Author Organization [facility] Address [address] [facility] [place] [address] Care Team Providers Care Woods Superintendent Name Role Phone Fercho Santos DO Primary Care Provider [phone] Source Comments [facility] [place],non-owned Affiliates and Associated Physician Practices is amultiple site organization consisting of ambulatory clinics and hospital sitesin [place], [place], [place] and [place]. This disclosure is being madepursuant to the Care Everywhere program and may not contain all information available regarding this patient. 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 Pulse 88 10/19/2017 12:00 PM RESIDENTIAL FRAMING CARPENTER Temperature 36.9 C (98.5 F) 10/19/2017 12:00 PM RESIDENTIAL FRAMING CARPENTER Respiratory Rate 18 10/19/2017 12:00 PM RESIDENTIAL FRAMING CARPENTER Oxygen Saturation 96% 10/19/2017 12:00 PM RESIDENTIAL FRAMING CARPENTER Inhaled Oxygen Concentration - - Weight 131.5 kg (290 lb) 10/19/2017 12:00 PM RESIDENTIAL FRAMING CARPENTER Height 188 cm (6' 2) 10/19/2017 12:00 PM RESIDENTIAL FRAMING CARPENTER Body Mass Index 37.23 10/19/2017 12:00 PM RESIDENTIAL FRAMING CARPENTER Plan of Treatment Health Maintenance Due Date Last Done Comments COLOGUARD (AGES 45-75) - COL ON CA SCREENING [...] 2) 2002 SCREENING FOR DIABETES 07/14/2020 07/14/2017 DEPRESSION SCREENING 12/02/2024 COVID-19 VACCINE (1 - 2023-2 5 season) 2025 INFLUENZA VACCINE (#1) 2025 Respiratory Syncytial Virus [...] POINT OF CARE (07/14/2017 6:13 PM CDT) Glucose POCT 312(H) 70 - 99 mg/dL 07/15/2017 12:14 AM CDT [facility] Whole blood specimen (specimen) BLOOD SPECIMEN / Unknown 07/14/2017 6:13 PM CDT 07/15/2017 12:14 AM CDT Narrative [facility] - 07/15/2017 12:14 AM CDT Point of Care Test-results have been reviewed by caregiver. us Pete Soto MD LAB - POINT OF CARE ORDERABL ES Final Result [facility] [address] [place] [address], [facility] from Last 3 Months or Most Recently Relevant to Health Maintenance Insurance [facility] [id number] [id number] Care Teams Woods Superintendent Relationship Specialty Start Date End Date Fercho Santos DO PCP - General 09/12/22
--- OUTSIDE RECORDS SUMMARY | 2025-10-07 19:22 | XMS_ITS | Clinical Summary ---
Author Organization [facility] Address [address] [place] [address] Phone Care Team Providers Care Digitizer Name Role Phone Provider, None Primary Care [...] nightly. Active Cholecalciferol (Vitamin D3) 1.25 MG (45311 UT) Capsule Take 1 Cap by mouth [...] Other (psoarisis of forehead). Active Carbamide Peroxide-Saline ([employer] OT) Place 1 [...] 37 C (98.6 F) 10/04/2020 2:12 PM LANGUAGE THERAPIST Respiratory Rate 14 04/18/2023 10:57 AM CDT [...] Zoster Immunization (2 of 3) 12/25/2013 10/30/2013 Medicare Initial AWV G0438 03/02/2018 Influenza Immunization (#1) 08/02/202509/01, 09/22/2019, 09/01/2019, Additional history exists SARS-COV-2 Immunization (2024- season) 2025 08/09/2022, 11/21/2021, 03/20/2021, Additional history exists Respiratory Syncytial Virus (RSV) [...] patient's age to complete this topic [place] [address] [place] [address] MEDICARE MEDICARE C [employer] Advance Directives * Full Code (Latest Code Status on File) Date Activated Date Inactivated Comments 09/13/2020 10:06 AM Care Teams Digitizer Relationship Specialty Start Date End Date Provider, None [place] PCP - General 08/31/20
--- OUTSIDE RECORDS SUMMARY | 2025-10-07 19:22 | XMS_ITS | Encounter Summary ---
Author Organization [facility] Facility Care Team Providers Care Work Adjustment Instructor Name Role Phone Fercho Santos DO Primary Care Provider Melissa Andino Unavailable [phone] Drew Lai MD Unavailable Dorinda Nunez MD Unavailable Encounter Details Date Type Department Care Team (Latest Contact Info) Description 08/27/2014 Orders Only [facility] CLINCONV ProviderRae MD [address] [place] [address] Social History Tobacco Use Types Packs/Day Years Used Date Smoking Tobacco: Never Assessed Sex and Gender Information Value Date Recorded Sex Assigned at Not on file 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 us Mcbride Provider Final Res ult documented in this encounter Visit Diagnoses Not on filedocumented in this encounter Additional Health Concerns Infection Onset Date Last Indicated Resolved Time COVID: Suspected Comment:ID reviewed patient, isolation can be discontinued. 03/26/2020 Myranda Varela 2020 2020 03/26/2020 11:30 AM CDT COVID: Suspected 07/05/2022 07/05/2022 07/05/2022 11:07 AM CDT documented as of this encounter Care Teams Work Adjustment Instructor Relationship Specialty Start Date End Date Fercho Santos DO PCP - General 04/11/17 Melissa Andino PA Orthopedic Surgery 08/25/20 Drew Lai MD [address] [place] [address] Consulting Physician Cardiovascular Disease 07/08/22 [place] [address] [address] [address] Consulting Physician Cardiology 01/19/23 documented as of this encounter
--- OUTSIDE RECORDS SUMMARY | 2025-10-07 19:22 | XMS_ITS | Encounter Summary ---
Author Organization [facility] Facility Care Team Providers Care Carrot Grader Inspector Name Role Phone Fercho Santos DO Primary Care Provider Melissa Andino Unavailable [phone] Drew Lai MD Unavailable Dorinda Nunez MD Unavailable Encounter Details Date Type Department Care Team (Latest Contact Info) Description 05/15/1965 Orders Only [facility] CLINCONV ProviderRae MD [address] [place] [address] Social History Tobacco Use Types Packs/Day Years Used Date Smoking Tobacco: Never Assessed Sex and Gender Information Value Date Recorded Sex Assigned at Not on file 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
--- OUTSIDE RECORDS SUMMARY | 2025-10-07 19:22 | XMS_ITS | Encounter Summary ---
Author Organization [facility] Facility Care Team Providers Care Bankman Name Role Phone Fercho Santos DO Primary Care Provider Melissa Andino Unavailable [phone] Drew Lai MD Unavailable Dorinda Nunez MD Unavailable Encounter Details Date Type Department Care Team (Latest Contact Info) Description 08/10/2010 Orders Only [facility] CLINCONV ProviderRae MD [address] [place] [address] Social History Tobacco Use Types Packs/Day Years Used Date Smoking Tobacco: Never Assessed Sex and Gender Information Value Date Recorded Sex Assigned at Not on file 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
--- OUTSIDE RECORDS SUMMARY | 2025-10-07 19:22 | XMS_ITS | Encounter Summary ---
Author Organization [facility] Facility Care Team Providers Care Protection Analyst Name Role Phone Fercho Santos DO Primary Care Provider Melissa Andino Unavailable [phone] Drew Lai MD Unavailable Dorinda Nunez MD Unavailable Encounter Details Date Type Department Care Team (Latest Contact Info) Description 08/24/2014 Orders Only [facility]G CLINCONV ProviderRae MD [address] [place] [address] Social History Tobacco Use Types Packs/Day Years Used Date Smoking Tobacco: Never Assessed Sex and Gender Information Value Date Recorded Sex Assigned at Not on file 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
--- OUTSIDE RECORDS SUMMARY | 2025-10-07 19:22 | XMS_ITS | Encounter Summary ---
Author Organization [facility] Address 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
--- OUTSIDE RECORDS SUMMARY | 2025-10-07 19:22 | XMS_ITS | Encounter Summary ---
Author Organization [facility] Address 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
--- OUTSIDE RECORDS SUMMARY | 2025-10-07 19:22 | XMS_ITS | Encounter Summary ---
Author Organization [facility] Facility Care Team Providers Care Film Vault Supervisor Name Role Phone Fercho Santos DO Primary Care Provider Melissa Andino Unavailable [phone] Drew Lai MD Unavailable Dorinda Nunez MD Unavailable Encounter Details Date Type Department Care Team (Latest Contact Info) Description 11/09/1964 Orders Only [facility] CLINCONV ProviderRae MD [address] [place] [address] Social History Tobacco Use Types Packs/Day Years Used Date Smoking Tobacco: Never Assessed Sex and Gender Information Value Date Recorded Sex Assigned at Not on file 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
--- OUTSIDE RECORDS SUMMARY | 2025-10-07 19:22 | XMS_ITS | Clinical Summary ---
Author Organization [facility] Address [address] [place] [address] Care Team Providers Care Construction Trades Teacher Name Role Phone EvejaylenFercho Alejandro Primary Care Provider Melissa Andino Unavailable [phone] Drew Lai MD Unavailable Dorinda Nunez MD [...] (01/10/2023): Added automatically from request for surgery [id number] Acute chest pain 07/05/2022 Aftercare following right [...] (2020): Added automatically from request for surgery [id number] MARCIE (acute kidney injury) 01/13/2020 Acute upper [...] (08/11/2020): Added automatically from request for surgery [id number] Encounters Date Type Department Care Team Description 07/16/2025 3:14 AM CDT - 07/16/2025 3:31 PM CDT Emergency [facility] [address] [place] [address] Lorenzo Jarrett MD PhD Nima, MD Sofie García Emily Jean, MD Abdominal [...] Comments Hypertension Hypercholesteremia Peripheral neuropathy Diabetes mellitus Infectious viral hepatitis Depression SBO (small bowel [...] How often do you attend chur or yarsanism services? More than 4 times per year 07/06/2022 Do you belong to any clubs o r organizations such as bahai groups, unions, fraternal or athletic groups, or [...] place to sleep or slept in a residential (including now)? No 07/06/2022 Personal Safety Answer Date Recorded Have you ever been in or are you currently in a harmful physical or emotional relationship or is someone making you feel afraid or unsafe? 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 Gender Identity Not on file Sexual Orientation [...] Fall Risk Assessment 01/18/2024 01/18/2023 Covid-19 Vaccine (2025-01 6 season) 2025 03/20/2021, 02/20/2021 Influenza Vaccine (#1) 2025 09/01/2019, 2013 eGFR 07/15/2026 07/15/2025, 01/02, 01/18/2023, Additional history exists Abdominal Aortic Aneurysm (A AA) Screen Completed 07/16/2025, 08/26/2020, 07/16/2020, Additional history exists Medical Devices Implanted Type Area Buncher Operator Device Identifier Shelf Expiration Date Model / Serial / Lot [employer] 6195-1-001 Cement Bone Simplex Gentamicin High Viscosity 40gm - [id number] Implanted:Qty: 2 on 08/24/2020 by Gregory Arriola MD at [facility] Right: Knee [employer] 08/31/2021 6195-1-001 / / [id number] Description:Both packages griffin ve same lot number and expiration date [employer] [id number] Attune S+ Cement Fix Bearing Knee 8 Baseplate Tibial - [id number] Implanted:Qty: 1 on 08/24/2020 by Gregory Arriola MD at [facility] Right: Knee [employer] 05/01/2030 [id number] / / [id number] [employer] [id number] Attune Cemented Posterior Stabilize Knee Right 7 Component - [id number] Implanted:Qty: 1 on 08/24/2020 by Gregory Arriola MD at [facility] Right: Knee [employer] 01/01/2030 [id number] / / [id number] [employer] [id number] Attune 6mm Posterior Stabilize Fix Bearing Knee 7 Insert Tibial - [id number] Implanted:Qty: 1 on 08/24/2020 by Gregory Arriola MD at [facility] Right: Knee [employer] 10/01/2023 [id number] / / [id number] [employer] Jenny Synergy Xd Monorail 4.5mm 24mm 144cm Delivery System 1 Access [id number] - [id number] Implanted:Qty: 1 on 01/18/2023 by Suyapa Lakhani MD at [facility] [employer] 01/29/2024 [id number] / / [id number] [employer] Device Clsr Perclose Prostyle Sut-Mediatd Closure-Repair Sys 86346-30 - [id number] Implanted:Qty: 1 on 01/18/2023 by Suyapa Lakhani MD at [facility] [employer] 10/01/2024 [id number] / / [id number] Procedures Procedure Name Priority Date/Time Associated Diagnosis [...] - DEVICE Final Result Performing Organization Address City/[facility]/ZIP Co de Phone Number [facility] Department [place] [address] * POCT lactate (07/16/2025 1:33 PM CDT) Lactate POC i-STAT 1.2 0.7 - 2.0 mmol/L Blood 07/16/2025 1:33 PM CDT 07/16/2025 1:33 PM CDT us Raza Herring MD LAB POCT ORDERABLES - DEV ICE Final Result [facility] Department [place] [address] * POCT glucose (07/16/2025 7:17 AM CDT) Glucose, POC 173 70 - 199 mg/dL Blood 07/16/2025 7:17 AM CDT 07/16/2025 7:17 AM CDT Lorenzo Jarrett MD PhD LAB POCT ORDERABLES - DEVICE Final Result Performing Organization Address [facility] [place] [address] * Troponin I high-sensitivity 2-hour (07/16/2025 6:33 AM CDT) Pathologist [facility] Trop I hs 24 <=35 ng/L Comment: Interpretive Data For further hscTnI resources including the diagnostic algorithm and an aid in interpretation, copy and paste this link: [email or web address] Current Interpretive Data last revised 2020. Trop I hs delta 0 ng/L [facility] Trop I hs interp Insignificant [facility] Blood 07/16/2025 6:33 AM CDT 07/16/2025 6:51 AM CDT Mehrdad Crawford MD LAB BLOOD ORDERABLES Fin al Result Performing Organization Address [facility] [place] [address] * CT Abdomen Pelvis WO Contrast (07/16/2025 [...] 12-LEAD (07/16/2025 3:55 AM CDT) Narrative [facility] - 07/16/2025 3:55 AM CDT Lorenzo Jarrett [...] Crawford MD ECG ORDERABLES Final Re sult [facility] * POCT glucose (07/16/2025 3:52 AM CDT) Glucose, POC 161 70 - 199 mg/dL Blood 07/16/2025 3:52 AM CDT 07/16/2025 3:52 AM CDT Lorenzo Jarrett MD PhD LAB POCT ORDERABLES - DEVICE Final Result Performing Organization Address City/State/[facility] de Phone Number [facility] Department [place] [address] * Troponin I high-sensitivity series (baseline, 2hr, [...] ORDERABLES Fin al Result Performing Organization Address [facility] de Phone Number [facility] Department [place] [address] * XR Kub (Abd 1 View) (07/16/2025 [...] of Race in Diagnosing Kidney Disease, JASN 202). The CKD-EPI equation should not be used for patients with unstable renal function and has not been validated in children and those over 70. Current interpretive data was last reviewed 2021. Blood 07/15/2025 11:3 9 PM CDT 07/16/2025 12:23 AM CDT us Lorenzo Jarrett MD PhD LAB BLOOD ORDERABLE S Final Result [facility] Department [place] [address] * Differential, auto (07/15/2025 11:39 PM CDT) Neutrophil abs 4.08 1.50 - 6.50 K/cumm Imm gran abs 0.04 0.00 - 0.10 K/cumm [facility] Lymphocyte abs 1.44 0.80 - 3.30 K/cumm [facility] Monocyte abs 0.49 0.20 - 0.80 K/cumm [facility] Eosinophil abs 0.42 0.00 - 0.50 K/cumm [facility] Basophil abs 0.07 0.00 - 0.10 K/cumm [facility] Neutrophil pct 62.4 % [facility] Comment: Interpretive Data Percent cell count reference ranges are not reported, since discordance with absolute values may lead to misinterpretation of CBC data. Current Interpretive Data was last revised on 2018. Imm gran pct 0.6 % [facility] Comment: Interpretive Data Percent cell count reference ranges are not reported, since discordance with absolute values may lead to misinterpretation of CBC data. Current Interpretive Data was last revised on 2018. Lymphocyte pct 22.0 % [facility] Comment: Interpretive Data Percent cell count reference ranges are not reported, since discordance with absolute values may lead to misinterpretation of CBC data. Current Interpretive Data was last revised on 2018. Monocyte pct 7.5 % [facility] Comment: Interpretive Data Percent cell count reference ranges are not reported, since discordance with absolute values may lead to misinterpretation of CBC data. Current Interpretive Data was last revised on 2018. Eosinophil pct 6.4 % [facility] Comment: Interpretive Data Percent cell count reference ranges are not reported, since discordance with absolute values may lead to misinterpretation of CBC data. Current Interpretive Data was last revised on 2018. Basophil pct 1.1 % [facility] Comment: Interpretive Data Percent cell count reference ranges are not reported, since discordance with absolute values may lead to misinterpretation of CBC data. Current Interpretive Data was last revised on 2018. Blood 07/15/2025 11:3 9 PM CDT 07/16/2025 12:23 AM CDT us Lorenzo Jarrett MD PhD LAB BLOOD ORDERABLE S Final Result [facility] [place] [address] * CBC with auto differential (07/15/2025 11:39 PM CDT) [facility] WBC 6.52 3.80 - 9.90 K/cumm Hgb 16.3 13.0 - 17.5 g/dL [facility] Hct 46.4 38.9 - 50.3 % [facility] Plt 172 150 - 400 K/cumm [facility] MPV 10.8 9.1 - 12.3 fL [facility] RBC 5.24 4.30 - 5.80 M/cumm [facility] MCV 88.5 81.3 - 96.4 fL [facility] MCH 31.1 27.1 - 33.3 pg [facility] MCHC 35.1 32.3 - 35.7 g/dL [facility] RDW CV 12.8 11.1 - 14.9 % [facility] RDW SD 41.1 35.7 - 48.1 fL [facility] NRBC abs 0.00 0.00 - 0.01 K/cumm [facility] Blood Venous blood specimen / Unknown 07/15/2025 11:39 PM CDT 07/16/2025 12:23 AM CDT us Lorenzo Jarrett MD PhD LAB BLOOD ORDERABLE S Final Result [facility] [place] [address] * Lipase (07/15/2025 11:39 PM CDT) [facility] Lipase 16 10 - 99 Units/L Blood Venous blood specimen / Unknown 07/15/2025 11:39 PM CDT 07/16/2025 12:23 AM CDT us Lorenzo Jarrett MD PhD LAB BLOOD ORDERABLE S Final Result [facility] Department [place] [address] * (ABNORMAL) Comprehensive metabolic panel (07/15/2025 11:39 PM CDT) Sodium 144 135 - 145 mmol/L Potassium, pl 3.9 3.3 - 4.9 mmol/L [facility] Chloride 103 97 - 110 mmol/L [facility] CO2 30 22 - 32 mmol/L [facility] Anion gap 11 2 - 15 mmol/L [facility] BUN 24 6 - 25 mg/dL [facility] Creatinine 1.34(H) 0.80 - 1.30 mg/dL [facility] Glucose 116 70 - 199 mg/dL [facility] Comment: Interpretive Data Fasting glucose >/= [...] classification and Diagnosis of Diabetes Diabetes Care 202; 46: S19-S40. Current interpretive data was last revised 2022. Calcium 9.8 8.5 - 10.3 mg/dL [facility] Bilirubin, total 0.4 0.1 - 1.2 mg/dL [facility] Protein, pl 7.3 6.5 - 8.5 g/dL [facility] Albumin 4.4 3.5 - 5.0 g/dL [facility] Alk phos 125 40 - 130 Units/L [facility] ALT 30 7 - 55 Units/L [facility] AST 25 10 - 50 Units/L [facility] Blood 07/15/2025 11:3 9 PM CDT 07/16/2025 12:23 AM CDT us Lorenzo Jarrett MD PhD LAB BLOOD ORDERABLE S Final Result [facility] Department [place] [address] * (ABNORMAL) Lipid panel (07/06/2022 10:45 AM [...] on 2018. HDL 28(L) >=40 mg/dL [facility] Comment: Interpretive Data Ages < [...] 2018. LDL, calculated 79 <=129 mg/dL [facility] Comment: Interpretive Data Ages < [...] CDT 07/06/2022 10:56 AM CDT Maggi Pineda SUPERINTENDENT OPERATING LAB BLOOD ORDERABLES Final Result [facility] [address] Department [place] [address] * (ABNORMAL) Hemoglobin A1c (09/07/2021 1:19 PM [...] and children were not included. (Diabetes Care 31:7785-8810, 2008). The eAG is not equivalent to a fasting glucose. Blood 09/07/2021 1:19 PM CDT 09/07/2021 3:18 PM CDT us Gregory Arriola MD LAB BLOOD ORDERABLES Fin al Result [facility] Department [place] [address] * DIABETES EYE EXAM (12/05/2018) Diabetic Eye Exam Unknown Historical Provider HEALTH MAINTENANCE Final Result * DIABETES FOOT EXAM (10/27/2018) Diabetic Foot Exam Normal Historical Provider HEALTH MAINTENANCE Final Result from Last 3 Months or Most Recently Relevant to Health Maintenance Insurance [employer] MEDICARE HMO AETNA MEDICARE GOLD [facility] Address: [address] [place] [address] MEDICARE AETNA MEDICARE GOLD Advance Directives For more information, please contact: [phone] Documents on File Type Date Recorded Patient Scarfer Operator Expl anation ADVANCE DIRECTIVE 10/29/2017 2:12 [...] 7:40 PM 07/18/2020 7:22 PM Care Teams Construction Trades Teacher Relationship Specialty Start Date End Date Fercho Santos DO PCP - General 04/11/17 Melissa Andino PA Orthopedic Surgery 08/25/20 Drew Lai MD [address] [place] [address] Consulting Physician Cardiovascular Disease 07/08/22 [place] [address] [address] Consulting Physician Cardiology 01/19/23
--- OUTSIDE RECORDS SUMMARY | 2025-10-07 20:07 | XMS_ITS | Encounter Summary ---
Author Organization [facility] Care Team Providers Care Trimmer Machine Name Role Phone Fercho Santos DO Primary Care Provider Melissa Andino Unavailable [phone] Drew Lai MD Unavailable Dorinda Nunez MD Unavailable Encounter Details Date Type Department Care Team (Latest Contact Info) Description 08/24/2014 Orders Only [facility] CLINCONV ProviderRae MD [address] [place] [address] Social History Tobacco Use Types Packs/Day Years Used Date Smoking Tobacco: Never Assessed Sex and Gender Information Value Date Recorded Sex Assigned at Not on file 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
--- OUTSIDE RECORDS SUMMARY | 2025-10-07 20:07 | XMS_ITS | Clinical Summary ---
Author Organization [facility] Address [address] [place] [address] Care Team Providers Care Fox Farmer Name Role Phone EvejaylenFercho Alejandro Primary Care Provider Melissa Andino Unavailable [phone] Drew Lai MD Unavailable Dorinda Nunez MD [...] (01/10/2023): Added automatically from request for surgery [id number] Acute chest pain 07/05/2022 Aftercare following right [...] (2020): Added automatically from request for surgery [id number] MARCIE (acute kidney injury) 01/13/2020 Acute upper [...] (08/11/2020): Added automatically from request for surgery [id number] Encounters Date Type Department Care Team Description 07/16/2025 3:14 AM CDT - 07/16/2025 3:31 PM CDT Emergency [facility] Emergency Department [address] [place] [address] Lorenzo Jarrett MD PhD Nima, MD Sofie [...] How often do you attend chur or jew services? More than 4 times per year 07/06/2022 Do you belong to any clubs o r organizations such as worship groups, unions, fraternal or athletic groups, or [...] place to sleep or slept in a [place] health care facility (including now)? No 07/06/2022 Personal Safety Answer Date Recorded Have you ever been in or are you currently in a harmful physical or emotional relationship or is someone making you feel afraid or unsafe? 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 Gender Identity Not on file Sexual Orientation [...] history exists Medical Devices Implanted Type Area Pigment Pusher Device Identifier Shelf Expiration Date Model / Serial / Lot [employer] 6195-1-001 Cement Bone Simplex Gentamicin High Viscosity 40gm - [id number] Implanted:Qty: 2 on 08/24/2020 by Gregory Arriola MD at [facility] Right: Knee [employer] 08/31/2021 6195-1-001 / / [id number] Description:Both packages griffin ve same lot number and expiration date [employer] [id number] Attune S+ Cement Fix Bearing Knee 8 Baseplate Tibial - [id number] Implanted:Qty: 1 on 08/24/2020 by Gregory Arriola MD at [facility] Right: Knee [employer] 05/01/2030 [id number] / / [id number] [employer] [id number] Attune Cemented Posterior Stabilize Knee Right 7 Component - [id number] Implanted:Qty: 1 on 08/24/2020 by Gregory Arriola MD at [facility] Right: Knee [employer] 01/01/2030 [id number] / / [id number] [employer] [id number] Attune 6mm Posterior Stabilize Fix Bearing Knee 7 Insert Tibial - [id number] Implanted:Qty: 1 on 08/24/2020 by Gregory Arriola MD at [facility] Right: Knee [employer] 10/01/2023 [id number] / / [id number] [employer] Jenny Synergy Xd Monorail 4.5mm 24mm 144cm Delivery System 1 Access [id number] - [id number] Implanted:Qty: 1 on 01/18/2023 by Suyapa Lakhani MD at [facility] [employer] 01/29/2024 [id number] / / [id number] [employer] Device Clsr Perclose Prostyle Sut-Mediatd Closure-Repair Sys 11200-83 - [id number] Implanted:Qty: 1 on 01/18/2023 by Suyapa Lakhani MD at [facility] [employer] 10/01/2024 [id number] / / [id number] Procedures Procedure Name Priority Date/Time Associated Diagnosis [...] - DEVICE Final Result Performing Organization Address City/[facility]/ZIP Co de Phone Number [facility] [place] [address] * POCT lactate (07/16/2025 1:33 PM CDT) Lactate POC i-STAT 1.2 0.7 - 2.0 mmol/L Blood 07/16/2025 1:33 PM CDT 07/16/2025 1:33 PM CDT us Raza Herring MD LAB POCT ORDERABLES - DEV ICE Final Result [facility] [place] [address] * POCT glucose (07/16/2025 7:17 AM CDT) Glucose, POC 173 70 - 199 mg/dL Blood 07/16/2025 7:17 AM CDT 07/16/2025 7:17 AM CDT Lorenzo Jarrett MD PhD LAB POCT ORDERABLES - DEVICE Final Result Performing Organization Address [facility] [place] [address] * Troponin I high-sensitivity 2-hour (07/16/2025 6:33 AM CDT) Pathologist [facility] Trop I hs 24 <=35 ng/L Comment: Interpretive Data For further hscTnI resources including the diagnostic algorithm and an aid in interpretation, copy and paste this link: [email or web address] Current Interpretive Data last revised 2020. Trop I hs delta 0 ng/L [facility] Trop I hs interp Insignificant [facility] Blood 07/16/2025 6:33 AM CDT 07/16/2025 6:51 AM CDT Mehrdad Crawford MD LAB BLOOD ORDERABLES Fin al Result Performing Organization Address [facility] [place] [address] * CT Abdomen Pelvis WO Contrast (07/16/2025 [...] 12-LEAD (07/16/2025 3:55 AM CDT) Narrative [facility] - 07/16/2025 3:55 AM CDT Lorenzo Jarrett [...] MD ECG ORDERABLES Final Re sult [facility] * POCT glucose (07/16/2025 3:52 AM CDT) Glucose, POC 161 70 - 199 mg/dL Blood 07/16/2025 3:52 AM CDT 07/16/2025 3:52 AM CDT Lorenzo Jarrett MD PhD LAB POCT ORDERABLES - DEVICE Final Result Performing Organization Address City/State/[facility] de Phone Number [facility] [place] [address] * Troponin I high-sensitivity series (baseline, 2hr, [...] al Result Performing Organization Address [facility] de Phone Number [facility] [place] [address] * XR Kub (Abd 1 View) (07/16/2025 [...] ORDERABLE S Final Result [facility] [place] [facility] Department [place] [address] * Differential, auto (07/15/2025 11:39 PM CDT) Neutrophil abs 4.08 1.50 - 6.50 K/cumm Imm gran abs 0.04 0.00 - 0.10 K/cumm [facility] Lymphocyte abs 1.44 0.80 - 3.30 K/cumm [facility] Monocyte abs 0.49 0.20 - 0.80 K/cumm [facility] Eosinophil abs 0.42 0.00 - 0.50 K/cumm [facility] Basophil abs 0.07 0.00 - 0.10 K/cumm [facility] Neutrophil pct 62.4 % [facility] Comment: Interpretive Data Percent cell count reference ranges are not reported, since discordance with absolute values may lead to misinterpretation of CBC data. Current Interpretive Data was last revised on 2018. Imm gran pct 0.6 % [facility] Comment: Interpretive Data Percent cell count reference ranges are not reported, since discordance with absolute values may lead to misinterpretation of CBC data. Current Interpretive Data was last revised on 2018. Lymphocyte pct 22.0 % [facility] Comment: Interpretive Data Percent cell count reference ranges are not reported, since discordance with absolute values may lead to misinterpretation of CBC data. Current Interpretive Data was last revised on 2018. Monocyte pct 7.5 % [facility] Comment: Interpretive Data Percent cell count reference ranges are not reported, since discordance with absolute values may lead to misinterpretation of CBC data. Current Interpretive Data was last revised on 2018. Eosinophil pct 6.4 % [facility] Comment: Interpretive Data Percent cell count reference ranges are not reported, since discordance with absolute values may lead to misinterpretation of CBC data. Current Interpretive Data was last revised on 2018. Basophil pct 1.1 % [facility] Comment: Interpretive Data Percent cell count reference ranges are not reported, since discordance with absolute values may lead to misinterpretation of CBC data. Current Interpretive Data was last revised on 2018. Blood 07/15/2025 11:3 9 PM CDT 07/16/2025 12:23 AM CDT us Lorenzo Jarrett MD PhD LAB BLOOD ORDERABLE S Final Result [facility] [place] [address] * CBC with auto differential (07/15/2025 11:39 PM CDT) [facility] WBC 6.52 3.80 - 9.90 K/cumm Hgb 16.3 13.0 - 17.5 g/dL [facility] Hct 46.4 38.9 - 50.3 % [facility] Plt 172 150 - 400 K/cumm [facility] MPV 10.8 9.1 - 12.3 fL [facility] RBC 5.24 4.30 - 5.80 M/cumm [facility] MCV 88.5 81.3 - 96.4 fL [facility] MCH 31.1 27.1 - 33.3 pg [facility] MCHC 35.1 32.3 - 35.7 g/dL [facility] RDW CV 12.8 11.1 - 14.9 % [facility] RDW SD 41.1 35.7 - 48.1 fL [facility] NRBC abs 0.00 0.00 - 0.01 K/cumm [facility] Blood Venous blood specimen / Unknown 07/15/2025 11:39 PM CDT 07/16/2025 12:23 AM CDT us Lorenzo Jarrett MD PhD LAB BLOOD ORDERABLE S Final Result [facility] [address] * Lipase (07/15/2025 11:39 PM CDT) [facility] Lipase 16 10 - 99 Units/L Blood Venous blood specimen / Unknown 07/15/2025 11:39 PM CDT 07/16/2025 12:23 AM CDT us Lorenzo Jarrett MD PhD LAB BLOOD ORDERABLE S Final Result [facility] [place] [address] * (ABNORMAL) Comprehensive metabolic panel (07/15/2025 11:39 PM CDT) Sodium 144 135 - 145 mmol/L Potassium, pl 3.9 3.3 - 4.9 mmol/L [facility] Chloride 103 97 - 110 mmol/L [facility] CO2 30 22 - 32 mmol/L [facility] Anion gap 11 2 - 15 mmol/L [facility] BUN 24 6 - 25 mg/dL [facility] Creatinine 1.34(H) 0.80 - 1.30 mg/dL [facility] Glucose 116 70 - 199 mg/dL [facility] Comment: Interpretive Data Fasting glucose >/= [...] 2022. Calcium 9.8 8.5 - 10.3 mg/dL [facility] Bilirubin, total 0.4 0.1 - 1.2 mg/dL [facility] Protein, pl 7.3 6.5 - 8.5 g/dL [facility] Albumin 4.4 3.5 - 5.0 g/dL [facility] Alk phos 125 40 - 130 Units/L [facility] ALT 30 7 - 55 Units/L [facility] AST 25 10 - 50 Units/L [facility] Blood 07/15/2025 11:3 9 PM CDT 07/16/2025 12:23 AM CDT us Lorenzo Jarrett MD PhD LAB BLOOD ORDERABLE S Final Result [facility] [place] [address] * (ABNORMAL) Lipid panel (07/06/2022 10:45 AM [...] CDT 07/06/2022 10:56 AM CDT Maggi Pineda PERSONAL FINANCIAL COUNSELOR LAB BLOOD ORDERABLES Final Result [facility] [address] [place] [address] * (ABNORMAL) Hemoglobin A1c (09/07/2021 1:19 PM [...] and children were not included. (Diabetes Care 31:[id number], 2008). The eAG is not equivalent to a fasting glucose. Blood 09/07/2021 1:19 PM CDT 09/07/2021 3:18 PM CDT us Gregory Arriola MD LAB BLOOD ORDERABLES Fin al Result [facility] Department [place] [address] * DIABETES EYE EXAM (12/05/2018) Diabetic Eye [...] Advance Directives For more information, please contact: [phone] Documents on File Type Date Recorded Patient Steel Rod Buster Expl anation ADVANCE DIRECTIVE 10/29/2017 2:12 PM [...] 7:40 PM 07/18/2020 7:22 PM Care Teams Fox Farmer Relationship Specialty Start Date End Date Fercho Santos DO PCP - General 04/11/17 Melissa Andino PA Orthopedic Surgery 08/25/20 Drew Lai MD [address] [place] [address] Consulting Physician Cardiovascular Disease 07/08/22 [place] [address] [address] Consulting Physician Cardiology 01/19/23
--- OUTSIDE RECORDS SUMMARY | 2025-10-07 20:07 | XMS_ITS | Clinical Summary ---
Author Organization [facility] Address [address] [place] [address] Care Team Providers Care Earth Auger Operator Name Role Phone Fercho Santos DO Primary Care Provider [phone] Source Comments [facility] [employer],non-owned Affiliates and Associated Physician Practices is amultiple site organization consisting of ambulatory clinics and hospital sitesin [place], [place], [place] and [place]. This disclosure is being madepursuant to the Care Everywhere program and may not contain all information available regarding this patient. Last updated 18.[facility] [employer] Allergies Active Allergy Reactions Criticality Noted Date [...] 325 mg by mouth once daily Active Scddn-R-Mkzmwf osidase (BEANO PO) Active melatonin 1 MG [...] Comments Blood Pressure 132/68 10/19/2017 12:00 PM TEACHER EDUCATION DIRECTOR Pulse 88 10/19/2017 12:00 PM TEACHER EDUCATION DIRECTOR Temperature 36.9 C (98.5 F) 10/19/2017 12:00 PM TEACHER EDUCATION DIRECTOR Respiratory Rate 18 10/19/2017 12:00 PM TEACHER EDUCATION DIRECTOR Oxygen Saturation 96% 10/19/2017 12:00 PM TEACHER EDUCATION DIRECTOR Inhaled Oxygen Concentration - - Weight 131.5 kg (290 lb) 10/19/2017 12:00 PM TEACHER EDUCATION DIRECTOR Height 188 cm (6' 2) 10/19/2017 12:00 PM TEACHER EDUCATION DIRECTOR Body Mass Index 37.23 10/19/2017 12:00 PM TEACHER EDUCATION DIRECTOR Plan of Treatment Health Maintenance Due Date [...] - 99 mg/dL 07/15/2017 12:[address] [facility] Whole blood specimen (specimen) BLOOD SPECIMEN / Unknown 07/14/2017 6:13 PM CDT 07/15/2017 12:14 AM CDT Narrative [facility] - 07/15/2017 12:14 AM CDT Point of Care Test-results have been reviewed by caregiver. us Pete Soto MD LAB - POINT OF CARE ORDERABL ES Final Result [facility] [address] [place] [address], [facility] from Last 3 Months or Most Recently Relevant to Health Maintenance Insurance [facility] [id number] [id number] Care Teams Earth Auger Operator Relationship Specialty Start Date End Date Fercho Santos DO PCP - General 09/12/22
--- OUTSIDE RECORDS SUMMARY | 2025-10-07 20:07 | XMS_ITS | Encounter Summary ---
Author Organization [facility] Healthcare Address [facility] [place] [address] Care Team Providers Care Light Bulb Tester Name Role Phone ElenaFercho ely Primary Care Provider Melissa Andino Unavailable [phone] Drew Lai MD Unavailable Dorinda Nunez MD Unavailable Encounter Details Date Type Department Care Team (Late st Contact Info) Description 03/28/2020 Documentation [facility] Case Management 1 [place] [address] Kesah Jordan RN Social History Tobacco Use Types [...] on file Legal Sex Male 3:17 AM BETTING CLERKS Gender Identity Not on file Sexual Orientation [...] Cassy Chapman RN Other Neuro Symptoms Forgetful;Hallucina elizabeht ns 03/31/2020 8:50 PM CDT Cassy Chapman [...] name and address after me Gregory Jarrett [address] [place] [address] 03/29/2020 8:11 AM CDT Angel Clinton OT Short Blessed Total Score 8 03/29/2020 [...] documented as of this encounter Care Teams Light Bulb Tester Relationship Specialty Start Date End Date Fercho Santos DO PCP - General 04/11/17 Melissa Andino PA Orthopedic Surgery 08/25/20 Drew Lai MD [address] [place] [address] Consulting Physician Cardiovascular Disease 07/08/22 [place] [address] [address] Consulting Physician Cardiology 01/19/23 documented as of this encounter
--- OUTSIDE RECORDS SUMMARY | 2025-10-07 20:07 | XMS_ITS | Encounter Summary ---
Author Organization [facility] Facility Care Team Providers Care Hot Roll Inspector Name Role Phone Fercho Santos DO Primary Care Provider Melissa Andino Unavailable [phone] Drew aLi MD Unavailable Dorinda Nunez MD Unavailable Encounter Details Date Type Department Care Team (Latest Contact Info) Description 10/20/2015 Orders Only [facility] ProviderRae MD [address] [place] [address] Social History Tobacco Use Types Packs/Day Years Used Date Smoking Tobacco: Never Assessed Sex and Gender Information Value Date Recorded Sex Assigned at Not on file Legal Sex Male 3:17 AM CHERRY GROWER Gender Identity Not on file Sexual Orientation [...] documented as of this encounter Care Teams Hot Roll Inspector Relationship Specialty Start Date End Date Fercho Santos DO PCP - General 04/11/17 Melissa Andino PA Orthopedic Surgery 08/25/20 Drew Lai MD [address] [place] [address] Consulting Physician Cardiovascular Disease 07/08/22 [place] [address] [address] Consulting Physician Cardiology 01/19/23 documented as of this encounter
--- OUTSIDE RECORDS SUMMARY | 2025-10-07 20:07 | XMS_ITS | Encounter Summary ---
Author Organization [facility] Facility Care Team Providers Care Restaurant Delivery Driver Name Role Phone Fercho Santos DO Primary Care Provider Melissa Andino Unavailable [phone] Drew Lai MD Unavailable Dorinda Nunez MD Unavailable Encounter Details Date Type Department Care Team (Latest Contact Info) Description 05/15/1965 Orders Only [facility] ProviderRae MD [address] [place] [address] Social History Tobacco Use Types Packs/Day Years Used Date Smoking Tobacco: Never Assessed Sex and Gender Information Value Date Recorded Sex Assigned at Not on file Legal Sex Male 3:17 AM OPERATIONS RECRUITER Gender Identity Not on file Sexual Orientation [...] documented as of this encounter Care Teams Restaurant Delivery Driver Relationship Specialty Start Date End Date Fercho Santos DO PCP - General 04/11/17 Melissa Andino PA Orthopedic Surgery 08/25/20 Drew Lai MD [address] [place] [address] Consulting Physician Cardiovascular Disease 07/08/22 [place] [address] [address] [address] Consulting Physician Cardiology 01/19/23 documented as of this encounter
--- OUTSIDE RECORDS SUMMARY | 2025-10-07 20:07 | XMS_ITS | Encounter Summary ---
Author Organization [facility] Facility Care Team Providers Care Wire Spinner Name Role Phone Fercho Santos DO Primary Care Provider Melissa Andino Unavailable [phone] Drew Lai MD Unavailable Dorinda Nunez MD Unavailable Encounter Details Date Type Department Care Team (Latest Contact Info) Description 08/10/2010 Orders Only [facility] ProviderRae MD [address] [place] [address] Social History Tobacco Use Types Packs/Day Years Used Date Smoking Tobacco: Never Assessed Sex and Gender Information Value Date Recorded Sex Assigned at Not on file Legal Sex Male 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
--- OUTSIDE RECORDS SUMMARY | 2025-10-07 20:07 | XMS_ITS | Clinical Summary ---
Author Organization [facility] Address [address] [facility] Attn: Epic Prelude ADT [place] [address] Care Team Providers Care Seasonal Tax Preparer Name Role Phone Unavailable Primary Care Provider Unavailabl e Social History Tobacco Use Types Packs/Day Years Used Date Smoking Tobacco: Never Assessed Sex and Gender Information Value Date Recorded Sex Assigned at Not on file Legal Sex Male 4:26 AM UMBRELLA MENDER Gender Identity Not on file Sexual Orientation [...]
--- OUTSIDE RECORDS SUMMARY | 2025-10-07 20:07 | XMS_ITS | Encounter Summary ---
Author Organization [facility] Address [address] [place] [address] Care Team Providers Care Gleason Operator Name Role Phone Unavailable Primary Care [...] on file Legal Sex Male 4:26 AM FORM WORKER Gender Identity Not on file Sexual Orientation Not on file documented as of this encounter Plan of Treatment Not on file documented as of this encounter Visit Diagnoses Diagnosis Mechanical complication of internal orthopedic device, implant, and graft- Primary documented in this encounter
--- OUTSIDE RECORDS SUMMARY | 2025-10-07 20:07 | XMS_ITS | Encounter Summary ---
Author Organization [facility] Facility Care Team Providers Care Planning Technician Name Role Phone Fercho Santos DO Primary Care Provider Melissa Andino Unavailable [phone] Drew Lai MD Unavailable Dorinda Nunez MD Unavailable Encounter Details Date Type Department Care Team (Latest Contact Info) Description 11/09/1964 Orders Only [facility] ProviderRae MD [address] [place] [address] Social History Tobacco Use Types Packs/Day Years Used Date Smoking Tobacco: Never Assessed Sex and Gender Information Value Date Recorded Sex Assigned at Not on file Legal Sex Male 3:17 AM NITROCELLULOSE OPERATOR Gender Identity Not on file Sexual [...] documented as of this encounter Care Teams Planning Technician Relationship Specialty Start Date End Date Fercho Santos DO PCP - General 04/11/17 Melissa Andino PA Orthopedic Surgery 08/25/20 Drew Lai MD [address] [place] [address] Consulting Physician Cardiovascular Disease 07/08/22 [place] [address] [address] [address] Consulting Physician Cardiology 01/19/23 documented as of this encounter
--- OUTSIDE RECORDS SUMMARY | 2025-10-07 20:07 | XMS_ITS | Encounter Summary ---
Author Organization [facility] Facility Care Team Providers Care Civil Engineer'S Aide Name Role Phone Fercho Santos DO Primary Care Provider Melissa Andino Unavailable [phone] Drew Lai MD Unavailable Dorinda Nunez MD Unavailable Encounter Details Date Type Department Care Team (Latest Contact Info) Description 08/27/2014 Orders Only [facility] ProviderRae MD [address] [place] [address] Social History Tobacco Use Types Packs/Day Years Used Date Smoking Tobacco: Never Assessed Sex and Gender Information Value Date Recorded Sex Assigned at Not on file Legal Sex Male 3:17 AM SALES 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
--- OUTSIDE RECORDS SUMMARY | 2025-10-07 20:07 | XMS_ITS | Encounter Summary ---
Author Organization [facility] Address [address] [place] [address] Care Team Providers Care Gluing Pressman Name Role Phone Unavailable Primary Care Provider Unavailabl e Encounter Details Date Type Department Care Team (Latest Contact Info) Description 08/22/1999 Outpatient Historical [facility] David Sevilla MD Chondromalacia (Primary Dx) Social History Tobacco Use Types Packs/Day Years Used Date Smoking Tobacco: Never Assessed Sex and Gender Information Value Date Recorded Sex Assigned at Not on file Legal Sex Male 4:26 AM TELEVISION ANCHOR Gender Identity Not on file Sexual Orientation Not on file documented as of this encounter Plan of Treatment Not on file documented as of this encounter Visit Diagnoses Diagnosis Chondromalacia- Primary documented in this encounter
--- OUTSIDE RECORDS SUMMARY | 2025-10-07 20:07 | XMS_ITS | Encounter Summary ---
Author Organization [facility] Facility Care Team Providers Care Certified Alcohol And Drug Counselor Name Role Phone Fercho Santos DO Primary Care Provider Melissa Andino Unavailable [phone] Drew Lai MD Unavailable Dorinda Nunez MD Unavailable Encounter Details Date Type Department Care Team (Latest Contact Info) Description 01/16/2012 Orders Only [facility] ProviderRae MD [address] [place] [id number] Social History Tobacco Use Types Packs/Day Years Used Date Smoking Tobacco: Never Assessed Sex and Gender Information Value Date Recorded Sex Assigned at Not on file Legal Sex Male 3:17 AM [employer] Gender Identity Not on file Sexual Orientation [...] documented as of this encounter Care Teams Certified Alcohol And Drug Counselor Relationship Specialty Start Date End Date Fercho Santos DO PCP - General 04/11/17 Melissa Andino PA Orthopedic Surgery 08/25/20 Drew Lai MD [address] [place] [address] Consulting Physician Cardiovascular Disease 07/08/22 [place] [id number] [address] Consulting Physician Cardiology 01/19/23 documented as of this encounter
--- OUTSIDE RECORDS SUMMARY | 2025-10-07 20:07 | XMS_ITS | Clinical Summary ---
Author Organization [facility] Address [address] [place] [address] Phone Care Team Providers Care Veneer Taping Machine Offbearer Name Role Phone Provider, None Primary Care [...] nightly. Active Cholecalciferol (Vitamin D3) 1.25 MG (67680 UT) Capsule Take 1 Cap by mouth [...] Other (psoarisis of forehead). Active Carbamide Peroxide-Saline (Amvona EAR WAX CLEANSING SYSTEM OT) Place 1 [...] 37 C (98.6 F) 10/04/2020 2:12 PM [employer]UB[employer] FABRICATOR Respiratory Rate 14 04/18/2023 10:57 AM CDT [...] patient's age to complete this topic [place] [address] [place] [address] MEDICARE MEDICARE C [employer] Advance Directives * Full Code (Latest Code Status on File) Date Activated Date Inactivated Comments 09/13/2020 10:06 AM Care Teams Veneer Taping Machine Offbearer Relationship Specialty Start Date End Date Provider, None [place] PCP - General 08/31/20
--- OUTSIDE RECORDS SUMMARY | 2025-10-07 20:08 | XMS_ITS | Data Portability ---
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 Hypomagnesemia Vit B12 deficiency Vit E deficiency Plan: The following were reviewed and explained to the patient: Lab data 07/19/21 elevated BNP Chest x-ray 2 views 07/19/21 no acute process PFT 08/11/21 nl FEV1/FVC, FEV1 3.03 L (82%), TLC 6.53 L (83%), DLCO 76%, DLCO/VA 96% 2-D echocardiogram 07/27/21 LVH, EF 70%, RVE, [facility], mild MA/TR, mild pulm HTN 2-D echocardiogram 01/09/23 LVH, EF 50%, mild RVE/LAE, mod [facility], mod TR 2-D echocardiogram 04/25/23 EF 55%, PASP 26 mmHg [place] sleep study 01/08/24 AHI = 65, REM AHI = 80, supine AHI = 101, PLMI = 44 [place] titration sleep study 02/10/24 ResMed AirTouch F20 full face mask, need BPAP [facility] titration sleep study 10/21/24 sleep onset = 13.5 minutes, REM onset = 115.5minutes, [employer] medium Vitera full face mask + chin strap @ 14 cmH2O, PLMI = 24 Magnesium 01/30/24 1.4 mg% B12 01/30/24 374 pg/mL Alpha tocopherol 01/30/24 4.9 mg/L Gamma tocopherol 01/30/24 1.4 mg/L BUN 01/30/24 22 mg% Creatinine 01/30/24 1.46 mg% Elevation in periodic limb movement index may be contributed by sertraline. Non-pharmacologic therapy options for periodic limb movement disorder include avoidance of aggravating drugs and substances, mental alerting activities, short daily hemodialysis for patients in renal failure, exercise, leg massage, stretching calf muscles, use of a weighted blanket and applied heat. Patient will cut down on caffeine intake. RBC folate, Iron, TIBC, Ferritin, ESR, Hgb and Hct levels are within normal limits. Patient sees Dr. Kj Nunez for his CKD. Patient will take Vitamin E 200 IU/day to keep the alpha tocopherol > 7.0 mg/L and to keep the gamma tocopherol > 0.5 mg/L. Patient will take B12 1 mg daily to keep the levels > 400 pg/ml. Patient will take Mag oxide 400 mg daily to keep levels > 1.6 mg%. Check vitamin E, vitamin B12 and magnesium one week before return. We will hold off on dopaminergic therapy for now. Educated the patient on problems and solutions associated with positive airway pressure (PAP) use. Difficulty tolerating pressure, mask leaks, intolerance of interface, nasal congestion, claustrophobic response, dry mouth, and unintentional mask removal during sleep were covered. Patient experiences claustrophobic response. Patient will practice wearing PAP mask daily while awake and undergo PAP desensitization. We will check fit of patient's mask and provide a sleeker alternative as necessary. ResMed Air Sense 11 auto set unit with heated humidifier, supplies and [employer] medium Vitera full face mask + chin strap @ 14 cmH2O ordered. Further titration will be based on clinical response. Provided the patient with a list of local home care stores where positive airway pressure (PAP) units, accoutrement, and services are available. Home care store selection is based on patient's insurance carrier. Patient will setup an appointment with [facility] for supplies and pressure adjustments. A major predictor of success with use of PAP is follow-up with both the respiratory supplier and the treating physician. The respiratory supplier optimally will follow-up within two weeks after starting use while the treating physician optimally will follow-up within 90 days after starting therapy to assess adherence and effectiveness of treatment. The download results can show the treating physician information about adherence to treatment, residual AHI while on treatment and presence of large mask leakage. This information is especially helpful if the patient has residual sleepiness despite treatment. General information on sleep disorder breathing, evaluation of sleep disordered breathing, treatment with PAP therapy, and living with PAP therapy were covered. We discussed with the patient the impact of weight on: Sleep disordered breathing Hypertension Hyperlipidemia DM ALEXIA Osteoarthritis We discussed with the patient the benefit of PAP therapy on: Sleep disordered breathing Depression Hypertension DM ALEXIA Educated the patient on sleep hygiene measures. Relaxing rituals to rest easy, understanding foods with positive and negative impact on sleep, creating a peaceful sleep environment, timing of exercise, using herbal sleep aids, and practicing sleep-friendly meditation were covered. To determine how much sleep is needed, the patient will assess where (s)he falls on the spectrum, examine what lifestyle factors such as work schedules and stress are affecting the quality and quantity of sleep. In general, adults need 7-9 hours of sleep. Educated the patient regarding foods that promote sleep. These include but are not limited to cherries, bananas, toast, oatmeal, and warm milk. Educated the patient regarding foods and drinks to avoid before bedtime. These include but are not limited to aged cheese, chocolate, spicy foods, tomato-based sauces, soy, ginseng tea and processed meat. Advised to continue not to smoke. Adherence to therapy is advocated. Nonadherence may lead to treatment failure, further progression of the condition, and other complications. Hospitals admissions are often the result of individuals not taking prescription medications accurately. Alternatively, greater adherence to medication regimens have shown to lower rates of hospitalization and decrease total medical costs in patients with chronic medical conditions. Advocated influenza vaccination annually and pneumonia vaccination in 2025. Advocated weight loss through diet and exercise. Patient's ideal body weight according to height and gender is up to 205 lbs. Encouraged patient to adjust caloric intake to maintain/achieve ideal body weight, emphasizing on fruits, vegetables, whole grains, and fat-free or low-fat products. These include lean meats, poultry, fish, beans, eggs, and nuts and foods that are low in saturated fats, trans-fats, cholesterol, salt (sodium), and glycemic index. Stressed the importance of regular exercise up to the patient's capacity limits. In this case, we recommend 20 min daily walking, 2 days a week of resistance training. Patient to monitor BP daily and bring records to PCP for further management. 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 Hypomagnesemia Vit B12 deficiency Vit E deficiency Plan: The following were reviewed and explained to the patient: Lab data 07/19/21 elevated BNP Chest x-ray 2 views 07/19/21 no acute process PFT 08/11/21 nl FEV1/FVC, FEV1 3.03 L (82%), TLC 6.53 L (83%), DLCO 76%, DLCO/VA 96% 2-D echocardiogram 07/27/21 LVH, EF 70%, RVE, [facility], mild MA/TR, mild pulm HTN 2-D echocardiogram 01/09/23 LVH, EF 50%, mild RVE/LAE, mod [facility], mod TR 2-D echocardiogram 04/25/23 EF 55%, PASP 26 mmHg [place] sleep study 01/08/24 AHI = 65, REM AHI = 80, supine AHI = 101, PLMI = 44 [place] titration sleep study 02/10/24 ResMed AirTouch F20 full face mask, need BPAP [facility] titration sleep study 10/21/24 sleep onset = 13.5 minutes, REM onset = 115.5minutes, [employer] medium Vitera full face mask + chin strap @ 14 cmH2O, PLMI = 24 BUN 01/30/24 22 mg% Creatinine 01/30/24 1.46 mg% Magnesium 01/30/24 1.4 mg% Magnesium 01/25/25 1.7 mg% B12 01/30/24 374 pg/mL B12 01/25/25 >1000 pg/mL Alpha tocopherol 01/30/24 4.9 mg/L Alpha tocopherol 01/25/25 15.3 mg/L Gamma tocopherol 01/30/24 1.4 mg/L Gamma tocopherol 01/25/25 1.3 mg/L Methacholine challenge testing is contraindicated due to the presence of a thoracic aneurysm. Elevation in periodic limb movement index may be contributed by sertraline. Non-pharmacologic therapy options for periodic limb movement disorder include avoidance of aggravating drugs and substances, mental alerting activities, short daily hemodialysis for patients in renal failure, exercise, leg massage, stretching calf muscles, use of a weighted blanket and applied heat. Patient will cut down on caffeine intake. RBC folate, Iron, TIBC, Ferritin, ESR, Hgb and Hct levels are within normal limits. Patient sees Dr. Kj Nunez for his CKD. Patient will continue Vitamin E 200 IU/day to keep the alpha tocopherol > 7.0 mg/L and to keep the gamma tocopherol > 0.5 mg/L. Patient will continue B12 1 mg but decrease from daily to weekly to keep the levels > 400 pg/ml. Patient will continue Mag oxide 400 mg daily to keep levels > 1.6 mg%. Check vitamin E, vitamin B12 and magnesium one week before return. We will hold off on dopaminergic therapy for now. Educated the patient on problems and solutions associated with positive airway pressure (PAP) use. Difficulty tolerating pressure, mask leaks, intolerance of interface, nasal congestion, claustrophobic response, dry mouth, and unintentional mask removal during sleep were covered. Patient experiences claustrophobic response. Patient will practice wearing PAP mask daily while awake and undergo PAP desensitization. We will check fit of patient's mask and provide a sleeker alternative as necessary. ResMed Air Sense 11 auto set unit with heated humidifier, supplies and [employer] medium Vitera full face mask + chin strap @ 14 cmH2O ordered. Further titration will be based on clinical response. Patient will be set up on 02/02/25. Provided the patient with a list of local home care stores where positive airway pressure (PAP) units, accoutrement, and services are available. Home care store selection is based on patient's insurance carrier. Patient will setup an appointment with [facility] for supplies and pressure adjustments. A major predictor of success with use of PAP is follow-up with both the respiratory supplier and the treating physician. The respiratory supplier optimally will follow-up within two weeks after starting use while the treating physician optimally will follow-up within 90 days after starting therapy to assess adherence and effectiveness of treatment. The download results can show the treating physician information about adherence to treatment, residual AHI while on treatment and presence of large mask leakage. This information is especially helpful if the patient has residual sleepiness despite treatment. General information on sleep disorder breathing, evaluation of sleep disordered breathing, treatment with PAP therapy, and living with PAP therapy were covered. We discussed with the patient the impact of weight on: Sleep disordered breathing Hypertension Hyperlipidemia DM ALEXIA Osteoarthritis We discussed with the patient the benefit of PAP therapy on: Sleep disordered breathing Depression Hypertension DM ALEXIA Educated the patient on sleep hygiene measures. Relaxing rituals to rest easy, understanding foods with positive and negative impact on sleep, creating a peaceful sleep environment, timing of exercise, using herbal sleep aids, and practicing sleep-friendly meditation were covered. To determine how much sleep is needed, the patient will assess where (s)he falls on the spectrum, examine what lifestyle factors such as work schedules and stress are affecting the quality and quantity of sleep. In general, adults need 7-9 hours of sleep. Educated the patient regarding foods that promote sleep. These include but are not limited to cherries, bananas, toast, oatmeal, and warm milk. Educated the patient regarding foods and drinks to avoid before bedtime. These include but are not limited to aged cheese, chocolate, spicy foods, tomato-based sauces, soy, ginseng tea and processed meat. Advised to continue not to smoke. Adherence to therapy is advocated. Nonadherence may lead to treatment failure, further progression of the condition, and other complications. Hospitals admissions are often the result of individuals not taking prescription medications accurately. Alternatively, greater adherence to medication regimens have shown to lower rates of hospitalization and decrease total medical costs in patients with chronic medical conditions. Advocated influenza vaccination annually and pneumonia vaccination in 2025. Advocated weight loss through diet and exercise. Patient's ideal body weight according to height and gender is up to 205 lbs. Encouraged patient to adjust caloric intake to maintain/achieve ideal body weight, emphasizing on fruits, vegetables, whole grains, and fat-free or low-fat products. These include lean meats, poultry, fish, beans, eggs, and nuts and foods that are low in saturated fats, trans-fats, cholesterol, salt (sodium), and glycemic index. Stressed the importance of regular exercise up to the patient's capacity limits. In this case, we recommend 20 min daily walking, 2 days a week of resistance training. Patient to monitor BP daily and bring records to PCP for further management. Follow-up: 3 months, April 2025 Not available 01/29/2025 14:13:59 04/23/2025 04/23/2025 75-year-old patient presents today with left ankle pain after a fall on April 10. he presented to the emergency room where x-rays were taken and he was told he had a fracture. He was placed in a boot and told to follow up with us. He states that back in July of last year he had a fall where he fractured this ankle and he believes he fractured it again. He rates his pain today 8/10. He takes pain medications as needed for pain. Review of systems per patient questionnaire Imaging: X-rays reviewed show a that there was a previous healed fracture of the distal fibula. No obvious new fracture but patient is tender over this area so it is likely. physical exam: Tenderness with palpitation along distal fibula. Bruising noted around ankle and slight edema. Pain with ankle range of motion. No pain elsewhere around the ankle or foot. Sensation intact throughout. We will treat this fracture conservatively in a boot. He is weight-bearing as tolerated. He presents today in a wheelchair and typically uses this or a walker. His family member is looking for placement in a correction so he can have around the clock care. We will see him back in 2-3 weeks with x-rays to check his progress. He is in agreement with this plan. [email or web address] Not available 05/05/2025 09:34:48 05/05/2025 05/05/2025 HPI: 75 year old male presents today with his daughter for a follow-up of left distal fibula fracture. This was a result of a fall on April 10. He is approximately 4 weeks from [facility]. We have been treating him conservatively with CAM boot and WBAT. Currently rates his pain 8/10. He mainly takes Tylenol as needed for pain. Does not like taking Hyndman, he was given by his PCP. Physical Exam: General: Normal appearance. No acute distress. Inspection: No evidence of swelling, erythema, bruising or deformity. Palpation: Nontender to palpitation over fracture site. ROM: Able to do gentle ROM, but he is stiff Sensation: Sensation intact. Imaging: X-rays reviewed shows healed fracture of the distal fibula Assessment & Plan: Discussed that the fracture shows evidence of healing on xray and he is nontender to palpation over the fracture site. Discussed that if he is in severe pain he should take his pain medication. Take Tylenol 500mg every 4-6 hours as needed for pain. The max dose is 3000 mg in 24 hours. Take Hyndman (hydrocodone-aceta minophen) for pain that is 6-10/10. Hyndman already has 325 mg of Tylenol in it. We went through this repeatedly, and he and his daughter understand the max dose of Tylenol. Lace up brace given to patient. Wean out of boot into a comfortable, supportive shoe with the brace. When transitioning to regular shoe, ambulate first around the house and then progress to outside. Gradually increase the time spent out of the boot each day until not using the CAM boot at all. If having significant discomfort, should stay on the same step or back up one step until the pain and/or swelling improve. Then resume the progression. Gentle ROM exercises were printed and given to patient. Follow Up: 3 weeks. Anticipate discharge at this time. All questions were answered. Patient verbalized understanding of treatment plan [email or web address] Not available 05/09/2025 22:52:50 05/25/2025 05/25/2025 75 year old male presents today for a follow-up of left distal fibula fracture. This was a result of a fall on April 10. He is approximately 7 weeks from [facility]. We have been treating him conservatively with lace up ankle brace, WBAT. Denies any new injury but states the ankle is still bothering him. He states he has not been wearing the brace because it rubs against his skin and is uncomfortable. He states his left knee is starting to hurt now. He has not been doing PT exercises. Has been using a walker for ambulation. He does not like to take medications so he rarely takes tylenol. Physical Exam: No evidence of swelling, erythema, bruising or deformity. Tender to palpitation over lateral ankle and top of foot. Able to do gentle ROM, but he is stiff. Sensation intact. We discussed that he would probably benefit from wearing the ankle brace. He was shown how to wrap the ankle with an ryland wrap to prevent rubbing. We will order PT to begin working on strengthening the ankle and knee. He can continue tylenol, icing, elevating as needed. We will see him back in 6-8 weeks after therapy. He is in agreement with this plan. [email or web address] Not available 05/25/2025 14:39:21 Plan of Treatment Reminders Order Date Submit Date Provider Last Modified By Organization Details Last Modified Time Details Appointments None recorded. Lab vitamin B12, serum [address] (Lab), [address] [place], [address], 16:20:34 vitamin E, serum [address] (Lab), [address] [place], [address], 5 16:20:34 magnesium, serum or plasma [address] (Lab), [address] [place], [address], 16:20:34 vitamin B12, serum [email or web address] [address] [place], [address], 5 10:23:48 vitamin E, serum 2023 025 [facility] (Lab), [address] [place], [address], 5 10:28:03 magnesium, serum or plasma 2023 025 [facility] (Lab), [address] [place], [address], 5 16:32:42 Referral physical therapist referral - Please schedule for L ankle. thanks 2024 025 [facility], [address] [place], [address], 5 16:38:47 Procedures None recorded. Surgeries None recorded. Imaging XR, ankle 2024 025 [email or web address] [facility] [place], [address], [place], [address], 5 22:52:54 XR, ankle, 3 or more view 2024 025 [email or web address] [facility] [place], [address], [place], [address], 5 09:51:32 Medication Orders cyanocobal aguirre (vit B-12) 1,[address] [id number], [address] [place], [address], 5 15:37:08 vitamin E (dl, acetate) 90 mg (200 unit) capsule 2024 025 [facility] #[id number], [address] [place], [address], 5 15:27:44 magnesium oxide 400 mg (241.3 mg magnesium) tablet [address] [id number], [address] [place], [address], 5 15:27:43 cyanocobal aguirre (vit B-12) 1,000 mcg tablet 2023 024 [facility] #[id number], [address] [place], [address], 4 11:05:41 vitamin E (dl, acetate) 90 mg (200 unit) capsule [address] [id number], [address] [place], [address], 4 11:05:41 magnesium oxide 400 mg (241.3 mg magnesium) tablet 2023 024 [facility] #[id number], [address], [place], [address], 11:05:42 Patient TargetsNo targets recorded. Patient InstructionsNo instructions recorded. Reason for Referral Physical Therapist Referral for Closed fracture of lower leg L ankle Please schedule for L ankle. thanks Referring Physician: Adilia Schneider, Orthopedic Surgery, Encounter Date: 05/25/2025 Results Created Date Observation Date Name Description Value Unit Range Abnormal Flag Note LastModifiedBy Organization Detail LastModifiedTime 10/27/2010/21/2024 polys omnog francisco, titra tion study No observ ation record ed. [facility] [address], [place], [address], 10/27/2024 18:53:40 04/14/20 25 04/10/2025 XR, ankle , 3 or more view No observ ation record ed. [email or web address] Not Available 2024 16:43:14 04/14/20 25 04/10/2025 XR, knee, 3 view No observ ation record ed. [email or web address] Not Available 2024 16:43:14 05/05/20 25 XR, ankle , 3 or more view No observ ation record ed. [email or web address] [facility] [place] [address], [place], [address], 05/05/2025 09:51:30 05/05/20 25 XR, ankle No observ ation record ed. [email or web address] [facility] [place] [address], [place], [address], 05/09/2025 22:52:53 Result Notes None recorded. Problems Name Problem SNOMED Code Status Onset Date Resolution Date Notes Provider Name and Address Organization Details Recorded Time Gastroesop hageal reflux disease 225788237 Active Not Available [facility] 3 04:36:25 Osteoarthr itis of knee 020311445 Active Not Available [facility] 3 04:36:25 Small bowel obstructio n 742210829 Active Not Available [facility] 3 04:36:25 Neuropathy 160262325 Active Not Available [facility] 3 04:36:26 Obesity 139863963 Active Not Available [facility] 3 04:36:26 Aneurysm of thoracic aorta 680825579 Active Not Available [facility] 3 04:36:26 Hyperlipid emia 20351774 Active Not Available [facility] 3 04:36:26 Diverticul itis of small intestine 48696922 Active Not Available [facility] 3 04:36:26 Essential hypertensi on 07725495 Active Not Available [facility] 3 04:36:26 Diabetes mellitus 25005321 Active Not Available [facility] 3 04:36:26 Obstructiv e sleep apnea syndrome 19453530 Active 2023 Tyler Curtis MD [address], [place], [address] , [facility] [email or web address] 4 15:26:00 Periodic limb movement disorder 749357504 Active 2023 Tyler Curtis MD [address], [place], [address] , [facility] 4 16:06:37 Hypomagnes emia 648354584 Active 2023 Tyler Curtis MD [address], [place], [address] , [facility] 4 10:11:43 Vitamin E deficiency 35686371 Active 2023 Tyler Curtis MD [address], [address], [place], [address] , [facility] 4 10:11:52 Vitamin B12 deficiency (non anemic) 98830952 Active 2023 Tyler Curtis MD [address], [place], [address] , [facility] 4 10:12:07 Plain X-ray of foot abnormal 896519439 Active 2024 NIMESH Reese, [facility] 5 10:39:12 Pain in left foot 8084549180503 07 Active 2024 NIMESH Reese, [facility] 5 14:09:29 Closed fracture of distal fibula 843002687 Active 2024 Adilia Schneider, [employer] [address] [facility], [address], [place], [address] , [facility] 5 11:35:57 Closed fracture of lower leg 013137778 Active 2024 NIMESH Reese, [facility] 5 14:09:46 Notes:Medical History: Depre ssion/Anxiety Bilateral hearing loss COVID infection 10/2020 Eosinophils 280/uL IgE <2 IU/mL Obesity with very severe complex SAHS, AHI = 65, on CPAP c/o [facility] Hypertension with LVH, EF 55% Mild TR Mixed hyperlipidemia T2DM with neuropathy CAD s/p IA 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% Thoracic aortic aneurysm Granulomatous disease (chest, spleen) Lingular scarring ALEXIA with esophageal stricture SBO Diverticulosis/Diverticulitis Urge urinary incontinence BPH Renal calculi Right renal atrophy CKD PLMD Hypomagnesemia Vit B12 deficiency Vit D deficiency Left rib fractures Left leg fracture Knee osteoarthritis Gout Psoriasis Procedure History: T&A 1960 Aortic coarctation correction 1965 Appendectomy 1971 Hemorrhoidectomy 1972 Left rotator cuff repair 1980 Bilateral knee replacements 1992 Ventral herniorrhaphy 1995 Colonoscopies with adenomatous polyp excision [id number] Bilateral CTS release surgeries 1998 Left shoulder surgery 2003 Cholecystectomy 2010 Partial colectomy 2014 Bilateral cataract extraction with IOL 2019 Cardiac catheterization with stent placement 2021 Esophageal stricture dilatation 2021 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 Procedures Surgical History Date Name Laterality Status Provider Name and Address Organization Details Recorded Time cholecystectomy completed Not Available [facility] 01/30/2023 04:30:58 Knee Surgery completed Not Available [facility] 01/30/2023 04:30:58 Appendectomy completed Not Available [facility] 01/30/2023 04:30:58 Unlisted procedure stomach completed Not Available [facility] 01/30/2023 04:30:58 fluoroscopy guided percutaneous transluminal angioplasty of bilateral iliac arteries and insertion of bilateral iliac artery stents with contrast completed [facility] 01/30/2024 15:04:42 Imaging Results None recorded. Procedure Notes None recorded. Medical Equipment None Reported. Allergies Allergen ID Allergen Name Allergen Category Reaction Reaction Severity Criticality Documentation Date Start Date Code Code System Note Provider Name and Address Organization Details Recorded Time 6735 Substance with sulfonami de structure and antibacte rial mechanism of action (substanc e) medicatio n Not available Not available Not available 01/30/2023 52833 8003 SNOMED Not Available [facility] 3 04:45:03 6736 nitroglyc christina medicatio n Not available Not available Not available 01/30/2023 4917 RxNorm Not Available [facility] 3 04:45:03 6737 morphine medicatio n Not available Not available Not available 01/30/2023 7052 RxNorm Not Available [facility] 3 04:45:03 6738 lisinopri l medicatio n Not available Not available Not available 01/30/2023 86546 RxNorm hyper kalem ia Not Available [facility] 3 04:45:03 6739 Iodinated contrast media (substanc e) medicatio n Not available Not available Not available 01/30/2023 14872 2004 SNOMED Not Available [facility] 3 04:45:03 6740 cyclobenz aprine hydrochlo ride medicatio n Not available Not available Not available 01/30/2023 49903 RxNorm diffi culty breat mamta Not Available [facility] 3 04:45:03 6741 Augmentin medicatio n Not available Not available Not available 01/30/2023 73334 2 RxNorm Not Available [facility] 3 04:45:03 Medications Name Sig Start Date Stop Date Status Note LastModified by Organization Details LastModified Time cyclobenzap rine 10 mg tablet TAKE 1 TABLET BY MOUTH THREE TIMES A DAY NEEDED FOR MUSCLE SPASM completed Not Available Not Available Not Available metformin 500 mg tablet TAKE 1 TABLET (500 MG) BY MOUTH TWICE A DAY active Not Available Not Available No t Available hydrocodone 7.5 mg-ibuprofe n 200 mg tablet active Not Available Not Available Not Available atorvastati n 80 mg tablet TAKE ONE TABLET BY MOUTH DAILY AT 9 PM AT BEDTIME active Not Available Not Available No t Available clonidine HCl 0.1 mg tablet TAKE 1 TABLET BY MOUTH TWICE A DAY 10/28 completed Not Available Not Available Not Available ketoconazol e 2 % shampoo SHAMPOO TWICE WEEKLY TO RASH. 10/28 completed Not Available Not Available Not Available clindamycin HCl 300 mg capsule TAKE 1 CAPSULE BY MOUTH EVERY 6 HOURS. STOP IF DIARRHEA OCCURS. 07/25 completed Not Available Not Available Not Available cetirizine 10 mg tablet Take 1 tablet every day by oral route. 06/02 completed Not Available Not Available Not Available azithromyci n 250 mg tablet TAKE 2 TABLETS BY MOUTH TODAY, THEN TAKE 1 TABLET DAILY FOR 4 DAYS active Not Available Not Available No t Available glyburide 5 mg tablet TAKE ONE TABLET BY MOUTH ONCE DAILY 06/02 completed Not Available Not Available Not Available tramadol 37.5 mg-acetamin ophen 325 mg tablet 06/02 completed Not Available Not Available Not Available ofloxacin 0.3 % eye drops 06/02 completed Not Available Not Available Not Available atenolol 100 mg tablet Take 1 tablet(s) every day by oral route. 06/02 completed Not Available Not Available Not Available hydrocodone 5 mg-acetamin ophen 325 mg tablet active Not Available Not Available No t Available lisinopril 20 mg tablet bid active Not Available Not Available Not Available isosorbide mononitrate ER 30 mg tablet,exte nded release 24 hr TAKE 1 TABLET BY MOUTH EVERY DAY completed Not Available Not Available Not Available betamethaso ne, augmented 0.05 % topical cream RUB IN WELL TO INVOLVED AREAS OF BODY TWICE A DAY UNTIL CLEAR 07/25 completed Not Available Not Available Not Available sertraline 100 mg tablet TAKE ONE TABLET BY MOUTH DAILY AT 9 AM active Not Available Not Available No t Available simvastatin 10 mg tablet 06/02 completed Not Available Not Available Not Available pimecrolimu s 1 % topical cream APPLY THIN LAYER TO RASH 2 TIMES DAILY UNTIL RESOLUTIO N 10/28 completed Not Available Not Available Not Available atenolol 25 mg tablet active Not Available Not Available No t Available clindamycin HCl 150 mg capsule active Not Available Not Available Not Available cyanocobala min (vit B-12) 1,000 mcg tablet Take 1 tablet every week by oral route. 2024 active Not Available Not Available Not Avai lable Nexium 40 mg capsule,del ayed release Take 1 cap qd 06/02 completed Not Available Not Available Not Available metronidazo le 500 mg tablet 06/02 completed Not Available Not Available Not Available nifedipine ER 30 mg tablet,exte nded release TAKE 1 TABLET BY MOUTH EVERY DAY completed Not Available Not Available Not Available acetaminoph en 300 mg-codeine 30 mg tablet TAKE 1 2 TABLETS BY MOUTH NEEDED FOR PAIN AT BEDTIME. 10/28 completed Not Available Not Available Not Available clopidogrel 75 mg tablet TAKE ONE TABLET BY MOUTH DAILY AT 9 AM active Not Available Not Available No t Available chlorthalid one 25 mg tablet TAKE 1 TABLET BY MOUTH EVERY DAY 10/28 completed Not Available Not Available Not Available ciprofloxac in 250 mg tablet TAKE 1 TABLET BY MOUTH EVERY 12 HOURS FOR 5 DAYS. 07/25 completed Not Available Not Available Not Available amlodipine 5 mg tablet TAKE 1 TABLET BY MOUTH EVERY DAY active Not Available Not Available No t Available prochlorper azine maleate 10 mg tablet active Not Available Not Available No t Available allopurinol 100 mg tablet completed Not Available Not Available Not Available ciprofloxac in 500 mg tablet TAKE 1 TABLET BY MOUTH TWICE A DAY 07/25 completed Not Available Not Available Not Available tramadol 50 mg tablet TAKE 1 TABLET BY MOUTH EVERY 8 HOURS NEEDED active Not Available Not Available No t Available triamcinolo ne acetonide 0.1 % topical cream APPLY TO AFFECTED AREA TWICE A DAY NEEDED FOR PSORIASIS completed Not Available Not Available Not Available ketorolac 0.5 % eye drops 06/02 completed Not Available Not Available Not Available oxycodone-a cetaminophe n 5 mg-325 mg tablet TAKE 1 TO 2 TABLETS BY MOUTH EVERY 4 HOURS NEEDED FOR PAIN active Not Available Not Available No t Available alprazolam 0.5 mg tablet 06/02 completed Not Available Not Available Not Available amoxicillin 875 mg tablet active Not Available Not Available Not Available citalopram 20 mg tablet 06/02 completed Not Available Not Available Not Available prednisolon e acetate 1 % eye drops,suspe nsion 06/02 completed Not Available Not Available Not Available magnesium oxide 400 mg (241.3 mg magnesium) tablet Take 1 tablet every day by oral route. 2024 active Not Available Not Available Not Avai lable lorazepam 0.5 mg tablet 06/02 completed Not Available Not Available Not Available tamsulosin 0.4 mg capsule TAKE 1 CAPSULE BY MOUTH EVERYDAY AT BEDTIME completed Not Available Not Available Not Available dicyclomine 20 mg tablet 06/02 completed Not Available Not Available Not Available Humalog U-100 Insulin 100 unit/mL subcutaneou s solution inject 10 units before snacks along with correctio n before meals, up to 60 units TDD active Not Available Not Available No t Available insulin syringe U-100 with needle 0.5 mL 30 gauge x 04/16 completed Not Available Not Available Not Available pantoprazol e 40 mg tablet,yocasta yed release TAKE 1 TABLET BY MOUTH EVERY DAY IN THE MORNING completed Not Available Not Available Not Available simvastatin 20 mg tablet TAKE 1 TABLET BY MOUTH EVERY EVENING completed Not Available Not Available Not Available promethazin e 25 mg tablet 06/02 completed Not Available Not Available Not Available losartan 25 mg tablet TAKE 1 TABLET BY MOUTH EVERY DAY 10/28 completed Not Available Not Available Not Available nitroglycer in 0.[address] 1 TABLET UNDER TONGUE EVERY 5 MINS, UP TO 3 DOSES NEEDED FOR CHEST PAIN active Not Available Not Available No t Available oxybutynin chloride ER 5 mg tablet,exte nded release 24 hr TAKE 1 TABLET BY MOUTH TWICE A DAY FOR 90 DAYS 10/28 completed Not Available Not Available Not Available gabapentin 300 mg capsule completed Not Available Not Available Not Available aspirin 81 mg chewable tablet TAKE 1 TABLET BY MOUTH EVERY DAY active Not Available Not Available No t Available insulin syringe U-100 with needle 0.3 mL 31 gauge x 5/16 07/07 completed Not Available Not Available Not Available hydrocortis one 2.5 % topical cream 01/21 completed Not Available Not Available Not Available etodolac 400 mg tablet active Not Available Not Available Not Available hydroxyzine HCl 25 mg tablet TAKE 1 TABLET BY MOUTH EVERYDAY AT BEDTIME completed Not Available Not Available Not Available Accu-Chek Compact Test strips active Not Available Not Available Not Available midodrine 2.5 mg tablet TAKE 1 TABLET BY MOUTH THREE TIMES A DAY 04/23 completed Not Available Not Available Not Available gabapentin 100 mg capsule TAKE 1 CAPSULE BY MOUTH THREE TIMES A DAY 10/28 completed Not Available Not Available Not Available ergocalcife rol (vitamin D2) 1,250 mcg (50,000 unit) capsule TAKE 1 CAPSULE BY MOUTH TWICE WEEKLY active Not Available Not Available No t Available Novolog U-100 Insulin aspart 100 unit/mL subcutaneou s solution USE DIRECTED FOR INSULIN PUMP PER SLIDING SCALE, MAX DAILY DOSE: 130 active Not Available Not Available No t Available lorazepam 1 mg tablet active Not Available Not Available No t Available ibuprofen 600 mg tablet active Not Available Not Available Not Available oxycodone-a cetaminophe n 7.5 mg-325 mg tablet active Not Available Not Available Not Available levofloxaci n 750 mg tablet 06/02 completed Not Available Not Available Not Available clobetasol 0.05 % scalp solution PLEASE SEE ATTACHED FOR DETAILED DIRECTION S 10/28 completed Not Available Not Available Not Available ondansetron 4 mg disintegrat ing tablet LET 1 TABLET DISSOLVE BY MOUTH EVERY 6 HOURS NEEDED FOR NAUSEA/VO MITING completed Not Available Not Available Not Available atenolol 50 mg tablet TAKE 1 TABLET BY MOUTH EVERY DAY completed Not Available Not Available Not Available calcitriol 0.25 mcg capsule TAKE 1 CAPSULE BY MOUTH TWICE A DAY 10/28 completed Not Available Not Available Not Available finasteride 5 mg tablet TAKE 1 TABLET BY MOUTH EVERY DAY active Not Available Not Available No t Available naproxen 500 mg tablet TAKE 1 TABLET BY MOUTH EVERY 12 HOURS NEEDED FOR PAIN WITH FOOD active Not Available Not Available No t Available amoxicillin 875 mg-potassiu m clavulanate 125 mg tablet 07/25 completed Not Available Not Available Not Available amoxicillin 500 mg-potassiu m clavulanate 125 mg tablet 07/25 completed Not Available Not Available Not Available metaxalone 800 mg tablet active Not Available Not Available Not Available Novolog Mix 70-30 U-100 Insulin 100 unit/mL subcutaneou s solution 24 units am, 32 units pm 06/02 completed Not Available Not Available Not Available Novolog FlexPen U-100 Insulin aspart 100 unit/mL (3 mL) subcutaneou s 06/02 completed Not Available Not Available Not Available Ciprodex 0.3 %-0.1 % ear drops,suspe nsion active Not Available Not Available Not Available cholestyram ine (with sugar) 4 gram powder for susp in a packet 06/02 completed Not Available Not Available Not Available metoprolol tartrate 25 mg tablet TAKE 1 TABLET BY MOUTH TWICE A DAY completed Not Available Not Available Not Available nitrofurant oin monohydrate /macrocryst als 100 mg capsule TAKE 1 CAPSULE BY MOUTH EVERY 12 HOURS FOR 5 DAYS WITH FOOD completed Not Available Not Available Not Available BD Ultra-Fine Mini Pen Needle 31 gauge x 16 07/07 completed Not Available Not Available Not Available Pen Needle 31 gauge x 1/4 07/07 completed Not Available Not Available Not Available chlorhexidi ne gluconate 0.12 % mouthwash active Not Available Not Available No t Available BD Insulin Syringe Ultra-Fine (half unit) 0.3 mL 31 gauge x 04/16 completed Not Available Not Available Not Available BD Ultra-Fine Short Pen Needle 31 gauge x 04/16 completed Not Available Not Available Not Available Zostavax (PF) 19,400 unit/0.65 mL subcutaneou s suspension active Not Available Not Available N ot Available Lantus Solostar U-100 Insulin 100 unit/mL (3 mL) subcutaneou s pen 10 units qhs 06/02 completed Not Available Not Available Not Available Humalog KwikPen (U-100) Insulin 100 unit/mL subcutaneou s 12/23 completed Not Available Not Available Not Available fenofibric acid (choline) 135 mg capsule,del ayed release TAKE ONE CAPSULE BY MOUTH ONCE DAILY active Not Available Not Available No t Available Tradjenta 5 mg tablet TAKE 1 TABLET BY MOUTH EVERY MORNING 04/23 completed Not Available Not Available Not Available Accu-Chek Alyssa Plus test strips 07/07 completed Not Available Not Available Not Available vitamin E (dl, acetate) 90 mg (200 unit) capsule Take 1 capsule every day by oral route. 2024 active Not Available Not Available Not Avai lable Myrbetriq 25 mg tablet,exte nded release TAKE 1 TABLET BY MOUTH EVERY DAY completed Not Available Not Available Not Available Myrbetriq 50 mg tablet,exte nded release TAKE 1 TABLET BY MOUTH EVERYDAY AT BEDTIME 10/28 completed Not Available Not Available Not Available Farxiga 10 mg tablet TAKE 1 TABLET BY MOUTH EVERY DAY 04/23 completed Not Available Not Available Not Available potassium chloride ER 20 mEq tablet,exte nded release TAKE 1 TABLET BY MOUTH EVERY DAY WITH FOOD completed Not Available Not Available Not Available Jardiance 10 mg tablet TAKE 1 TABLET BY MOUTH ONCE DAILY. 10/28 completed Not Available Not Available Not Available Trulicity 1.5 mg/0.5 mL subcutaneou s pen injector 1.5 MG (0.5 ML) SUBCUTANE OUSLY WEEKLY completed Not Available Not Available Not Available Trulicity 0.75 mg/0.5 mL subcutaneou s pen injector INJECT 0.75MG UNDER THE SKIN ONCE WEEKLY completed Not Available Not Available Not Available Tresiba FlexTouch U-200 insulin 200 unit/mL (3 mL) subcutaneou s pen 06/30 completed Not Available Not Available Not Available Humulin R U-500 (Conc) Insulin Kwikpen 500 unit/mL (3 mL) subcutaneou s PLEASE SEE ATTACHED FOR DETAILED DIRECTION S active Not Available Not Available No t Available BD Ultra-Fine Micro Pen Needle 32 gauge x 1/4 USE 1 NEEDLE 3 TIMES A DAY DIRECTED 01/22 completed Not Available Not Available Not Available Bydureon BCise 2 mg/0.85 mL subcutaneou s auto-inject or Inject 2 mg every week by subcutane ous route at dinner for 90 days. completed Not Available Not Available Not Available FreeStyle Dawit 14 Day Sensor kit USE TO CHECK BLOOD SUGARS active Not Available Not Available No t Available BD Rebeca 2nd Gen Pen Needle 32 gauge x 5/32 USE TO TEST 4 TIMES EACH DAY 01/21 completed Not Available Not Available Not Available Gvoke HypoPen 2-Pack 1 mg/0.2 mL subcutaneou s auto-inject or INJECT 1MG UNDER THE SKIN A SINGLE DOSE. MAY REPEAT ONCE AFTER 15 MINS IF NO RESPONSE 04/23 completed Not Available Not Available Not Available FreeStyle Dawit [facility] active Not Available Not Available Not Available Mounjaro 2.5 mg/0.5 mL subcutaneou s pen injector active Not Available Not Available Not Available FreeStyle Dawit 3 Sensor device CHANGE EVERY 15 DAYS active Not Available Not Available No t Available FreeStyle Dawit 3 [facility] USE DIRECTED active Not Available Not Available No t Available Vitals Date Recorded Heart rate Respiratory rate Provider N steven and Address Organization Details Last Updated DateTime 01/28/2025 81 /min 15 /min Tyler Curtis MD [address] [facility], [facility] [address], [address], [facility] [email or web address] 01/28/2025 15:19:37 Date Recorded Body height Body mass index (BMI) Body weight Body temperature Heart rate Oxygen saturation Oxygen saturation in Arterial blood by Pulse oximetry Systolic And Diastolic Provider Name and Address Organization Details Last Updated DateTime 187.96 cm 36.1 kg/m2 847401. 46 g 98.1 [degF] 81 /min 97 % 97 % 112/74 mm[Hg] Carmen Castorena MA [facility] 15:17:25 Date Recorded Body height Body mass index (BMI) Body weight Pain severity - 0-10 verbal numeric rating [Score] - Reported Provider Name and Address Organization Details Last Updated DateTime 04/23/2025 187.96 cm 33.5 kg/m2 023066.61 g 8 NIMESH Reese [facility] 04/23/2025 10:33:17 Date Recorded Body height Body mass index (BMI) Body weight Provider Name and Address Organization Details Last Updated DateTime 05/05/2025 187.96 cm 33.5 kg/m2 284148.61 g Sharon MICKIE Conrad [facility] 05/05/2025 15:27:29 Date Recorded Body height Body mass index (BMI) Body weight Pain severity - 0-10 verbal numeric rating [Score] - Reported Provider Name and Address Organization Details Last Updated DateTime 05/25/2025 187.96 cm 33.5 kg/m2 521269.61 g 0 JailynNIMESH Andrews [facility] 05/25/2025 14:09:00 Date Recorded Heart rate Respiratory rate Provider N steven and Address Organization Details Last Updated DateTime 10/28/2024 79 /min 14 /min Tyler Curtis MD [address] [place] [address], [address], [facility] 10/28/2024 10:58:38 Date Recorded Body height Body mass index (BMI) Body weight Heart rate Oxygen saturation Oxygen saturation in Arterial blood by Pulse oximetry Body temperature Systolic And Diastolic Provider Name and Address Organization Details Last Updated DateTime 187.96 cm 36.2 kg/m2 981502. 05 g 79 /min 97 % 97 % 97.9 [degF] 130/64 mm[Hg] Carmen Castorena MA [facility] 4 10:13:21 Social History Question Answer Notes LastModified by Organizat ion Details LastModified Time Tobacco Smoking Status Never Smoker Not Available [facility] 01/30/2023 04:05:52 Are You Blind Or Do You Have Difficulty Seeing? No [id number] Information not available 01/30/2023 What Is Your Level Of Caffeine Consumption? Heavy [id number] Information not available 01/30/2023 How Much Tobacco Do You Chew? None [id number] Information not available 01/30/2023 In The 14 Days Before Symptom Onset, Have You Had Close Contact With A Laboratory-confir med COVID-19 While That Case Was Ill? No [id number] Information not available 01/30/2023 In The 14 Days Before Symptom Onset, Have You Had Close Contact With A Person Who Is Under Investigation For COVID-19 While That Person Was Ill? No [id number] Information not available 01/30/2023 Are You Deaf Or Do You Have Serious Difficulty Hearing? No [id number] Information not available 01/30/2023 Which Illicit Or Recreational Drugs Have You Used? None [id number] Information not available 01/30/2023 Do You Have An Electrostatic Air Filter? No Information not available 01/30/2024 Do You Have A Humidifier? No Information not available 01/30/2024 Where Do You Live? SingleLevelHouse Information not available 01/30/2024 Do You Have Moisture Problems In Your Home? No Information not available 01/30/2024 What Was The Date Of Your Most Recent Tobacco Screening? 01/28/2025 [email or web address] Information not available 01/28/2025 Do You Have Any Pets? No Information not available 01/30/2024 What Is Your Relationship Status? [id number] Information not available 01/30/2023 Do You Use Your Seat Belt Or Car Seat Routinely? Yes Information not available 01/30/2024 Do You Have Smoke And Carbon Monoxide Detectors In Your Home? Yes Information not available 01/30/2024 Are You Passively Exposed To Smoke? No Information no t available 01/30/2024 Do You Use Sunscreen Routinely? No Information not available 01/30/2024 Have You Recently Traveled Abroad? No [id number] Information not available 01/30/2023 Do You Have Difficulty Walking Or Climbing Stairs? No [id number] Information not available 01/30/2023 Sex: Male Functional Status Question Answer Note LastModified by Organizat ion Details LastModified Time Do you use any illicit or recreational drugs? No Information not available 01/30/2024 What is your level of alcohol consumption? None [id number] Information not available 01/30/2023 Do you or have you ever used smokeless tobacco? Never used smokeless tobacco [id number] Information not available 01/30/2023 Have you been exposed to chemicals or toxins? Not that aware of Information not available 01/30/2024 Do you have transportation difficulties? No [id number] Information not available 01/30/2023 Are you able to walk independently without assistance or assistive devices? YESWOREST [id number].[id number] Information not available 01/30/2023 Do you have difficulty doing errands alone? No [id number] Information not available 01/30/2023 Are you able to care for yourself independently? Yes [id number] Information not available 01/30/2023 What is your occupation? retired [id number] Information not available 01/30/2023 Do you have difficulty dressing, bathing, grooming, or toileting? No [id number] Information not available 01/30/2023 Do you or have you ever used e-cigarettes or vape? Never used electronic cigarettes [id number] Information not available 01/30/2023 Mental Status Question Answer Note LastModified by Organizat ion Details LastModified Time Do you feel stressed (tense, restless, nervous, or anxious, or unable to sleep at night)? [id number] Information not available 01/30/2024 Do you have difficulty concentrating, remembering or making decisions? No [id number] Information not available 01/30/2023 Family History Relationship Description Onset Age of this Age Resolved Age Notes LastModified by Organization Details LastModified Time Sister Diabetes mellitus [id number] Not available 01/30/2023 04:31:00 Sister Hypertensive disorder [id number] Not available 01/30/2023 04:31:00 Mother Hypertensive disorder [email or web address] Not available 2023 20:01:22 Mother Cerebrovascu lar accident [email or web address] Not available 20:01:39 Father Asthma [email or web address] Not available 20:01:51 Father Myocardial infarction [email or web address] Not available 01/22 20:02:00 Medical History Condition Response ARTHRITIS Y GI PROBLEMS Y OBESITY Y GERD/NAUSEA Y ANEURYSM Y DIABETES, TYPE Y HYPERTENSION Y HIGH CHOLESTEROL / HYPERLIPIDEMIA Y Immunizations Vaccine Type Date Status Note Provider Nam brinda and Address Organization Details Recorded Time zoster live 10/30/2013 completed Not Available [facility] 01/30/2023 04:44:30 Influenza, split virus, trivalent, PF 11/10/2014 completed Not Available [facility] 2022 04:44:31 Past Encounters Encounter ID Performer Location Encounter Start Date Encounter Closed Date Diagnosis/Indication Diagnosis SNOMED-CT Code Diagnosis ICD10 Code Diagnosis IMO Codes Diagnosis Note Trini Parnell MD _CARLOS IGRATION_ DEFAULT_1 _1 , 03/30/2021 00:00:00 03/30/2021 16:51:53 [id number] Tyler Curtis MD [facility] [address] 07/11/2021 00:00:00 07/11/2021 15:36:07 [id number] Tyler Curtis MD [facility] [address] 07/25/2021 00:00:00 07/25/2021 16:13:37 [id number] Tyler Curtis MD [facility] [address] [address] 08/21/2021 00:00:00 08/21/2021 14:54:48 [id number] MD ROSHNI Roa IGRATION_ DEFAULT_1 _1 , 10/12/2021 00:00:00 10/12/2021 16:05:09 [id number] [facility] [place] [address] [place] [address] 05/10/2022 00:00:00 05/10/2022 14:51:27 [id number] [facility] [place] [address] [place] [address] 06/14/2022 00:00:00 06/18/2022 09:00:59 [id number] Tyler Curtis MD [facility] [address] [address] 01/30/2024 14:37:45 02/04/2024 08:28:46 Dyspnea on exertion 74239897 R06.09 R05.9 Obstructiv e sleep apnea syndrome [id number] G47.33 G47.61 G47.37 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.61 D50.8 E83.42 [id number] Tyler Curtis MD [place] [address] 10/28/2024 09:38:21 10/28/2024 17:31:42 Dyspnea on exertion 82662145 R06.09 R05.9 Obstructiv e sleep apnea syndrome 40885377 G47.33 G47.61 G47.37 Hypomagnesemia 789662368 E83.42 Vitamin E deficiency 541 88003 E56.0 Vitamin B1 2 deficiency (non anemic) 23833963 E53.8 [id number] Tyler Curtis MD [address] [address] 01/28/2025 14:56:30 01/28/2025 15:53:59 Dyspnea on exertion 09804574 R06.09 R05.9 Obstructiv e sleep apnea syndrome 84758229 G47.33 G47.61 G47.37 Hypomagnesemia 542623516 E83.42 Vitamin E deficiency 541 04332 E56.0 Vitamin B1 2 deficiency (non anemic) 09717435 E53.8 [id number] Yelena Rubio MD [facility] [place] [address] [place] [address] 04/23/2025 10:01:03 04/23/2025 11:14:59 Closed fracture of distal fibula 125552445 S82.832D [id number] Yelena Rubio MD [facility] [place] [address] [place] [address] 05/05/2025 15:16:46 05/05/2025 16:32:39 Pain in left foot [id number] 80710 M79.672 [id number] Closed fra cture of distal fibula 443877255 S82.832D 98009741 [id number] Yelena Rubio MD [facility] [place] [address] [facility] [place] [address] 05/25/2025 14:07:39 05/25/2025 14:26:00 Pain in left foot 7846168982 72360 M79.672 [id number] Closed fra cture of lower leg 221074952 S82.832D [id number] Health Concerns Section Related Observation LastModified by Organization Detai ls LastModified Time None Recorded Concern Status LastModified by Organization Details LastModified Time None Recorded Advance Directives Directive None Recorded Payers Insurance Date Sequence Insurance Name Policy Number Policy Hargrove Covered Member ID Hargrove Member ID Guarantor Name 07/23/2025 1 [employer] - PRIME (MEDICARE REPLACEMENT/ ADVANTAGE - HMO) [id number] Gordo Hale [id number] Gordo Hale 04/21/2025 1 [employer] (MEDICARE REPLACEMENT/ ADVANTAGE - HMO) Gordo Hale [id number] Gordo Hale Notes Date Note Type Note Provider Name and Address Organization Details Recorded Time 10/28/2024 text/html Primary care/Referring provider: Yelena Rodríguez, DOPatient is here to go over his shortness of breath evaluation/management. Initial development of shortness of breath: 2016Duration of shortness of breath: 8 yearsCondition of shortness of breath: improvedTiming of shortness of breath: afternoonFrequency: up to 5 times a dayLimits activities: yesAggravating factors: walking, bending overAlleviating factors: restModified [employer] [place] (mMRC) Dyspnea Scale - Grade 1Grade 0 I only get breathless with strenuous exercise .Grade 1 I get short of breath when hurrying on the level or walking up a slight hill .Grade 2 I walk slower than people of the same age on the level because of breathlessness or have to stop for breath when walking at my own pace on the level .Grade 3 I stop for breath after walking about 100 yards or after a few minutes on the level .Grade 4 I am too breathless to leave the house or I am breathless when dressing .Treatment history:NoneOther symptoms:Productive cough: noWheezing: noChest tightness: yesOrthopnea: noFrequent throat clearing or swallowing: noPalpitations: yesHeartburn: noDysphagia: noEdema: noEnvironmental exposures:Nicotine smoke: neverPaint: noDye: noDust mites: yesMold: noDamp basement: noWood burning stove: noAnimal dander: noCockroaches: noPollen: yesArsenic: noAsbestos: noBeryllium: noCadmium: noChromium: noCoal smoke: noDiesel fumes: noNickel: noSilica: noSoot: no During the [place] sleep study on 01/08/24, AHI = 65, REM AHI = 80, supine AHI = 101, PLMI = 44. During the [place] titration sleep study on 02/10/24 ResMed AirTouch F20 full face mask was applied but no ideal pressure was reached, Patient may need BPAP ASV. During the [facility] titration sleep study on 10/21/24, sleep onset = 13.5 minutes, REM onset = 115.5minutes, PLMI = 24. The patient uses a ResMed AirSense 11 autoset unit with heated humidification. The patient does not need the ramp to start low and go up slowly on the pressure. There is no xerostomia in a.m. There is no hose/mask condensation with water. The patient wears a [employer] medium Vitera full face mask with chin strap. There is no claustrophobia, no nostril/nose bridge irritation, no facial rash, no facial numbness, no nosebleeding. The patient feels more refreshed upon waking and daytime alertness is improved. Energy levels are sustained for the remainder of the day. At home, the patient sleeps from 1 am to 1 pm and wakes up without an alarm.Snoring: heavy, since 1970s.Snorting: noChoking: noCoughing: noGasping: noGagging: noSighing: noWitnessed apnea: yesTwitching or jerking of leg(s), arm(s), body, head: yesTeeth grinding: n/aTeeth clenching: n/aSleeptalking: noSleepwalking: noSleep crying: noBedwetting: noTongue/lip/gum/cheek biting: noSleeping with open mouth: yesSleep paralysis: noHypnagogic hallucinations: noHypnopompic hallucinations: yes sees someone in doorway, hears his wifeVivid dreams: yesDifficulty with sleep onset: noDifficulty with sleep maintenance: yesSleep interruptions: nocturiaPatient wakes up with: fatigue, xerostomia, sore throat, headache, mobility impairment, dexterity impairmentDaytime cataplexy: noMorning hypersomnolence: noAfternoon hypersomnolence: yesCaffeine sources in diet: tea 1 gallon per day, soda 3 bottles per day, chocolate 3 candies per dayAssociated medical and psychiatric conditions:Congestive heart failure: noCoronary artery disease: noMyocardial infarction: noHypertension: yesStroke: noBronchial asthma: noChronic obstructive pulmonary disease: noDepression: yesBipolar disorder: noAnxiety: noPanic disorder: noPosttraumatic stress disorder: noAttention deficit and hyperactivity disorder: noObsessive Compulsive disorder: noSchizophrenia: noSchizoaffective disorder: noPersonality disorder: noChronic analgesic use: noChronic sedative/hypnotic use: noEPWORTH SLEEPINESS SCALE (ESS)CHANCE OF DOZING SCORE0 = would never doze1 = slight chance of dozing2 = moderate chance of dozing3 = high chance of dozingSITUATION AND CHANCE OF DOZINGSitting and reading - 3Watching television - 3Sitting inactive in a public place (e.g. a theater or meeting) - 3As a passenger in a car for an hour without a break - 2Lying down to rest in the afternoon when circumstances permit - 3Sitting and talking to someone - 1Sitting quietly after lunch without alcohol - 3In a car, while stopped for a few minutes in the traffic - 1TOTAL SCORE 19Subjectively, patient has a high chance of dozing. Tyler Curtis MD [address] [place] [address], [place] [address], [place], [address], [place] [facility] [employer] [facility] [email or web address] 10/28/2024 11:16:48 01/28/2025 text/html Primary care/Referring provider: Yelena Rodríguez, DOPatient is here to go over his shortness of breath evaluation/management. Initial development of shortness of breath: 2016Duration of shortness of breath: 9 yearsCondition of shortness of breath: improvedTiming of shortness of breath: afternoonFrequency: up to 4 times a dayLimits activities: yesAggravating factors: walking, bending overAlleviating factors: restModified [employer] [place] (mMRC) Dyspnea Scale - Grade 1Grade 0 I only get breathless with strenuous exercise .Grade 1 I get short of breath when hurrying on the level or walking up a slight hill .Grade 2 I walk slower than people of the same age on the level because of breathlessness or have to stop for breath when walking at my own pace on the level .Grade 3 I stop for breath after walking about 100 yards or after a few minutes on the level .Grade 4 I am too breathless to leave the house or I am breathless when dressing .Treatment history:NoneOther symptoms:Productive cough: noWheezing: noChest tightness: yesOrthopnea: noFrequent throat clearing or swallowing: noPalpitations: yesHeartburn: noDysphagia: noEdema: noEnvironmental exposures:Nicotine smoke: neverPaint: noDye: noDust mites: yesMold: noDamp basement: noWood burning stove: noAnimal dander: noCockroaches: noPollen: yesArsenic: noAsbestos: noBeryllium: noCadmium: noChromium: noCoal smoke: noDiesel fumes: noNickel: noSilica: noSoot: no During the [place] sleep study on 01/08/24, AHI = 65, REM AHI = 80, supine AHI = 101, PLMI = 44. During the [place] titration sleep study on 02/10/24 ResMed AirTouch F20 full face mask was applied but no ideal pressure was reached, Patient may need BPAP ASV. During the [facility] titration sleep study on 10/21/24, sleep onset = 13.5 minutes, REM onset = 115.5 minutes. PLMI = 24 and he is on magnesium, Vit B12 and Vit E supplements. The patient uses a ResMed AirSense 11 autoset unit with heated humidification. The patient does not need the ramp to start low and go up slowly on the pressure. There is no xerostomia in a.m. There is no hose/mask condensation with water. The patient wears a [employer] medium Vitera full face mask with chin strap. There is no claustrophobia, no nostril/nose bridge irritation, no facial rash, no facial numbness, no nosebleeding. The patient feels more refreshed upon waking and daytime alertness is improved. Energy levels are sustained for the remainder of the day. At home, the patient sleeps from 1 am to 1 pm and wakes up without an alarm.Snoring: heavy, since 1970s.Snorting: noChoking: noCoughing: noGasping: noGagging: noSighing: noWitnessed apnea: yesTwitching or jerking of leg(s), arm(s), body, head: yesTeeth grinding: n/aTeeth clenching: n/aSleeptalking: noSleepwalking: noSleep crying: noBedwetting: noTongue/lip/gum/cheek biting: noSleeping with open mouth: yesSleep paralysis: noHypnagogic hallucinations: noHypnopompic hallucinations: yes sees someone in doorway, hears his wifeVivid dreams: yesDifficulty with sleep onset: noDifficulty with sleep maintenance: yesSleep interruptions: nocturiaPatient wakes up with: fatigue, xerostomia, sore throat, headache, mobility impairment, dexterity impairmentDaytime cataplexy: noMorning hypersomnolence: noAfternoon hypersomnolence: yesCaffeine sources in diet: tea 1 gallon per day, soda 3 bottles per day, chocolate 3 candies per dayAssociated medical and psychiatric conditions:Congestive heart failure: noCoronary artery disease: noMyocardial infarction: noHypertension: yesStroke: noBronchial asthma: noChronic obstructive pulmonary disease: noDepression: yesBipolar disorder: noAnxiety: noPanic disorder: noPosttraumatic stress disorder: noAttention deficit and hyperactivity disorder: noObsessive Compulsive disorder: noSchizophrenia: noSchizoaffective disorder: noPersonality disorder: noChronic analgesic use: noChronic sedative/hypnotic use: noEPWORTH SLEEPINESS SCALE (ESS)CHANCE OF DOZING SCORE0 = would never doze1 = slight chance of dozing2 = moderate chance of dozing3 = high chance of dozingSITUATION AND CHANCE OF DOZINGSitting and reading - 3Watching television - 3Sitting inactive in a public place (e.g. a theater or meeting) - 3As a passenger in a car for an hour without a break - 1Lying down to rest in the afternoon when circumstances permit - 3Sitting and talking to someone - 1Sitting quietly after lunch without alcohol - 3In a car, while stopped for a few minutes in the traffic - 0TOTAL SCORE 17Subjectively, patient has a high chance of dozing. Tyler Curtis MD [address] [place] [address], [address], [place] - [facility] 01/29/2025 14:14:08
== END 2025-10-07 20:26 | disposition home or self-care (01) ==
PROVIDERS: Physician Assistant; Emergency Provider Student in an Organized Health Care Education/Training Program; PCP Nurse Practitioner
DX: T81.31XA Disruption of external operation (surgical) wound, not elsewhere classified, initial encounter (principal); E11.65 Type 2 diabetes mellitus with hyperglycemia; R81 Glycosuria; E87.6 Hypokalemia; E83.42 Hypomagnesemia; K52.9 Noninfective gastroenteritis and colitis, unspecified; E11.22 Type 2 diabetes mellitus with diabetic chronic kidney disease; I13.0 Hypertensive heart and chronic kidney disease with heart failure and stage 1 through stage 4 chronic kidney disease, or unspecified chronic kidney disease; I50.20 Unspecified systolic (congestive) heart failure; N18.30 Chronic kidney disease, stage 3 unspecified; I25.10 Atherosclerotic heart disease of native coronary artery without angina pectoris; I25.2 Old myocardial infarction; E11.43 Type 2 diabetes mellitus with diabetic autonomic (poly)neuropathy; E78.00 Pure hypercholesterolemia, unspecified; E78.1 Pure hyperglyceridemia; N40.0 Benign prostatic hyperplasia without lower urinary tract symptoms; N32.81 Overactive bladder; K21.9 Gastro-esophageal reflux disease without esophagitis; G47.33 Obstructive sleep apnea (adult) (pediatric); L40.9 Psoriasis, unspecified; M10.9 Gout, unspecified; M19.90 Unspecified osteoarthritis, unspecified site; F41.9 Anxiety disorder, unspecified; Z66 Do not resuscitate; Z95.5 Presence of coronary angioplasty implant and graft; Z96.653 Presence of artificial knee joint, bilateral; Z86.14 Personal history of Methicillin resistant Staphylococcus aureus infection; Z87.442 Personal history of urinary calculi; Z86.0100 Personal history of colon polyps, unspecified; Z86.19 Personal history of other infectious and parasitic diseases; Y83.6 Removal of other organ (partial) (total) as the cause of abnormal reaction of the patient, or of later complication, without mention of misadventure at the time of the procedure; Z90.49 Acquired absence of other specified parts of digestive tract; Z98.49 Cataract extraction status, unspecified eye; Z79.82 Long term (current) use of aspirin; Z79.899 Other long term (current) drug therapy; Z79.02 Long term (current) use of antithrombotics/antiplatelets; Z79.4 Long term (current) use of insulin; Z79.84 Long term (current) use of oral hypoglycemic drugs
CPT/HCPCS: 36415; 74177; 80053; 81001; 83605; 83690; 83735; 85014; 85018; 85025; 85610; 85730; 96365; 96375; 99284; A9270; J1885; J3475; Q9967

== ENCOUNTER 2025-11-02 20:08 | Emergency (ER) | payer MEDICARE, SELFPAY ==
--- NOTE | ~2025-11-02 | XR_ITS ---
X-ray pelvis 1-2 views COMPARISON: None INDICATION: Fall, pain FINDINGS: [No pelvic fracture is evident.] [The joint spaces are preserved.] [The lower lumbar spine is unremarkable.] IMPRESSION: 1. [No fracture is evident in the pelvis.] Reviewed, dictated and finalized at location S. EDGER
--- NOTE | ~2025-11-02 | XR_ITS ---
XR knee RT 3V INDICATION: fall . COMPARISON: None. FINDINGS: Frontal, lateral and oblique views of the right knee demonstrate no acute fracture or dislocation. There is no joint effusion. The arthroplasty is noted. Components are well-seated. IMPRESSION: Radiographic examination of the right knee demonstrates no acute fracture or dislocation. Reviewed, dictated and finalized at location S. ING MACHINE OPERATOR IMPRESSION: Radiographic examination of the right knee demonstrates no acute fracture or di slocation.
--- NOTE | ~2025-11-02 | XR_ITS ---
XR foot LT 2V INDICATION: pain COMPARISON: None FINDINGS: Two views of the left foot demonstrate no acute fracture or dislocation. Degenerative calcaneal spurs are noted. IMPRESSION: No acute fracture or dislocation. Reviewed, dictated and finalized at location S. METRIST OWNER
--- NOTE | ~2025-11-02 | XR_ITS ---
XR foot RT 2V INDICATION: fall . COMPARISON: None. FINDINGS: Frontal, lateral and oblique views of the right foot were obtained. There is no acute fracture or dislocation. There are degenerative calcaneal spurs. IMPRESSION: Radiographic examination of the right foot demonstrates no acute fracture or dislocation. Reviewed, dictated and finalized at location S. EDITED FARM MANAGER IMPRESSION: Radiographic examination of the right foot demonstrates no acute fracture or di slocation.
--- NOTE | ~2025-11-02 | XR_ITS ---
XR knee LT 3V INDICATION: fall . COMPARISON: None. FINDINGS: Frontal, lateral and oblique views of the left knee demonstrate no acute fracture or dislocation. Knee revision is noted. Components are well- seated. There is a suprapatellar joint effusion. IMPRESSION: Radiographic examination of the left knee demonstrates no acute fracture or dislocation. Reviewed, dictated and finalized at location S. KISS SETTER IMPRESSION: Radiographic examination of the left knee demonstrates no acute fracture or dis location.
--- NOTE | ~2025-11-02 | XR_ITS ---
XR chest 1V INDICATION:. 75 years Male fall COMPARISON: None FINDINGS: A single view of the chest demonstrates normal heart size. The lungs are clear. There is no evidence of pneumothorax or pleural effusion. IMPRESSION: No acute pulmonary findings. Reviewed, dictated and finalized at location S. T ATTENDANT
--- NOTE | ~2025-11-02 | XR_ITS ---
XR elbow LT min 3V INDICATION: pain COMPARISON: None FINDINGS: Frontal, lateral and oblique views of the [left elbow demonstrate no acute fracture or dislocation. IMPRESSION: No acute fracture or dislocation. Reviewed, dictated and finalized at location S. UP WORKER
[2025-11-02 20:09] VITALS: BP 150/89; PULSE 80; RESP 23; TEMP 36.9; O2SAT 98
[2025-11-02] MEDS: ACETAMINOPHEN 500 MG TABLET 1000 MG PO (21:55)
--- NOTE | 2025-11-02 23:58 | ED.FALL ---
HPI - Fall General Chief Complaint: Fall Stated Complaint: ALL OVER BODY PAIN S/P GLF Time Seen by Provider: 11/02/25 23:26 Source: patient Mode of arrival: ambulatory Limitations: no limitations History of Present Illness HPI Narrative: This is a 75 year old male that presents to the ER after a fall today. Reports he was bent over forward and a chair slipped out from under him. This caused him to fall forward. He did not hit his head or lose consciousness. Reports left elbow pain, bilateral knee pain, bilateral feet pain. Denies vision changes, vomiting, numbness, weakness. Related Data Home Medications ?Medication ?Instructions ?Recorded ?Confirmed ?Last Taken ?Type mecobalamin (vitamin B12) 5,000 5,000 mcg PO WEEKLY 02/01/25 09/14/25 Unknown History mcg chewable tablet aspirin 81 mg tablet 81 mg PO DAILY 04/30/25 09/14/25 Unknown History finasteride 5 mg tablet 5 mg PO DAILY 04/30/25 09/14/25 Unknown History amlodipine 5 mg tablet 5 mg PO DAILY 05/17/25 09/14/25 Unknown History famotidine 10 mg tablet (Pepcid AC) 10 mg PO DAILY 08/20/25 09/14/25 Unknown History magnesium 200 mg tablet 400 mg PO DAILY 08/20/25 09/14/25 Unknown History naproxen 500 mg tablet (Naprosyn) 500 mg PO BID PRN 08/20/25 09/14/25 Unknown History vitamin E (dl, acetate) 180 mg 180 mg PO DAILY 08/20/25 09/14/25 Unknown History (400 unit) capsule Allergies Allergy/AdvReac Type Severity Reaction Status Date / Time Cephalosporins Allergy Unknown SHORTNESS Verified 11/02/25 20:16 OF BREATH,Dyspnea / SOB morphine Allergy Unknown Jittery Verified 11/02/25 20:16 nitroglycerin Allergy Unknown HEART RATE Verified 11/02/25 20:16 GOES DOWN FAST,Unknown oxycodone Allergy Unknown Confusion,F Verified 11/02/25 20:16 atigued amoxicillin AdvReac Dyspnea / Verified 11/02/25 20:16 SOB clavulanic acid AdvReac Dyspnea / Verified 11/02/25 20:16 SOB cyclobenzaprine AdvReac Stopped Verified 11/02/25 20:16 Breathing hydrocodone AdvReac Confusion Verified 11/02/25 20:16 lisinopril AdvReac Unknown Verified 11/02/25 20:16 norepinephrine AdvReac Unknown Verified 11/02/25 20:16 Sulfa (Sulfonamide AdvReac Dyspnea / Verified 11/02/25 20:16 Antibiotics) SOB Review of Systems Review of Systems: All systems reviewed & are unremarkable except as noted in HPI and below PMFSH Past Medical History Medical History Peripheral sensory neuropathy due to type 2 diabetes mellitus Closed fracture of left distal fibula Obstructive sleep apnea Hyperlipidemia Overactive bladder BPH (benign prostatic hyperplasia) Gout Diabetic autonomic neuropathy History of esophageal stricture Diabetic peripheral neuropathy Hypertriglyceridemia Myocardial infarction Methicillin resistant Staphylococcus aureus infection (2014) Psoriasis Obstructive sleep apnea Intolerant to CPAP Gastroesophageal reflux disease Heart failure with reduced ejection fraction With EF of 45% in January of 2023 and echocardiogram in April 2023 showing normal EF 55-60% Chronic kidney disease, stage 3 Coronary artery disease Insulin dependent diabetes mellitus SBO (small bowel obstruction) Multiple bowel obstructions as far back as 2012 in the records Coarctation of aorta Anxiety Arthritis Depression Hepatitis B Kidney stone Peripheral neuropathy Rectal polyp Hypercholesterolemia Hypertension Surgical History Surgical History History of resection of small bowel 2014 exploratory laparotomy for SBO that resulted in adhesiolysis and jejunal small bowel resection History of repair of rotator cuff S/P dilatation of esophageal stricture November [address] Trejo and likely more recent in January 2023 but this cannot be confirmed History of tonsillectomy History of arthroscopy of both knees History of bilateral knee replacement Right knee 2019 History of colonoscopy with polypectomy History of hernia repair History of cholecystectomy History of appendectomy History of partial colectomy (09/2015) Secondary to bowel obstruction with recurrence requiring exploratory laparotomy and lysis of adhesions 03/28/2000 History of aortic coarctation repair (1964) History of coronary artery stent placement History of cardiac catheterization Catheterization 2013 unremarkable, Cardiac catheterization June 2022 distal obtuse marginal stenosis 90% no stent placed and January 2023 at [facility] demonstrating severe disease diagonal and LAD 2.5 x 22 mm stent in the diagonal, transferred to [facility] with stent 01/18/2023 4.5 x 24 mm synergy DWAYNE placed in the LAD History of hemorrhoidectomy History of arthroscopy of left shoulder With removal of bone spur. History of cataract surgery History of bilateral carpal tunnel release Family History Family History Sibling Family history of thyroid disease Hypertension Family history of diabetes mellitus in first degree relative Family history of obesity Diabetes mellitus Mother Hypertension Family history of diabetes mellitus in first degree relative Family history of thyroid disease Family history of osteoporosis Patient's mother is in good health Cerebrovascular accident Family history of Alzheimer's disease Family history of hearing loss Family history of transient ischemic attacks Father Asthma Patient's father is Family history of chronic obstructive pulmonary disease Acute myocardial infarction Family history of lung disease, Onset Age: 64 Social History Social History Social History: Caffeine-decaf tea Surrogate medical decision maker: Doreen Yepez, daughter. Code status: DNR/DNI per patient report request. Smoking status: Never smoker Second hand tobacco smoke exposure: No Alcohol intake: never Substance use: never Substance use type: does not use Lack of Transportation: No Lack of Food: Never True Current Housing: I Have Housing Concerned About Future Housing: No Difficulty Paying Gas/Electric Bills: No Difficulty Paying for Meds: No Currently Unemployed: No Education: High School Diploma/GED Difficulty w/ Childcare or Family Care: No Living arrangements: alone Additional living arrangements comments: The patient has been since 2020. He lives alone. He has 1 daughter and 1 son. Moving in to assisted living end of 2024/beginning 2025. Occupation/Education: retired Additional occupation/education comments: He is retired from [employer]. Spiritual care concerns: No Exam Narrative: GENERAL: Well-appearing, well-nourished, and in no acute distress. HEAD: Normocephalic, atraumatic. EYES: PERRLA and EOMI. ENT: Nares clear, no rhinorrhea or epistaxis. Mucous membranes moist. Oropharynx without tonsillar hypertrophy exudate or other lesions. NECK: Supple. No adenopathy or masses. CHEST: Clear to auscultation. No respiratory distress. No wheezes rales or rhonchi HEART: Regular rate and rhythm. No murmur heard. Normal peripheral pulses. ABDOMEN: Soft, nontender, nondistended, normal active bowel sounds. EXTREMITIES: Normal range of motion. No edema or obvious deformity. SKIN: Warm, dry, no rash. NEURO: No focal deficits. Alert and oriented x3. PSYCH: Normal mood and affect Course Vital Signs Vital signs: Vital Signs Temperature 98.4 F 11/02/25 20:09 Pulse Rate 80 11/02/25 20:09 Respiratory Rate 23 H 11/02/25 20:09 Blood Pressure 150/89 H 11/02/25 20:09 Pulse Oximetry 98 11/02/25 20:09 Oxygen Delivery Room Air 11/02/25 20:09 Temperature 98.4 F 11/02/25 20:09 Pulse Rate 80 11/02/25 20:09 Respiratory Rate 23 H 11/02/25 20:09 Blood Pressure 150/89 H 11/02/25 20:09 Pulse Oximetry 98 11/02/25 20:09 Oxygen Delivery Room Air 11/02/25 20:09 MDM MDM Narrative Medical decision making narrative: Patient presents to the emergency department after a ground level fall. He did not hit his head or lose consciousness. He is neurologically intact. Vitals are stable. Imaging negative for posttraumatic findings. He was updated on his workup and agrees with plan of care. He is to follow up with PCP Differential Diagnosis Differential Diagnosis: Contusion, fracture, sprain Imaging Data Radiologist's impression: ITS Impressions Elbow X-Ray 11/02/25 21:47 IMPRESSION: No acute fracture or dislocation. Foot X-Ray 11/02/25 21:48 IMPRESSION: Radiographic examination of the right foot demonstrates no acute fracture or dislocation. Chest X-Ray 11/02/25 21:49 IMPRESSION: No acute pulmonary findings. Pelvis X-Ray 11/02/25 21:49 IMPRESSION: 1. [No fracture is evident in the pelvis.] Knee X-Ray 11/02/25 21:50 IMPRESSION: Radiographic examination of the right knee demonstrates no acute fracture or dislocation. Critical Care Time Critical Care Time Critical Care Time: No Discharge Plan Discharge Clinical Impression: Fall, Contusion Patient Disposition: Home Condition: Stable Instructions: Contusion in Adults (ED) Additional Instructions: Return to the emergency department if you experience fever, chest pain, shortness of breath, abdominal pain with nausea and vomiting, weakness, numbness, or any other symptoms that are concerning to you. Rest. Ice to the area. Over the counter pain medication as needed Follow up with your primary care doctor Patient Language: Tamazight Prescriptions: No Action lidocaine HCl [Pain Relief (lidocaine)] 4 % cream 1 applic topical BID PRN (Reason: pain) Qty: 120 0RF Gvoke HypoPen 2-Pack 1 mg/0.2 mL auto-injector 1 mg subcut ONCE Qty: 2 0RF Rx Instructions: as a single dose; may repeat once after 15 minutes if no response mecobalamin (vitamin B12) 5,000 mcg tablet,chewable 5,000 mcg PO WEEKLY aspirin 81 mg tablet 81 mg PO DAILY finasteride 5 mg tablet 5 mg PO DAILY amlodipine 5 mg tablet 5 mg PO DAILY (DME) FreeStyle Dawit 3 Plus Sensor Device See Rx Instructions .Route Qty: 6 12RF Rx Instructions: once every 15 days (DME) blood-glucose meter [OneTouch Verio Flex meter] Misc See Rx Instructions .Route Qty: 1 0RF Rx Instructions: check BS 3 times daily (DME) OneTouch Verio test strips Strip See Rx Instructions .Route Qty: 100 0RF Rx Instructions: check Bs 3 times daily glucose 4 gram tablet,chewable 16 g PO Q15M PRN (Reason: hypoglycemia) Qty: 360 0RF Rx Instructions: until symptoms of low blood sugar are controlled (DME) FreeStyle Dawit 2 [place] Misc See Rx Instructions .Route Qty: 1 0RF Rx Instructions: As directed (DME) FreeStyle Dawit 3 [place] Misc See Rx Instructions .Route Qty: 1 0RF Rx Instructions: As directed clopidogrel 75 mg tablet 75 mg PO DAILY Qty: 90 3RF bacitracin [Bacitraycin Plus] 500 unit/gram ointment 1 applic topical Q8H Qty: 28 0RF (DME) lancets 33 gauge misc See Rx Instructions .ROUTE .MEDSUPPLY Qty: 100 0RF Rx Instructions: check Bs 3 times daily atorvastatin 80 mg tablet 80 mg PO QHS Qty: 90 1RF sertraline 100 mg tablet 100 mg PO DAILY Qty: 90 1RF (DME) pen needle, diabetic [BD Ultra-Fine Micro Pen Needle] 32 gauge x 1/4 needle See Rx Instructions .ROUTE .COMPLEX Qty: 300 12RF Dose Instruction: USE 3 TIMES A DAY Rx Instructions: USE 3 TIMES A DAY (DME) FreeStyle Dawit 14 Day Sensor Kit See Rx Instructions .Route Qty: 6 1RF Rx Instructions: Use to check blood sugars (DME) FreeStyle Dawit 3 [place] Misc See Rx Instructions .Route Qty: 1 0RF Rx Instructions: Use to check BS Humulin R U-500 (Conc) Kwikpen 500 unit/mL (3 mL) insulin pen See Rx Instructions subcut .twice daily Qty: 12 0RF Rx Instructions: subcutaneously TWICE DAILY; 60 units 30 minutes before breakfast and 20 units before dinner vitamin E (dl, acetate) 180 mg (400 unit) capsule 180 mg PO DAILY famotidine [Pepcid AC] 10 mg tablet 10 mg PO DAILY naproxen [Naprosyn] 500 mg tablet 500 mg PO BID PRN magnesium 200 mg tablet 400 mg PO DAILY metformin 500 mg tablet See Rx Instructions .ROUTE .COMPLEX Qty: 180 2RF Dose Instruction: TAKE 1 TABLET (500 MG) BY MOUTH TWICE A DAY Rx Instructions: TAKE 1 TABLET (500 MG) BY MOUTH TWICE A DAY Follow-up/Referrals: Veronica Bruno, MAGDALENE [Primary Care Provider, Internal Medicine]
== END 2025-11-03 00:46 | disposition home or self-care (01) ==
LOC: ANHED 11-03 00:21
PROVIDERS: Emergency Provider Physician Assistant; PCP Internal Medicine
DX: T14.8XXA Other injury of unspecified body region, initial encounter (principal); E11.22 Type 2 diabetes mellitus with diabetic chronic kidney disease; I13.0 Hypertensive heart and chronic kidney disease with heart failure and stage 1 through stage 4 chronic kidney disease, or unspecified chronic kidney disease; N18.30 Chronic kidney disease, stage 3 unspecified; I50.9 Heart failure, unspecified; E11.43 Type 2 diabetes mellitus with diabetic autonomic (poly)neuropathy; E78.00 Pure hypercholesterolemia, unspecified; I25.2 Old myocardial infarction; I25.10 Atherosclerotic heart disease of native coronary artery without angina pectoris; G47.33 Obstructive sleep apnea (adult) (pediatric); N40.0 Benign prostatic hyperplasia without lower urinary tract symptoms; L40.9 Psoriasis, unspecified; M19.90 Unspecified osteoarthritis, unspecified site; F41.9 Anxiety disorder, unspecified; F32.A Depression, unspecified; Z66 Do not resuscitate; Z96.653 Presence of artificial knee joint, bilateral; Z87.442 Personal history of urinary calculi; Z86.0100 Personal history of colon polyps, unspecified; Z95.5 Presence of coronary angioplasty implant and graft; Z90.49 Acquired absence of other specified parts of digestive tract; Z98.49 Cataract extraction status, unspecified eye; Z79.82 Long term (current) use of aspirin; Z79.899 Other long term (current) drug therapy; Z79.02 Long term (current) use of antithrombotics/antiplatelets; Z79.4 Long term (current) use of insulin; Z79.84 Long term (current) use of oral hypoglycemic drugs; W07.XXXA Fall from chair, initial encounter
CPT/HCPCS: 71045; 72170; 73080; 73562; 73620; 99284; A9270